=== PATIENT | male | born 1960 | race Caucasian/White ===

== ENCOUNTER → 2017-11-21 07:33 | Outpatient (CLI) | payer OTHER, SELFPAY ==
[2017-11-21 09:06] LABS: Absolute Lymphocyte Count 1.35 X10^3/ul (0.83-4.51); Absolute Neutrophil Count 3.2 X10^3/uL (2.0-7.7); Basophil# 0.06 X10^3/uL; Basophil% 1.2 % (0-1); Eosinophil# 0.12 X10^3/uL; Eosinophils% 2.3 % (0-5); Hemoglobin 14.6 g/dl (13.0-16.5); Lymphocyte # 1.35 X10^3/ul (4.0); Mean Corp Hgb Conc 33.2 g/gl (32-36); Mean Corpuscular Hgb 30.8 pg (27.0-32.0); Mean Corpuscular Volume 92.8 fL (80-94); Mean Platelet Vol. 10.7 fl (6.2-12.0); Monocyte# 0.41 X10^3/uL; Monocyte% 7.9 % (0-10); Neutrophil # 3.24 X10^3/uL (2.7-7.7); Neutrophil % 62.4 % (47-70); Platelet Count 253 K/mm3 (150-450); RBC Distribution Width CV 11.8 % (11.6-14.6); RBC Distribution Width SD 39.5 fl (35.1-43.9); Red Blood Count 4.74 M/mm3 (4.6-6.2); White Blood Count 5.2 K/mm3 (4.4-11.0)
[2017-11-21 09:08] LABS: POSITIVE COUNT NO; POSITIVE DIFFERENTIAL NO; POSITIVE MORPHOLOGY NO
[2017-11-21 09:39] LABS: Color, Urine Yellow (Yellow); Glucose, Dipstick Normal (Normal); Ketone-Dipstick Negative (Negative); Leukocyte Esterase-Dipstick Negative /ul (Negative); Nitrite-Dipstick Negative (Negative); Occult Blood-Urine Negative /ul (Negative); Protein-Dipstick Negative (Negative); Specific Gravity, Urine 1.005 (1.002-1.030); Urine Bilirubin Dipstick Negative (Negative); Urine Clarity Clear (Clear); Urine Urobilinogen Normal (Normal)
[2017-11-21 09:48] LABS: ALB/GLOB Ratio 1.1 RATIO (0.9-2.4); AST(SGOT) 22 U/L (15-37); Alanine Aminotransfer ALT/SGPT 43 U/L (16-61); Albumin, Serum 3.9 g/dL (3.2-5.0); Alkaline Phosphatase 71 U/L (45-117); Anion Gap 9 (5-15); BUN 14 mg/dL (7-18); BUN/Creat Ratio 12.6 RATIO (10-20); Calcium,Total 9.1 mg/dL (8.5-10.1); Chloride 106 mmol/L (98-107); Cholesterol 147 mg/dL (200); Creatinine, Serum 1.11 mg/dL (0.70-1.30); EST Glomerular Filtration Rate 72 mL/min (>60); Est Glom Filt Rate - Afr Amer 88 mL/min (>60); Globulin 3.4 g/dL (2.2-4.2); Glucose 97 mg/dL (74-106); High Density Lipoprotein 44 mg/dL; PSA,Total - Annual Screen 0.54 ng/mL (0.00-4.00); Potassium 3.8 mmol/L (3.5-5.1); Protein, Total 7.3 g/dL (6.4-8.2); Sodium Level 142 mmol/L (136-145); Triglycerides 139 mg/dL; Very Low Density Lipoprotein 28 mg/dL (5-40)
[2017-11-22 11:54] LABS: Vitamin D,25 Hydroxy 27.8 ng/mL (29.95-100.01)
== END ==
PROVIDERS: Family Provider Nurse Practitioner; PCP Nurse Practitioner; Visit Provider Nurse Practitioner
DX: Z00.00 Encounter for general adult medical examination without abnormal findings (principal)
CPT/HCPCS: 36415; 80053; 80061; 81002; 82306; 84153; 85025; G0103

== ENCOUNTER → 2018-12-29 07:16 | Outpatient (CLI) | payer OTHER, SELFPAY ==
[2018-12-29 07:54] LABS: Absolute Lymphocyte Count 1.55 X10^3/uL (0.83-4.51); Absolute Neutrophil Count 3.4 X10^3/uL (2.0-7.7); Basophil# 0.05 X10^3/uL; Basophil% 0.9 % (0-1); Eosinophil# 0.13 X10^3/uL; Eosinophils% 2.3 % (0-5); Hemoglobin 14.8 g/dL (13.0-16.5); Lymphocyte # 1.55 X10^3/ul (4.0); Lymphocyte % 27.6 % (19-41); Mean Corp Hgb Conc 32.9 g/dL (32-36); Mean Corpuscular Hgb 30.9 pg (27.0-32.0); Mean Corpuscular Volume 93.9 fL (80-94); Mean Platelet Vol. 9.8 fl (6.2-12.0); Monocyte# 0.45 X10^3/uL; NRBC Flagged by Analyzer 0 % (0-5); Neutrophil # 3.42 X10^3/uL (2.7-7.7); Platelet Count 248 K/mm3 (150-450); RBC Distribution Width CV 11.7 % (11.6-14.6); RBC Distribution Width SD 40.4 fl (35.1-43.9); Red Blood Count 4.79 M/mm3 (4.6-6.2); White Blood Count 5.6 K/mm3 (4.4-11.0)
[2018-12-29 08:01] LABS: Color, Urine Yellow (Yellow); Glucose, Dipstick Normal (Normal); Ketone-Dipstick Negative (Negative); Leukocyte Esterase-Dipstick Negative /ul (Negative); Nitrite-Dipstick Negative (Negative); Occult Blood-Urine Negative /ul (Negative); Protein-Dipstick Negative (Negative); Urine Bilirubin Dipstick Negative (Negative); Urine Clarity Clear (Clear); Urine Urobilinogen Normal (Normal); Urine pH 6.5 (5.0 - 8.0)
[2018-12-29 08:36] LABS: ALB/GLOB Ratio 1.2 RATIO (0.9-2.4); AST(SGOT) 29 U/L (15-37); Alanine Aminotransfer ALT/SGPT 50 U/L (16-61); Albumin, Serum 4.1 g/dL (3.2-5.0); Alkaline Phosphatase 75 U/L (45-117); Anion Gap 6 (5-15); BUN 15 mg/dL (7-18); BUN/Creat Ratio 13.6 RATIO (10-20); Chloride 106 mmol/L (98-107); Cholesterol 173 mg/dL (200); EST Glomerular Filtration Rate 73 mL/min (>60); Est Glom Filt Rate - Afr Amer 88 mL/min (>60); Globulin 3.5 g/dL (2.2-4.2); Glucose 104 mg/dL (74-106); High Density Lipoprotein 65 mg/dL; PSA,Total - Annual Screen 0.78 ng/mL (0.00-4.00); Protein, Total 7.6 g/dL (6.4-8.2); Sodium Level 141 mmol/L (136-145); Triglycerides 131 mg/dL; Very Low Density Lipoprotein 26 mg/dL (5-40)
== END ==
LOC: LAB.FUTURE 07:18 → LAB 07:32
PROVIDERS: Family Provider Nurse Practitioner; PCP Nurse Practitioner; Referring Provider Nurse Practitioner; Visit Provider Nurse Practitioner
DX: E78.00 Pure hypercholesterolemia, unspecified (principal); I10 Essential (primary) hypertension; E55.9 Vitamin D deficiency, unspecified; Z12.5 Encounter for screening for malignant neoplasm of prostate
CPT/HCPCS: 36415; 80053; 80061; 81002; 82306; 84153; 84443; 85025; G0103

== ENCOUNTER → 2019-01-20 15:19 | Outpatient (CLI) | payer OTHER, SELFPAY ==
[2019-01-20 18:26] LABS: Free T3 2.7 pg/mL (2.18-3.98); T4 Free Direct 0.94 ng/dL (0.76-1.46); Thyroid Stim Hormone (TSH) 8.37 uIU/mL (0.358-3.74)
== END ==
PROVIDERS: Family Provider Nurse Practitioner; PCP Nurse Practitioner; Referring Provider Nurse Practitioner; Visit Provider Nurse Practitioner
DX: R79.89 Other specified abnormal findings of blood chemistry (principal)
CPT/HCPCS: 36415; 84439; 84443; 84481

== ENCOUNTER → 2019-02-17 11:00 | Outpatient (CLI) | payer OTHER, SELFPAY ==
[2019-02-17 11:59] LABS: Thyroid Stim Hormone (TSH) 5.21 uIU/mL (0.358-3.74)
== END ==
PROVIDERS: Family Provider Nurse Practitioner; PCP Nurse Practitioner; Referring Provider Nurse Practitioner; Visit Provider Nurse Practitioner
DX: R79.89 Other specified abnormal findings of blood chemistry (principal)
CPT/HCPCS: 36415; 84443

== ENCOUNTER → 2019-03-25 11:36 | Outpatient (CLI) | payer OTHER, SELFPAY ==
[2019-03-25 14:14] LABS: Thyroid Stim Hormone (TSH) 7.49 uIU/mL (0.358-3.74)
== END ==
PROVIDERS: Family Provider Nurse Practitioner; PCP Nurse Practitioner; Referring Provider Nurse Practitioner; Visit Provider Nurse Practitioner
DX: R79.89 Other specified abnormal findings of blood chemistry (principal)
CPT/HCPCS: 36415; 84443

== ENCOUNTER → 2019-05-21 07:20 | Outpatient (CLI) | payer OTHER, SELFPAY ==
[2019-05-21 08:28] LABS: Free T3 3.2 pg/mL (2.18-3.98); T4 Total, Thyroxin 8.7 ug/dL (4.5-12.1)
== END ==
PROVIDERS: PCP Nurse Practitioner; Referring Provider Nurse Practitioner; Visit Provider Nurse Practitioner
DX: E03.9 Hypothyroidism, unspecified (principal)
CPT/HCPCS: 36415; 84436; 84443; 84481

== ENCOUNTER → 2019-07-01 16:53 | Outpatient (CLI) | payer BC, SELFPAY ==
[2019-07-01 17:47] LABS: Thyroid Stim Hormone (TSH) 5.18 uIU/mL (0.358-3.74)
== END ==
PROVIDERS: PCP Nurse Practitioner; Referring Provider Nurse Practitioner; Visit Provider Nurse Practitioner
DX: E03.9 Hypothyroidism, unspecified (principal)
CPT/HCPCS: 36415; 84443

== ENCOUNTER → 2020-08-19 15:50 | Outpatient (CLI) | payer BC, SELFPAY ==
[2020-08-19 17:27] LABS: Basophil# 0.04 X10^3/uL; Basophil% 0.9 % (0-1); Color, Urine Straw (Yellow); Eosinophil# 0.07 X10^3/uL; Eosinophils% 1.5 % (0-5); Glucose, Dipstick Normal (Normal); Hematocrit 44.2 % (40-54); Hemoglobin 14.7 g/dL (13.0-16.5); Ketone-Dipstick Negative (Negative); Leukocyte Esterase-Dipstick Negative /ul (Negative); Lymphocyte % 25.8 % (19-41); Mean Corp Hgb Conc 33.3 g/dL (32-36); Mean Corpuscular Hgb 31.1 pg (27.0-32.0); Mean Corpuscular Volume 93.4 fL (80-94); Mean Platelet Vol. 10.3 fl (6.2-12.0); Monocyte# 0.32 X10^3/uL; Monocyte% 6.9 % (0-10); NRBC Flagged by Analyzer 0 % (0-5); Neutrophil # 3.02 X10^3/uL (2.7-7.7); Neutrophil % 64.7 % (47-70); Nitrite-Dipstick Negative (Negative); Occult Blood-Urine Negative /ul (Negative); Platelet Count 233 K/mm3 (150-450); Protein-Dipstick Negative (Negative); RBC Distribution Width CV 11.7 % (11.6-14.6); Red Blood Count 4.73 M/mm3 (4.6-6.2); Specific Gravity, Urine 1.005 (1.002-1.030); Urine Bilirubin Dipstick Negative (Negative); Urine Clarity Clear (Clear); Urine Urobilinogen Normal (Normal); White Blood Count 4.7 K/mm3 (4.4-11.0)
[2020-08-19 17:52] LABS: Vitamin D,25 Hydroxy 47.7 ng/mL
[2020-08-19 18:02] LABS: ALB/GLOB Ratio 1.3 RATIO (0.9-2.4); AST(SGOT) 20 U/L (15-37); Alanine Aminotransfer ALT/SGPT 36 U/L (16-61); Albumin, Serum 4.3 g/dL (3.2-5.0); Alkaline Phosphatase 75 U/L (45-117); Anion Gap 6 (5-15); BUN 12 mg/dL (7-18); BUN/Creat Ratio 10.1 RATIO (10-20); Chloride 106 mmol/L (98-107); Cholesterol 173 mg/dL (200); Creatinine, Serum 1.19 mg/dL (0.70-1.30); EST Glomerular Filtration Rate 66 mL/min (>60); Est Glom Filt Rate - Afr Amer 80 mL/min (>60); Globulin 3.4 g/dL (2.2-4.2); Glucose 87 mg/dL (74-106); High Density Lipoprotein 71 mg/dL; PSA,Total - Annual Screen 1.03 ng/mL (0.00-4.00); Potassium 3.7 mmol/L (3.5-5.1); Protein, Total 7.7 g/dL (6.4-8.2); Sodium Level 140 mmol/L (136-145); Thyroid Stim Hormone (TSH) 5.41 uIU/mL (0.358-3.74); Triglycerides 124 mg/dL; Very Low Density Lipoprotein 25 mg/dL (5-40)
== END ==
PROVIDERS: PCP Nurse Practitioner; Referring Provider Nurse Practitioner; Visit Provider Nurse Practitioner
DX: E03.9 Hypothyroidism, unspecified (principal); E78.00 Pure hypercholesterolemia, unspecified; I10 Essential (primary) hypertension; Z12.5 Encounter for screening for malignant neoplasm of prostate; E55.9 Vitamin D deficiency, unspecified
CPT/HCPCS: 36415; 80053; 80061; 81002; 82306; 84153; 84443; 85025; G0103

== ENCOUNTER 2021-03-22 12:38 | Outpatient (CLI) | payer BC, SELFPAY ==
[2021-03-22 14:25] LABS: ALB/GLOB Ratio 1.1 RATIO (0.9-2.4); AST(SGOT) 37 U/L (15-37); Alanine Aminotransfer ALT/SGPT 47 U/L (16-61); Albumin, Serum 4.2 g/dL (3.2-5.0); Alkaline Phosphatase 66 U/L (45-117); Anion Gap 7 (5-15); BUN 14 mg/dL (7-18); BUN/Creat Ratio 13.3 RATIO (10-20); Calcium,Total 9.2 mg/dL (8.5-10.1); Chloride 105 mmol/L (98-107); Cholesterol 207 mg/dL (200); Creatinine, Serum 1.05 mg/dL (0.70-1.30); EST Glomerular Filtration Rate 76 mL/min (>60); Est Glom Filt Rate - Afr Amer 92 mL/min (>60); Globulin 3.8 g/dL (2.2-4.2); Glucose 97 mg/dL (74-106); High Density Lipoprotein 70 mg/dL; Potassium 4.8 mmol/L (3.5-5.1); Sodium Level 140 mmol/L (136-145); Thyroid Stim Hormone (TSH) 6.76 uIU/mL (0.358-3.74); Triglycerides 116 mg/dL; Very Low Density Lipoprotein 23 mg/dL (5-40)
== END 2021-03-22 23:59 | disposition short-term general hospital (02) ==
LOC: LAB 12:41
PROVIDERS: PCP Nurse Practitioner; Referring Provider Nurse Practitioner; Visit Provider Nurse Practitioner
DX: E78.00 Pure hypercholesterolemia, unspecified (principal); E03.9 Hypothyroidism, unspecified
CPT/HCPCS: 36415; 80053; 80061; 84443

== ENCOUNTER → 2021-12-14 | Outpatient (CLI) | payer BC, SELFPAY ==
[2021-12-14 09:22] LABS: Color, Urine Yellow (Yellow); Glucose, Dipstick Normal (Normal); Ketone-Dipstick 5 mg/dl (Negative); Leukocyte Esterase-Dipstick 25 /ul (Negative); Nitrite-Dipstick Negative (Negative); Occult Blood-Urine 10 /ul (Negative); Protein-Dipstick 15 mg/dl (Negative); Urine Bilirubin Dipstick Negative (Negative); Urine Clarity Sl. Cloudy (Clear); Urine Urobilinogen Normal (Normal)
[2021-12-14 09:23] LABS: Absolute Lymphocyte Count 1.59 X10^3/uL (0.83-4.51); Absolute Neutrophil Count 3.5 X10^3/uL (2.0-7.7); Basophil# 0.05 X10^3/uL; Basophil% 0.9 % (0-1); Eosinophil# 0.13 X10^3/uL; Eosinophils% 2.3 % (0-5); Hematocrit 42.3 % (40-54); Hemoglobin 14.1 g/dL (13.0-16.5); Lymphocyte # 1.59 X10^3/ul (0.83-4.51); Lymphocyte % 27.6 % (19-41); Mean Corp Hgb Conc 33.3 g/dL (32-36); Mean Corpuscular Hgb 31.1 pg (27.0-32.0); Mean Corpuscular Volume 93.2 fL (80-94); Mean Platelet Vol. 10.2 fl (6.2-12.0); Monocyte# 0.44 X10^3/uL; Monocyte% 7.6 % (0-10); NRBC Flagged by Analyzer 0 % (0-5); Neutrophil # 3.53 X10^3/uL (2.7-7.7); Neutrophil % 61.3 % (47-70); Platelet Count 290 K/mm3 (150-450); RBC Distribution Width CV 11.7 % (11.6-14.6); RBC Distribution Width SD 39.5 fl (35.1-43.9); Red Blood Count 4.54 M/mm3 (4.6-6.2); White Blood Count 5.8 K/mm3 (4.4-11.0)
[2021-12-14 10:07] LABS: ALB/GLOB Ratio 1.1 RATIO (0.9-2.4); AST(SGOT) 21 U/L (15-37); Alanine Aminotransfer ALT/SGPT 37 U/L (16-61); Albumin, Serum 3.9 g/dL (3.2-5.0); Alkaline Phosphatase 82 U/L (45-117); Anion Gap 9 (5-15); BUN 11 mg/dL (7-18); BUN/Creat Ratio 9.6 RATIO (10-20); Calcium,Total 9.1 mg/dL (8.5-10.1); Chloride 107 mmol/L (98-107); Cholesterol 171 mg/dL (200); Creatinine, Serum 1.14 mg/dL (0.70-1.30); EST Glomerular Filtration Rate 69 mL/min (>60); Est Glom Filt Rate - Afr Amer 84 mL/min (>60); Free T3 2.6 pg/mL (2.18-3.98); Globulin 3.6 g/dL (2.2-4.2); Glucose 110 mg/dL (74-106); High Density Lipoprotein 54 mg/dL; PSA,Total - Annual Screen 0.68 ng/mL (0.00-4.00); Potassium 3.9 mmol/L (3.5-5.1); Protein, Total 7.5 g/dL (6.4-8.2); Sodium Level 142 mmol/L (136-145); T4 Free Direct 1.09 ng/dL (0.76-1.46); Thyroid Stim Hormone (TSH) 8.32 uIU/mL (0.358-3.74); Triglycerides 124 mg/dL; Very Low Density Lipoprotein 25 mg/dL (5-40)
== END | disposition home or self-care (01) ==
LOC: LAB 07:23
PROVIDERS: PCP Internal Medicine; Referring Provider Internal Medicine; Visit Provider Internal Medicine
DX: E03.9 Hypothyroidism, unspecified (principal); E78.00 Pure hypercholesterolemia, unspecified; Z12.5 Encounter for screening for malignant neoplasm of prostate; I10 Essential (primary) hypertension
CPT/HCPCS: 36415; 80053; 80061; 81002; 84153; 84439; 84443; 84481; 85025; G0103

== ENCOUNTER 2022-02-19 13:40 | Outpatient (CLI) | payer BC, SELFPAY ==
[2022-02-19 15:30] LABS: Color, Urine Straw (Yellow); Glucose, Dipstick Normal (Normal); Ketone-Dipstick Negative (Negative); Leukocyte Esterase-Dipstick Negative /ul (Negative); Nitrite-Dipstick Negative (Negative); Occult Blood-Urine Negative /ul (Negative); Protein-Dipstick Negative (Negative); Specific Gravity, Urine 1.005 (1.002-1.030); Urine Bilirubin Dipstick Negative (Negative); Urine Clarity Clear (Clear); Urine Urobilinogen Normal (Normal)
[2022-02-19 16:00] LABS: Microalbumin,Random Urine < 5.0 mg/L (NO RANGE EST.)
[2022-02-19 16:07] LABS: Anion Gap 4 (5-15); BUN 13 mg/dL (7-18); BUN/Creat Ratio 13.8 RATIO (10-20); Calcium,Total 9.4 mg/dL (8.5-10.1); Chloride 108 mmol/L (98-107); Creatinine, Serum 0.94 mg/dL (0.70-1.30); EST Glomerular Filtration Rate 86 mL/min (>60); Est Glom Filt Rate - Afr Amer 104 mL/min (>60); Glucose 91 mg/dL (74-106); Sodium Level 140 mmol/L (136-145); T4 Free Direct 1.13 ng/dL (0.76-1.46); Thyroid Stim Hormone (TSH) 3.88 uIU/mL (0.358-3.74)
== END 2022-02-19 23:59 | disposition home or self-care (01) ==
LOC: LAB 13:42
PROVIDERS: PCP Nurse Practitioner Family; Referring Provider Nurse Practitioner Family; Visit Provider Nurse Practitioner Family
DX: R80.9 Proteinuria, unspecified (principal); E03.9 Hypothyroidism, unspecified
CPT/HCPCS: 36415; 80048; 81002; 82043; 82570; 84439; 84443

== ENCOUNTER → 2023-04-23 | Outpatient (CLI) | payer BC, SELFPAY ==
--- OUTSIDE RECORDS SUMMARY | 2023-04-23 06:50 | XMS RPT_ITS | CCD ---
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 Name Role Phone Marcy Callahan E Unavailable Adis Flores Unavailable Celia Chamorro Unavailable Unavailable True Cardoso Unavailable Unavailable Unavailable Unavailable True Cardoso Unavailable Unavailable Slarb, Ivette Unavailable Unavailable Gravius, Kasie Unavailable Unavailable True Gonzales Unavailable Unavailable Fatoumata Mcmillan Unavailable AMOS CAMERON Attending Unavailable AMOS CAMERON Primary Care Unavailable AMOS CAMERON Admitting Unavailable CiMarcy milligan CNP E Unavailable True Gonzales LPN Unavailable Unavailable Slarb REGIONAL CRA, Ivette Unavailable Unavailable Gravius LOAN REVIEWER, Kasie Unavailable Unavailable Celia Chamorro Unavailable Unavailable Unavailable Unavailable Debra Henriquez MA Unavailable Unavailable Deniaesa Marcy Unavailable Ambreena Marcy Unavailable Leesa Yost CNP Unavailable Leesa Yost CNP Unavailable [phone] Ambreena Marcy Unavailable Unavailable Ciesa, Marcy Unavailable Leesa Yost CNP Attending Unavailable Marcy Callahan Referring Unavailable Leesa Yost CNP Consulting Unavailable Medications Completed/Discontinued Medications Medication Drug Class(es) Dates Sig (Normalized) Sig (Original) amoxicillin 875 mg / clavulanate 125 mg oral tablet (20 sources) Penicillin-class Antibacterial Start: 01-27-2019 End: 02-10-2019 take 1 tablet by mouth twice daily Augmentin 875-125 MG Oral Tablet 1 (one) Tablet bid for 14 days Quantity: 28 {Tablet} Refills: 0 Ordered: 27-Jan-2019 Marcy Callahan Start : 27-Jan-2019 End : 10-Feb-2019 Inactive Problems Active Problems Problem Classification Problem Date Documented Da te Episodic/Chronic Diabetes mellitus without complication (20 sources) Impaired fasting glucose; Translations: [Impaired fasting glycaemia] Resolved: 10-18-2014 10-18-2014 Episodic Past or Other Problems Problem Classification Problem Date Documented Da te Episodic/Chronic Essential hypertension (20 sources) Essential hypertension Other ear and sense organ disorders (14 sources) Infective otitis externa; Translations: [Infective otitis externa, unspecified laterality] Resolved: 06-29-2013 02-09-2015 Episodic Other ear and sense organ disorders (8 sources) Otalgia of right ear; Translations: [Otalgia, right] 01-27-2019 Other lower respiratory disease (20 sources) Cough; Translations: [Cough] Resolved: 08-12-2015 11-12-2018 Episodic Other lower respiratory disease (10 sources) Lung mass; Translations: [Lung nodule] Resolved: 06-29-2013 06-29-2013 Episodic Results Test Name Value Interpretation Reference Range Facil ity Vital Signs Date Time Vital Sign Value Performing Clinician Facility 04-10-2022 08:16-0500 Body height 182.88 cm Ivette Francis LPN [facility] Work Phone: 04-10-2022 08:16-0500 Body mass index (BMI) [Ratio] 26.85 kg/m2 Ivette Francis LPN [facility] Work Phone: 04-10-2022 08:16-0500 Body surface area Derived from formula 2.12 m2 Ivette Francis LPN [facility] Work Phone: 04-10-2022 08:16-0500 Body temperature 97.8 [degF] Ivette Francis LPN [facility] Work Phone: Encounters Encounter Date Encounter Type Care Provider Facility Start: 04-18-2022 ambulatory Leesa Yost CNP [facility] Start: 04-10-2022 End: 04-10-2022 Office outpatient visit 15 minutes Leesa Yost CNP Work Phone: [facility] Start: 01-09-2022 End: 01-09-2022 Lab Order Leesa Yost LEASE ATTENDANT Work Phone: [facility] Start: 01-09-2022 End: 01-09-2022 Annotation/Addendum Leesa Yost LEASE ATTENDANT Work Phone: [facility] Start: 12-20-2021 End: 12-29-2021 Office outpatient visit 15 minutes Leesa Yost LEASE ATTENDANT Work Phone: [facility] Start: 11-24-2021 End: 11-24-2021 Lab Order Leesa Yost LEASE ATTENDANT Work Phone: [facility] Start: 08-23-2021 End: 08-23-2021 Phone Encounter Marcy Callahan Work Phone: [facility] Start: 07-06-2021 End: 07-06-2021 Lab Order Marcy Callaahn Work Phone: [facility] Start: 05-18-2021 End: 05-18-2021 Lab Order Marcy Callahan LEASE ATTENDANT Work Phone: [facility] Start: 05-18-2021 End: 05-18-2021 Annotation/Addendum Marcy Callahan LEASE ATTENDANT Work Phone: [facility] Start: 03-29-2021 End: 03-29-2021 Office outpatient visit 15 minutes Marcy Callahan LEASE ATTENDANT Work Phone: [facility] Start: 08-30-2020 End: 08-30-2020 Office outpatient visit 15 minutes Marcy Callahan LEASE ATTENDANT Work Phone: [facility] Start: 05-31-2020 End: 05-31-2020 Patient encounter procedure AMOS CAMERON [facility] Start: 11-17-2019 End: 11-17-2019 Lab Order Marcy Crooksurjit [facility] Start: 07-03-2019 End: 07-03-2019 Phone Encounter Marcy Lozatonesurjit [facility] Start: 06-15-2019 End: 06-15-2019 Office outpatient visit 5 minutes Marcy Callahan [facility] Start: 06-12-2019 End: 06-12-2019 Lab Order Marcy Callahan [facility] Start: 05-22-2019 End: 05-22-2019 Annotation/Addendum Marcy Callahan [facility] Start: 04-16-2019 End: 04-16-2019 Office outpatient visit 5 minutes Marcy Callahan [facility] Start: 03-27-2019 End: 03-27-2019 Phone Encounter Marcy Callahan [facility] Start: 02-17-2019 End: 02-17-2019 Annotation/Addendum Marcy Callahan [facility] Start: 02-17-2019 End: 02-17-2019 Lab Order Marcy Callahan [facility] Start: 01-27-2019 End: 01-27-2019 Office outpatient visit 15 minutes Marcy Callahan [facility] Start: 01-23-2019 End: 01-23-2019 Office outpatient visit 15 minutes Marcy Callahan [facility] Start: 01-21-2019 End: 01-21-2019 Lab Order Marcy Callahan [facility] Start: 01-20-2019 End: 01-20-2019 Office outpatient visit 25 minutes Marcy Callahan [facility] Start: 01-20-2019 [facility] Start: 12-10-2018 End: 12-10-2018 Lab Order Marcy Callahan [facility] Start: 11-12-2018 End: 11-12-2018 Annotation/Addendum Marcy Callahan [facility] Start: 11-25-2017 End: 11-25-2017 Office outpatient visit 25 minutes Marcy Callahan [facility] Start: 11-20-2017 End: 11-20-2017 Lab Order Marcy Callahan [facility] Start: 11-20-2017 End: 11-20-2017 Physical examination Leesa Yost CNP Work Phone: [facility] Start: 10-01-2016 End: 10-01-2016 Office outpatient visit 25 minutes Marcy Ambreensurjit [facility] Start: 08-12-2015 End: 08-12-2015 Office outpatient visit 25 minutes Marcy Crooksurjit [facility] Start: 08-12-2015 End: 08-12-2015 Physical examination Leesa Yost CNP Work Phone: [facility] Start: 02-15-2015 End: 02-15-2015 Office outpatient visit 15 minutes Marcy Callahan [facility] Start: 10-18-2014 End: 10-18-2014 Patient encounter status Leesa Yost CNP Work Phone: [facility] Start: 10-18-2014 End: 10-18-2014 Periodic preventive med est patient 18-39 yrs Marcy Callahan [facility] Start: 09-16-2014 End: 09-16-2014 Lab Order Marcy Callahan [facility] Start: 09-07-2013 End: 09-07-2013 Office outpatient visit 15 minutes Marcy Callahan [facility] Start: 08-24-2013 End: 08-24-2013 Patient encounter procedure Marcy Callahan [facility] Start: 08-24-2013 End: 08-24-2013 Patient encounter status Leesa Yost CNP Work Phone: [facility] Start: 07-06-2013 End: 07-06-2013 Lab Order Marcy Callahan [facility] Start: 06-29-2013 End: 06-29-2013 Patient encounter procedure Marcy Callahan [facility] Start: 05-19-2012 End: 05-19-2012 Patient encounter procedure Marcy Callahan [facility] Start: 05-19-2012 End: 05-19-2012 Patient encounter status Leesa Yost CNP Work Phone: [facility] Start: 03-28-2012 End: 03-28-2012 Phone Encounter Marcy Callahan [facility] Start: 03-25-2012 End: 03-25-2012 Patient encounter status Leesa Yost CNP Work Phone: [facility] Start: 03-25-2012 End: 03-25-2012 Phone Encounter Marcy Callahan [facility] Start: 09-24-2011 End: 09-24-2011 Office outpatient visit 10 minutes Marcy Callahan [facility] Start: 05-14-2011 End: 05-14-2011 Patient encounter procedure Marcy Crooka [facility] Start: 05-14-2011 End: 05-14-2011 Patient encounter status Leesa Yost CNP Work Phone: [facility] Start: 2010 End: 2010 Patient encounter procedure Marcy Crooka [facility] Start: 2010 End: 2010 Patient encounter status Leesa Yost CNP Work Phone: [facility] Start: 02-27-2010 End: 02-27-2010 Patient encounter procedure Marcy Callahan [facility] Start: 02-27-2010 End: 02-27-2010 Patient encounter status Leesa Yost CNP Work Phone: [facility] Start: 02-21-2010 End: 02-21-2010 Phone Encounter Marcy Callahan [facility] Start: 08-29-2009 End: 08-29-2009 Patient encounter procedure Marcy Callahan [facility] Start: 08-29-2009 End: 08-29-2009 Patient encounter status Leesa Yost CNP Work Phone: [facility] Start: 02-21-2009 End: 02-21-2009 Patient encounter procedure Marcy Callahan [facility] Start: 08-23-2008 End: 08-23-2008 Patient encounter procedure Marcy Callahan [facility] Start: 08-23-2008 End: 08-23-2008 Patient encounter status Leesa Yost CNP Work Phone: [facility] Start: 04-12-2008 End: 04-12-2008 Patient encounter procedure Marcy Callahan [facility] Start: 11-25-2007 End: 11-25-2007 Nursing evaluation of patient and report Marcy Callahan [facility] Start: 11-14-2007 End: 11-14-2007 Patient encounter procedure Marcy Callahan [facility] Start: 05-02-2007 End: 05-02-2007 Office outpatient visit 15 minutes Marcy Callahan [facility] Start: 04-11-2007 End: 04-11-2007 Patient encounter procedure Marcy Callahan [facility] Physical examination True Gonzales LPN [facility] Work Phone: Procedures Date Procedure Procedure Detail Performing Clinician Inguinal hernia surgery left 1979 Celia Chamorro Inguinal hernia surgery left 1979 True Cardsoo Inguinal hernia surgery left 1979 Ivette Slarb Inguinal hernia surgery left 1979 True Cardoso Inguinal hernia surgery left 1979 True Gonzales REGIONAL CRA Inguinal hernia surgery left 1979 True Gonzales LPN Inguinal hernia surgery left 1979 Ivette Slarb REGIONAL CRA Inguinal hernia surgery left 1979 Ivette Alinerb REGIONAL CRA Plan of Treatment Date Care Activity Detail Author Start: 04-10-2022 Procedure Education Eprescribed prescriptions (G8553) [facility] Work Phone: Start: 01-09-2022 Assay of free thyroxine T4, FREE (THYROXINE) (70502) [facility] Work Phone: Immunizations Immunization Date Immunization Notes Care Provider Areli tillman 06-15-2019 [facility] Work Phone: Payers Date Payer Category Payer Unknown [id number] 2006 Unknown [id number] 1959 Unknown [id number] 1960 Unknown [id number] Unknown Unknown [id number] Social History Date Type Detail Facility Caffeine Use Caffeine Use [facility] Work Phone: Clinical Notes Note Date & Type Note Facility [facility] Work Phone: Instructions* Name Dates Details Patient Instructions Indication:Current nonsmoker (Renamed from Current non-smoker) Start:30-Aug-2020 Instruction Type:Provider Instructions for Treatment How to Access Health Informa tion Online using Patient Portal and [employer] Apps Indication:Current nonsmoker (Renamed from Current non-smoker) Start:30-Aug-2020 Instruction Type:Patient Education How to access health informa tion online Indication:ETD (Eustachian tube dysfunction), right Start:27-Jan-2019 Instruction Type:Patient Education How to access health informa tion online - Detail Indication:ETD (Eustachian tube dysfunction), right Start:27-Jan-2019 Instruction Type:Patient Education Patient Instructions Indication:ETD (Eustachian tube dysfunction), right Start:27-Jan-2019 Instruction Type:Provider Instructions for Treatment How to access health informa tion online Indication:Sore throat Start:23-Jan-2019 Instruction Type:Patient Education How to access health informa tion online - Detail Indication:Sore throat Start:23-Jan-2019 Instruction Type:Patient Education Patient Instructions Indication:Sore throat Start:23-Jan-2019 Instruction Type:Provider Instructions for Treatment How to access health informa tion online Indication:Current nonsmoker (Renamed from Current non-smoker) Start:20-Jan-2019 Instruction Type:Patient Education How to access health informa tion online - Detail Indication:Current nonsmoker (Renamed from Current non-smoker) Start:20-Jan-2019 Instruction Type:Patient Education Patient Instructions Indication:Keratosis Start:20-Jan-2019 Instruction Type:Provider Instructions for Treatment How to access health informa tion online Indication:Current nonsmoker (Renamed from Current non-smoker) Start:25-Nov-2017 Instruction Type:Patient Education How to access health informa tion online - Detail Indication:Current nonsmoker (Renamed from Current non-smoker) Start:25-Nov-2017 Instruction Type:Patient Education Patient Instructions Indication:Need for prophylactic vaccination and inoculation against influenza Start:25-Nov-2017 Instruction Type:Provider Instructions for Treatment How to access health informa tion online Indication:Hypercholesteremia Start:12-Aug-2015 Instruction Type:Patient Education How to access health informa tion online - Detail Indication:Hypercholesteremia Start:12-Aug-2015 Instruction Type:Patient Education Patient Instructions Indication:Hypercholesteremia Start:12-Aug-2015 Instruction Type:Provider Instructions for Treatment How to access health informa tion online - Detail Indication:Benign essential hypertension Start:18-Oct-2014 Instruction Type:Patient Education Patient Instructions Indication:Benign essential hypertension Start:18-Oct-2014 Instruction Type:Provider Instructions for Treatment Patient Instructions Indication:Sinusitis, acute Start:07-Sep-2013 Instruction Type:Provider Instructions for Treatment Patient Instructions Indication:Overweight Start:24-Aug-2013 Instruction Type:Provider Instructions for Treatment DISCONTINUED - CT - Chest Indication:Lung nodule Start:19-May-2012 Instruction Type:Patient Education Patient Instructions Indication:Impaired fasting glucose Start:19-May-2012 Instruction Type:Provider Instructions for Treatment [facility] Work Phone: Instructions* Name Dates Details Patient Instructions Indication:Current nonsmoker (Renamed from Current non-smoker) Start:29-Mar-2021 Instruction Type:Provider Instructions for Treatment How to Access Health Informa tion Online using Patient Portal and [employer] Apps Indication:Current nonsmoker (Renamed from Current non-smoker) Start:29-Mar-2021 Instruction Type:Patient Education Patient Instructions Indication:Current nonsmoker (Renamed from Current non-smoker) Start:30-Aug-2020 Instruction Type:Provider Instructions for Treatment How to Access Health Informa tion Online using Patient Portal and [employer] Apps Indication:Current nonsmoker (Renamed from Current non-smoker) Start:30-Aug-2020 Instruction Type:Patient Education How to access health informa tion online Indication:ETD (Eustachian tube dysfunction), right Start:27-Jan-2019 Instruction Type:Patient Education How to access health informa tion online - Detail Indication:ETD (Eustachian tube dysfunction), right Start:27-Jan-2019 Instruction Type:Patient Education Patient Instructions Indication:ETD (Eustachian tube dysfunction), right Start:27-Jan-2019 Instruction Type:Provider Instructions for Treatment How to access health informa tion online Indication:Sore throat Start:23-Jan-2019 Instruction Type:Patient Education How to access health informa tion online - Detail Indication:Sore throat Start:23-Jan-2019 Instruction Type:Patient Education Patient Instructions Indication:Sore throat Start:23-Jan-2019 Instruction Type:Provider Instructions for Treatment How to access health informa tion online Indication:Current nonsmoker (Renamed from Current non-smoker) Start:20-Jan-2019 Instruction Type:Patient Education How to access health informa tion online - Detail Indication:Current nonsmoker (Renamed from Current non-smoker) Start:20-Jan-2019 Instruction Type:Patient Education Patient Instructions Indication:Keratosis Start:20-Jan-2019 Instruction Type:Provider Instructions for Treatment How to access health informa tion online Indication:Current nonsmoker (Renamed from Current non-smoker) Start:25-Nov-2017 Instruction Type:Patient Education How to access health informa tion online - Detail Indication:Current nonsmoker (Renamed from Current non-smoker) Start:25-Nov-2017 Instruction Type:Patient Education Patient Instructions Indication:Need for prophylactic vaccination and inoculation against influenza Start:25-Nov-2017 Instruction Type:Provider Instructions for Treatment How to access health informa tion online Indication:Hypercholesteremia Start:12-Aug-2015 Instruction Type:Patient Education How to access health informa tion online - Detail Indication:Hypercholesteremia Start:12-Aug-2015 Instruction Type:Patient Education Patient Instructions Indication:Hypercholesteremia Start:12-Aug-2015 Instruction Type:Provider Instructions for Treatment How to access health informa tion online - Detail Indication:Benign essential hypertension Start:18-Oct-2014 Instruction Type:Patient Education Patient Instructions Indication:Benign essential hypertension Start:18-Oct-2014 Instruction Type:Provider Instructions for Treatment Patient Instructions Indication:Sinusitis, acute Start:07-Sep-2013 Instruction Type:Provider Instructions for Treatment Patient Instructions Indication:Overweight Start:24-Aug-2013 Instruction Type:Provider Instructions for Treatment DISCONTINUED - CT - Chest Indication:Lung nodule Start:19-May-2012 Instruction Type:Patient Education Patient Instructions Indication:Impaired fasting glucose Start:19-May-2012 Instruction Type:Provider Instructions for Treatment [facility] Work Phone: Instructions* Name Dates Details Patient Instructions Indication:Current nonsmoker (Renamed from Current non-smoker) Start:29-Mar-2021 Instruction Type:Provider Instructions for Treatment How to Access Health Informa tion Online using Patient Portal and [employer] Apps Indication:Current nonsmoker (Renamed from Current non-smoker) Start:29-Mar-2021 Instruction Type:Patient Education Patient Instructions Indication:Current nonsmoker (Renamed from Current non-smoker) Start:30-Aug-2020 Instruction Type:Provider Instructions for Treatment How to Access Health Informa tion Online using Patient Portal and [employer] Apps Indication:Current nonsmoker (Renamed from Current non-smoker) Start:30-Aug-2020 Instruction Type:Patient Education How to access health informa tion online Indication:ETD (Eustachian tube dysfunction), right Start:27-Jan-2019 Instruction Type:Patient Education How to access health informa tion online - Detail Indication:ETD (Eustachian tube dysfunction), right Start:27-Jan-2019 Instruction Type:Patient Education Patient Instructions Indication:ETD (Eustachian tube dysfunction), right Start:27-Jan-2019 Instruction Type:Provider Instructions for Treatment How to access health informa tion online Indication:Sore throat Start:23-Jan-2019 Instruction Type:Patient Education How to access health informa tion online - Detail Indication:Sore throat Start:23-Jan-2019 Instruction Type:Patient Education Patient Instructions Indication:Sore throat Start:23-Jan-2019 Instruction Type:Provider Instructions for Treatment How to access health informa tion online Indication:Current nonsmoker (Renamed from Current non-smoker) Start:20-Jan-2019 Instruction Type:Patient Education How to access health informa tion online - Detail Indication:Current nonsmoker (Renamed from Current non-smoker) Start:20-Jan-2019 Instruction Type:Patient Education Patient Instructions Indication:Keratosis Start:20-Jan-2019 Instruction Type:Provider Instructions for Treatment How to access health informa tion online Indication:Current nonsmoker (Renamed from Current non-smoker) Start:25-Nov-2017 Instruction Type:Patient Education How to access health informa tion online - Detail Indication:Current nonsmoker (Renamed from Current non-smoker) Start:25-Nov-2017 Instruction Type:Patient Education Patient Instructions Indication:Need for prophylactic vaccination and inoculation against influenza Start:25-Nov-2017 Instruction Type:Provider Instructions for Treatment How to access health informa tion online Indication:Hypercholesteremia Start:12-Aug-2015 Instruction Type:Patient Education How to access health informa tion online - Detail Indication:Hypercholesteremia Start:12-Aug-2015 Instruction Type:Patient Education Patient Instructions Indication:Hypercholesteremia Start:12-Aug-2015 Instruction Type:Provider Instructions for Treatment How to access health informa tion online - Detail Indication:Benign essential hypertension Start:18-Oct-2014 Instruction Type:Patient Education Patient Instructions Indication:Benign essential hypertension Start:18-Oct-2014 Instruction Type:Provider Instructions for Treatment Patient Instructions Indication:Sinusitis, acute Start:07-Sep-2013 Instruction Type:Provider Instructions for Treatment Patient Instructions Indication:Overweight Start:24-Aug-2013 Instruction Type:Provider Instructions for Treatment DISCONTINUED - CT - Chest Indication:Lung nodule Start:19-May-2012 Instruction Type:Patient Education Patient Instructions Indication:Impaired fasting glucose Start:19-May-2012 Instruction Type:Provider Instructions for Treatment [facility] Work Phone: Instructions* Name Dates Details Patient Instructions Indication:Current nonsmoker (Renamed from Current non-smoker) Start:29-Mar-2021 Instruction Type:Provider Instructions for Treatment How to Access Health Informa tion Online using Patient Portal and [employer] Apps Indication:Current nonsmoker (Renamed from Current non-smoker) Start:29-Mar-2021 Instruction Type:Patient Education Patient Instructions Indication:Current nonsmoker (Renamed from Current non-smoker) Start:30-Aug-2020 Instruction Type:Provider Instructions for Treatment How to Access Health Informa tion Online using Patient Portal and [employer] Apps Indication:Current nonsmoker (Renamed from Current non-smoker) Start:30-Aug-2020 Instruction Type:Patient Education How to access health informa tion online Indication:ETD (Eustachian tube dysfunction), right Start:27-Jan-2019 Instruction Type:Patient Education How to access health informa tion online - Detail Indication:ETD (Eustachian tube dysfunction), right Start:27-Jan-2019 Instruction Type:Patient Education Patient Instructions Indication:ETD (Eustachian tube dysfunction), right Start:27-Jan-2019 Instruction Type:Provider Instructions for Treatment How to access health informa tion online Indication:Sore throat Start:23-Jan-2019 Instruction Type:Patient Education How to access health informa tion online - Detail Indication:Sore throat Start:23-Jan-2019 Instruction Type:Patient Education Patient Instructions Indication:Sore throat Start:23-Jan-2019 Instruction Type:Provider Instructions for Treatment How to access health informa tion online Indication:Current nonsmoker (Renamed from Current non-smoker) Start:20-Jan-2019 Instruction Type:Patient Education How to access health informa tion online - Detail Indication:Current nonsmoker (Renamed from Current non-smoker) Start:20-Jan-2019 Instruction Type:Patient Education Patient Instructions Indication:Keratosis Start:20-Jan-2019 Instruction Type:Provider Instructions for Treatment How to access health informa tion online Indication:Current nonsmoker (Renamed from Current non-smoker) Start:25-Nov-2017 Instruction Type:Patient Education How to access health informa tion online - Detail Indication:Current nonsmoker (Renamed from Current non-smoker) Start:25-Nov-2017 Instruction Type:Patient Education Patient Instructions Indication:Need for prophylactic vaccination and inoculation against influenza Start:25-Nov-2017 Instruction Type:Provider Instructions for Treatment How to access health informa tion online Indication:Hypercholesteremia Start:12-Aug-2015 Instruction Type:Patient Education How to access health informa tion online - Detail Indication:Hypercholesteremia Start:12-Aug-2015 Instruction Type:Patient Education Patient Instructions Indication:Hypercholesteremia Start:12-Aug-2015 Instruction Type:Provider Instructions for Treatment How to access health informa tion online - Detail Indication:Benign essential hypertension Start:18-Oct-2014 Instruction Type:Patient Education Patient Instructions Indication:Benign essential hypertension Start:18-Oct-2014 Instruction Type:Provider Instructions for Treatment Patient Instructions Indication:Sinusitis, acute Start:07-Sep-2013 Instruction Type:Provider Instructions for Treatment Patient Instructions Indication:Overweight Start:24-Aug-2013 Instruction Type:Provider Instructions for Treatment DISCONTINUED - CT - Chest Indication:Lung nodule Start:19-May-2012 Instruction Type:Patient Education Patient Instructions Indication:Impaired fasting glucose Start:19-May-2012 Instruction Type:Provider Instructions for Treatment [facility]; [facility] Work Phone: Instructions* Name Dates Details Patient Instructions Indication:Current nonsmoker (Renamed from Current non-smoker) Start:29-Mar-2021 Instruction Type:Provider Instructions for Treatment How to Access Health Informa tion Online using Patient Portal and [employer] Apps Indication:Current nonsmoker (Renamed from Current non-smoker) Start:29-Mar-2021 Instruction Type:Patient Education Patient Instructions Indication:Current nonsmoker (Renamed from Current non-smoker) Start:30-Aug-2020 Instruction Type:Provider Instructions for Treatment How to Access Health Informa tion Online using Patient Portal and [employer] Apps Indication:Current nonsmoker (Renamed from Current non-smoker) Start:30-Aug-2020 Instruction Type:Patient Education How to access health informa tion online Indication:ETD (Eustachian tube dysfunction), right Start:27-Jan-2019 Instruction Type:Patient Education How to access health informa tion online - Detail Indication:ETD (Eustachian tube dysfunction), right Start:27-Jan-2019 Instruction Type:Patient Education Patient Instructions Indication:ETD (Eustachian tube dysfunction), right Start:27-Jan-2019 Instruction Type:Provider Instructions for Treatment How to access health informa tion online Indication:Sore throat Start:23-Jan-2019 Instruction Type:Patient Education How to access health informa tion online - Detail Indication:Sore throat Start:23-Jan-2019 Instruction Type:Patient Education Patient Instructions Indication:Sore throat Start:23-Jan-2019 Instruction Type:Provider Instructions for Treatment How to access health informa tion online Indication:Current nonsmoker (Renamed from Current non-smoker) Start:20-Jan-2019 Instruction Type:Patient Education How to access health informa tion online - Detail Indication:Current nonsmoker (Renamed from Current non-smoker) Start:20-Jan-2019 Instruction Type:Patient Education Patient Instructions Indication:Keratosis Start:20-Jan-2019 Instruction Type:Provider Instructions for Treatment How to access health informa tion online Indication:Current nonsmoker (Renamed from Current non-smoker) Start:25-Nov-2017 Instruction Type:Patient Education How to access health informa tion online - Detail Indication:Current nonsmoker (Renamed from Current non-smoker) Start:25-Nov-2017 Instruction Type:Patient Education Patient Instructions Indication:Need for prophylactic vaccination and inoculation against influenza Start:25-Nov-2017 Instruction Type:Provider Instructions for Treatment How to access health informa tion online Indication:Hypercholesteremia Start:12-Aug-2015 Instruction Type:Patient Education How to access health informa tion online - Detail Indication:Hypercholesteremia Start:12-Aug-2015 Instruction Type:Patient Education Patient Instructions Indication:Hypercholesteremia Start:12-Aug-2015 Instruction Type:Provider Instructions for Treatment How to access health informa tion online - Detail Indication:Benign essential hypertension Start:18-Oct-2014 Instruction Type:Patient Education Patient Instructions Indication:Benign essential hypertension Start:18-Oct-2014 Instruction Type:Provider Instructions for Treatment Patient Instructions Indication:Sinusitis, acute Start:07-Sep-2013 Instruction Type:Provider Instructions for Treatment Patient Instructions Indication:Overweight Start:24-Aug-2013 Instruction Type:Provider Instructions for Treatment DISCONTINUED - CT - Chest Indication:Lung nodule Start:19-May-2012 Instruction Type:Patient Education Patient Instructions Indication:Impaired fasting glucose Start:19-May-2012 Instruction Type:Provider Instructions for Treatment [facility]; [facility] Work Phone: Instructions* Name Dates Details Patient Instructions Indication:Current nonsmoker (Renamed from Current non-smoker) Start:29-Mar-2021 Instruction Type:Provider Instructions for Treatment How to Access Health Informa tion Online using Patient Portal and [employer] Apps Indication:Current nonsmoker (Renamed from Current non-smoker) Start:29-Mar-2021 Instruction Type:Patient Education Patient Instructions Indication:Current nonsmoker (Renamed from Current non-smoker) Start:30-Aug-2020 Instruction Type:Provider Instructions for Treatment How to Access Health Informa tion Online using Patient Portal and [employer] Indication:Current nonsmoker (Renamed from Current non-smoker) Start:30-Aug-2020 Instruction Type:Patient Education How to access health informa tion online Indication:ETD (Eustachian tube dysfunction), right Start:27-Jan-2019 Instruction Type:Patient Education How to access health informa tion online - Detail Indication:ETD (Eustachian tube dysfunction), right Start:27-Jan-2019 Instruction Type:Patient Education Patient Instructions Indication:ETD (Eustachian tube dysfunction), right Start:27-Jan-2019 Instruction Type:Provider Instructions for Treatment How to access health informa tion online Indication:Sore throat Start:23-Jan-2019 Instruction Type:Patient Education How to access health informa tion online - Detail Indication:Sore throat Start:23-Jan-2019 Instruction Type:Patient Education Patient Instructions Indication:Sore throat Start:23-Jan-2019 Instruction Type:Provider Instructions for Treatment How to access health informa tion online Indication:Current nonsmoker (Renamed from Current non-smoker) Start:20-Jan-2019 Instruction Type:Patient Education How to access health informa tion online - Detail Indication:Current nonsmoker (Renamed from Current non-smoker) Start:20-Jan-2019 Instruction Type:Patient Education Patient Instructions Indication:Keratosis Start:20-Jan-2019 Instruction Type:Provider Instructions for Treatment How to access health informa tion online Indication:Current nonsmoker (Renamed from Current non-smoker) Start:25-Nov-2017 Instruction Type:Patient Education How to access health informa tion online - Detail Indication:Current nonsmoker (Renamed from Current non-smoker) Start:25-Nov-2017 Instruction Type:Patient Education Patient Instructions Indication:Need for prophylactic vaccination and inoculation against influenza Start:25-Nov-2017 Instruction Type:Provider Instructions for Treatment How to access health informa tion online Indication:Hypercholesteremia Start:12-Aug-2015 Instruction Type:Patient Education How to access health informa tion online - Detail Indication:Hypercholesteremia Start:12-Aug-2015 Instruction Type:Patient Education Patient Instructions Indication:Hypercholesteremia Start:12-Aug-2015 Instruction Type:Provider Instructions for Treatment How to access health informa tion online - Detail Indication:Benign essential hypertension Start:18-Oct-2014 Instruction Type:Patient Education Patient Instructions Indication:Benign essential hypertension Start:18-Oct-2014 Instruction Type:Provider Instructions for Treatment Patient Instructions Indication:Sinusitis, acute Start:07-Sep-2013 Instruction Type:Provider Instructions for Treatment Patient Instructions Indication:Overweight Start:24-Aug-2013 Instruction Type:Provider Instructions for Treatment DISCONTINUED - CT - Chest Indication:Lung nodule Start:19-May-2012 Instruction Type:Patient Education Patient Instructions Indication:Impaired fasting glucose Start:19-May-2012 Instruction Type:Provider Instructions for Treatment [facility]; [facility] Work Phone: Instructions* Name Dates Details Patient Instructions Indication:Current nonsmoker (Renamed from Current non-smoker) Start:29-Mar-2021 Instruction Type:Provider Instructions for Treatment How to Access Health Informa tion Online using Patient Portal and [employer] Apps Indication:Current nonsmoker (Renamed from Current non-smoker) Start:29-Mar-2021 Instruction Type:Patient Education Patient Instructions Indication:Current nonsmoker (Renamed from Current non-smoker) Start:30-Aug-2020 Instruction Type:Provider Instructions for Treatment How to Access Health Informa tion Online using Patient Portal and [employer] Apps Indication:Current nonsmoker (Renamed from Current non-smoker) Start:30-Aug-2020 Instruction Type:Patient Education How to access health informa tion online Indication:ETD (Eustachian tube dysfunction), right Start:27-Jan-2019 Instruction Type:Patient Education How to access health informa tion online - Detail Indication:ETD (Eustachian tube dysfunction), right Start:27-Jan-2019 Instruction Type:Patient Education Patient Instructions Indication:ETD (Eustachian tube dysfunction), right Start:27-Jan-2019 Instruction Type:Provider Instructions for Treatment How to access health informa tion online Indication:Sore throat Start:23-Jan-2019 Instruction Type:Patient Education How to access health informa tion online - Detail Indication:Sore throat Start:23-Jan-2019 Instruction Type:Patient Education Patient Instructions Indication:Sore throat Start:23-Jan-2019 Instruction Type:Provider Instructions for Treatment How to access health informa tion online Indication:Current nonsmoker (Renamed from Current non-smoker) Start:20-Jan-2019 Instruction Type:Patient Education How to access health informa tion online - Detail Indication:Current nonsmoker (Renamed from Current non-smoker) Start:20-Jan-2019 Instruction Type:Patient Education Patient Instructions Indication:Keratosis Start:20-Jan-2019 Instruction Type:Provider Instructions for Treatment How to access health informa tion online Indication:Current nonsmoker (Renamed from Current non-smoker) Start:25-Nov-2017 Instruction Type:Patient Education How to access health informa tion online - Detail Indication:Current nonsmoker (Renamed from Current non-smoker) Start:25-Nov-2017 Instruction Type:Patient Education Patient Instructions Indication:Need for prophylactic vaccination and inoculation against influenza Start:25-Nov-2017 Instruction Type:Provider Instructions for Treatment How to access health informa tion online Indication:Hypercholesteremia Start:12-Aug-2015 Instruction Type:Patient Education How to access health informa tion online - Detail Indication:Hypercholesteremia Start:12-Aug-2015 Instruction Type:Patient Education Patient Instructions Indication:Hypercholesteremia Start:12-Aug-2015 Instruction Type:Provider Instructions for Treatment How to access health informa tion online - Detail Indication:Benign essential hypertension Start:18-Oct-2014 Instruction Type:Patient Education Patient Instructions Indication:Benign essential hypertension Start:18-Oct-2014 Instruction Type:Provider Instructions for Treatment Patient Instructions Indication:Sinusitis, acute Start:07-Sep-2013 Instruction Type:Provider Instructions for Treatment Patient Instructions Indication:Overweight Start:24-Aug-2013 Instruction Type:Provider Instructions for Treatment DISCONTINUED - CT - Chest Indication:Lung nodule Start:19-May-2012 Instruction Type:Patient Education Patient Instructions Indication:Impaired fasting glucose Start:19-May-2012 Instruction Type:Provider Instructions for Treatment [facility]; [facility] Work Phone: Instructions* Name Dates Details Patient Instructions Indication:Hypothyroid Start:23-Aug-2021 Instruction Type:Provider Instructions for Treatment How to Access Health Informa tion Online using Patient Portal and [employer] Indication:Hypothyroid Start:23-Aug-2021 Instruction Type:Patient Education Patient Instructions Indication:Current nonsmoker (Renamed from Current non-smoker) Start:29-Mar-2021 Instruction Type:Provider Instructions for Treatment How to Access Health Informa tion Online using Patient Portal and [employer] Indication:Current nonsmoker (Renamed from Current non-smoker) Start:29-Mar-2021 Instruction Type:Patient Education Patient Instructions Indication:Current nonsmoker (Renamed from Current non-smoker) Start:30-Aug-2020 Instruction Type:Provider Instructions for Treatment How to Access Health Informa tion Online using Patient Portal and [employer] Indication:Current nonsmoker (Renamed from Current non-smoker) Start:30-Aug-2020 Instruction Type:Patient Education How to access health informa tion online Indication:ETD (Eustachian tube dysfunction), right Start:27-Jan-2019 Instruction Type:Patient Education How to access health informa tion online - Detail Indication:ETD (Eustachian tube dysfunction), right Start:27-Jan-2019 Instruction Type:Patient Education Patient Instructions Indication:ETD (Eustachian tube dysfunction), right Start:27-Jan-2019 Instruction Type:Provider Instructions for Treatment How to access health informa tion online Indication:Sore throat Start:23-Jan-2019 Instruction Type:Patient Education How to access health informa tion online - Detail Indication:Sore throat Start:23-Jan-2019 Instruction Type:Patient Education Patient Instructions Indication:Sore throat Start:23-Jan-2019 Instruction Type:Provider Instructions for Treatment How to access health informa tion online Indication:Current nonsmoker (Renamed from Current non-smoker) Start:20-Jan-2019 Instruction Type:Patient Education How to access health informa tion online - Detail Indication:Current nonsmoker (Renamed from Current non-smoker) Start:20-Jan-2019 Instruction Type:Patient Education Patient Instructions Indication:Keratosis Start:20-Jan-2019 Instruction Type:Provider Instructions for Treatment How to access health informa tion online Indication:Current nonsmoker (Renamed from Current non-smoker) Start:25-Nov-2017 Instruction Type:Patient Education How to access health informa tion online - Detail Indication:Current nonsmoker (Renamed from Current non-smoker) Start:25-Nov-2017 Instruction Type:Patient Education Patient Instructions Indication:Need for prophylactic vaccination and inoculation against influenza Start:25-Nov-2017 Instruction Type:Provider Instructions for Treatment How to access health informa tion online Indication:Hypercholesteremia Start:12-Aug-2015 Instruction Type:Patient Education How to access health informa tion online - Detail Indication:Hypercholesteremia Start:12-Aug-2015 Instruction Type:Patient Education Patient Instructions Indication:Hypercholesteremia Start:12-Aug-2015 Instruction Type:Provider Instructions for Treatment How to access health informa tion online - Detail Indication:Benign essential hypertension Start:18-Oct-2014 Instruction Type:Patient Education Patient Instructions Indication:Benign essential hypertension Start:18-Oct-2014 Instruction Type:Provider Instructions for Treatment Patient Instructions Indication:Sinusitis, acute Start:07-Sep-2013 Instruction Type:Provider Instructions for Treatment Patient Instructions Indication:Overweight Start:24-Aug-2013 Instruction Type:Provider Instructions for Treatment DISCONTINUED - CT - Chest Indication:Lung nodule Start:19-May-2012 Instruction Type:Patient Education Patient Instructions Indication:Impaired fasting glucose Start:19-May-2012 Instruction Type:Provider Instructions for Treatment [facility]; [facility] Work Phone: Instructions* Name Dates Details Patient Instructions Indication:Hypothyroid Start:23-Aug-2021 Instruction Type:Provider Instructions for Treatment How to Access Health Informa tion Online using Patient Portal and [employer] Indication:Hypothyroid Start:23-Aug-2021 Instruction Type:Patient Education Patient Instructions Indication:Current nonsmoker (Renamed from Current non-smoker) Start:29-Mar-2021 Instruction Type:Provider Instructions for Treatment How to Access Health Informa tion Online using Patient Portal and [employer] Apps Indication:Current nonsmoker (Renamed from Current non-smoker) Start:29-Mar-2021 Instruction Type:Patient Education Patient Instructions Indication:Current nonsmoker (Renamed from Current non-smoker) Start:30-Aug-2020 Instruction Type:Provider Instructions for Treatment How to Access Health Informa tion Online using Patient Portal and [employer] Indication:Current nonsmoker (Renamed from Current non-smoker) Start:30-Aug-2020 Instruction Type:Patient Education How to access health informa tion online Indication:ETD (Eustachian tube dysfunction), right Start:27-Jan-2019 Instruction Type:Patient Education How to access health informa tion online - Detail Indication:ETD (Eustachian tube dysfunction), right Start:27-Jan-2019 Instruction Type:Patient Education Patient Instructions Indication:ETD (Eustachian tube dysfunction), right Start:27-Jan-2019 Instruction Type:Provider Instructions for Treatment How to access health informa tion online Indication:Sore throat Start:23-Jan-2019 Instruction Type:Patient Education How to access health informa tion online - Detail Indication:Sore throat Start:23-Jan-2019 Instruction Type:Patient Education Patient Instructions Indication:Sore throat Start:23-Jan-2019 Instruction Type:Provider Instructions for Treatment How to access health informa tion online Indication:Current nonsmoker (Renamed from Current non-smoker) Start:20-Jan-2019 Instruction Type:Patient Education How to access health informa tion online - Detail Indication:Current nonsmoker (Renamed from Current non-smoker) Start:20-Jan-2019 Instruction Type:Patient Education Patient Instructions Indication:Keratosis Start:20-Jan-2019 Instruction Type:Provider Instructions for Treatment How to access health informa tion online Indication:Current nonsmoker (Renamed from Current non-smoker) Start:25-Nov-2017 Instruction Type:Patient Education How to access health informa tion online - Detail Indication:Current nonsmoker (Renamed from Current non-smoker) Start:25-Nov-2017 Instruction Type:Patient Education Patient Instructions Indication:Need for prophylactic vaccination and inoculation against influenza Start:25-Nov-2017 Instruction Type:Provider Instructions for Treatment How to access health informa tion online Indication:Hypercholesteremia Start:12-Aug-2015 Instruction Type:Patient Education How to access health informa tion online - Detail Indication:Hypercholesteremia Start:12-Aug-2015 Instruction Type:Patient Education Patient Instructions Indication:Hypercholesteremia Start:12-Aug-2015 Instruction Type:Provider Instructions for Treatment How to access health informa tion online - Detail Indication:Benign essential hypertension Start:18-Oct-2014 Instruction Type:Patient Education Patient Instructions Indication:Benign essential hypertension Start:18-Oct-2014 Instruction Type:Provider Instructions for Treatment Patient Instructions Indication:Sinusitis, acute Start:07-Sep-2013 Instruction Type:Provider Instructions for Treatment Patient Instructions Indication:Overweight Start:24-Aug-2013 Instruction Type:Provider Instructions for Treatment DISCONTINUED - CT - Chest Indication:Lung nodule Start:19-May-2012 Instruction Type:Patient Education Patient Instructions Indication:Impaired fasting glucose Start:19-May-2012 Instruction Type:Provider Instructions for Treatment [facility]; [facility] Work Phone: Instructions* Name Dates Details Patient Instructions Indication:Hypothyroid Start:23-Aug-2021 Instruction Type:Provider Instructions for Treatment How to Access Health Informa tion Online using Patient Portal and [employer] Indication:Hypothyroid Start:23-Aug-2021 Instruction Type:Patient Education Patient Instructions Start:29-Mar-2021 Instruction Type:Provider Instructions for Treatment How to Access Health Informa tion Online using Patient Portal and [employer] Start:29-Mar-2021 Instruction Type:Patient Education Patient Instructions Start:30-Aug-2020 Instruction Type:Provider Instructions for Treatment How to Access Health Informa tion Online using Patient Portal and [employer] Start:30-Aug-2020 Instruction Type:Patient Education How to access health informa tion online Indication:ETD (Eustachian tube dysfunction), right Start:27-Jan-2019 Instruction Type:Patient Education How to access health informa tion online - Detail Indication:ETD (Eustachian tube dysfunction), right Start:27-Jan-2019 Instruction Type:Patient Education Patient Instructions Indication:ETD (Eustachian tube dysfunction), right Start:27-Jan-2019 Instruction Type:Provider Instructions for Treatment How to access health informa tion online Indication:Sore throat Start:23-Jan-2019 Instruction Type:Patient Education How to access health informa tion online - Detail Indication:Sore throat Start:23-Jan-2019 Instruction Type:Patient Education Patient Instructions Indication:Sore throat Start:23-Jan-2019 Instruction Type:Provider Instructions for Treatment How to access health informa tion online Start:20-Jan-2019 Instruction Type:Patient Education How to access health informa tion online - Detail Start:20-Jan-2019 Instruction Type:Patient Education Patient Instructions Indication:Keratosis Start:20-Jan-2019 Instruction Type:Provider Instructions for Treatment How to access health informa tion online Start:25-Nov-2017 Instruction Type:Patient Education How to access health informa tion online - Detail Start:25-Nov-2017 Instruction Type:Patient Education Patient Instructions Indication:Need for prophylactic vaccination and inoculation against influenza Start:25-Nov-2017 Instruction Type:Provider Instructions for Treatment How to access health informa tion online Indication:Hypercholesteremia Start:12-Aug-2015 Instruction Type:Patient Education How to access health informa tion online - Detail Indication:Hypercholesteremia Start:12-Aug-2015 Instruction Type:Patient Education Patient Instructions Indication:Hypercholesteremia Start:12-Aug-2015 Instruction Type:Provider Instructions for Treatment How to access health informa tion online - Detail Indication:Benign essential hypertension Start:18-Oct-2014 Instruction Type:Patient Education Patient Instructions Indication:Benign essential hypertension Start:18-Oct-2014 Instruction Type:Provider Instructions for Treatment Patient Instructions Indication:Sinusitis, acute Start:07-Sep-2013 Instruction Type:Provider Instructions for Treatment Patient Instructions Indication:Overweight Start:24-Aug-2013 Instruction Type:Provider Instructions for Treatment DISCONTINUED - CT - Chest Indication:Lung nodule Start:19-May-2012 Instruction Type:Patient Education Patient Instructions Indication:Impaired fasting glucose Start:19-May-2012 Instruction Type:Provider Instructions for Treatment [facility]; [facility] Work Phone: Instructions* Name Dates Details How to Access Health Informa tion Online using Patient Portal and [employer] Indication:Current nonsmoker (Renamed from Current non-smoker) Start:20-Dec-2021 Instruction Type:Patient Education Patient Instructions Indication:Current nonsmoker (Renamed from Current non-smoker) Start:20-Dec-2021 Instruction Type:Provider Instructions for Treatment Patient Instructions Indication:Hypothyroid Start:23-Aug-2021 Instruction Type:Provider Instructions for Treatment How to Access Health Informa tion Online using Patient Portal and [employer] Apps Indication:Hypothyroid Start:23-Aug-2021 Instruction Type:Patient Education Patient Instructions Indication:Current nonsmoker (Renamed from Current non-smoker) Start:29-Mar-2021 Instruction Type:Provider Instructions for Treatment How to Access Health Informa tion Online using Patient Portal and [employer] Apps Indication:Current nonsmoker (Renamed from Current non-smoker) Start:29-Mar-2021 Instruction Type:Patient Education Patient Instructions Indication:Current nonsmoker (Renamed from Current non-smoker) Start:30-Aug-2020 Instruction Type:Provider Instructions for Treatment How to Access Health Informa tion Online using Patient Portal and [employer] Apps Indication:Current nonsmoker (Renamed from Current non-smoker) Start:30-Aug-2020 Instruction Type:Patient Education How to access health informa tion online Indication:ETD (Eustachian tube dysfunction), right Start:27-Jan-2019 Instruction Type:Patient Education How to access health informa tion online - Detail Indication:ETD (Eustachian tube dysfunction), right Start:27-Jan-2019 Instruction Type:Patient Education Patient Instructions Indication:ETD (Eustachian tube dysfunction), right Start:27-Jan-2019 Instruction Type:Provider Instructions for Treatment How to access health informa tion online Indication:Sore throat Start:23-Jan-2019 Instruction Type:Patient Education How to access health informa tion online - Detail Indication:Sore throat Start:23-Jan-2019 Instruction Type:Patient Education Patient Instructions Indication:Sore throat Start:23-Jan-2019 Instruction Type:Provider Instructions for Treatment How to access health informa tion online Indication:Current nonsmoker (Renamed from Current non-smoker) Start:20-Jan-2019 Instruction Type:Patient Education How to access health informa tion online - Detail Indication:Current nonsmoker (Renamed from Current non-smoker) Start:20-Jan-2019 Instruction Type:Patient Education Patient Instructions Indication:Keratosis Start:20-Jan-2019 Instruction Type:Provider Instructions for Treatment How to access health informa tion online Indication:Current nonsmoker (Renamed from Current non-smoker) Start:25-Nov-2017 Instruction Type:Patient Education How to access health informa tion online - Detail Indication:Current nonsmoker (Renamed from Current non-smoker) Start:25-Nov-2017 Instruction Type:Patient Education Patient Instructions Indication:Need for prophylactic vaccination and inoculation against influenza Start:25-Nov-2017 Instruction Type:Provider Instructions for Treatment How to access health informa tion online Indication:Hypercholesteremia Start:12-Aug-2015 Instruction Type:Patient Education How to access health informa tion online - Detail Indication:Hypercholesteremia Start:12-Aug-2015 Instruction Type:Patient Education Patient Instructions Indication:Hypercholesteremia Start:12-Aug-2015 Instruction Type:Provider Instructions for Treatment How to access health informa tion online - Detail Indication:Benign essential hypertension Start:18-Oct-2014 Instruction Type:Patient Education Patient Instructions Indication:Benign essential hypertension Start:18-Oct-2014 Instruction Type:Provider Instructions for Treatment Patient Instructions Indication:Sinusitis, acute Start:07-Sep-2013 Instruction Type:Provider Instructions for Treatment Patient Instructions Indication:Overweight Start:24-Aug-2013 Instruction Type:Provider Instructions for Treatment DISCONTINUED - CT - Chest Indication:Lung nodule Start:19-May-2012 Instruction Type:Patient Education Patient Instructions Indication:Impaired fasting glucose Start:19-May-2012 Instruction Type:Provider Instructions for Treatment [facility]; [facility] Work Phone: Instructions* Name Dates Details How to Access Health Informa tion Online using Patient Portal and [employer] Indication:Current nonsmoker (Renamed from Current non-smoker) Start:20-Dec-2021 Instruction Type:Patient Education Patient Instructions Indication:Current nonsmoker (Renamed from Current non-smoker) Start:20-Dec-2021 Instruction Type:Provider Instructions for Treatment Patient Instructions Indication:Hypothyroid Start:23-Aug-2021 Instruction Type:Provider Instructions for Treatment How to Access Health Informa tion Online using Patient Portal and [employer] Indication:Hypothyroid Start:23-Aug-2021 Instruction Type:Patient Education Patient Instructions Indication:Current nonsmoker (Renamed from Current non-smoker) Start:29-Mar-2021 Instruction Type:Provider Instructions for Treatment How to Access Health Informa tion Online using Patient Portal and [employer] Apps Indication:Current nonsmoker (Renamed from Current non-smoker) Start:29-Mar-2021 Instruction Type:Patient Education Patient Instructions Indication:Current nonsmoker (Renamed from Current non-smoker) Start:30-Aug-2020 Instruction Type:Provider Instructions for Treatment How to Access Health Informa tion Online using Patient Portal and [employer] Apps Indication:Current nonsmoker (Renamed from Current non-smoker) Start:30-Aug-2020 Instruction Type:Patient Education How to access health informa tion online Indication:ETD (Eustachian tube dysfunction), right Start:27-Jan-2019 Instruction Type:Patient Education How to access health informa tion online - Detail Indication:ETD (Eustachian tube dysfunction), right Start:27-Jan-2019 Instruction Type:Patient Education Patient Instructions Indication:ETD (Eustachian tube dysfunction), right Start:27-Jan-2019 Instruction Type:Provider Instructions for Treatment How to access health informa tion online Indication:Sore throat Start:23-Jan-2019 Instruction Type:Patient Education How to access health informa tion online - Detail Indication:Sore throat Start:23-Jan-2019 Instruction Type:Patient Education Patient Instructions Indication:Sore throat Start:23-Jan-2019 Instruction Type:Provider Instructions for Treatment How to access health informa tion online Indication:Current nonsmoker (Renamed from Current non-smoker) Start:20-Jan-2019 Instruction Type:Patient Education How to access health informa tion online - Detail Indication:Current nonsmoker (Renamed from Current non-smoker) Start:20-Jan-2019 Instruction Type:Patient Education Patient Instructions Indication:Keratosis Start:20-Jan-2019 Instruction Type:Provider Instructions for Treatment How to access health informa tion online Indication:Current nonsmoker (Renamed from Current non-smoker) Start:25-Nov-2017 Instruction Type:Patient Education How to access health informa tion online - Detail Indication:Current nonsmoker (Renamed from Current non-smoker) Start:25-Nov-2017 Instruction Type:Patient Education Patient Instructions Indication:Need for prophylactic vaccination and inoculation against influenza Start:25-Nov-2017 Instruction Type:Provider Instructions for Treatment How to access health informa tion online Indication:Hypercholesteremia Start:12-Aug-2015 Instruction Type:Patient Education How to access health informa tion online - Detail Indication:Hypercholesteremia Start:12-Aug-2015 Instruction Type:Patient Education Patient Instructions Indication:Hypercholesteremia Start:12-Aug-2015 Instruction Type:Provider Instructions for Treatment How to access health informa tion online - Detail Indication:Benign essential hypertension Start:18-Oct-2014 Instruction Type:Patient Education Patient Instructions Indication:Benign essential hypertension Start:18-Oct-2014 Instruction Type:Provider Instructions for Treatment Patient Instructions Indication:Sinusitis, acute Start:07-Sep-2013 Instruction Type:Provider Instructions for Treatment Patient Instructions Indication:Overweight Start:24-Aug-2013 Instruction Type:Provider Instructions for Treatment DISCONTINUED - CT - Chest Indication:Lung nodule Start:19-May-2012 Instruction Type:Patient Education Patient Instructions Indication:Impaired fasting glucose Start:19-May-2012 Instruction Type:Provider Instructions for Treatment [facility]; [facility] Work Phone: Instructions* Name Dates Details How to Access Health Informa tion Online using Patient Portal and [employer] Apps Indication:Current nonsmoker (Renamed from Current non-smoker) Start:20-Dec-2021 Instruction Type:Patient Education Patient Instructions Indication:Current nonsmoker (Renamed from Current non-smoker) Start:20-Dec-2021 Instruction Type:Provider Instructions for Treatment Patient Instructions Indication:Hypothyroid Start:23-Aug-2021 Instruction Type:Provider Instructions for Treatment How to Access Health Informa tion Online using Patient Portal and [employer] Apps Indication:Hypothyroid Start:23-Aug-2021 Instruction Type:Patient Education Patient Instructions Indication:Current nonsmoker (Renamed from Current non-smoker) Start:29-Mar-2021 Instruction Type:Provider Instructions for Treatment How to Access Health Informa tion Online using Patient Portal and [employer] Apps Indication:Current nonsmoker (Renamed from Current non-smoker) Start:29-Mar-2021 Instruction Type:Patient Education Patient Instructions Indication:Current nonsmoker (Renamed from Current non-smoker) Start:30-Aug-2020 Instruction Type:Provider Instructions for Treatment How to Access Health Informa tion Online using Patient Portal and [employer] Apps Indication:Current nonsmoker (Renamed from Current non-smoker) Start:30-Aug-2020 Instruction Type:Patient Education How to access health informa tion online Indication:ETD (Eustachian tube dysfunction), right Start:27-Jan-2019 Instruction Type:Patient Education How to access health informa tion online - Detail Indication:ETD (Eustachian tube dysfunction), right Start:27-Jan-2019 Instruction Type:Patient Education Patient Instructions Indication:ETD (Eustachian tube dysfunction), right Start:27-Jan-2019 Instruction Type:Provider Instructions for Treatment How to access health informa tion online Indication:Sore throat Start:23-Jan-2019 Instruction Type:Patient Education How to access health informa tion online - Detail Indication:Sore throat Start:23-Jan-2019 Instruction Type:Patient Education Patient Instructions Indication:Sore throat Start:23-Jan-2019 Instruction Type:Provider Instructions for Treatment How to access health informa tion online Indication:Current nonsmoker (Renamed from Current non-smoker) Start:20-Jan-2019 Instruction Type:Patient Education How to access health informa tion online - Detail Indication:Current nonsmoker (Renamed from Current non-smoker) Start:20-Jan-2019 Instruction Type:Patient Education Patient Instructions Indication:Keratosis Start:20-Jan-2019 Instruction Type:Provider Instructions for Treatment How to access health informa tion online Indication:Current nonsmoker (Renamed from Current non-smoker) Start:25-Nov-2017 Instruction Type:Patient Education How to access health informa tion online - Detail Indication:Current nonsmoker (Renamed from Current non-smoker) Start:25-Nov-2017 Instruction Type:Patient Education Patient Instructions Indication:Need for prophylactic vaccination and inoculation against influenza Start:25-Nov-2017 Instruction Type:Provider Instructions for Treatment How to access health informa tion online Indication:Hypercholesteremia Start:12-Aug-2015 Instruction Type:Patient Education How to access health informa tion online - Detail Indication:Hypercholesteremia Start:12-Aug-2015 Instruction Type:Patient Education Patient Instructions Indication:Hypercholesteremia Start:12-Aug-2015 Instruction Type:Provider Instructions for Treatment How to access health informa tion online - Detail Indication:Benign essential hypertension Start:18-Oct-2014 Instruction Type:Patient Education Patient Instructions Indication:Benign essential hypertension Start:18-Oct-2014 Instruction Type:Provider Instructions for Treatment Patient Instructions Indication:Sinusitis, acute Start:07-Sep-2013 Instruction Type:Provider Instructions for Treatment Patient Instructions Indication:Overweight Start:24-Aug-2013 Instruction Type:Provider Instructions for Treatment DISCONTINUED - CT - Chest Indication:Lung nodule Start:19-May-2012 Instruction Type:Patient Education Patient Instructions Indication:Impaired fasting glucose Start:19-May-2012 Instruction Type:Provider Instructions for Treatment [facility]; [facility] Work Phone: Instructions* Name Dates Details How to Access Health Informa tion Online using Patient Portal and [employer] Apps Indication:Current nonsmoker (Renamed from Current non-smoker) Start:20-Dec-2021 Instruction Type:Patient Education Patient Instructions Indication:Current nonsmoker (Renamed from Current non-smoker) Start:20-Dec-2021 Instruction Type:Provider Instructions for Treatment Patient Instructions Indication:Hypothyroid Start:23-Aug-2021 Instruction Type:Provider Instructions for Treatment How to Access Health Informa tion Online using Patient Portal and [employer] Apps Indication:Hypothyroid Start:23-Aug-2021 Instruction Type:Patient Education Patient Instructions Indication:Current nonsmoker (Renamed from Current non-smoker) Start:29-Mar-2021 Instruction Type:Provider Instructions for Treatment How to Access Health Informa tion Online using Patient Portal and [employer] Apps Indication:Current nonsmoker (Renamed from Current non-smoker) Start:29-Mar-2021 Instruction Type:Patient Education Patient Instructions Indication:Current nonsmoker (Renamed from Current non-smoker) Start:30-Aug-2020 Instruction Type:Provider Instructions for Treatment How to Access Health Informa tion Online using Patient Portal and [employer] Indication:Current nonsmoker (Renamed from Current non-smoker) Start:30-Aug-2020 Instruction Type:Patient Education How to access health informa tion online Indication:ETD (Eustachian tube dysfunction), right Start:27-Jan-2019 Instruction Type:Patient Education How to access health informa tion online - Detail Indication:ETD (Eustachian tube dysfunction), right Start:27-Jan-2019 Instruction Type:Patient Education Patient Instructions Indication:ETD (Eustachian tube dysfunction), right Start:27-Jan-2019 Instruction Type:Provider Instructions for Treatment How to access health informa tion online Indication:Sore throat Start:23-Jan-2019 Instruction Type:Patient Education How to access health informa tion online - Detail Indication:Sore throat Start:23-Jan-2019 Instruction Type:Patient Education Patient Instructions Indication:Sore throat Start:23-Jan-2019 Instruction Type:Provider Instructions for Treatment How to access health informa tion online Indication:Current nonsmoker (Renamed from Current non-smoker) Start:20-Jan-2019 Instruction Type:Patient Education How to access health informa tion online - Detail Indication:Current nonsmoker (Renamed from Current non-smoker) Start:20-Jan-2019 Instruction Type:Patient Education Patient Instructions Indication:Keratosis Start:20-Jan-2019 Instruction Type:Provider Instructions for Treatment How to access health informa tion online Indication:Current nonsmoker (Renamed from Current non-smoker) Start:25-Nov-2017 Instruction Type:Patient Education How to access health informa tion online - Detail Indication:Current nonsmoker (Renamed from Current non-smoker) Start:25-Nov-2017 Instruction Type:Patient Education Patient Instructions Indication:Need for prophylactic vaccination and inoculation against influenza Start:25-Nov-2017 Instruction Type:Provider Instructions for Treatment How to access health informa tion online Indication:Hypercholesteremia Start:12-Aug-2015 Instruction Type:Patient Education How to access health informa tion online - Detail Indication:Hypercholesteremia Start:12-Aug-2015 Instruction Type:Patient Education Patient Instructions Indication:Hypercholesteremia Start:12-Aug-2015 Instruction Type:Provider Instructions for Treatment How to access health informa tion online - Detail Indication:Benign essential hypertension Start:18-Oct-2014 Instruction Type:Patient Education Patient Instructions Indication:Benign essential hypertension Start:18-Oct-2014 Instruction Type:Provider Instructions for Treatment Patient Instructions Indication:Sinusitis, acute Start:07-Sep-2013 Instruction Type:Provider Instructions for Treatment Patient Instructions Indication:Overweight Start:24-Aug-2013 Instruction Type:Provider Instructions for Treatment DISCONTINUED - CT - Chest Indication:Lung nodule Start:19-May-2012 Instruction Type:Patient Education Patient Instructions Indication:Impaired fasting glucose Start:19-May-2012 Instruction Type:Provider Instructions for Treatment [facility]; [facility] Work Phone: Instructions* Name Dates Details How to Access Health Informa tion Online using Patient Portal and [employer] Apps Indication:Current nonsmoker (Renamed from Current non-smoker) Start:20-Dec-2021 Instruction Type:Patient Education Patient Instructions Indication:Current nonsmoker (Renamed from Current non-smoker) Start:20-Dec-2021 Instruction Type:Provider Instructions for Treatment Patient Instructions Indication:Hypothyroid Start:23-Aug-2021 Instruction Type:Provider Instructions for Treatment How to Access Health Informa tion Online using Patient Portal and [employer] Apps Indication:Hypothyroid Start:23-Aug-2021 Instruction Type:Patient Education Patient Instructions Indication:Current nonsmoker (Renamed from Current non-smoker) Start:29-Mar-2021 Instruction Type:Provider Instructions for Treatment How to Access Health Informa tion Online using Patient Portal and [employer] Apps Indication:Current nonsmoker (Renamed from Current non-smoker) Start:29-Mar-2021 Instruction Type:Patient Education Patient Instructions Indication:Current nonsmoker (Renamed from Current non-smoker) Start:30-Aug-2020 Instruction Type:Provider Instructions for Treatment How to Access Health Informa tion Online using Patient Portal and [employer] Apps Indication:Current nonsmoker (Renamed from Current non-smoker) Start:30-Aug-2020 Instruction Type:Patient Education How to access health informa tion online Indication:ETD (Eustachian tube dysfunction), right Start:27-Jan-2019 Instruction Type:Patient Education How to access health informa tion online - Detail Indication:ETD (Eustachian tube dysfunction), right Start:27-Jan-2019 Instruction Type:Patient Education Patient Instructions Indication:ETD (Eustachian tube dysfunction), right Start:27-Jan-2019 Instruction Type:Provider Instructions for Treatment How to access health informa tion online Indication:Sore throat Start:23-Jan-2019 Instruction Type:Patient Education How to access health informa tion online - Detail Indication:Sore throat Start:23-Jan-2019 Instruction Type:Patient Education Patient Instructions Indication:Sore throat Start:23-Jan-2019 Instruction Type:Provider Instructions for Treatment How to access health informa tion online Indication:Current nonsmoker (Renamed from Current non-smoker) Start:20-Jan-2019 Instruction Type:Patient Education How to access health informa tion online - Detail Indication:Current nonsmoker (Renamed from Current non-smoker) Start:20-Jan-2019 Instruction Type:Patient Education Patient Instructions Indication:Keratosis Start:20-Jan-2019 Instruction Type:Provider Instructions for Treatment How to access health informa tion online Indication:Current nonsmoker (Renamed from Current non-smoker) Start:25-Nov-2017 Instruction Type:Patient Education How to access health informa tion online - Detail Indication:Current nonsmoker (Renamed from Current non-smoker) Start:25-Nov-2017 Instruction Type:Patient Education Patient Instructions Indication:Need for prophylactic vaccination and inoculation against influenza Start:25-Nov-2017 Instruction Type:Provider Instructions for Treatment How to access health informa tion online Indication:Hypercholesteremia Start:12-Aug-2015 Instruction Type:Patient Education How to access health informa tion online - Detail Indication:Hypercholesteremia Start:12-Aug-2015 Instruction Type:Patient Education Patient Instructions Indication:Hypercholesteremia Start:12-Aug-2015 Instruction Type:Provider Instructions for Treatment How to access health informa tion online - Detail Indication:Benign essential hypertension Start:18-Oct-2014 Instruction Type:Patient Education Patient Instructions Indication:Benign essential hypertension Start:18-Oct-2014 Instruction Type:Provider Instructions for Treatment Patient Instructions Indication:Sinusitis, acute Start:07-Sep-2013 Instruction Type:Provider Instructions for Treatment Patient Instructions Indication:Overweight Start:24-Aug-2013 Instruction Type:Provider Instructions for Treatment DISCONTINUED - CT - Chest Indication:Lung nodule Start:19-May-2012 Instruction Type:Patient Education Patient Instructions Indication:Impaired fasting glucose Start:19-May-2012 Instruction Type:Provider Instructions for Treatment [facility]; [facility] Work Phone: Instructions* Name Dates Details Patient Instructions Indication:Current nonsmoker (Renamed from Current non-smoker) Start:10-Apr-2022 Instruction Type:Provider Instructions for Treatment How to Access Health Informa tion Online using Patient Portal and [employer] Indication:Current nonsmoker (Renamed from Current non-smoker) Start:10-Apr-2022 Instruction Type:Patient Education How to Access Health Informa tion Online using Patient Portal and [employer] Indication:Current nonsmoker (Renamed from Current non-smoker) Start:20-Dec-2021 Instruction Type:Patient Education Patient Instructions Indication:Current nonsmoker (Renamed from Current non-smoker) Start:20-Dec-2021 Instruction Type:Provider Instructions for Treatment Patient Instructions Indication:Hypothyroid Start:23-Aug-2021 Instruction Type:Provider Instructions for Treatment How to Access Health Informa tion Online using Patient Portal and [employer] Indication:Hypothyroid Start:23-Aug-2021 Instruction Type:Patient Education Patient Instructions Indication:Current nonsmoker (Renamed from Current non-smoker) Start:29-Mar-2021 Instruction Type:Provider Instructions for Treatment How to Access Health Informa tion Online using Patient Portal and [employer] Indication:Current nonsmoker (Renamed from Current non-smoker) Start:29-Mar-2021 Instruction Type:Patient Education Patient Instructions Indication:Current nonsmoker (Renamed from Current non-smoker) Start:30-Aug-2020 Instruction Type:Provider Instructions for Treatment How to Access Health Informa tion Online using Patient Portal and [employer] Indication:Current nonsmoker (Renamed from Current non-smoker) Start:30-Aug-2020 Instruction Type:Patient Education How to access health informa tion online Indication:ETD (Eustachian tube dysfunction), right Start:27-Jan-2019 Instruction Type:Patient Education How to access health informa tion online - Detail Indication:ETD (Eustachian tube dysfunction), right Start:27-Jan-2019 Instruction Type:Patient Education Patient Instructions Indication:ETD (Eustachian tube dysfunction), right Start:27-Jan-2019 Instruction Type:Provider Instructions for Treatment How to access health informa tion online Indication:Sore throat Start:23-Jan-2019 Instruction Type:Patient Education How to access health informa tion online - Detail Indication:Sore throat Start:23-Jan-2019 Instruction Type:Patient Education Patient Instructions Indication:Sore throat Start:23-Jan-2019 Instruction Type:Provider Instructions for Treatment How to access health informa tion online Indication:Current nonsmoker (Renamed from Current non-smoker) Start:20-Jan-2019 Instruction Type:Patient Education How to access health informa tion online - Detail Indication:Current nonsmoker (Renamed from Current non-smoker) Start:20-Jan-2019 Instruction Type:Patient Education Patient Instructions Indication:Keratosis Start:20-Jan-2019 Instruction Type:Provider Instructions for Treatment How to access health informa tion online Indication:Current nonsmoker (Renamed from Current non-smoker) Start:25-Nov-2017 Instruction Type:Patient Education How to access health informa tion online - Detail Indication:Current nonsmoker (Renamed from Current non-smoker) Start:25-Nov-2017 Instruction Type:Patient Education Patient Instructions Indication:Need for prophylactic vaccination and inoculation against influenza Start:25-Nov-2017 Instruction Type:Provider Instructions for Treatment How to access health informa tion online Indication:Hypercholesteremia Start:12-Aug-2015 Instruction Type:Patient Education How to access health informa tion online - Detail Indication:Hypercholesteremia Start:12-Aug-2015 Instruction Type:Patient Education Patient Instructions Indication:Hypercholesteremia Start:12-Aug-2015 Instruction Type:Provider Instructions for Treatment How to access health informa tion online - Detail Indication:Benign essential hypertension Start:18-Oct-2014 Instruction Type:Patient Education Patient Instructions Indication:Benign essential hypertension Start:18-Oct-2014 Instruction Type:Provider Instructions for Treatment Patient Instructions Indication:Sinusitis, acute Start:07-Sep-2013 Instruction Type:Provider Instructions for Treatment Patient Instructions Indication:Overweight Start:24-Aug-2013 Instruction Type:Provider Instructions for Treatment DISCONTINUED - CT - Chest Indication:Lung nodule Start:19-May-2012 Instruction Type:Patient Education Patient Instructions Indication:Impaired fasting glucose Start:19-May-2012 Instruction Type:Provider Instructions for Treatment [facility] Work Phone: Instructions* Name Dates Details Patient Instructions Indication:Current nonsmoker (Renamed from Current non-smoker) Start:10-Apr-2022 Instruction Type:Provider Instructions for Treatment How to Access Health Informa tion Online using Patient Portal and [employer] Indication:Current nonsmoker (Renamed from Current non-smoker) Start:10-Apr-2022 Instruction Type:Patient Education How to Access Health Informa tion Online using Patient Portal and [employer] Apps Indication:Current nonsmoker (Renamed from Current non-smoker) Start:20-Dec-2021 Instruction Type:Patient Education Patient Instructions Indication:Current nonsmoker (Renamed from Current non-smoker) Start:20-Dec-2021 Instruction Type:Provider Instructions for Treatment Patient Instructions Indication:Hypothyroid Start:23-Aug-2021 Instruction Type:Provider Instructions for Treatment How to Access Health Informa tion Online using Patient Portal and [employer] Indication:Hypothyroid Start:23-Aug-2021 Instruction Type:Patient Education Patient Instructions Indication:Current nonsmoker (Renamed from Current non-smoker) Start:29-Mar-2021 Instruction Type:Provider Instructions for Treatment How to Access Health Informa tion Online using Patient Portal and [employer] Apps Indication:Current nonsmoker (Renamed from Current non-smoker) Start:29-Mar-2021 Instruction Type:Patient Education Patient Instructions Indication:Current nonsmoker (Renamed from Current non-smoker) Start:30-Aug-2020 Instruction Type:Provider Instructions for Treatment How to Access Health Informa tion Online using Patient Portal and [employer] Indication:Current nonsmoker (Renamed from Current non-smoker) Start:30-Aug-2020 Instruction Type:Patient Education How to access health informa tion online Indication:ETD (Eustachian tube dysfunction), right Start:27-Jan-2019 Instruction Type:Patient Education How to access health informa tion online - Detail Indication:ETD (Eustachian tube dysfunction), right Start:27-Jan-2019 Instruction Type:Patient Education Patient Instructions Indication:ETD (Eustachian tube dysfunction), right Start:27-Jan-2019 Instruction Type:Provider Instructions for Treatment How to access health informa tion online Indication:Sore throat Start:23-Jan-2019 Instruction Type:Patient Education How to access health informa tion online - Detail Indication:Sore throat Start:23-Jan-2019 Instruction Type:Patient Education Patient Instructions Indication:Sore throat Start:23-Jan-2019 Instruction Type:Provider Instructions for Treatment How to access health informa tion online Indication:Current nonsmoker (Renamed from Current non-smoker) Start:20-Jan-2019 Instruction Type:Patient Education How to access health informa tion online - Detail Indication:Current nonsmoker (Renamed from Current non-smoker) Start:20-Jan-2019 Instruction Type:Patient Education Patient Instructions Indication:Keratosis Start:20-Jan-2019 Instruction Type:Provider Instructions for Treatment How to access health informa tion online Indication:Current nonsmoker (Renamed from Current non-smoker) Start:25-Nov-2017 Instruction Type:Patient Education How to access health informa tion online - Detail Indication:Current nonsmoker (Renamed from Current non-smoker) Start:25-Nov-2017 Instruction Type:Patient Education Patient Instructions Indication:Need for prophylactic vaccination and inoculation against influenza Start:25-Nov-2017 Instruction Type:Provider Instructions for Treatment How to access health informa tion online Indication:Hypercholesteremia Start:12-Aug-2015 Instruction Type:Patient Education How to access health informa tion online - Detail Indication:Hypercholesteremia Start:12-Aug-2015 Instruction Type:Patient Education Patient Instructions Indication:Hypercholesteremia Start:12-Aug-2015 Instruction Type:Provider Instructions for Treatment How to access health informa tion online - Detail Indication:Benign essential hypertension Start:18-Oct-2014 Instruction Type:Patient Education Patient Instructions Indication:Benign essential hypertension Start:18-Oct-2014 Instruction Type:Provider Instructions for Treatment Patient Instructions Indication:Sinusitis, acute Start:07-Sep-2013 Instruction Type:Provider Instructions for Treatment Patient Instructions Indication:Overweight Start:24-Aug-2013 Instruction Type:Provider Instructions for Treatment DISCONTINUED - CT - Chest Indication:Lung nodule Start:19-May-2012 Instruction Type:Patient Education Patient Instructions Indication:Impaired fasting glucose Start:19-May-2012 Instruction Type:Provider Instructions for Treatment [facility]; [facility] Work Phone: Instructions* Name Dates Details Patient Instructions Indication:Current nonsmoker (Renamed from Current non-smoker) Start:10-Apr-2022 Instruction Type:Provider Instructions for Treatment How to Access Health Informa tion Online using Patient Portal and [employer] Indication:Current nonsmoker (Renamed from Current non-smoker) Start:10-Apr-2022 Instruction Type:Patient Education How to Access Health Informa tion Online using Patient Portal and [employer] Indication:Current nonsmoker (Renamed from Current non-smoker) Start:20-Dec-2021 Instruction Type:Patient Education Patient Instructions Indication:Current nonsmoker (Renamed from Current non-smoker) Start:20-Dec-2021 Instruction Type:Provider Instructions for Treatment Patient Instructions Indication:Hypothyroid Start:23-Aug-2021 Instruction Type:Provider Instructions for Treatment How to Access Health Informa tion Online using Patient Portal and [employer] Indication:Hypothyroid Start:23-Aug-2021 Instruction Type:Patient Education Patient Instructions Indication:Current nonsmoker (Renamed from Current non-smoker) Start:29-Mar-2021 Instruction Type:Provider Instructions for Treatment How to Access Health Informa tion Online using Patient Portal and [employer] Indication:Current nonsmoker (Renamed from Current non-smoker) Start:29-Mar-2021 Instruction Type:Patient Education Patient Instructions Indication:Current nonsmoker (Renamed from Current non-smoker) Start:30-Aug-2020 Instruction Type:Provider Instructions for Treatment How to Access Health Informa tion Online using Patient Portal and [employer] Apps Indication:Current nonsmoker (Renamed from Current non-smoker) Start:30-Aug-2020 Instruction Type:Patient Education How to access health informa tion online Indication:ETD (Eustachian tube dysfunction), right Start:27-Jan-2019 Instruction Type:Patient Education How to access health informa tion online - Detail Indication:ETD (Eustachian tube dysfunction), right Start:27-Jan-2019 Instruction Type:Patient Education Patient Instructions Indication:ETD (Eustachian tube dysfunction), right Start:27-Jan-2019 Instruction Type:Provider Instructions for Treatment How to access health informa tion online Indication:Sore throat Start:23-Jan-2019 Instruction Type:Patient Education How to access health informa tion online - Detail Indication:Sore throat Start:23-Jan-2019 Instruction Type:Patient Education Patient Instructions Indication:Sore throat Start:23-Jan-2019 Instruction Type:Provider Instructions for Treatment How to access health informa tion online Indication:Current nonsmoker (Renamed from Current non-smoker) Start:20-Jan-2019 Instruction Type:Patient Education How to access health informa tion online - Detail Indication:Current nonsmoker (Renamed from Current non-smoker) Start:20-Jan-2019 Instruction Type:Patient Education Patient Instructions Indication:Keratosis Start:20-Jan-2019 Instruction Type:Provider Instructions for Treatment How to access health informa tion online Indication:Current nonsmoker (Renamed from Current non-smoker) Start:25-Nov-2017 Instruction Type:Patient Education How to access health informa tion online - Detail Indication:Current nonsmoker (Renamed from Current non-smoker) Start:25-Nov-2017 Instruction Type:Patient Education Patient Instructions Indication:Need for prophylactic vaccination and inoculation against influenza Start:25-Nov-2017 Instruction Type:Provider Instructions for Treatment How to access health informa tion online Indication:Hypercholesteremia Start:12-Aug-2015 Instruction Type:Patient Education How to access health informa tion online - Detail Indication:Hypercholesteremia Start:12-Aug-2015 Instruction Type:Patient Education Patient Instructions Indication:Hypercholesteremia Start:12-Aug-2015 Instruction Type:Provider Instructions for Treatment How to access health informa tion online - Detail Indication:Benign essential hypertension Start:18-Oct-2014 Instruction Type:Patient Education Patient Instructions Indication:Benign essential hypertension Start:18-Oct-2014 Instruction Type:Provider Instructions for Treatment Patient Instructions Indication:Sinusitis, acute Start:07-Sep-2013 Instruction Type:Provider Instructions for Treatment Patient Instructions Indication:Overweight Start:24-Aug-2013 Instruction Type:Provider Instructions for Treatment DISCONTINUED - CT - Chest Indication:Lung nodule Start:19-May-2012 Instruction Type:Patient Education Patient Instructions Indication:Impaired fasting glucose Start:19-May-2012 Instruction Type:Provider Instructions for Treatment [facility]; [facility] Work Phone: Family History Unknown Family Member Name Dates Details Brother 1 Comments:NE @ age 50, hx ang ioplasty (5 years older) Status:Active Brother 2 Comments:Prolapsed mitral va lve, heart damage (3years older) Status:Active Heart disease Comments:Father. tino diane musa in October, Status:Active Mother Comments:hx light stroke @ age 77, hx HTN Status:Active Sister 1 Comments:Prolapsed mitral va lve Status:Active Sister 2 Comments:prolapsed mitral va lve Status:Active Unknown Family Member Name Dates Details Brother 1 Comments:NE @ age 50, hx ang ioplasty (5 years older) Status:Active Brother 2 Comments:Prolapsed mitral va lve, heart damage (3years older) Status:Active Heart disease Comments:Father. tino musa in October, Status:Active Mother Comments:hx light stroke @ age 77, hx HTN Status:Active Sister 1 Comments:Prolapsed mitral va lve Status:Active Sister 2 Comments:prolapsed mitral va lve Status:Active Unknown Family Member Name Dates Details Brother 1 Comments:NE @ age 50, hx ang ioplasty (5 years older) Status:Active Brother 2 Comments:Prolapsed mitral va lve, heart damage (3years older) Status:Active Heart disease Comments:Father. tino musa in October, Status:Active Mother Comments:hx light stroke @ age 77, hx HTN Status:Active Sister 1 Comments:Prolapsed mitral va lve Status:Active Sister 2 Comments:prolapsed mitral va lve Status:Active Unknown Family Member Name Dates Details Brother 1 Comments:NE @ age 50, hx ang ioplasty (5 years older) Status:Active Brother 2 Comments:Prolapsed mitral va lve, heart damage (3years older) Status:Active Heart disease Comments:Father. tino musa in October, Status:Active Mother Comments:hx light stroke @ age 77, hx HTN Status:Active Sister 1 Comments:Prolapsed mitral va lve Status:Active Sister 2 Comments:prolapsed mitral va lve Status:Active Unknown Family Member Name Dates Details Brother 1 Comments:NE @ age 50, hx ang ioplasty (5 years older) Status:Active Brother 2 Comments:Prolapsed mitral va lve, heart damage (3years older) Status:Active Heart disease Comments:Father. tino musa in October, Status:Active Mother Comments:hx light stroke @ age 77, hx HTN Status:Active Sister 1 Comments:Prolapsed mitral va lve Status:Active Sister 2 Comments:prolapsed mitral va lve Status:Active Unknown Family Member Name Dates Details Brother 1 Comments:NE @ age 50, hx ang ioplasty (5 years older) Status:Active Brother 2 Comments:Prolapsed mitral va lve, heart damage (3years older) Status:Active Heart disease Comments:Father. tino musa in October, Status:Active Mother Comments:hx light stroke @ age 77, hx HTN Status:Active Sister 1 Comments:Prolapsed mitral va lve Status:Active Sister 2 Comments:prolapsed mitral va lve Status:Active Unknown Family Member Name Dates Details Brother 1 Comments:NE @ age 50, hx ang ioplasty (5 years older) Status:Active Brother 2 Comments:Prolapsed mitral va lve, heart damage (3years older) Status:Active Heart disease Comments:Father. tino musa in October, Status:Active Mother Comments:hx light stroke @ age 77, hx HTN Status:Active Sister 1 Comments:Prolapsed mitral va lve Status:Active Sister 2 Comments:prolapsed mitral va lve Status:Active Unknown Family Member Name Dates Details Brother 1 Comments:NE @ age 50, hx ang ioplasty (5 years older) Status:Active Brother 2 Comments:Prolapsed mitral va lve, heart damage (3years older) Status:Active Heart disease Comments:Father. tino musa in October, Status:Active Mother Comments:hx light stroke @ age 77, hx HTN Status:Active Sister 1 Comments:Prolapsed mitral va lve Status:Active Sister 2 Comments:prolapsed mitral va lve Status:Active Unknown Family Member Name Dates Details Brother 1 Comments:NE @ age 50, hx ang ioplasty (5 years older) Status:Active Brother 2 Comments:Prolapsed mitral va lve, heart damage (3years older) Status:Active Heart disease Comments:Father. tino musa in October, Status:Active Mother Comments:hx light stroke @ age 77, hx HTN Status:Active Sister 1 Comments:Prolapsed mitral va lve Status:Active Sister 2 Comments:prolapsed mitral va lve Status:Active Unknown Family Member Name Dates Details Brother 1 Comments:NE @ age 50, hx ang ioplasty (5 years older) Status:Active Brother 2 Comments:Prolapsed mitral va lve, heart damage (3years older) Status:Active Heart disease Comments:Father. tino musa in October, Status:Active Mother Comments:hx light stroke @ age 77, hx HTN Status:Active Sister 1 Comments:Prolapsed mitral va lve Status:Active Sister 2 Comments:prolapsed mitral va lve Status:Active Unknown Family Member Name Dates Details Brother 1 Comments:NE @ age 50, hx ang ioplasty (5 years older) Status:Active Brother 2 Comments:Prolapsed mitral va lve, heart damage (3years older) Status:Active Heart disease Comments:Father. tino musa in October, Status:Active Mother Comments:hx light stroke @ age 77, hx HTN Status:Active Sister 1 Comments:Prolapsed mitral va lve Status:Active Sister 2 Comments:prolapsed mitral va lve Status:Active Unknown Family Member Name Dates Details Brother 1 Comments:NE @ age 50, hx ang ioplasty (5 years older) Status:Active Brother 2 Comments:Prolapsed mitral va lve, heart damage (3years older) Status:Active Heart disease Comments:Father. tino musa in October, Status:Active Mother Comments:hx light stroke @ age 77, hx HTN Status:Active Sister 1 Comments:Prolapsed mitral va lve Status:Active Sister 2 Comments:prolapsed mitral va lve Status:Active Unknown Family Member Name Dates Details Brother 1 Comments:NE @ age 50, hx ang ioplasty (5 years older) Status:Active Brother 2 Comments:Prolapsed mitral va lve, heart damage (3years older) Status:Active Heart disease Comments:Father. tino musa in October, Status:Active Mother Comments:hx light stroke @ age 77, hx HTN Status:Active Sister 1 Comments:Prolapsed mitral va lve Status:Active Sister 2 Comments:prolapsed mitral va lve Status:Active Unknown Family Member Name Dates Details Brother 1 Comments:NE @ age 50, hx ang ioplasty (5 years older) Status:Active Brother 2 Comments:Prolapsed mitral va lve, heart damage (3years older) Status:Active Heart disease Comments:Father. tino musa in October, Status:Active Mother Comments:hx light stroke @ age 77, hx HTN Status:Active Sister 1 Comments:Prolapsed mitral va lve Status:Active Sister 2 Comments:prolapsed mitral va lve Status:Active Unknown Family Member Name Dates Details Brother 1 Comments:NE @ age 50, hx ang ioplasty (5 years older) Status:Active Brother 2 Comments:Prolapsed mitral va lve, heart damage (3years older) Status:Active Heart disease Comments:Father. tino musa in October, Status:Active Mother Comments:hx light stroke @ age 77, hx HTN Status:Active Sister 1 Comments:Prolapsed mitral va lve Status:Active Sister 2 Comments:prolapsed mitral va lve Status:Active Unknown Family Member Name Dates Details Brother 1 Comments:NE @ age 50, hx ang ioplasty (5 years older) Status:Active Brother 2 Comments:Prolapsed mitral va lve, heart damage (3years older) Status:Active Heart disease Comments:Father. tino musa in October, Status:Active Mother Comments:hx light stroke @ age 77, hx HTN Status:Active Sister 1 Comments:Prolapsed mitral va lve Status:Active Sister 2 Comments:prolapsed mitral va lve Status:Active Unknown Family Member Name Dates Details Brother 1 Comments:NE @ age 50, hx ang ioplasty (5 years older) Status:Active Brother 2 Comments:Prolapsed mitral va lve, heart damage (3years older) Status:Active Heart disease Comments:Father. tino musa in October, Status:Active Mother Comments:hx light stroke @ age 77, hx HTN Status:Active Sister 1 Comments:Prolapsed mitral va lve Status:Active Sister 2 Comments:prolapsed mitral va lve Status:Active Unknown Family Member Name Dates Details Brother 1 Comments:NE @ age 50, hx ang ioplasty (5 years older) Status:Active Brother 2 Comments:Prolapsed mitral va lve, heart damage (3years older) Status:Active Heart disease Comments:Father. tino musa in October, Status:Active Mother Comments:hx light stroke @ age 77, hx HTN Status:Active Sister 1 Comments:Prolapsed mitral va lve Status:Active Sister 2 Comments:prolapsed mitral va lve Status:Active Unknown Family Member Name Dates Details Brother 1 Comments:NE @ age 50, hx ang ioplasty (5 years older) Status:Active Brother 2 Comments:Prolapsed mitral va lve, heart damage (3years older) Status:Active Heart disease Comments:Father. tino smileynorma in October, Status:Active Mother Comments:hx light stroke @ age 77, hx HTN Status:Active Sister 1 Comments:Prolapsed mitral va lve Status:Active Sister 2 Comments:prolapsed mitral va lve Status:Active Unknown Family Member Name Dates Details Brother 1 Comments:NE @ age 50, hx ang ioplasty (5 years older) Status:Active Brother 2 Comments:Prolapsed mitral va lve, heart damage (3years older) Status:Active Heart disease Comments:Father. tino diane in October, Status:Active Mother Comments:hx light stroke @ age 77, hx HTN Status:Active Sister 1 Comments:Prolapsed mitral va lve Status:Active Sister 2 Comments:prolapsed mitral va lve Status:Active Unknown Family Member Name Dates Details Brother 1 Comments:NE @ age 50, hx ang ioplasty (5 years older) Status:Active Brother 2 Comments:Prolapsed mitral va lve, heart damage (3years older) Status:Active Heart disease Comments:Father. tino diane musa in October, Status:Active Mother Comments:hx light stroke @ age 77, hx HTN Status:Active Sister 1 Comments:Prolapsed mitral va lve Status:Active Sister 2 Comments:prolapsed mitral va lve Status:Active Unknown Family Member Name Dates Details Brother 1 Comments:NE @ age 50, hx ang ioplasty (5 years older) Status:Active Brother 2 Comments:Prolapsed mitral va lve, heart damage (3years older) Status:Active Heart disease Comments:Father. tino diane in October, Status:Active Mother Comments:hx light stroke @ age 77, hx HTN Status:Active Sister 1 Comments:Prolapsed mitral va lve Status:Active Sister 2 Comments:prolapsed mitral va lve Status:Active Unknown Family Member Name Dates Details Brother 1 Comments:NE @ age 50, hx ang ioplasty (5 years older) Status:Active Brother 2 Comments:Prolapsed mitral va lve, heart damage (3years older) Status:Active Heart disease Comments:Father. tino diane musa in October, Status:Active Mother Comments:hx light stroke @ age 77, hx HTN Status:Active Sister 1 Comments:Prolapsed mitral va lve Status:Active Sister 2 Comments:prolapsed mitral va lve Status:Active Unknown Family Member Name Dates Details Brother 1 Comments:NE @ age 50, hx ang ioplasty (5 years older) Status:Active Brother 2 Comments:Prolapsed mitral va lve, heart damage (3years older) Status:Active Heart disease Comments:Father. tino musa in October, Status:Active Mother Comments:hx light stroke @ age 77, hx HTN Status:Active Sister 1 Comments:Prolapsed mitral va lve Status:Active Sister 2 Comments:prolapsed mitral va lve Status:Active Unknown Family Member Name Dates Details Brother 1 Comments:NE @ age 50, hx ang ioplasty (5 years older) Status:Active Brother 2 Comments:Prolapsed mitral va lve, heart damage (3years older) Status:Active Heart disease Comments:Father. tino musa in October, Status:Active Mother Comments:hx light stroke @ age 77, hx HTN Status:Active Sister 1 Comments:Prolapsed mitral va lve Status:Active Sister 2 Comments:prolapsed mitral va lve Status:Active Unknown Family Member Name Dates Details Brother 1 Comments:NE @ age 50, hx ang ioplasty (5 years older) Status:Active Brother 2 Comments:Prolapsed mitral va lve, heart damage (3years older) Status:Active Heart disease Comments:Father. tino musa in October, Status:Active Mother Comments:hx light stroke @ age 77, hx HTN Status:Active Sister 1 Comments:Prolapsed mitral va lve Status:Active Sister 2 Comments:prolapsed mitral va lve Status:Active Unknown Family Member Name Dates Details Brother 1 Comments:NE @ age 50, hx ang ioplasty (5 years older) Status:Active Brother 2 Comments:Prolapsed mitral va lve, heart damage (3years older) Status:Active Heart disease Comments:Father. tino musa in October, Status:Active Mother Comments:hx light stroke @ age 77, hx HTN Status:Active Sister 1 Comments:Prolapsed mitral va lve Status:Active Sister 2 Comments:prolapsed mitral va lve Status:Active Unknown Family Member Name Dates Details Brother 1 Comments:NE @ age 50, hx ang ioplasty (5 years older) Status:Active Brother 2 Comments:Prolapsed mitral va lve, heart damage (3years older) Status:Active Heart disease Comments:FatherEstevan contreras ss in October, Status:Active Mother Comments:hx light stroke @ age 77, hx HTN Status:Active Sister 1 Comments:Prolapsed mitral va lve Status:Active Sister 2 Comments:prolapsed mitral va lve Status:Active Unknown Family Member Name Dates Details Brother 1 Comments:NE @ age 50, hx ang ioplasty (5 years older) Status:Active Brother 2 Comments:Prolapsed mitral va lve, heart damage (3years older) Status:Active Heart disease Comments:Father. tino contreras ss in October, Status:Active Mother Comments:hx light stroke @ age 77, hx HTN Status:Active Sister 1 Comments:Prolapsed mitral va lve Status:Active Sister 2 Comments:prolapsed mitral va lve Status:Active Instructions Name Dates Details How to access [facility] Indication:Current nonsmoker (Renamed from Current non-smoker) Start:25-Nov-2017 Instruction Type:Patient Education How to access [facility] online - Detail Indication:Current nonsmoker (Renamed from Current non-smoker) Start:25-Nov-2017 Instruction Type:Patient Education Patient Instructions Indication:Need for prophylactic vaccination and inoculation against influenza Start:25-Nov-2017 Instruction Type:Provider Instructions for Treatment How to access [facility] Indication:Hypercholesteremia Start:12-Aug-2015 Instruction Type:Patient Education How to access health informa tion online - Detail Indication:Hypercholesteremia Start:12-Aug-2015 Instruction Type:Patient Education Patient Instructions Indication:Hypercholesteremia Start:12-Aug-2015 Instruction Type:Provider Instructions for Treatment How to access [facility] online - Detail Indication:Benign essential hypertension Start:18-Oct-2014 Instruction Type:Patient Education Patient Instructions Indication:Benign essential hypertension Start:18-Oct-2014 Instruction Type:Provider Instructions for Treatment Patient Instructions Indication:Sinusitis, acute Start:07-Sep-2013 Instruction Type:Provider Instructions for Treatment Patient Instructions Indication:Overweight Start:24-Aug-2013 Instruction Type:Provider Instructions for Treatment DISCONTINUED - CT - Chest Indication:Lung nodule Start:19-May-2012 Instruction Type:Patient Education Patient Instructions Indication:Impaired fasting glucose Start:19-May-2012 Instruction Type:Provider Instructions for Treatment Name Dates Details How to access [facility] Indication:Current nonsmoker (Renamed from Current non-smoker) Start:20-Jan-2019 Instruction Type:Patient Education How to access health informa tion online - Detail Indication:Current nonsmoker (Renamed from Current non-smoker) Start:20-Jan-2019 Instruction Type:Patient Education Patient Instructions Indication:Keratosis Start:20-Jan-2019 Instruction Type:Provider Instructions for Treatment How to access health informa tion online Indication:Current nonsmoker (Renamed from Current non-smoker) Start:25-Nov-2017 Instruction Type:Patient Education How to access health informa tion online - Detail Indication:Current nonsmoker (Renamed from Current non-smoker) Start:25-Nov-2017 Instruction Type:Patient Education Patient Instructions Indication:Need for prophylactic vaccination and inoculation against influenza Start:25-Nov-2017 Instruction Type:Provider Instructions for Treatment How to access health informa tion online Indication:Hypercholesteremia Start:12-Aug-2015 Instruction Type:Patient Education How to access health informa tion online - Detail Indication:Hypercholesteremia Start:12-Aug-2015 Instruction Type:Patient Education Patient Instructions Indication:Hypercholesteremia Start:12-Aug-2015 Instruction Type:Provider Instructions for Treatment How to access health informa tion online - Detail Indication:Benign essential hypertension Start:18-Oct-2014 Instruction Type:Patient Education Patient Instructions Indication:Benign essential hypertension Start:18-Oct-2014 Instruction Type:Provider Instructions for Treatment Patient Instructions Indication:Sinusitis, acute Start:07-Sep-2013 Instruction Type:Provider Instructions for Treatment Patient Instructions Indication:Overweight Start:24-Aug-2013 Instruction Type:Provider Instructions for Treatment DISCONTINUED - CT - Chest Indication:Lung nodule Start:19-May-2012 Instruction Type:Patient Education Patient Instructions Indication:Impaired fasting glucose Start:19-May-2012 Instruction Type:Provider Instructions for Treatment Name Dates Details How to access health informa tion online Indication:Current nonsmoker (Renamed from Current non-smoker) Start:20-Jan-2019 Instruction Type:Patient Education How to access health informa tion online - Detail Indication:Current nonsmoker (Renamed from Current non-smoker) Start:20-Jan-2019 Instruction Type:Patient Education Patient Instructions Indication:Keratosis Start:20-Jan-2019 Instruction Type:Provider Instructions for Treatment How to access health informa tion online Indication:Current nonsmoker (Renamed from Current non-smoker) Start:25-Nov-2017 Instruction Type:Patient Education How to access health informa tion online - Detail Indication:Current nonsmoker (Renamed from Current non-smoker) Start:25-Nov-2017 Instruction Type:Patient Education Patient Instructions Indication:Need for prophylactic vaccination and inoculation against influenza Start:25-Nov-2017 Instruction Type:Provider Instructions for Treatment How to access health informa tion online Indication:Hypercholesteremia Start:12-Aug-2015 Instruction Type:Patient Education How to access health informa tion online - Detail Indication:Hypercholesteremia Start:12-Aug-2015 Instruction Type:Patient Education Patient Instructions Indication:Hypercholesteremia Start:12-Aug-2015 Instruction Type:Provider Instructions for Treatment How to access health informa tion online - Detail Indication:Benign essential hypertension Start:18-Oct-2014 Instruction Type:Patient Education Patient Instructions Indication:Benign essential hypertension Start:18-Oct-2014 Instruction Type:Provider Instructions for Treatment Patient Instructions Indication:Sinusitis, acute Start:07-Sep-2013 Instruction Type:Provider Instructions for Treatment Patient Instructions Indication:Overweight Start:24-Aug-2013 Instruction Type:Provider Instructions for Treatment DISCONTINUED - CT - Chest Indication:Lung nodule Start:19-May-2012 Instruction Type:Patient Education Patient Instructions Indication:Impaired fasting glucose Start:19-May-2012 Instruction Type:Provider Instructions for Treatment Name Dates Details How to access health informa tion online Indication:ETD (Eustachian tube dysfunction), right Start:27-Jan-2019 Instruction Type:Patient Education How to access health informa tion online - Detail Indication:ETD (Eustachian tube dysfunction), right Start:27-Jan-2019 Instruction Type:Patient Education Patient Instructions Indication:ETD (Eustachian tube dysfunction), right Start:27-Jan-2019 Instruction Type:Provider Instructions for Treatment How to access health informa tion online Indication:Sore throat Start:23-Jan-2019 Instruction Type:Patient Education How to access health informa tion online - Detail Indication:Sore throat Start:23-Jan-2019 Instruction Type:Patient Education Patient Instructions Indication:Sore throat Start:23-Jan-2019 Instruction Type:Provider Instructions for Treatment How to access health informa tion online Indication:Current nonsmoker (Renamed from Current non-smoker) Start:20-Jan-2019 Instruction Type:Patient Education How to access health informa tion online - Detail Indication:Current nonsmoker (Renamed from Current non-smoker) Start:20-Jan-2019 Instruction Type:Patient Education Patient Instructions Indication:Keratosis Start:20-Jan-2019 Instruction Type:Provider Instructions for Treatment How to access health informa tion online Indication:Current nonsmoker (Renamed from Current non-smoker) Start:25-Nov-2017 Instruction Type:Patient Education How to access health informa tion online - Detail Indication:Current nonsmoker (Renamed from Current non-smoker) Start:25-Nov-2017 Instruction Type:Patient Education Patient Instructions Indication:Need for prophylactic vaccination and inoculation against influenza Start:25-Nov-2017 Instruction Type:Provider Instructions for Treatment How to access health informa tion online Indication:Hypercholesteremia Start:12-Aug-2015 Instruction Type:Patient Education How to access health informa tion online - Detail Indication:Hypercholesteremia Start:12-Aug-2015 Instruction Type:Patient Education Patient Instructions Indication:Hypercholesteremia Start:12-Aug-2015 Instruction Type:Provider Instructions for Treatment How to access health informa tion online - Detail Indication:Benign essential hypertension Start:18-Oct-2014 Instruction Type:Patient Education Patient Instructions Indication:Benign essential hypertension Start:18-Oct-2014 Instruction Type:Provider Instructions for Treatment Patient Instructions Indication:Sinusitis, acute Start:07-Sep-2013 Instruction Type:Provider Instructions for Treatment Patient Instructions Indication:Overweight Start:24-Aug-2013 Instruction Type:Provider Instructions for Treatment DISCONTINUED - CT - Chest Indication:Lung nodule Start:19-May-2012 Instruction Type:Patient Education Patient Instructions Indication:Impaired fasting glucose Start:19-May-2012 Instruction Type:Provider Instructions for Treatment Name Dates Details How to access health informa tion online Indication:ETD (Eustachian tube dysfunction), right Start:27-Jan-2019 Instruction Type:Patient Education How to access health informa tion online - Detail Indication:ETD (Eustachian tube dysfunction), right Start:27-Jan-2019 Instruction Type:Patient Education Patient Instructions Indication:ETD (Eustachian tube dysfunction), right Start:27-Jan-2019 Instruction Type:Provider Instructions for Treatment How to access health informa tion online Indication:Sore throat Start:23-Jan-2019 Instruction Type:Patient Education How to access health informa tion online - Detail Indication:Sore throat Start:23-Jan-2019 Instruction Type:Patient Education Patient Instructions Indication:Sore throat Start:23-Jan-2019 Instruction Type:Provider Instructions for Treatment How to access health informa tion online Indication:Current nonsmoker (Renamed from Current non-smoker) Start:20-Jan-2019 Instruction Type:Patient Education How to access health informa tion online - Detail Indication:Current nonsmoker (Renamed from Current non-smoker) Start:20-Jan-2019 Instruction Type:Patient Education Patient Instructions Indication:Keratosis Start:20-Jan-2019 Instruction Type:Provider Instructions for Treatment How to access health informa tion online Indication:Current nonsmoker (Renamed from Current non-smoker) Start:25-Nov-2017 Instruction Type:Patient Education How to access health informa tion online - Detail Indication:Current nonsmoker (Renamed from Current non-smoker) Start:25-Nov-2017 Instruction Type:Patient Education Patient Instructions Indication:Need for prophylactic vaccination and inoculation against influenza Start:25-Nov-2017 Instruction Type:Provider Instructions for Treatment How to access health informa tion online Indication:Hypercholesteremia Start:12-Aug-2015 Instruction Type:Patient Education How to access health informa tion online - Detail Indication:Hypercholesteremia Start:12-Aug-2015 Instruction Type:Patient Education Patient Instructions Indication:Hypercholesteremia Start:12-Aug-2015 Instruction Type:Provider Instructions for Treatment How to access health informa tion online - Detail Indication:Benign essential hypertension Start:18-Oct-2014 Instruction Type:Patient Education Patient Instructions Indication:Benign essential hypertension Start:18-Oct-2014 Instruction Type:Provider Instructions for Treatment Patient Instructions Indication:Sinusitis, acute Start:07-Sep-2013 Instruction Type:Provider Instructions for Treatment Patient Instructions Indication:Overweight Start:24-Aug-2013 Instruction Type:Provider Instructions for Treatment DISCONTINUED - CT - Chest Indication:Lung nodule Start:19-May-2012 Instruction Type:Patient Education Patient Instructions Indication:Impaired fasting glucose Start:19-May-2012 Instruction Type:Provider Instructions for Treatment Name Dates Details How to access health informa tion online Indication:ETD (Eustachian tube dysfunction), right Start:27-Jan-2019 Instruction Type:Patient Education How to access health informa tion online - Detail Indication:ETD (Eustachian tube dysfunction), right Start:27-Jan-2019 Instruction Type:Patient Education Patient Instructions Indication:ETD (Eustachian tube dysfunction), right Start:27-Jan-2019 Instruction Type:Provider Instructions for Treatment How to access health informa tion online Indication:Sore throat Start:23-Jan-2019 Instruction Type:Patient Education How to access health informa tion online - Detail Indication:Sore throat Start:23-Jan-2019 Instruction Type:Patient Education Patient Instructions Indication:Sore throat Start:23-Jan-2019 Instruction Type:Provider Instructions for Treatment How to access health informa tion online Indication:Current nonsmoker (Renamed from Current non-smoker) Start:20-Jan-2019 Instruction Type:Patient Education How to access health informa tion online - Detail Indication:Current nonsmoker (Renamed from Current non-smoker) Start:20-Jan-2019 Instruction Type:Patient Education Patient Instructions Indication:Keratosis Start:20-Jan-2019 Instruction Type:Provider Instructions for Treatment How to access health informa tion online Indication:Current nonsmoker (Renamed from Current non-smoker) Start:25-Nov-2017 Instruction Type:Patient Education How to access health informa tion online - Detail Indication:Current nonsmoker (Renamed from Current non-smoker) Start:25-Nov-2017 Instruction Type:Patient Education Patient Instructions Indication:Need for prophylactic vaccination and inoculation against influenza Start:25-Nov-2017 Instruction Type:Provider Instructions for Treatment How to access health informa tion online Indication:Hypercholesteremia Start:12-Aug-2015 Instruction Type:Patient Education How to access health informa tion online - Detail Indication:Hypercholesteremia Start:12-Aug-2015 Instruction Type:Patient Education Patient Instructions Indication:Hypercholesteremia Start:12-Aug-2015 Instruction Type:Provider Instructions for Treatment How to access health informa tion online - Detail Indication:Benign essential hypertension Start:18-Oct-2014 Instruction Type:Patient Education Patient Instructions Indication:Benign essential hypertension Start:18-Oct-2014 Instruction Type:Provider Instructions for Treatment Patient Instructions Indication:Sinusitis, acute Start:07-Sep-2013 Instruction Type:Provider Instructions for Treatment Patient Instructions Indication:Overweight Start:24-Aug-2013 Instruction Type:Provider Instructions for Treatment DISCONTINUED - CT - Chest Indication:Lung nodule Start:19-May-2012 Instruction Type:Patient Education Patient Instructions Indication:Impaired fasting glucose Start:19-May-2012 Instruction Type:Provider Instructions for Treatment Name Dates Details How to access health informa tion online Indication:ETD (Eustachian tube dysfunction), right Start:27-Jan-2019 Instruction Type:Patient Education How to access health informa tion online - Detail Indication:ETD (Eustachian tube dysfunction), right Start:27-Jan-2019 Instruction Type:Patient Education Patient Instructions Indication:ETD (Eustachian tube dysfunction), right Start:27-Jan-2019 Instruction Type:Provider Instructions for Treatment How to access health informa tion online Indication:Sore throat Start:23-Jan-2019 Instruction Type:Patient Education How to access health informa tion online - Detail Indication:Sore throat Start:23-Jan-2019 Instruction Type:Patient Education Patient Instructions Indication:Sore throat Start:23-Jan-2019 Instruction Type:Provider Instructions for Treatment How to access health informa tion online Indication:Current nonsmoker (Renamed from Current non-smoker) Start:20-Jan-2019 Instruction Type:Patient Education How to access health informa tion online - Detail Indication:Current nonsmoker (Renamed from Current non-smoker) Start:20-Jan-2019 Instruction Type:Patient Education Patient Instructions Indication:Keratosis Start:20-Jan-2019 Instruction Type:Provider Instructions for Treatment How to access health informa tion online Indication:Current nonsmoker (Renamed from Current non-smoker) Start:25-Nov-2017 Instruction Type:Patient Education How to access health informa tion online - Detail Indication:Current nonsmoker (Renamed from Current non-smoker) Start:25-Nov-2017 Instruction Type:Patient Education Patient Instructions Indication:Need for prophylactic vaccination and inoculation against influenza Start:25-Nov-2017 Instruction Type:Provider Instructions for Treatment How to access health informa tion online Indication:Hypercholesteremia Start:12-Aug-2015 Instruction Type:Patient Education How to access health informa tion online - Detail Indication:Hypercholesteremia Start:12-Aug-2015 Instruction Type:Patient Education Patient Instructions Indication:Hypercholesteremia Start:12-Aug-2015 Instruction Type:Provider Instructions for Treatment How to access health informa tion online - Detail Indication:Benign essential hypertension Start:18-Oct-2014 Instruction Type:Patient Education Patient Instructions Indication:Benign essential hypertension Start:18-Oct-2014 Instruction Type:Provider Instructions for Treatment Patient Instructions Indication:Sinusitis, acute Start:07-Sep-2013 Instruction Type:Provider Instructions for Treatment Patient Instructions Indication:Overweight Start:24-Aug-2013 Instruction Type:Provider Instructions for Treatment DISCONTINUED - CT - Chest Indication:Lung nodule Start:19-May-2012 Instruction Type:Patient Education Patient Instructions Indication:Impaired fasting glucose Start:19-May-2012 Instruction Type:Provider Instructions for Treatment Name Dates Details How to access health informa tion online Indication:Sore throat Start:23-Jan-2019 Instruction Type:Patient Education How to access health informa tion online - Detail Indication:Sore throat Start:23-Jan-2019 Instruction Type:Patient Education Patient Instructions Indication:Sore throat Start:23-Jan-2019 Instruction Type:Provider Instructions for Treatment How to access health informa tion online Indication:Current nonsmoker (Renamed from Current non-smoker) Start:20-Jan-2019 Instruction Type:Patient Education How to access health informa tion online - Detail Indication:Current nonsmoker (Renamed from Current non-smoker) Start:20-Jan-2019 Instruction Type:Patient Education Patient Instructions Indication:Keratosis Start:20-Jan-2019 Instruction Type:Provider Instructions for Treatment How to access health informa tion online Indication:Current nonsmoker (Renamed from Current non-smoker) Start:25-Nov-2017 Instruction Type:Patient Education How to access health informa tion online - Detail Indication:Current nonsmoker (Renamed from Current non-smoker) Start:25-Nov-2017 Instruction Type:Patient Education Patient Instructions Indication:Need for prophylactic vaccination and inoculation against influenza Start:25-Nov-2017 Instruction Type:Provider Instructions for Treatment How to access health informa tion online Indication:Hypercholesteremia Start:12-Aug-2015 Instruction Type:Patient Education How to access health informa tion online - Detail Indication:Hypercholesteremia Start:12-Aug-2015 Instruction Type:Patient Education Patient Instructions Indication:Hypercholesteremia Start:12-Aug-2015 Instruction Type:Provider Instructions for Treatment How to access health informa tion online - Detail Indication:Benign essential hypertension Start:18-Oct-2014 Instruction Type:Patient Education Patient Instructions Indication:Benign essential hypertension Start:18-Oct-2014 Instruction Type:Provider Instructions for Treatment Patient Instructions Indication:Sinusitis, acute Start:07-Sep-2013 Instruction Type:Provider Instructions for Treatment Patient Instructions Indication:Overweight Start:24-Aug-2013 Instruction Type:Provider Instructions for Treatment DISCONTINUED - CT - Chest Indication:Lung nodule Start:19-May-2012 Instruction Type:Patient Education Patient Instructions Indication:Impaired fasting glucose Start:19-May-2012 Instruction Type:Provider Instructions for Treatment Name Dates Details How to access health informa tion online Indication:ETD (Eustachian tube dysfunction), right Start:27-Jan-2019 Instruction Type:Patient Education How to access health informa tion online - Detail Indication:ETD (Eustachian tube dysfunction), right Start:27-Jan-2019 Instruction Type:Patient Education Patient Instructions Indication:ETD (Eustachian tube dysfunction), right Start:27-Jan-2019 Instruction Type:Provider Instructions for Treatment How to access health informa tion online Indication:Sore throat Start:23-Jan-2019 Instruction Type:Patient Education How to access health informa tion online - Detail Indication:Sore throat Start:23-Jan-2019 Instruction Type:Patient Education Patient Instructions Indication:Sore throat Start:23-Jan-2019 Instruction Type:Provider Instructions for Treatment How to access health informa tion online Indication:Current nonsmoker (Renamed from Current non-smoker) Start:20-Jan-2019 Instruction Type:Patient Education How to access health informa tion online - Detail Indication:Current nonsmoker (Renamed from Current non-smoker) Start:20-Jan-2019 Instruction Type:Patient Education Patient Instructions Indication:Keratosis Start:20-Jan-2019 Instruction Type:Provider Instructions for Treatment How to access health informa tion online Indication:Current nonsmoker (Renamed from Current non-smoker) Start:25-Nov-2017 Instruction Type:Patient Education How to access health informa tion online - Detail Indication:Current nonsmoker (Renamed from Current non-smoker) Start:25-Nov-2017 Instruction Type:Patient Education Patient Instructions Indication:Need for prophylactic vaccination and inoculation against influenza Start:25-Nov-2017 Instruction Type:Provider Instructions for Treatment How to access health informa tion online Indication:Hypercholesteremia Start:12-Aug-2015 Instruction Type:Patient Education How to access health informa tion online - Detail Indication:Hypercholesteremia Start:12-Aug-2015 Instruction Type:Patient Education Patient Instructions Indication:Hypercholesteremia Start:12-Aug-2015 Instruction Type:Provider Instructions for Treatment How to access health informa tion online - Detail Indication:Benign essential hypertension Start:18-Oct-2014 Instruction Type:Patient Education Patient Instructions Indication:Benign essential hypertension Start:18-Oct-2014 Instruction Type:Provider Instructions for Treatment Patient Instructions Indication:Sinusitis, acute Start:07-Sep-2013 Instruction Type:Provider Instructions for Treatment Patient Instructions Indication:Overweight Start:24-Aug-2013 Instruction Type:Provider Instructions for Treatment DISCONTINUED - CT - Chest Indication:Lung nodule Start:19-May-2012 Instruction Type:Patient Education Patient Instructions Indication:Impaired fasting glucose Start:19-May-2012 Instruction Type:Provider Instructions for Treatment Name Dates Details How to access health informa [place] Indication:Current nonsmoker (Renamed from Current non-smoker) Start:20-Jan-2019 Instruction Type:Patient Education How to access health informa tion online - Detail Indication:Current nonsmoker (Renamed from Current non-smoker) Start:20-Jan-2019 Instruction Type:Patient Education Patient Instructions Indication:BMI 27.0-27.9,adult Start:20-Jan-2019 Instruction Type:Provider Instructions for Treatment How to access health informa [place] online Indication:Current nonsmoker (Renamed from Current non-smoker) Start:25-Nov-2017 Instruction Type:Patient Education How to access health informa tion online - Detail Indication:Current nonsmoker (Renamed from Current non-smoker) Start:25-Nov-2017 Instruction Type:Patient Education Patient Instructions Indication:Need for prophylactic vaccination and inoculation against influenza Start:25-Nov-2017 Instruction Type:Provider Instructions for Treatment How to access health informa tion online Indication:Hypercholesteremia Start:12-Aug-2015 Instruction Type:Patient Education How to access health informa tion online - Detail Indication:Hypercholesteremia Start:12-Aug-2015 Instruction Type:Patient Education Patient Instructions Indication:Hypercholesteremia Start:12-Aug-2015 Instruction Type:Provider Instructions for Treatment How to access health informa tion online - Detail Indication:Benign essential hypertension Start:18-Oct-2014 Instruction Type:Patient Education Patient Instructions Indication:Benign essential hypertension Start:18-Oct-2014 Instruction Type:Provider Instructions for Treatment Patient Instructions Indication:Sinusitis, acute Start:07-Sep-2013 Instruction Type:Provider Instructions for Treatment Patient Instructions Indication:Overweight Start:24-Aug-2013 Instruction Type:Provider Instructions for Treatment DISCONTINUED - CT - Chest Indication:Lung nodule Start:19-May-2012 Instruction Type:Patient Education Patient Instructions Indication:Impaired fasting glucose Start:19-May-2012 Instruction Type:Provider Instructions for Treatment Advance Directives Name Dates Details Immunization Registry [place] - Effective on 06/15/2019. Expiration date unspecified Effective:15-Jun-2019 Name Dates Details Immunization Registry [place] - Effective on 06/15/2019. Expiration date unspecified Effective:15-Jun-2019 Name Dates Details Immunization Registry [place] - Effective on 06/15/2019. Expiration date unspecified Effective:15-Jun-2019 Name Dates Details Immunization Registry [place] - Effective on 06/15/2019. Expiration date unspecified Effective:15-Jun-2019 Name Dates Details Immunization Registry [place] - Effective on 06/15/2019. Expiration date unspecified Effective:15-Jun-2019 Name Dates Details Immunization Registry [place] - Effective on 06/15/2019. Expiration date unspecified Effective:15-Jun-2019 Name Dates Details Immunization Registry [place] - Effective on 06/15/2019. Expiration date unspecified Effective:15-Jun-2019 Name Dates Details Immunization Registry [place] - Effective on 06/15/2019. Expiration date unspecified Effective:15-Jun-2019 Name Dates Details Immunization Registry [place] - Effective on 06/15/2019. Expiration date unspecified Effective:15-Jun-2019 Name Dates Details Immunization Registry [place] - Effective on 06/15/2019. Expiration date unspecified Effective:15-Jun-2019 Name Dates Details Immunization Registry [place] - Effective on 06/15/2019. Expiration date unspecified Effective:15-Jun-2019 Name Dates Details Immunization Registry [place] - Effective on 06/15/2019. Expiration date unspecified Effective:15-Jun-2019 Name Dates Details Immunization Registry [place] - Effective on 06/15/2019. Expiration date unspecified Effective:15-Jun-2019 Name Dates Details Immunization Registry [place] - Effective on 06/15/2019. Expiration date unspecified Effective:15-Jun-2019 Name Dates Details Immunization Registry [place] - Effective on 06/15/2019. Expiration date unspecified Effective:15-Jun-2019 Name Dates Details Immunization Registry [place] - Effective on 06/15/2019. Expiration date unspecified Effective:15-Jun-2019 Name Dates Details Immunization Registry [place] - Effective on 06/15/2019. Expiration date unspecified Effective:15-Jun-2019 Name Dates Details Immunization Registry [place] - Effective on 06/15/2019. Expiration date unspecified Effective:15-Jun-2019 Name Dates Details Immunization Registry [place] - Effective on 06/15/2019. Expiration date unspecified Effective:15-Jun-2019 Name Dates Details Immunization Registry [place] - Effective on 06/15/2019. Expiration date unspecified Effective:15-Jun-2019 Name Dates Details Immunization Registry [place] - Effective on 06/15/2019. Expiration date unspecified Effective:15-Jun-2019 Name Dates Details Immunization Registry [place] - Effective on 06/15/2019. Expiration date unspecified Effective:15-Jun-2019 Summary Purpose Additional Source Comments (unrecognized sect ion and content) No Status Records FoundNo Status Records Found INFORMATION SOURCE (unrecogn ized section and content) DATE CREATED AUTHOR AUTHOR'S ORGANIZ ATION 04/19/2022 [facility] FOR RECORDS PERTAINING TO PATIENTS WHO ARE OR HAVE BEEN ENROLLED IN A CHEMICAL DEPENDENCY/SUBSTANCEABUSE PROGRAM, SOME INFORMATION MAY BE OMITTED. This clinical summary was aggregated from multiple sources. Caution should be exercised in using it in the provision of clinical care. This summary normalizes information from multiple sources, and as a consequence, information in this document may materially change the coding, format and clinical context of patient data. In addition, data may be omitted in some cases. CLINICAL DECISIONS SHOULD BE BASED ON THE PRIMARY CLINICAL RECORDS. [facility] [employer] provides no warranty or guarantee of the accuracy or completeness of information in this document.
[2023-04-23 06:51] LABS: Bacteria 0 SEEN /hpf (None Seen); Mucous, Urine 0 SEEN /hpf (<or=2+); Red Blood Cells-Urine 0 SEEN /hpf (0-5); Squamous Epithelial Cells - UA 0 SEEN /hpf (0-5); White Blood Cells 0 SEEN /hpf (0-5)
[2023-04-23 07:12] LABS: Absolute Lymphocyte Count 1.46 X10^3/uL (0.83-4.51); Absolute Neutrophil Count 3.9 X10^3/uL (2.0-7.7); Basophil# 0.06 X10^3/uL; Eosinophil# 0.15 X10^3/uL; Eosinophils% 2.5 % (0-5); Hemoglobin 13.9 g/dL (13.0-16.5); Lymphocyte # 1.46 X10^3/ul (0.83-4.51); Lymphocyte % 24.1 % (19-41); Mean Corp Hgb Conc 32.3 g/dL (32-36); Mean Corpuscular Hgb 30.6 pg (27.0-32.0); Mean Corpuscular Volume 94.7 fL (80-94); Monocyte# 0.45 X10^3/uL; Monocyte% 7.4 % (0-10); NRBC Flagged by Analyzer 0 % (0-5); Neutrophil # 3.92 X10^3/uL (2.7-7.7); Neutrophil % 64.7 % (47-70); Platelet Count 247 K/mm3 (150-450); RBC Distribution Width CV 11.6 % (11.6-14.6); RBC Distribution Width SD 40.1 fl (35.1-43.9); Red Blood Count 4.54 M/mm3 (4.6-6.2); White Blood Count 6.1 K/mm3 (4.4-11.0)
[2023-04-23 07:25] LABS: Color, Urine Yellow (Yellow); Glucose, Dipstick Normal (Normal); Ketone-Dipstick 5 mg/dl (Negative); Leukocyte Esterase-Dipstick Negative /ul (Negative); Nitrite-Dipstick Negative (Negative); Occult Blood-Urine 10 /ul (Negative); Protein-Dipstick 15 mg/dl (Negative); Specific Gravity, Urine 1.025 (1.002-1.030); Urine Bilirubin Dipstick Negative (Negative); Urine Clarity Clear (Clear); Urine Urobilinogen Normal (Normal)
[2023-04-23 08:20] LABS: ALB/GLOB Ratio 1.1 RATIO (0.9-2.4); AST(SGOT) 20 U/L (15-37); Alanine Aminotransfer ALT/SGPT 42 U/L (16-61); Albumin, Serum 3.8 g/dL (3.2-5.0); Alkaline Phosphatase 52 U/L (45-117); Anion Gap 5 (5-15); BUN 16 mg/dL (7-18); BUN/Creat Ratio 15.4 RATIO (10-20); Calcium,Total 9.1 mg/dL (8.5-10.1); Chloride 111 mmol/L (98-107); Cholesterol 178 mg/dL (200); Creatinine, Serum 1.04 mg/dL (0.70-1.30); EST Glomerular Filtration Rate 77 mL/min (>60); Est Glom Filt Rate - Afr Amer 93 mL/min (>60); Globulin 3.5 g/dL (2.2-4.2); Glucose 100 mg/dL (74-106); High Density Lipoprotein 57 mg/dL; PSA,Total - Annual Screen 0.82 ng/mL (0.00-4.00); Potassium 3.9 mmol/L (3.5-5.1); Protein, Total 7.3 g/dL (6.4-8.2); Sodium Level 142 mmol/L (136-145); T4 Free Direct 1.02 ng/dL (0.76-1.46); Triglycerides 106 mg/dL; Very Low Density Lipoprotein 21 mg/dL (5-40)
[2023-04-23 09:29] LABS: Vitamin D,25 Hydroxy 55.1 ng/mL
[2023-04-23 10:29] LABS: Microalbumin,Random Urine 14.4 mg/L (NO RANGE EST.); Microalbumin:Creatinine Ratio 5.1 mg/g CRE (<30 mg/g CRE)
== END | disposition home or self-care (01) ==
LOC: LAB 06:48
PROVIDERS: PCP Nurse Practitioner Family; Referring Provider Nurse Practitioner Family; Visit Provider Nurse Practitioner Family
DX: E55.9 Vitamin D deficiency, unspecified (principal); E78.00 Pure hypercholesterolemia, unspecified; I10 Essential (primary) hypertension; Z12.5 Encounter for screening for malignant neoplasm of prostate; E03.9 Hypothyroidism, unspecified
CPT/HCPCS: 36415; 80053; 80061; 81001; 82043; 82306; 82570; 84153; 84439; 84443; 85025; G0103

== ENCOUNTER → 2023-07-18 | Outpatient (CLI) | payer BC, SELFPAY ==
[2023-07-18 16:00] LABS: Bacteria 0 SEEN /hpf (None Seen); Mucous, Urine 0 SEEN /hpf (<or=2+); Red Blood Cells-Urine 0 SEEN /hpf (0-5); Squamous Epithelial Cells - UA 0 SEEN /hpf (0-5); White Blood Cells 0 SEEN /hpf (0-5)
[2023-07-18 16:56] LABS: Color, Urine Yellow (Yellow); Glucose, Dipstick Normal (Normal); Ketone-Dipstick Negative (Negative); Leukocyte Esterase-Dipstick Negative /ul (Negative); Nitrite-Dipstick Negative (Negative); Occult Blood-Urine Negative /ul (Negative); Protein-Dipstick Negative (Negative); Specific Gravity, Urine 1.005 (1.002-1.030); Urine Bilirubin Dipstick Negative (Negative); Urine Clarity Clear (Clear); Urine Urobilinogen Normal (Normal)
[2023-07-18 17:27] LABS: Thyroid Stim Hormone (TSH) 3.43 uIU/mL (0.358-3.74)
== END | disposition home or self-care (01) ==
LOC: LAB 15:45
PROVIDERS: PCP Nurse Practitioner Family; Referring Provider Nurse Practitioner Family; Visit Provider Nurse Practitioner Family
DX: R31.9 Hematuria, unspecified (principal); E03.9 Hypothyroidism, unspecified
CPT/HCPCS: 36415; 81001; 84443

== ENCOUNTER → 2024-06-30 | Outpatient (CLI) | payer BC, SELFPAY ==
[2024-06-30 07:27] LABS: Bacteria 0 SEEN /hpf (None Seen); Red Blood Cells-Urine 0 SEEN /hpf (0-5); White Blood Cells 0 SEEN /hpf (0-5)
[2024-06-30 08:38] LABS: Absolute Neutrophil Count 3.9 X10^3/uL (2.0-7.7); Basophil# 0.06 X10^3/uL; Eosinophil# 0.15 X10^3/uL; Eosinophils% 2.6 % (0-5); Hematocrit 38.5 % (40-54); Hemoglobin 12.8 g/dL (13.0-16.5); Lymphocyte % 22.2 % (19-41); Mean Corp Hgb Conc 33.2 g/dL (32-36); Mean Corpuscular Hgb 30.4 pg (27.0-32.0); Mean Corpuscular Volume 91.4 fL (80-94); Mean Platelet Vol. 10.3 fl (6.2-12.0); Monocyte# 0.44 X10^3/uL; Monocyte% 7.5 % (0-10); NRBC Flagged by Analyzer 0 % (0-5); Neutrophil % 66.5 % (47-70); Platelet Count 237 K/mm3 (150-450); RBC Distribution Width CV 12.3 % (11.6-14.6); RBC Distribution Width SD 41.1 fl (35.1-43.9); Red Blood Count 4.21 M/mm3 (4.6-6.2); White Blood Count 5.9 K/mm3 (4.4-11.0)
[2024-06-30 10:00] LABS: ALB/GLOB Ratio 1.8 RATIO (0.9-2.4); AST(SGOT) 23 U/L (<=37); Alanine Aminotransfer ALT/SGPT 24 U/L (<=46); Albumin, Serum 4.3 g/dL (3.4-4.8); Alkaline Phosphatase 48 U/L (40-129); Anion Gap 11 (5-15); BUN 21 mg/dL (4-19); BUN/Creat Ratio 18.2 RATIO (10-20); Calcium,Total 9.8 mg/dL (7.6-11.0); Carbon Dioxide 25.6 mmol/L (21.0-32.0); Chloride 106 mmol/L (98-108); Creatinine, Serum 1.14 mg/dL (0.70-1.20); EST Glomerular Filtration Rate 72 (>60); Globulin 2.4 g/dL (2.2-4.2); Glucose 103 mg/dL (70-99); PSA,Total - Annual Screen 0.84 ng/mL (0.02-4.00); Potassium 4.3 mmol/L (3.3-5.1); Protein, Total 6.8 g/dL (5.9-8.4); Sodium Level 143 mmol/L (133-145); Total Bilirubin 0.43 mg/dL (0.00-1.30); Vitamin D,25 Hydroxy 55.5 ng/mL (30-100)
[2024-06-30 10:35] LABS: Cholesterol 162 mg/dL (<=200); High Density Lipoprotein 53 mg/dL; Low Density Lipoprotein Calc. 93 mg/dL; Triglycerides 79 mg/dL; Very Low Density Lipoprotein 16 mg/dL (5-40); cholesterol:hdl ratio screen 3.05
[2024-06-30 11:36] LABS: Color, Urine Yellow (Yellow); Glucose, Dipstick Normal (Normal); Ketone-Dipstick 5 mg/dl (Negative); Leukocyte Esterase-Dipstick Negative /ul (Negative); Nitrite-Dipstick Negative (Negative); Occult Blood-Urine Negative /ul (Negative); Protein-Dipstick 30 mg/dl (Negative); Specific Gravity, Urine 1.025 (1.002-1.030); Urine Bilirubin Dipstick Negative (Negative); Urine Clarity Clear (Clear); Urine Urobilinogen Normal (Normal)
[2024-06-30 11:49] LABS: Squamous Epithelial Cells - UA 0-5 SEEN /hpf (0-5)
[2024-06-30 11:50] LABS: Mucous, Urine 1+ /hpf (<or=2+)
[2024-06-30 12:09] LABS: Microalbumin,Random Urine < 12.0 mg/L (NO RANGE EST.); Microalbumin:Creatinine Ratio UNABLE TO CALCULATE mg/g CRE
== END | disposition home or self-care (01) ==
PROVIDERS: PCP Nurse Practitioner Family; Referring Provider Nurse Practitioner Family; Visit Provider Nurse Practitioner Family
DX: Z12.5 Encounter for screening for malignant neoplasm of prostate (principal); I10 Essential (primary) hypertension; E03.9 Hypothyroidism, unspecified; E78.00 Pure hypercholesterolemia, unspecified; R80.9 Proteinuria, unspecified; R31.9 Hematuria, unspecified; E55.9 Vitamin D deficiency, unspecified
CPT/HCPCS: 36415; 80053; 80061; 81001; 82043; 82306; 82570; 84153; 84443; 85025; G0103

== ENCOUNTER → 2024-07-07 | Outpatient (CLI) | payer BC, SELFPAY ==
[2024-07-07 15:46] LABS: Fibrinogen 397 mg/dl (203-444)
== END | disposition home or self-care (01) ==
LOC: LAB 14:44
PROVIDERS: PCP Nurse Practitioner Family; Referring Provider Nurse Practitioner Family; Visit Provider Nurse Practitioner Family
DX: I63.9 Cerebral infarction, unspecified (principal)
CPT/HCPCS: 36415; 85384

== ENCOUNTER → 2024-12-18 | Outpatient (CLI) | payer MEDICARE, OTHER, SELFPAY ==
[2024-12-18 07:21] LABS: Red Blood Cells-Urine 0 SEEN /hpf (0-5)
--- OUTSIDE RECORDS SUMMARY | 2024-12-18 07:26 | XMS RPT_ITS | CCD ---
Author Organization [facility]ini[facility] Care Team Providers Care Crm Developer Name Role Phone Ciesa, Lesa Unavailable Adis Flores Unavailable Celia Chamorro Unavailable Unavailable True Cardoso Unavailable Unavailable Unavailable Unavailable True Cardoso Unavailable Unavailable Slarb, Ivette Unavailable Unavailable Gravius, Kasie Unavailable Unavailable True Gonzales Unavailable Unavailable Fatoumata Mcmillan Unavailable AMOS CAMERON Attending Unavailable AMOS CAMERON Primary Care Unavailable AMOS CAMERON Admitting Unavailable Ciesa SPORTS SPECIALIST, Lesa Unavailable True Gonzales LPN Unavailable Unavailable Slarb KEN, Ivette Unavailable Unavailable Gravius MARCOS, Kasie Unavailable Unavailable Celia Chamorro Unavailable Unavailable Unavailable Unavailable Debra Henriquez MA Unavailable Unavailable Ciesa, Marcy Unavailable Ciesa, Marcy Unavailable Gómez Yost CNP Unavailable Gómez Yost CNP Unavailable Ciesa, Marcy Unavailable Unavailable Ciesa, Marcy Unavailable Gómez Yost CNP Attending Unavailable Deniaesa, Marcy Referring Unavailable Gómez Yost CNP Consulting Unavailable vE Zeng MD Primary Care Provider [phone] SREE HAYWOOD Attending Unavailable EV ZENG Primary Care Unavailable GÓMEZ YOST Referring Unavailable EV ZENG Primary Care Unavailable GÓMEZ YOST Referring Unavailable VICKI ZENGA Sajan Primary Care Unavailable ROSAAMRIA HEDRICK Attending Unavailable LYN LINDO Referring Unavailable VICKI ZENGA M Primary Care Unavailable ROSAMARIA HEDRICK Referring Unavailable BONEZZI, EV M Primary Care Unavailable KANAA'N, DELVIN Referring Unavailable BONEZZI, EV M Primary Care Unavailable SHANIA HONEYCUTT MD Attending Unavaila ble [facility] Primary Care Unavailable HOLLAENDER, ROSAMARIA Referring Unavailable BONEZZI, EV M Primary Care Unavailable ROSAMARIA HEDRICK Attending Unavailable BONEZZI, EV M Primary Care Unavailable KANAA'N, DELVIN Attending Unavailable SELF Referring Unavailable BONEZZI, EV M Primary Care Unavailable KANAA'N, DELVIN Admitting Unavailable KANAA'N, DELVIN Attending Unavailable KANAA'N, DLEVIN Referring Unavailable BONEZZI, EV M Primary Care Unavailable JULIANE CADENA Admitting Unavailable JULIANE CADENA Attending Unavailable SREE HAYWOOD Referring Unavailable BONEZZI, EV M Primary Care Unavailable KANAA'N, DELVIN Attending Unavailable BONEZZI, EV M Primary Care Unavailable Priyank COLLATOR-C, Gómez Primary Care Provider Dr. Gary Paz MD Attending Provider Priyank COLLATOR-C, Gómez Attending Provider [phone] Priyank COLLATOR-C, Gómez Referring Provider Priyank COLLATOR-C, Gómez Primary Care Provider Gómez Ysot Attending Unavailable Priyank, Gómez Primary Care Unavailable Priyank, Gómez Referring Unavailable Priyank, Gómez Referring Unavailable Priyank, Gómez Attending Unavailable Priyank, Gómez Primary Care Unavailable Priyank, Gómez Referring Unavailable Priyank, Gómez Attending Unavailable Priyank, Gómez Primary Care Unavailable Gary Paz Attending Unavailable Priyank, Gómez Primary Care Unavailable PRIYANK LICENSED OCCUPATIONAL THERAPIST-MIGUEL, GÓMEZ Primary Care Physician PETE COBB DO Attending Unavailable PRIYANK LICENSED OCCUPATIONAL THERAPIST-SPORTS SPECIALIST, GÓMEZ Primary Care Unavail able PRIYANK LICENSED OCCUPATIONAL THERAPIST-SPORTS SPECIALIST, GÓMEZ Primary Care Unavail able MADAY CAN Unavailable SHANIA HONEYCUTT MD Attending Unavaila ble Medications Current Medications Medication Drug Class(es) Dates Sig (Normalized) Sig (Original) aspirin 81 mg delayed release oral tablet (20 sources) Platelet Aggregation Inhibitor, Nonsteroidal Anti-inflammatory Drug Start: 02-16-2019 aspirin 81 mg oral delayed release tablet Dose : 81 mg = 1 tab(s), Oral, qDay, 0 Refill(s) Start Date: 02/16/19 Status: Ordered Repeat number: 1 take 1 tablet by mouth once aguila y aspirin (ASPIRIN CHILDRENS) 81 mg chewable tablet Take 81 mg by mouth once daily. Active take 1 tablet by mouth once aguila y ASPIRIN, 81MG (Oral Tablet) 1 qd for 0 days Refills: 0 Ordered: 21-Feb-2009 NAHED Alcala LPN Active atorvastatin 40 mg oral tablet (20 sources) HMG-CoA Reductase Inhibitor Start: 12-20-2021 atorvastatin 40 mg oral tablet Dose : 40 mg = 1 tab(s), Oral, Daily, # 100 tab(s), 0 Refill(s) Start Date: 05/27/24 Status: Ordered Quantity: 100.0 Unit: tab(s) Repeat number: 1 Start: 11-29-2020 Atorvastatin C alcium 80 MG Oral Tablet 1 (one) Tablet qohs for 0 days Quantity: 90 {Tablet} Refills: 3 Ordered: 29-Nov-2020 Marcy Callahan Start : 29-Nov-2020 Active Comments: DO NOT FILL THE RX FOR ZOCOR, PLEASE FILL THE ATORVASTATIN ONLY Start: 08-30-2020 Atorvastatin C alcium 80 MG Oral Tablet 1 (one) Tablet qohs for 0 days Quantity: 90 {Tablet} Refills: 3 Ordered: 30-Aug-2020 Marcy Callahan CNP, CNP, Mary E Start : 30-Aug-2020 Active Comments: DO NOT FILL THE RX FOR ZOCOR, PLEASE FILL THE ATORVASTATIN ONLY Start: 11-16-2019 Atorvastatin C alcium 80 MG Oral Tablet 1 (one) Tablet at night for 0 days Quantity: 90 {Tablet} Refills: 3 Ordered: 16-Nov-2019 Marcy Callahan CNP, CNP, Mary E Start : 16-Nov-2019 Active Comments: DO NOT FILL THE RX FOR ZOCOR, PLEASE FILL THE ATORVASTATIN ONLY Start: 11-18-2018 Atorvastatin C alcium 80 MG Oral Tablet 1 (one) Tablet at night for 0 days Quantity: 90 {Tablet} Refills: 3 Ordered: 18-Nov-2018 Marcy Callahan CNP, CNP, Mary E Start : 18-Nov-2018 Active Comments: 09-05-15 DO NOT FILL THE RX FOR ZOCOR, PLEASE FILL THE ATORVASTATIN ONLY Start: 11-13-2017 Atorvastatin C alcium 80 MG Oral Tablet 1 (one) Tablet at night for 0 days Quantity: 90 {Tablet} Refills: 3 Ordered: 13-Nov-2017 Marcy Callahan CNP, CNP, Mary E Start : 13-Nov-2017 Active Comments: 09-05-15 DO NOT FILL THE RX FOR ZOCOR, PLEASE FILL THE ATORVASTATIN ONLY Comment on above: 09-05-15 DO NOT FILL THE RX FOR ZOCOR, PLEASE FILL THE ATORVASTATIN ONLY DO NOT FILL THE RX F OR ZOCOR, PLEASE FILL THE ATORVASTATIN ONLY instructions changed . he is to be taking 1 tab at bedtime cephalexin 500 mg oral capsule (3 sources) Cephalosporin Antibacterial Start: End: 5 take 1 capsule by mouth twice daily cephALEXin (KEFLEX) 500 mg capsule Take 1 capsule by mouth two times a day for 7 days. 14 capsule 04/09/2024 04/16/2024 Active clopidogrel 75 mg oral tablet (20 sources) P2Y12 Platelet Inhibitor Start: take 1 tablet by mouth once daily clopidogrel (PLAVIX) 75 mg tablet Indications: PFO (patent foramen ovale) ([facility]) Take 1 tablet by mouth once daily. 60 tablet 05/20/2024 Active Start: 02-13-2024 End: 03-05-2024 clopidogrel 75 mg oral table t Dose : 75 mg = 1 tab(s), Oral, qDay, # 30 tab(s), 0 Refill(s) Start Date: 05/27/24 Status: Ordered Quantity: 30.0 Unit: tab(s) Repeat number: 1 hydroCHLOROthiazide 25 mg oral tablet (20 sources) Thiazide Diuretic Start: 05-27-2024 hydroCHLOROthiazide 25 mg oral tablet Dose : 25 mg = 1 tab(s), Oral, qDay, 0 Refill(s) Start Date: 05/27/24 Status: Ordered Repeat number: 1 levothyroxine sodium 0.075 mg oral tablet (20 sources) l-Thyroxine Start: 05-27-2024 levothyroxine 75 mcg (0.075 mg) oral tablet Dose : 75 mcg = 1 tab(s), Oral, qDay, 2 on Sat/Sun, # 30 tab(s), 0 Refill(s) Start Date: 05/27/24 Status: Ordered Quantity: 30.0 Unit: tab(s) Repeat number: 1 Start: 11-14-2022 levothyroxine 75 mcg oral tablet 1 (one) Tablet daily except 2 on Sundays for 60 days Quantity: 68 {Tablet} Refills: 0 Ordered: 14-Nov-2022 Gómez Yost CNP Start : 14-Nov-2022 Active Comments: one daily, 2 on sundays Start: 10-18-2022 levothyroxine 75 mcg oral tablet 1 (one) Tablet daily except 2 on Sundays for 90 days Quantity: 90 {Tablet} Refills: 0 Ordered: 18-Oct-2022 Fatoumata Mcmillan DO Start : 18-Oct-2022 Active Comments: one daily, 2 on sundays Start: 07-06-2021 Levothyroxine Sodium 75 MCG Oral Tablet 1 (one) Tablet daily except 2 on Sundays for 90 days Quantity: 90 {Tablet} Refills: 3 Ordered: 05-Feb-2022 Fatoumata Mcmillan DO Start : 05-Feb-2022 Active Comments: one daily, 2 on sundays Start: 05-18-2021 take 1 tablet by zuhair th once daily, then take 2 tablets by mouth once Levothyroxine Sodium 50 MCG Oral Tablet 1 (one) Tablet daily except 2 q saturday and Saturday for 30 days Quantity: 38 {Tablet} Refills: 3 Ordered: 18-May-2021 Marcy Callahan CNP, CNP, Mary E Start : 18-May-2021 Active Comments: New order Start: 05-18-2021 take 1 tablet by zuhair th once daily, then take 2 tablets by mouth once Levothyroxine Sodium 50 MCG Oral Tablet 1 (one) Tablet daily except 2 q saturday and Saturday for 30 days Quantity: 38 {Tablet} Refills: 3 Ordered: 18-May-2021 Marcy Callahan CNP, CNP, Mary E Start : 18-May-2021 Active Comments: New order Start: 03-29-2021 take 1 tablet by zuhair th once daily, then take 2 tablets by mouth once Levothyroxine Sodium 50 MCG Oral Tablet 1 (one) Tablet daily and 2 q saturday for 34 days Quantity: 34 {Tablet} Refills: 3 Ordered: 29-Mar-2021 Marcy Callahan CNP, CNP, Mary E Start : 29-Mar-2021 Active Start: 11-29-2020 take 1 tablet by zuhair th once daily Synthroid 50 MCG Oral Tablet 1 (one) Tablet daily for 30 days Quantity: 30 {Tablet} Refills: 3 Ordered: 29-Nov-2020 Marcy Callahan CNP, CNP, Mary E Start : 29-Nov-2020 Active Start: 08-30-2020 take 1 tablet by zuhair th once daily Synthroid 50 MCG Oral Tablet 1 (one) Tablet daily for 30 days Quantity: 30 {Tablet} Refills: 3 Ordered: 30-Aug-2020 Marcy Callahan CNP, CNP, Mary E Start : 30-Aug-2020 Active Start: 12-04-2019 take 1 tablet by zuhair th once daily Synthroid 50 MCG Oral Tablet 1 (one) Tablet daily for 30 days Quantity: 30 {Tablet} Refills: 3 Ordered: 04-Dec-2019 True Gonzales LPN Start : 04-Dec-2019 Active Start: 05-22-2019 take 1 tablet by zuhair th once daily Synthroid 50 MCG Oral Tablet 1 (one) Tablet daily for 30 days Quantity: 30 {Tablet} Refills: 5 Ordered: 22-May-2019 Milka Aquino LPN Start : 22-May-2019 Active Start: 02-17-2019 End: 08-30-2020 take 1 tablet by mouth once daily in the morning Levothyroxine Sodium 25 MCG Oral Tablet 1 (one) Tablet daily in am on empty stomach for 30 days Quantity: 30 {Tablet} Refills: 2 Ordered: 30-Aug-2020 True Gonzales LPN Start : 27-Mar-2019 End : 30-Aug-2020 Inactive Comment on above: [employer] New order one daily, 2 on losartan potassium 100 mg oral tablet (20 sources) Angiotensin 2 Receptor Khanh Start: 05-27-2024 losartan 100 mg oral tablet Dose : 100 mg = 1 tab(s), Oral, Daily, # 100 tab(s), 0 Refill(s) Start Date: 3/12/25 Status: Ordered Quantity: 100.0 Unit: tab(s) Repeat number: 1 Start: 11-14-2022 take 1 tablet by zuhair th twice daily losartan 50 mg oral tablet 1 (one) Tablet two times daily for 60 days Quantity: 180 {Tablet} Refills: 1 Ordered: 14-Nov-2022 Gómez Yost CNP Start : 14-Nov-2022 Active Start: 06-08-2022 take 1 tablet by zuhair twice daily losartan 50 mg oral tablet 1 (one) Tablet two times daily for 90 days Quantity: 180 {Tablet} Refills: 2 Ordered: 08-Jun-2022 Gómez Yost CNP Start : 08-Jun-2022 Active Start: 02-26-2022 take 1 tablet by zuhair th twice daily losartan 50 mg oral tablet 1 (one) Tablet two times daily for 90 days Quantity: 180 {Tablet} Refills: 2 Ordered: 27-Apr-2022 Gómez Yost CNP Start : 27-Apr-2022 Active Start: 01-09-2022 take 1 tablet by zuhair once daily Losartan Potassium 50 MG Oral Tablet 1 (one) Tablet daily for 30 days Quantity: 30 {Tablet} Refills: 2 Ordered: 09-Jan-2022 Slarb Ivette ROGERS Start : 09-Jan-2022 Active METOPROLOL SUCC ER 100 MG TA B (1 source) Start: 05-27-2024 METOPROLOL SUC C ER 100 MG TAB METOPROLOL SUCC ER 100 MG TAB, 0 Refill(s), 91 Start Date: 05/27/24 Status: Ordered Repeat number: 1 Multi-Day Plus Minerals (1 source) Start: 02-16-2019 Multi-Day Plus Minerals Oral, qDay, 0 Refill(s) Start Date: 02/16/19 Status: Ordered Repeat number: 1 Vitamin D2 2000 intl units o ral capsule (1 source) Start: 02-16-2019 Vitamin D2 200 0 intl units oral capsule Dose : 2,000 International_Unit = 1 cap(s), Oral, qDay, with food, # 60 cap(s), 0 Refill(s) Start Date: 02/16/19 Status: Ordered Quantity: 60.0 Unit: cap(s) Repeat number: 1 Completed/Discontinued Medications Medication Drug Class(es) Dates Sig (Normalized) Sig (Original) amoxicillin 875 mg / clavulanate 125 mg oral tablet (20 sources) Penicillin-class Antibacterial Start: 01-27-2019 End: 02-10-2019 take 1 tablet by mouth twice daily Augmentin 875-125 MG Oral Tablet 1 (one) Tablet bid for 14 days Quantity: 28 {Tablet} Refills: 0 Ordered: 27-Jan-2019 Marcy Callahan Start : 27-Jan-2019 End : 10-Feb-2019 Inactive Start: 09-07-2013 End: 09-21-2013 take 1 tablet by mouth twice daily AUGMENTIN, 875-125MG (Oral Tablet) 1 (one) Tablet bid for 14 days Quantity: 28 {Tablet} Refills: 0 Ordered: 07-Sep-2013 Marcy Callahan CNP, CNP, Mary E Start : 07-Sep-2013 End : 21-Sep-2013 Inactive Atropine (1 source) Anticholinergic, Cholinergic Muscarinic Antagonist Start: 04-09-2024 End: 04-10-2024 ceFAZolin 1000 mg injection (1 source) Cephalosporin Antibacterial Start: 04-09-2024 End: 04-09-2024 1 g, INTRAVENOUS, at 100 mL/hr, Administer over 30 Minutes, ONCE, 1 dose, On Agnieszka 04/09/24 at 0830, GREGORIO product = Refrigerate. B. Arredondo DUPLEX product = Room Temp., Antimicrobial indication: Prophylaxis, Preprocedure cholecalciferol 0.05 mg oral capsule (20 sources) Vitamin D Start: 11-25-2017 take 1 capsule by mouth once daily Vitamin D3 Super Strength 2000 UNIT Oral Capsule 1 (one) Capsule daily as directed for 0 days Quantity: 30 {Capsule} Refills: 0 Ordered: 20-Jan-2019 True Gonzales LPN Start : 25-Nov-2017 Active take 1 tablet by mouth once aguila y cholecalciferol (VITAMIN D-3) 50 mcg (2,000 unit) tablet Take 2,000 Units by mouth once daily. Active codeine phosphate 2 mg/ml / guaiFENesin 20 mg/ml oral solution (20 sources) Opioid Agonist Start: 02-15-2015 End: 08-12-2015 take 1-2 [tsp_us] by mouth once daily at bedtime CHERATUSSIN AC, 100-10MG/5ML (Oral Syrup) 1-2 Teaspoon qhs for 0 days Quantity: 6 {Ounce} Refills: 0 Ordered: 12-Aug-2015 NAHED Alcala LPN Start : 15-Feb-2015 End : 12-Aug-2015 Inactive 12 hr guaiFENesin 600 mg extended release oral tablet (20 sources) Start: 01-20-2019 End: 08-30-2020 Mucinex 600 MG Oral Tablet Extended Release 12 Hour 1 (one) Tablet ER 12HR bid for 0 days Quantity: 30 {Tablet} Refills: 0 Ordered: 30-Aug-2020 True Gonzales LPN Start : 20-Jan-2019 End : 30-Aug-2020 Inactive Start: 02-15-2015 End: 08-12-2015 MUCINEX, 600MG (Oral Tablet Extended Release 12 Hour) 1 (one) Tablet ER 12HR bid for 0 days Quantity: 30 {Tablet} Refills: 0 Ordered: 12-Aug-2015 NAHED Alcala LPN Start : 15-Feb-2015 End : 12-Aug-2015 Inactive hydrocortisone 10 mg/ml / neomycin 3.5 mg/ml / polymyxin b 12348 unt/ml otic solution (20 sources) Aminoglycoside Antibacterial, Polymyxin-class Antibacterial, Corticosteroid Start: 09-24-2011 End: 06-29-2013 CORTISPORIN, 3.5-41365-1 (Otic Solution) 4 Drop(s) tid or qid for 0 days Quantity: 1 {Solution} Refills: 0 Ordered: 29-Jun-2013 NAHED Alcala LPN Start : 24-Sep-2011 End : 29-Jun-2013 Inactive 24 hr metoprolol succinate 100 mg extended release oral tablet (20 sources) beta-Adrenergic Khanh Start: 03-29-2021 End: 03-29-2021 take 1 tablet by mouth once daily Toprol XL 50 MG Oral Tablet Extended Release 24 Hour 1 (one) Tablet ER 24HR QD for 0 days Quantity: 90 {Tablet} Refills: 3 Ordered: 29-Mar-2021 Marcy Callahan Start : 29-Mar-2021 End : 29-Mar-2021 Inactive Start: 03-29-2021 take 1 tablet by zuhair th once daily metoprolol succinate 100 mg oral Tablet, Extended Release 24 hr 1 (one) Tablet daily for 60 days Quantity: 60 {Tablet} Refills: 1 Ordered: 14-Nov-2022 Gómez Yost CNP Start : 14-Nov-2022 Active Start: 11-29-2020 take 1 tablet by zuhair th once daily Toprol XL 50 MG Oral Tablet Extended Release 24 Hour 1 (one) Tablet ER 24HR QD for 0 days Quantity: 90 {Tablet} Refills: 3 Ordered: 29-Nov-2020 Deniaevelinenick RIVERA Lesa Ambreennick RIVERA Marcy Motta Start : 29-Nov-2020 Active Start: 12-04-2019 take 1 tablet by zuhair th once daily Toprol XL 50 MG Oral Tablet Extended Release 24 Hour 1 (one) Tablet ER 24HR QD for 0 days Quantity: 90 {Tablet} Refills: 3 Ordered: 04-Dec-2019 True Gonzales LPN Start : 04-Dec-2019 Active Start: 12-10-2018 take 1 tablet by zuhair th once daily Toprol XL 50 MG Oral Tablet Extended Release 24 Hour 1 (one) Tablet ER 24HR QD for 0 days Quantity: 90 {Tablet} Refills: 3 Ordered: 10-Dec-2018 Salo RIVERA Lesa Cievelinenick RIVERA Marcy Motta Start : 10-Dec-2018 Active Start: 11-25-2017 take 1 tablet by zuhair th once daily Toprol XL 50 MG Oral Tablet Extended Release 24 Hour 1 (one) Tablet ER 24HR QD for 0 days Quantity: 90 {Tablet} Refills: 3 Ordered: 25-Nov-2017 Deniaevelinenick RIVERA Lesa Salo MIGUEL Marcy Motta Start : 25-Nov-2017 Active Comment on above: Mail order. mometasone furoate 0.05 mg/actuat metered dose nasal spray (20 sources) Corticosteroid Start: 4 End: 5 NASONEX, 50MCG/ACT (Nasal Suspension) 2 (two) Puff daily for 0 days Quantity: 1 {Bottle} Refills: 0 Ordered: 18-Oct-2014 NAHED Alcala LPN Start : 07-Sep-2013 End : 18-Oct-2014 Inactive nitroglycerin 0.4 mg sublingual tablet (1 source) Nitrate Vasodilator Start: 5 End: 5 ofloxacin 3 mg/ml ophthalmic solution (20 sources) Quinolone Antimicrobial Start: 3 End: 3 take 2 drop(s) into the eye(s) four times daily ofloxacin 0.3 % ophthalmic (eye) drops 2 drops 4 times per day for 5 days Quantity: 5 {Milliliter} Refills: 0 Ordered: 10-Apr-2022 Gómez Yost CNP Start : 10-Apr-2022 End : 15-Apr-2022 Inactive Start: 01-27-2019 End: 08-30-2020 Ocuflox 0.3 % Ophthalmic Carol ution 1-2 Metric Drop q2-4h x 2days, then 1-2 gtts qid x 5 days for 0 days Quantity: 1 {Bottle} Refills: 0 Ordered: 30-Aug-2020 True Gonzales LPN Start : 27-Jan-2019 End : 30-Aug-2020 Inactive simvastatin 80 mg oral tablet (20 sources) HMG-CoA Reductase Inhibitor Start: 08-12-2015 End: 08-12-2015 take 1 tablet by mouth once daily SIMVASTATIN, 80MG (Oral Tablet) 1 (one) Tablet QD for 0 days Quantity: 90 {Tablet} Refills: 1 Ordered: 12-Aug-2015 Ev Zeng MD Start : 12-Aug-2015 End : 12-Aug-2015 Discontinued Comments: ignore Comment on above: ignore 1000 ml sodium chloride 9 mg/ml injection (2 sources) Start: 04-09-2024 End: 04-10-2024 Start: 04-09-2024 End: 04-10-2024 sodium chloride 0.9 % (flush ) 2-10 mL (BD POSIFLUSH) sulfacetamide sodium 100 mg/ml ophthalmic solution (20 sources) Sulfonamide Antibacterial Start: 06-29-2013 End: 08-24-2013 BLEPH-10, 10% (Ophthalmic Solution) 1 (one) Solution 2 drops to affected eye every 4 hours while awake for 0 days Quantity: 1 {Bottle} Refills: 0 Ordered: 24-Aug-2013 NAHED Alcala LPN Start : 29-Jun-2013 End : 24-Aug-2013 Inactive Problems Active Problems Problem Classification Problem Date Documented Date Episodic/Chronic Acute cerebrovascular disease (20 sources) Ischemic stroke; Translations: [Cerebral infarction due to unspecified occlusion or stenosis of right middle cerebral artery] Onset: Resolved: 5 02-09-2024 Chronic Cardiac and circulatory congenital anomalies (17 sources) Patent foramen ovale; Translations: [PFO (patent foramen ovale)] Onset: 5 02-24-2024 Chronic Coronary atherosclerosis and other heart disease (6 sources) Coronary arteriosclerosis; Translations: [Atherosclerotic heart disease of [place] coronary artery without angina pectoris] Onset: 5 05-20-2024 Chronic Diabetes mellitus without complication (20 sources) Impaired fasting glucose; Translations: [Impaired fasting glycaemia] Resolved: 5 10-18-2014 Episodic Comment on above: ormal hga1c 2009. Disorders of lipid metabolism (20 sources) Hypercholesterolemia; Translations: [Hypercholesteremia] Onset: 4 11-25-2017 Chronic Comment on above: reviewed with patien t recent tests good. reviewed with patien t recent tests good, stable on atorvastatin 80 reviewed with patien t recent tests good, stable on atorvastatin 80mg every other Essential hypertension (20 sources) Benign essential hypertension; Translations: [Benign essential hypertension] Onset: 4 11-25-2017 Chronic Comment on above: Stable consider incr ease DASH diet and exercise, watch salt BP still not at goal , he is going to start checking at home and let us know reading for the next 1-2 wks. takes metop succ at HS, does not want twice a day dosing. -consider HCTZ or amlodipineStable consider increase DASH diet and exercise, watch salt Fever of unknown origin (20 sources) Fever with chills; Translations: [Fever and chills] 01-27-2019 Episodic Immunizations and screening for infectious disease (20 sources) Need for prophylactic vaccination and inoculation against influenza; Translations: [Needs influenza immunization] 01-20-2019 Episodic Inflammation; infection of eye (except that caused by tuberculosis or sexually transmitteddisease) (20 sources) Conjunctivitis; Translations: [Acute conjunctivitis] Resolved: 2 08-24-2013 Episodic Comment on above: acute. will do bleph 10 and if any eye pain or vision change will all then to opthal acute, likely starte d viral over 1 wk ago now bacterial. Nonspecific chest pain (20 sources) Chest pain; Translations: [Chest pain] Resolved: 6 08-12-2015 Episodic Comment on above: stress negative, sti ll atypical. same and even less. CTA goodpinpoint--not as often or as severe think muscular. Nutritional deficiencies (20 sources) Vitamin D deficiency; Translations: [Vitamin D deficiency] 11-25-2017 Chronic Comment on above: stay on same med Other aftercare (2 sources) Patient encounter status; Translations: [Encounter for follow-up examination after completed treatment for conditions other than malignant neoplasm] 02-24-2024 Episodic Other aftercare (1 source) Encounter for follow-up examination after completed treatment for conditions other than malignant neoplasm; Translations: [Encounter for follow-up examination after completed treatment for conditions other than malignant neoplasm] Onset: 4 Episodic Other circulatory disease (1 source) Personal history of other diseases of the circulatory system; Translations: [History of hypertension] Onset: 4 Episodic Other circulatory disease (2 sources) History of cerebrovascular disease; Translations: [Personal history of transient ischemic attack (TIA), and cerebral infarction without residual deficits] 02-24-2024 Episodic Other circulatory disease (1 source) Personal history of transient ischemic attack (TIA), and cerebral infarction without residual deficits; Translations: [Personal history of transient ischemic attack (TIA), and cerebral infarction without residual deficits] Onset: 4 Episodic Other ear and sense organ disorders (20 sources) Infective otitis externa; Translations: [Infective otitis externa, unspecified laterality] Resolved: 4 02-09-2015 Chronic Other ear and sense organ disorders (20 sources) Otalgia, right ear; Translations: [Otalgia, right] Resolved: 2 08-30-2020 Episodic Other liver diseases (20 sources) Increased bilirubin level; Translations: [Elevated bilirubin] Resolved: 8 11-12-2018 Episodic Comment on above: will see if can be d one off of labs already drawn Other lower respiratory disease (20 sources) Postviral cough; Translations: [Post-viral cough syndrome] 11-25-2017 Episodic Comment on above: use robitussin Other lower respiratory disease (20 sources) Solitary pulmonary nodule; Translations: [Nodule of lung] Resolved: 4 06-29-2013 Episodic Comment on above: [address] scans unch anged not need to keep chjecking. from 2008 Other non-traumatic joint disorders (20 sources) Shoulder pain; Translations: [Shoulder pain, right] 01-20-2019 Episodic Comment on above: use rest, ice, nsaid s Other non-traumatic joint disorders (6 sources) Pain in right shoulder; Translations: [Shoulder pain, right] 04-10-2022 Episodic Comment on above: use rest, ice, nsaid s Other nutritional; endocrine; and metabolic disorders (20 sources) Overweight; Translations: [Overweight] 11-25-2017 Chronic Comment on above: talk about exercise. and will get on treadmill. will get sugar out of drinks. Other nutritional; endocrine; and metabolic disorders (20 sources) Body mass index 25-29 - overweight; Translations: [BMI 27.0-27.9,adult] 11-25-2017 Chronic Other nutritional; endocrine; and metabolic disorders (20 sources) Body mass index 25-29 - overweight; Translations: [BMI 27.0-27.9,adult] 01-20-2019 Episodic Other nutritional; endocrine; and metabolic disorders (20 sources) Overweight; Translations: [Overweight] 08-30-2020 Episodic Comment on above: talk about exercise. and will get on treadmill. will get sugar out of drinks. Other nutritional; endocrine; and metabolic disorders (20 sources) Overweight in adulthood with body mass index of 25 or more but less than 30; Translations: [BMI 27.0-27.9,adult] Resolved: 2 01-20-2019 Episodic Other nutritional; endocrine; and metabolic disorders (1 source) Personal history of other endocrine, nutritional and metabolic disease; Translations: [History of hypercholesterolemia] Onset: 4 Episodic Other screening for suspected conditions (not mental disorders or infectious disease) (20 sources) Thyroid hormone tests abnormal; Translations: [Abnormal TSH] Onset: 5 Resolved: 2 01-20-2019 Episodic Other skin disorders (20 sources) Keratosis; Translations: [Keratosis] 01-20-2019 Episodic Other upper respiratory disease (20 sources) Congestion of nasal sinus; Translations: [Congestion of nasal sinus] Resolved: 5 10-18-2014 Episodic Other upper respiratory disease (18 sources) Pain in throat Episodic Other upper respiratory infections (20 sources) Acute sinusitis; Translations: [Sore throat symptom] Resolved: 5 01-31-2015 Episodic Otitis media and related conditions (20 sources) Otitis media; Translations: [Dysfunction of right eustachian tube] Resolved: 2 01-27-2019 Episodic Residual codes; unclassified (20 sources) Needs influenza immunization; Translations: [Need for prophylactic vaccination and inoculation against influenza] 11-25-2017 Episodic Residual codes; unclassified (8 sources) Requires varicella vaccination; Translations: [Need for shingles vaccine] 06-15-2019 Episodic Residual codes; unclassified (20 sources) Current non-smoker ; Translations: [Current nonsmoker (Renamed from Current non-smoker)] 08-30-2020 Episodic Residual codes; unclassified (20 sources) Non-smoker; Translations: [Current nonsmoker (Renamed from Current non-smoker)] 04-10-2022 Episodic Thyroid disorders (20 sources) Hypothyroidism; Translations: [Hypothyroid] Onset: 4 07-03-2019 Chronic Comment on above: due in 8 wks after Unclassified (20 sources) Well Male Exam (V70.0) Unclassified (20 sources) Unclassified (20 sources) Patient encounter status; Translations: [Encounter for routine history and physical exam for male] 11-25-2017 Comment on above: rectal/psa 8-15. nev er got scope recommended Unclassified (20 sources) Screening status; Translations: [Encounter for screening for malignant neoplasm of colon (Renamed from Special screening for malignant neoplasms, colon)] 11-25-2017 Unclassified (20 sources) Hypercholesteremia (272.0) Unclassified (20 sources) Lung nodule (518.89) Unclassified (20 sources) Current non-smoker ; Translations: [Current nonsmoker (Renamed from Current non-smoker)] 11-25-2017 Unclassified (20 sources) BMI 27.0-27.9,adult Unclassified (20 sources) Hypercholesteremia Unclassified (20 sources) Elevated bilirubin Unclassified (20 sources) Post-viral cough syndrome Unclassified (20 sources) Screening for prostate cancer Unclassified (20 sources) Abnormal TSH Unclassified (20 sources) Shoulder pain, right Unclassified (2 sources) PFO (patent foramen ovale); Translations: [PFO (patent foramen ovale)] Onset: 4 Past or Other Problems Problem Classification Problem Date Documented Date Episodic/Chronic Essential hypertension (20 sources) Essential hypertension Fluid and electrolyte disorders (20 sources) Hypokalemia; Translations: [Hypokalemia] Onset: 02-09-2024 Resolved: 02-12-2024 02-09-2024 Episodic Genitourinary symptoms and ill-defined conditions (20 sources) Proteinuria; Translations: [Proteinuria] Onset: 07-24-2023 12-20-2021 Episodic Comment on above: repeat urine Hypertension with complications and secondary hypertension (20 sources) Hypertensive urgency ; Translations: [Hypertensive urgency] Onset: 02-09-2024 Resolved: 02-12-2024 02-09-2024 Chronic Open wounds of head; neck; and trunk (2 sources) Laceration of head; Translations: [Laceration without foreign body of other part of head, initial encounter] Onset: 07-13-2024 Episodic Other ear and sense organ disorders (14 [...] Translations: [Lung nodule] Resolved: 06-29-2013 06-29-2013 Episodic Comment on above: [address] scans unch anged not need to keep chjecking. from 2008 Other screening for suspected conditions (not mental disorders or infectious disease) (14 sources) Increased bilirubin level; Translations: [Elevated bilirubin] Resolved: 11-25-2017 11-12-2018 Chronic Comment on above: will see if can be d one off of labs already drawn Otitis media and related conditions (8 sources) Dysfunction of right eustachian tube; Translations: [ETD (Eustachian tube dysfunction), right] 01-27-2019 Residual codes; unclassified (20 sources) Medication given; Translations: [Status post administration of tPA (rtPA) in a different facility within the last 24 hours prior to admission to current facility] Onset: 02-10-2024 Resolved: 02-12-2024 02-12-2024 Chronic Unclassified (20 sources) Screening for colon cancer Unclassified (20 sources) SINUSITIS, ACUTE NOS (461.9) Unclassified (20 sources) OTITIS EXTERNA, INFECTIVE NOS (380.10) Unclassified (20 sources) ETD (Eustachian tube dysfunction), right Unclassified (18 sources) Otalgia, right Unclassified (20 sources) Need for shingles vaccine Unclassified (10 sources) SCREENING FOR PROSTATE CA (V76.44) Results Test Name Value Interpretation Reference Range Facility Supplemental Reporton 2024 Supplemental Report . Pathology Reports Accession: Collected Date/Time: Received Date/Time: Pathologist: [id number] 06/25/2024 13:00 EDT 06/26/2024 08:32 EDT HUSSEIN JACKSON MD Supplemental Report SUPPLEMENTAL: AFIRMA-Genomic Sequ[employer] Recreation Supervisor Results: Nodule: A, Thyroid, Lower Right, 1.6 cm Genomic [employer] Recreation Supervisor: Benign Risk of Malignancy: 4% MTC: Negative Parathyroid: Negative BRAF p. V600E c. 1799T>A: Negative RET/PTC1, RET/PTC3: Not Detected AFIRMA XPression Ulysses: N/A Nodule Result Summary: The result of this 1.6 cm [place] III nodule A is Afirma GSC Benign, which suggests a low risk of cancer at approximately 4%. Treatment like a cytologically benign nodule may be appropriate, including clinical correlation. Afirma XA is not performed on GSC Benign nodules. TERT promoter region analysis is not performed on GSC Benign nodules. Complete report scanned into chart. Verified by Diagnostic interpretation performed at [facility] HUSSEIN JACKSON Sign out Date: 07/10/2024 12:57 Performing Lab: [facility], [address] [place] [address] Pathology Dept Non-Inspector [employer] Property Cytology Report CLINICAL INFORMATION: thyroid nodule DIAGNOSTIC CATEGORY: ATYPIA OF UNDETERMINED SIGNIFICANCE. Per [place] Cytology protocol, this specimen has been sent for Afirma Genomic Sequencing Recreation Supervisor test. Results to follow in about 2 weeks. SPECIMEN: Right Thyroid FNA GROSS DESCRIPTION: # of Monolayers: 1 # of fixed Smears: 6 Volume (ml) 30 Color: fixed clear needle rinse in CytoLyt Afirma sample collected for reflex testing SUGGESTION/EDUCATIONA L NOTES: This specimen was evaluated using criteria described in The [place] System for Reporting Thyroid Cytopathology, Second Edition (2018). The following risk of malignancy rates are estimates based on published studies and includes data extrapolation. Individual institutions may have different rates. Actual management may depend on other factors (e.g., clinical. Sonographic) besides the FNA interpretation. Pathology Reports Accession: Collected Date/Time: Received Date/Time: Pathologist: [id number] 06/25/2024 13:00 EDT 06/26/2024 08:32 EDT HUSSEIN JACKSON MD SUGGESTION/EDUCATIONA L NOTES: Diagnostic Category Risk of Usual management malignancy (%) Non diagnostic or Unsatisfactory 5-10 Repeat FNA with US guidance Benign 0-3 Clinical and US follow up Atypia of Undetermined 10-30 Repeat FNA, molecular Significance testing or lobectomy Follicular neoplasm or Suspicious 25-40 Molecular testing, for follicular neoplasm lobectomy Suspicious for Malignancy 50-75 Near-total thyroidectomy or lobectomy Malignant 97-99 Near-total thyroidectomy or lobectomy Verified by Pathology Report verified by [facility] Screened by: LALO DW Electronically signed by HUSSEIN JACKSON Sign-Out Date: 06/29/2024 12:32 Performing Lab: [facility], [address] [place] [address] Pathology Dept Disclaimer If ancillary studies were utilized, the following Laboratory Developed Test (LDT) disclaimer will apply: Under CLIA requirements, [facility] is qualified to perform high complexity testing. For all ancillary stains, positive and negative controls stain appropriately. Performance characteristics of immunohistochemical and chromogenic in-situ hybridization tests have been determined by [facility]. These tests are used for clinical purposes, They should not be regarded as investigational or for research. Normal [facility] Fibrinogenon 07-07-2024 FIBRINOGEN 397 mg/dl Normal -4 [facility] Comment on above: Performed By: #### L 695.6124 #### [facility] [address] [place], [address] Fibrinogen measurementOrdere d By: Gómez Yost on 07-07-2024 Fibrinogen 397 mg/dl [facility] Absolute neutrophil countOrd ered By: Gómez Yost on 06-30-2024 Neutrophils (Bld) [#/Vol] 3.9 10*3/uL 2.0-7.7 [facility] Albumin DL <= 20 mg/L (U) [M ass/Vol]Ordered By: Gómez Yost on 06-30-2024 Urine Random Microalbumin < 12.0 mg/L NO RANGE EST. [facility] Anion gap in Serum or Plasma Ordered By: Gómez Yost on 06-30-2024 Anion gap [Moles/Vol] 11 mmol/L 07-30 [facility] BUN/creatinine ratioOrdered By: Gómez Yost on 06-30-2024 Urea nitrogen/Creatinine [Mass ratio] 18.2 mg/mg 01-04 [facility] Basophil percentageOrdered B y: Gómez Yost on 06-30-2024 Basophils/100 WBC (Bld) 1.0 % 0 [facility] Bilirubin Test strip Ql (U)O rdered By: Gómez Yost on 06-30-2024 Bilirubin Ql (U) Negative Negative [facility] Bilirubin, totalOrdered By: Gómez Yost on 06-30-2024 Bilirubin [Mass/Vol] 0.43 mg/dL Normal 0.00-1.30 [facility] Comment on above: Performed By: #### L 501.9910, L506.1001, L100.0100, L502.0250, L500.4100, L500.4050, L400.0001, L501.9520 #### [facility] [address] [place], [place], [id number] CBC W/Diff, Automatedon 06-16 Absolute Lymph 1.30 X10 3/uL Normal 0.83-4.51 [facility] Comment on above: Performed By: #### L 501.9910, L506.1001, L100.0100, L502.0250, L500.4100, L500.4050, L400.0001, L501.9520 #### [facility] [address] [place], [address] Absolute Neut 3.9 X10 3/uL Normal 2.0-7.7 [facility] Comment on above: Performed By: #### L 501.9910, L506.1001, L100.0100, L502.0250, L500.4100, L500.4050, L400.0001, L501.9520 #### [facility] [address] [place], [address] Basophils/100 WBC (Bld) 1.0 % Normal 0-1 [facility] Comment on above: Performed By: #### L 501.9910, L506.1001, L100.0100, L502.0250, L500.4100, L500.4050, L400.0001, L501.9520 #### [facility] [address] [place], [address] Eosinophils/100 WBC (Bld) 2.6 % Normal 0-5 [facility] Comment on above: Performed By: #### L 501.9910, L506.1001, L100.0100, L502.0250, L500.4100, L500.4050, L400.0001, L501.9520 #### [facility] [address] [place], [address] Erythrocyte distribution width (RBC) [Ratio] 12.3 % Normal 11.6-14.6 [facility] Comment on above: Performed By: #### L 501.9910, L506.1001, L100.0100, L502.0250, L500.4100, L500.4050, L400.0001, L501.9520 #### [facility] [address] [place], [address] Hematocrit (Bld) [Volume fraction] 38.5 % Low 40-54 [facility] Comment on above: Performed By: #### L 501.9910, L506.1001, L100.0100, L502.0250, L500.4100, L500.4050, L400.0001, L501.9520 #### [facility] [address] [place], [address] Hemoglobin (Bld) [Mass/Vol] 12.8 g/dL Low 13.0-16.5 [facility] Comment on above: Performed By: #### L 501.9910, L506.1001, L100.0100, L502.0250, L500.4100, L500.4050, L400.0001, L501.9520 #### [facility] [address] [place], [address] IG% 0.200 Normal 0.0-0.9 [facility] Comment on above: Result Comment: IG% - Immature Granulocytes (promyelocytes, myelocytes and metamyelocytes) > 1% indicates that a LEFT SHIFT is Present. Performed By: #### L 501.9910, L506.1001, L100.0100, L502.0250, L500.4100, L500.4050, L400.0001, L501.9520 #### [facility] [address] [place], [address] Lymphocytes/100 WBC (Bld) 22.2 % Normal 19-41 [facility] Comment on above: Performed By: #### L 501.9910, L506.1001, L100.0100, L502.0250, L500.4100, L500.4050, L400.0001, L501.9520 #### [facility] [address] [place], [address] MCH (RBC) [Entitic mass] 30.4 pg Normal 27.0-32.0 [facility] Comment on above: Performed By: #### L 501.9910, L506.1001, L100.0100, L502.0250, L500.4100, L500.4050, L400.0001, L501.9520 #### [facility] [address] [place], [address] MCHC (RBC) [Mass/Vol] 33.2 g/dL Normal 32-36 [facility] Comment on above: Performed By: #### L 501.9910, L506.1001, L100.0100, L502.0250, L500.4100, L500.4050, L400.0001, L501.9520 #### [facility] [address] [place], [address] MCV (RBC) [Entitic vol] 91.4 fL Normal 80-94 [facility] Comment on above: Performed By: #### L 501.9910, L506.1001, L100.0100, L502.0250, L500.4100, L500.4050, L400.0001, L501.9520 #### [facility] [address] [place], [address] Monocytes/100 WBC (Bld) 7.5 % Normal 0-10 [facility] Comment on above: Performed By: #### L 501.9910, L506.1001, L100.0100, L502.0250, L500.4100, L500.4050, L400.0001, L501.9520 #### [facility] [address] [place], [address] Neutrophils/100 WBC (Bld) 66.5 % Normal 47-70 [facility] Comment on above: Performed By: #### L 501.9910, L506.1001, L100.0100, L502.0250, L500.4100, L500.4050, L400.0001, L501.9520 #### [facility] [address] [place], [address] Nucleated RBC (Bld) [#/Vol] 0 10*3/uL Normal 0-5 [facility] Comment on above: Performed By: #### L 501.9910, L506.1001, L100.0100, L502.0250, L500.4100, L500.4050, L400.0001, L501.9520 #### [facility] [address] [place], [address] Platelet mean volume (Bld) [Entitic vol] 10.3 fL Normal 6.2-12.0 [facility] Comment on above: Performed By: #### L 501.9910, L506.1001, L100.0100, L502.0250, L500.4100, L500.4050, L400.0001, L501.9520 #### [facility] [address] [place], [address] Platelets (Bld) [#/Vol] 237 10*3/uL Normal 150-450 [facility] Comment on above: Performed By: #### L 501.9910, L506.1001, L100.0100, L502.0250, L500.4100, L500.4050, L400.0001, L501.9520 #### [facility] [address], [address] RBC (Bld) [#/Vol] 4.21 10*6/uL Low 4.6-6.2 [facility] Comment on above: Performed By: #### L 501.9910, L506.1001, L100.0100, L502.0250, L500.4100, L500.4050, L400.0001, L501.9520 #### [facility] [address] [place], [address] RDW SD 41.1 fl Normal 35.1-43.9 [facility] Comment on above: Performed By: #### L 501.9910, L506.1001, L100.0100, L502.0250, L500.4100, L500.4050, L400.0001, L501.9520 #### [facility] [address] [place], [place], [id number] WBC (Bld) [#/Vol] 5.9 10*3/uL Normal 4.4-11.0 [facility] Comment on above: Performed By: #### L 501.9910, L506.1001, L100.0100, L502.0250, L500.4100, L500.4050, L400.0001, L501.9520 #### [facility] [address] [place], [place], [id number] Calculated very low density lipoprotein (VLDL) cholesterol measurementOrdered By: Gómze Yost on 06-30-2024 VLDL Cholesterol 16 mg/dL 5-40 [facility] Carbon dioxide, total [Moles /volume] in Central venous bloodOrdered By: Gómez Yost on 06-30-2024 CO2 [Moles/Vol] 25.6 mmol/L Normal 21.0-32.0 [facility] Comment on above: Performed By: #### L 501.9910, L506.1001, L100.0100, L502.0250, L500.4100, L500.4050, L400.0001, L501.9520 #### [facility] [address] [place], [place], [id number] Chloride assayOrdered By: Tori Yost on 06-30-2024 Chloride [Moles/Vol] 106 mmol/L Normal 98-108 [facility] Comment on above: Performed By: #### L 501.9910, L506.1001, L100.0100, L502.0250, L500.4100, L500.4050, L400.0001, L501.9520 #### [facility] [address] [place], [address] Comprehensive Metabolic Prof ilon 06-30-2024 ALK PHOS 48 U/L Normal 40-129 [facility] Comment on above: Performed By: #### L 501.9910, L506.1001, L100.0100, L502.0250, L500.4100, L500.4050, L400.0001, L501.9520 #### [facility] [address], [address] BUN/CRE 18.2 RATIO Normal 10-20 [facility] Comment on above: Performed By: #### L 501.9910, L506.1001, L100.0100, L502.0250, L500.4100, L500.4050, L400.0001, L501.9520 #### [facility] [address] [place], [place], [id number] (313) GAP 11 Normal 5-15 [facility] Comment on above: Performed By: #### L 501.9910, L506.1001, L100.0100, L502.0250, L500.4100, L500.4050, L400.0001, L501.9520 #### [facility] [address] [place], [place], [id number] ([address] GFR/1.73 sq M.predicted among non-blacks MDRD (S/P/Bld) [Vol rate/Area] 72 mL/min/{1.73_m2} Normal >60 [facility] Comment on above: Result Comment: mL/m in/1.73m2 CKD-EPI Creatinine Equation (2020) Performed By: #### L 501.9910, L506.1001, L100.0100, L502.0250, L500.4100, L500.4050, L400.0001, L501.9520 #### [facility] [address] [place], [place], [id number] (108 T PROT 6.8 g/dL Normal 5.9-8.4 [facility] Comment on above: Performed By: #### L 501.9910, L506.1001, L100.0100, L502.0250, L500.4100, L500.4050, L400.0001, L501.9520 #### [facility] [address] [place], [address] Comprehensive Metabolic Prof ilOrdered By: Gómez Yost on 06-30-2024 AST [Catalytic activity/Vol] 23 U/L Normal <=37 [facility] Comment on above: Performed By: #### L 501.9910, L506.1001, L100.0100, L502.0250, L500.4100, L500.4050, L400.0001, L501.9520 #### [facility] [address] [place], [place], [id number] Creatinine Unsp time (U) [Ma ss/Vol]Ordered By: Gómez Yost on 06-30-2024 Creatinine (U) [Mass/Vol] 282.00 mg/dL High 39.00-259.0 0 [facility] Eosinophil percentageOrdered By: Gómez Yost on 06-30-2024 Eosinophils/100 WBC (Bld) 2.6 % 0-5 [facility] Epithelial cells.squamous LM Ql (Urine sed)Ordered By: Gómez Yost on 06-30-2024 Epithelial cells.squamous LM.HPF (Urine sed) [#/Area] 0 /[HPF] 0-5 [facility] Erythrocyte distribution wid th (RBC) [Ratio]Ordered By: Gómez Yost on 06-30-2024 Erythrocyte distribution width (RBC) [Entitic vol] 41.1 fL 35.1-43.9 [facility] Erythrocyte distribution wid th ratioOrdered By: Gómez Ysot on 06-30-2024 Erythrocyte distribution width (RBC) [Ratio] 12.3 % 11.6-14.6 [facility] GFR/1.73 sq M.predicted carla g non-blacks MDRD (S/P/Bld) [Vol rate/Area]Ordered By: Gómez Yost on 06-30-2024 Estimated GFR (MDRD) Non-Af Amer 72 >60 [facility] Comment on above: mL/min/1.73m2 CKD-EP I Creatinine Equation (2020) Glucose Ql (U)Ordered By: Tori Yost on 06-30-2024 Urine Glucose (UA) Normal mg/dl Normal [facility] Hematocrit Auto (Bld) [Volum e fraction]Ordered By: Gómez Yost on 06-30-2024 Hematocrit (Bld) [Volume fraction] 38.5 % Low 40-54 [facility] Hemoglobin measurementOrdere d By: Gómez Yost on 06-30-2024 Hemoglobin (Bld) [Mass/Vol] 12.8 g/dL Low 13.0-16.5 [facility] Immature granulocytes/100 WB C Auto (Bld)Ordered By: Gómez Yost on 06-30-2024 Immature granulocytes/100 WBC (Bld) 0.200 % 0.0-0.9 [facility] Comment on above: IG% - Immature Granu locytes (promyelocytes, myelocytes and metamyelocytes) > 1% indicates that a LEFT SHIFT is Present. Ketones Test strip Ql (U)Ord ered By: Gómez Yost on 06-30-2024 Ketones Ql (U) 5 mg/dl High Negative [facility] LDL calc ser/plasOrdered By: Gómez Yost on 06-30-2024 LDL Cholesterol, Calculated 93 mg/dL [facility] Comment on above: Wxnqgqvjuo=121-373 m g/dL & Higher Xaom=695 mg/dL or greater Lipid Profileon 06-30-2024 CHOL:HDL 3.05 Normal [facility] Comment on above: Performed By: #### L 501.9910, L506.1001, L100.0100, L502.0250, L500.4100, L500.4050, L400.0001, L501.9520 #### [facility] [address] [place], [place], [id number] Cholesterol [Mass/Vol] 162 mg/dL Normal <=200 [facility] Comment on above: Result Comment: Chol esterol level, Desirable <200 mg/dL Borderline high cholesterol 200-239 mg/dL High cholesterol >=240 mg/dL Recommendations of the NCEP Adult Treatment Panel for the following risk-cutoff thresholds for the [place] population. Performed By: #### L 501.9910, L506.1001, L100.0100, L502.0250, L500.4100, L500.4050, L400.0001, L501.9520 #### [facility] [address] [place], [address] Cholesterol in HDL [Mass/Vol] 53 mg/dL Normal [facility] Comment on above: Result Comment: Jessie onal Cholesterol Education Program (NCEP) guidelines: <40 mg/dL: Low HDL-cholesterol (major risk factor for CHD) >= 60 mg/dL: High HDL-cholesterol (negative risk factor for CHD) HDL-cholesterol is affected by a number of factors, e.g. smoking, exercise, hormones, sex and age. Performed By: #### L 501.9910, L506.1001, L100.0100, L502.0250, L500.4100, L500.4050, L400.0001, L501.9520 #### [facility] [address] [place], [address] Cholesterol in LDL [Mass/Vol] 93 mg/dL Normal [facility] Comment on above: Result Comment: Bord bamlrq=701-404 mg/dL Higher Icut=100 mg/dL or greater Performed By: #### L 501.9910, L506.1001, L100.0100, L502.0250, L500.4100, L500.4050, L400.0001, L501.9520 #### [facility] [address] [place], [address] Cholesterol in VLDL [Mass/Vol] 16 mg/dL Normal 5-40 [facility] Comment on above: Performed By: #### L 501.9910, L506.1001, L100.0100, L502.0250, L500.4100, L500.4050, L400.0001, L501.9520 #### [facility] [address] [place], [address] Triglyceride [Mass/Vol] 79 mg/dL Normal [facility] Comment on above: Result Comment: The drugs N-Acetylcysteine and Metamizole may falsely depress this assay. Normal range: <150 mg/dL Borderline High: 150-199 mg/dL High: 200-499 mg/dL Very High: >500 mg/dL Performed By: #### L 501.9910, L506.1001, L100.0100, L502.0250, L500.4100, L500.4050, L400.0001, L501.9520 #### [facility] [address] [place], [address] Lymphocytes Auto (Unsp spec) [#/Vol]Ordered By: Gómez Yost on 06-30-2024 Lymphocytes (Bld) [#/Vol] 1.30 10*3/uL 0.83-4.51 [facility] Lymphocytes/100 WBC Auto (Un sp spec)Ordered By: Gómez Yost on 06-30-2024 Lymphocytes/100 WBC (Bld) 22.2 % 19-41 [facility] MCV (mean corpuscular volume ) determinationOrdered By: Gómez Yost on 06-30-2024 MCV (RBC) [Entitic vol] 91.4 fL 80-94 [facility] Mean corpuscular hemoglobin (MCH) determinationOrdered By: Gómez Yost on 06-30-2024 MCH (RBC) [Entitic mass] 30.4 pg 27.0-32.0 [facility] Mean corpuscular hemoglobin concentration (MCHC) determinationOrdered By: Gómez Yost on 06-30-2024 MCHC (RBC) [Mass/Vol] 33.2 g/dL 32-36 [facility] Mean platelet volume determi nationOrdered By: Gómez Yost on 06-30-2024 Platelet mean volume (Bld) [Entitic vol] 10.3 fL 6.2-12.0 [facility] Microalb:Creat Ratio,Random URon 06-30-2024 Creatinine [Mass/Vol] 282.00 mg/dL High 39.00- 259.0 0 [facility] Comment on above: Performed By: #### L 400.0001, L501.9520 #### [facility] [address] [place], [address] MALB:CREAT UNABLE TO CALCULATE Normal [facility] Comment on above: Performed By: #### L 400.0001, L501.9520 #### [facility] [address] [place], [address] MICROALBUMIN,UR < 12.0 Normal NO RANGE EST. [facility] Comment on above: Performed By: #### L 400.0001, L501.9520 #### [facility] [address] [place], [address] Microalbumin/creat ratio urO rdered By: Gómez Yost on 06-30-2024 Urine Microalbumin/Creatinin e Ratio UNABLE TO CALCULATE mg/g CRE [facility] Microscopic analysis of urin e for red blood cells (RBC)Ordered By: Gómez Yost on 06-30-2024 Urine RBC 0 SEEN /hpf 0-5 [facility] Monocyte percentageOrdered B y: Gómez Yost on 06-30-2024 Monocytes/100 WBC (Bld) 7.5 % 0-10 [facility] Mucus LM Ql (Urine sed)Order ed By: Gómez Yost on 06-30-2024 Mucus Ql (Urine sed) 1+ /hpf [facility] Neutrophil percentageOrdered By: Gómez Yost on 06-30-2024 Neutrophils/100 WBC (Bld) 66.5 % 47-70 [facility] Nitrite Test strip Ql (U)Ord ered By: Gómez Yost on 06-30-2024 Nitrite Ql (U) Negative Negative [facility] Nucleated red blood cell per centageOrdered By: Gómez Yost on 06-30-2024 Nucleated RBC/100 WBC (Bld) [Ratio] 0 % 0-5 [facility] PSA, total screeningOrdered By: Gómez Yost on 06-30-2024 Prostate Specific Antigen Screen 0.84 ng/mL 0.02-4.00 [facility] Comment on above: This test was perfor med using the [employer] tPSA method. Measured values of a patient sample can vary depending on the testing procedure used. PSA values determined on patient samples by different testing procedures cannot be used interchangeably. If there is a change in PSA assays while monitoring therapy, sequential testing should be performed to confirm baseline values. PSA,Total - Annual Screenon 06-30-2024 PSA,TOT SCREEN 0.84 ng/mL Normal 0.02-4.00 [facility] Comment on above: Result Comment: This test was performed using the [employer] tPSA method. Measured values of a patient??sample can vary depending on the testing procedure used. PSA values determined on patient samples by different testing procedures cannot be used interchangeably. If there is a change in PSA assays while monitoring therapy, sequential testing should be performed to confirm baseline values. Performed By: #### L 501.9910, L506.1001, L100.0100, L502.0250, L500.4100, L500.4050, L400.0001, L501.9520 #### [facility] [address] [place], [place], [id number] Platelet countOrdered By: Tori Yost on 06-30-2024 Platelets (Bld) [#/Vol] 237 10*3/uL 150-450 [facility] Potassium measurement (mass/ volume)Ordered By: Gómez Yost on 06-30-2024 Potassium [Moles/Vol] 4.3 mmol/L Normal 3.3-5.1 [facility] Comment on above: Performed By: #### L 501.9910, L506.1001, L100.0100, L502.0250, L500.4100, L500.4050, L400.0001, L501.9520 #### [facility] [address] [place], [place], [id number] Protein Test strip Ql (U)Ord ered By: Gómez Yost on 06-30-2024 Protein Ql (U) 30 mg/dl High Negative [facility] RBC Auto (Bld) [#/Vol]Ordere d By: Gómez Yost on 06-30-2024 RBC (Bld) [#/Vol] 4.21 10*6/uL Low 4.6-6.2 [facility] Screening total cholesterol/ high density lipoprotein (HDL) cholesterol ratioOrdered By: Gómez Yost on 06-30-2024 Cholesterol.total/Chol esterol in HDL [Mass ratio] 3.05 {ratio} [facility] Serum creatinine measurement (mass/volume)Ordered By: Gómez Yost on 06-30-2024 Creatinine [Mass/Vol] 1.14 mg/dL Normal 0.70-1.20 [facility] Comment on above: Performed By: #### L 501.9910, L506.1001, L100.0100, L502.0250, L500.4100, L500.4050, L400.0001, L501.9520 #### [facility] [address] [facility] [place], [address] Serum globulin measurementOr dered By: Gómez Yost on 06-30-2024 Globulin (S) [Mass/Vol] 2.4 g/dL Normal 2.2-4.2 [facility] Comment on above: Performed By: #### L 501.9910, L506.1001, L100.0100, L502.0250, L500.4100, L500.4050, L400.0001, L501.9520 #### [facility] [address], [address] Serum glucose measurement (m ass/volume)Ordered By: Gómez Yost on 06-30-2024 Glucose [Mass/Vol] 103 mg/dL High 70-99 [facility] Comment on above: Performed By: #### L 501.9910, L506.1001, L100.0100, L502.0250, L500.4100, L500.4050, L400.0001, L501.9520 #### [facility] [address], [address] Serum or plasma alanine daniel otransferase (ALT) measurementOrdered By: Gómez Yost on 06-30-2024 ALT [Catalytic activity/Vol] 24 U/L Normal <=46 [facility] Comment on above: Performed By: #### L 501.9910, L506.1001, L100.0100, L502.0250, L500.4100, L500.4050, L400.0001, L501.9520 #### [facility] [address] [place], [address] Serum or plasma albumin yfn urement (mass/volume)Ordered By: Gómez Yost on 06-30-2024 Albumin [Mass/Vol] 4.3 g/dL Normal 3.4-4.8 [facility] Comment on above: Performed By: #### L 501.9910, L506.1001, L100.0100, L502.0250, L500.4100, L500.4050, L400.0001, L501.9520 #### [facility] [address], [place], [id number] (783) Serum or plasma albumin/glob ulin mass ratioOrdered By: Gómez Yost on 06-30-2024 Albumin/Globulin [Mass ratio] 1.8 {ratio} Normal 0.9-2.4 [facility] Comment on above: Performed By: #### L 501.9910, L506.1001, L100.0100, L502.0250, L500.4100, L500.4050, L400.0001, L501.9520 #### [facility] [address], [place], [id number] (910) Serum or plasma alkaline herve sphatase measurementOrdered By: Gómez Yost on 06-30-2024 ALP [Catalytic activity/Vol] 48 U/L 40-129 [facility] Serum or plasma calcium yfn urement (mass/volume)Ordered By: Gómez Yost on 06-30-2024 Calcium [Mass/Vol] 9.8 mg/dL Normal 7.6-11.0 [facility] Comment on above: Performed By: #### L 501.9910, L506.1001, L100.0100, L502.0250, L500.4100, L500.4050, L400.0001, L501.9520 #### [facility] [address] [facility] [address] [place], [place], [id number] Serum or plasma cholesterol in HDL measurement (mass/volume)Ordered By: Gómez Yost on 06-30-2024 Cholesterol in HDL [Mass/Vol] 53 mg/dL >40 [facility] Comment on above: National Cholesterol Education Program (NCEP) guidelines:<40 mg/dL: Low HDL-cholesterol (major risk factor for CHD)>= 60 mg/dL: High HDL-cholesterol (negative risk factor for CHD)HDL-cholesterol is affected by a number of factors, e.g. smoking, exercise, hormones, sex and age. Serum or plasma cholesterol measurement (mass/volume)Ordered By: Gómez Yost on 06-30-2024 Cholesterol [Mass/Vol] 162 mg/dL <201 [facility] Comment on above: Cholesterol level, D esirable <200 mg/dLBorderline high cholesterol 200-239 mg/dLHigh cholesterol >=240 mg/dLRecommendations of the NCEP Adult Treatment Panel for the following risk-cutoff thresholds for the [place] population. Serum or plasma urea nitroge n measurement (mass/volume)Ordered By: Gómez Yost on 06-30-2024 Urea nitrogen [Mass/Vol] 21 mg/dL High 4-19 [facility] Comment on above: Performed By: #### L 501.9910, L506.1001, L100.0100, L502.0250, L500.4100, L500.4050, L400.0001, L501.9520 #### [facility] [address] [place], [place], [id number] Sodium levelOrdered By: Kely Yost on 06-30-2024 Sodium [Moles/Vol] 143 mmol/L Normal 133-145 [facility] Comment on above: Performed By: #### L 501.9910, L506.1001, L100.0100, L502.0250, L500.4100, L500.4050, L400.0001, L501.9520 #### [facility] [address] [place], [place], [id number] TSH DL <= 0.005 mIU/L QnOrde red By: Gómez Yost on 06-30-2024 Thyroid Stimulating Hormone (TSH) 3.980 uIU/mL 0.300-4.200 [facility] Thyroid Stim Hormone (TSH)on 06-30-2024 TSH 3.980 uIU/mL Normal 0.300-4.200 [facility] Comment on above: Performed By: #### L 501.9910, L506.1001, L100.0100, L502.0250, L500.4100, L500.4050, L400.0001, L501.9520 #### [facility] [address] [place], [address] Total proteinOrdered By: Andriy Yost on 06-30-2024 Protein [Mass/Vol] 6.8 g/dL 5.9-8.4 [facility] Triglycerides measurementOrd ered By: Gómez Yost on 06-30-2024 Triglyceride [Mass/Vol] 79 mg/dL <199 [facility] Comment on above: The drugs N-Acetylcy steine and Metamizole may falsely depress this assay. Normal range: <150 mg/dLBorderline High: 150-199 mg/dLHigh: 200-499 mg/dLVery High: >500 mg/dL Urinalysis, Completeon 06-30 Mucus Ql (Urine sed) 1+ /hpf Normal [facility] Comment on above: Order Comment: Urine , Random Performed By: #### L 501.9910, L506.1001, L100.0100, L502.0250, L500.4100, L500.4050, L400.0001, L501.9520 #### [facility] [address] [place], [place], [id number] EPI,SQUAMOUS 0-5 SEEN Normal 0-5 [facility] Comment on above: Order Comment: Urine , Random Performed By: #### L 501.9910, L506.1001, L100.0100, L502.0250, L500.4100, L500.4050, L400.0001, L501.9520 #### [facility] [address] [facility] [place], [address] BACTERIA 0 SEEN Normal None Seen [facility] Comment on above: Order Comment: Urine , Random Performed By: #### L 501.9910, L506.1001, L100.0100, L502.0250, L500.4100, L500.4050, L400.0001, L501.9520 #### [facility] [address] [place], [address] RBC 0 SEEN Normal 0-5 [facility] Comment on above: Order Comment: Urine , Random Performed By: #### L 501.9910, L506.1001, L100.0100, L502.0250, L500.4100, L500.4050, L400.0001, L501.9520 #### [facility] [address] [place], [address] WBC 0 SEEN Normal 0-5 [facility] Comment on above: Order Comment: Urine , Random Performed By: #### L 501.9910, L506.1001, L100.0100, L502.0250, L500.4100, L500.4050, L400.0001, L501.9520 #### [facility] [address] [facility] [place], [address] Urine blood detectionOrdered By: Gómez Yost on 06-30-2024 Urine Occult Blood Negative Negative [facility] Urine clarityOrdered By: Andriy Yost on 06-30-2024 Clarity (U) Clear Clear [facility] Urine color determinationOrd ered By: Gómez Yost on 06-30-2024 Color (U) Yellow Yellow [facility] Urine leukocyte esterase det ection by dipstickOrdered By: Gómez Yost on 06-30-2024 Leukocyte esterase Test strip Ql (U) Negative Negative [facility] Urine pHOrdered By: Gómez Yost on 06-30-2024 pH (U) 5.0 [pH] 5.0 - 8.0 [facility] Urine sediment bacteria coun t by microscopy (number/high power field)Ordered By: Gómez Yost on 06-30-2024 Bacteria LM.HPF (Urine sed) [#/Area] 0 /[HPF] None Seen [facility] Urine specific gravity measu rementOrdered By: Gómez Yost on 06-30-2024 Specific gravity (U) [Rel density] 1.025 1.002-1.030 [facility] Urobilinogen Ql (U)Ordered B y: Gómez Yost on 06-30-2024 Urine Urobilinogen Normal mg/dl Normal [facility] Vitamin D, 25-hydroxyOrdered By: Gómez Yost on 06-30-2024 Vitamin D 25-Hydroxy 55.5 ng/mL 30-100 [facility] Comment on above: Vitamin D StatusDefi ciency: <20 ng/mL (50nmol/L)Insufficiency: 20-30 ng/mL (50-75 nmol/L)Sufficiency: 30-100 ng/mL (75-250 nmol/L)Toxicity: >100 ng/mL (>250 nmol/L) Vitamin D,25 Hydroxyon 06-30 Vitamin D 25-OH 55.5 ng/mL Normal 30-100 [facility] Comment on above: Result Comment: Melva min D Status Deficiency: <20 ng/mL (50nmol/L) Insufficiency: 20-30 ng/mL (50-75 nmol/L) Sufficiency: 30-100 ng/mL (75-250 nmol/L) Toxicity: >100 ng/mL (>250 nmol/L) Performed By: #### L 501.9910, L506.1001, L100.0100, L502.0250, L500.4100, L500.4050, L400.0001, L501.9520 #### [facility] [address] [place], [address] White blood cell (WBC) count Ordered By: Gómez Yost on 06-30-2024 WBC (Bld) [#/Vol] 5.9 10*3/uL 4.4-11.0 [facility] White blood cell countOrdere d By: Gómez Yost on 06-30-2024 Urine WBC 0 SEEN /hpf 0-5 [facility] [employer] Cytology Reporton Non-Inspector [employer] Cytology Report . Pathology Reports Accession: Collected Date/Time: Received Date/Time: Pathologist: [id number] 06/25/2024 13:00 EDT 06/26/2024 08:32 EDT HUSSEIN JACKSON MD Non-Ins[employer] Cytology Report CLINICAL INFORMATION: thyroid nodule DIAGNOSTIC CATEGORY: ATYPIA OF UNDETERMINED SIGNIFICANCE. Per [place] [facility] protocol, this specimen has been sent for [employer] Supervisor test. Results to follow in about 2 weeks. SPECIMEN: Right Thyroid FNA GROSS DESCRIPTION: # of Monolayers: 1 # of fixed Smears: 6 Volume (ml) 30 Color: fixed clear needle rinse in [employer]to[employer] sample collected for reflex testing SUGGESTION/EDUCATIONA L NOTES: This specimen was evaluated using criteria described in The [place] System for Reporting Thyroid Cytopathology, Second Edition (2018). The following risk of malignancy rates are estimates based on published studies and includes data extrapolation. Individual institutions may have different rates. Actual management may depend on other factors (e.g., clinical. Sonographic) besides the FNA interpretation. Diagnostic Category Risk of Usual management malignancy (%) Non diagnostic or Unsatisfactory 5-10 Repeat FNA with US guidance Benign 0-3 Clinical and US follow up Atypia of Undetermined 10-30 Repeat FNA, molecular Significance testing or lobectomy Follicular neoplasm or Suspicious 25-40 Molecular testing, for follicular neoplasm lobectomy Suspicious for Malignancy 50-75 Near-total thyroidectomy or lobectomy Malignant 97-99 Near-total thyroidectomy or lobectomy Verified by Pathology Report verified by [facility] Screened by: LALO GALINDO Electronically signed by HUSSEIN JACKSON Sign-Out Date: 06/29/2024 12:32 Performing Lab: [facility], [address] [place] [address] Pathology Dept Disclaimer If ancillary studies were utilized, the following Laboratory Developed Test (LDT) disclaimer will apply: Pathology Reports Accession: Collected Date/Time: Received Date/Time: Pathologist: [id number] 06/25/2024 13:00 EDT 06/26/2024 08:32 EDT HUSSEIN JACKSON MD Disclaimer Under CLIA requirements, [facility] is qualified to perform high complexity testing. For all ancillary stains, positive and negative controls stain appropriately. Performance characteristics of immunohistochemical and chromogenic in-situ hybridization tests have been determined by [facility]. These tests are used for clinical purposes, They should not be regarded as investigational or for research. Normal [facility] Arelis 05-29-2024 TSI <0.10 Normal 0.00-0.55 [facility] Comment on above: Result Comment: Perf ormed At: [facility] [id number] Iker Lagos MD Ph:[phone] Performed By: #### F T3, THYAB, GFR, FT4, 610732, CMP, TSH #### [address] [address] .GFRon 05-27-2024 Estimated Glomerular Filtration Rate 89 ml/min/1.73sqm Normal [facility] Comment on above: Result Comment: Stages of Chronic Kidney Disease (CKD) Stage Description eGFR(ml/min/1.73 sq.m.) CKD 1 Normal kidney function or >=90 normal kindney function with possible kidney damage (ex. Proteinuria) CKD 2 Kidney damage with mild loss 60-89 of kidney function CKD 3a Mild to moderate loss of kidney 45-59 function CKD 3b Moderate to severe loss of 30-44 of kindey function CKD 4 Severe loss of kidney function 15-29 CKD 5 Kidney failure <15 Note: (go live 2024) the eGFR calculation was updated to the 2020 CKD-EPI creatinine equation without a race factor to calculate the eGFR results. Performed By: #### F T3, THYAB, GFR, FT4, 614392, CMP, TSH #### [address] [address] CMPon 05-27-2024 Albumin Level 4.5 G/dL Normal 3.2-4.8 [facility] Comment on above: Performed By: #### F T3, THYAB, GFR, FT4, 071571, CMP, TSH #### [place] [address] Albumin/Globulin [Mass ratio] 1.6 {ratio} Normal 0.9-1.6 [facility] Comment on above: Performed By: #### F T3, THYAB, GFR, FT4, 739851, CMP, TSH #### [place] [address] ALP [Catalytic activity/Vol] 55 U/L Normal 38-126 [facility] Comment on above: Performed By: #### F T3, THYAB, GFR, FT4, 805454, CMP, TSH #### [place] [address] ALT [Catalytic activity/Vol] 27 U/L Normal 12-55 [facility] Comment on above: Performed By: #### F T3, THYAB, GFR, FT4, 123227, CMP, TSH #### [place] [address] AST [Catalytic activity/Vol] 32 U/L Normal 8-34 [facility] Comment on above: Performed By: #### F T3, THYAB, GFR, FT4, 320357, CMP, TSH #### [place] [address] Bili Total 0.70 mg/dL Normal 0.20-1.20 [facility] Comment on above: Result Comment: Use of this assay is not recommended for patients undergoing treatment with eltrombopag due to the potential for falsely elevated results. Performed By: #### F T3, THYAB, GFR, FT4, 660677, CMP, TSH #### [place] [address] BUN/Creatinine Ratio 17.9 ratio Normal 10.0-22.0 [facility] Comment on above: Performed By: #### F T3, THYAB, GFR, FT4, 767373, CMP, TSH #### [place] [address] Calcium [Mass/Vol] 10.4 mg/dL Normal 8.7-10.4 [facility] Comment on above: Performed By: #### F T3, THYAB, GFR, FT4, 636996, CMP, TSH #### [address] [address] Chloride [Moles/Vol] 108 mmol/L Normal 98-110 [facility] Comment on above: Performed By: #### F T3, THYAB, GFR, FT4, 359708, CMP, TSH #### [address] [address] CO2 [Moles/Vol] 28 mmol/L Normal 22-32 [facility] Comment on above: Performed By: #### F T3, THYAB, GFR, FT4, 549802, CMP, TSH #### [place] [id number] Creatinine [Mass/Vol] 0.95 mg/dL Normal 0.60-1.40 [facility] Comment on above: Result Comment: Test ing performed on nuMVC analyzer using enzymatic creatinine methodology. Performed By: #### F T3, THYAB, GFR, FT4, 848124, CMP, TSH #### [address] [address] Electrolyte Balance 6.0 mEq/L Normal 4.0-15.[address] [facility] Comment on above: Performed By: #### F T3, THYAB, GFR, FT4, 691470, CMP, TSH #### [place] [id number] Globulin 2.9 G/dL Normal 1.5-3.8 [facility] Comment on above: Performed By: #### F T3, THYAB, GFR, FT4, 498006, CMP, TSH #### [address] [address] Glucose [Mass/Vol] 94 mg/dL Normal 82-115 [facility] Comment on above: Performed By: #### F T3, THYAB, GFR, FT4, 616069, CMP, TSH #### [place] [id number] Potassium [Moles/Vol] 4.1 mmol/L Normal 3.5-5.0 [facility] Comment on above: Performed By: #### F T3, THYAB, GFR, FT4, 672159, CMP, TSH #### [place] [id number] [address] [place] [address] Sodium [Moles/Vol] 142 mmol/L Normal 136-145 [facility] Comment on above: Performed By: #### F T3, THYAB, GFR, FT4, 461202, CMP, TSH #### [address] [address] Total Protein 7.4 G/dL Normal 5.7-8.2 [facility] Comment on above: Performed By: #### F T3, THYAB, GFR, FT4, 944753, CMP, TSH #### [address] [address] Urea nitrogen [Mass/Vol] 17.0 mg/dL Normal 8.0-22.0 [facility] Comment on above: Performed By: #### F T3, THYAB, GFR, FT4, 883477, CMP, TSH #### [address] [address] CNOVon 05-27-2024 CNOV Office Visit (CVAKPO ) GLENROY THORNTON ([id number]) 1960 M Date Time Provider Department 05/27/24 1:30 PM ROSAMARIA HEDRICK CVAKPO During your visit today, we recorded the following information about you: Pulse Blood pressure Weight Height 82/minute 154/72 88 kg 1.829 m Rosamaria Hedrick APRN.SPORTS SPECIALIST 05/27/2024 3:05 PM Signed [facility] Established Visit Consultation is requested by: Lyn Lindo [address] [facility] [address] PCP: Ev Zeng (April) [address] [facility] [address] [place] [address] CEREBROVASCULAR HISTORY Glenroy Thornton is a 63 year old male presenting for hospital discharge follow up. Admitted to [facility] 02/08-02/12/24. From discharge summary Mr Glenroy Stokes is a 63 yo gentleman with HTN, HLD, and hypothyroidism who presented for left sided facial droop and dysarthria while having dinner. He did not noticed arm or leg weakness stumbled when they attempted to walk him to ambulance. He was brought to the ER where he was worked up for a stroke. CT head obtained on admission without any acute abnormality. CT angiogram of head and neck with right M2 insular branch occlusion. His imaging was evaliated following which he received tpa as he was within the window. He was taken to the neuro ICU for monitoring post tpa.Symptoms reported to have completely resolved the following morning. MRI brain obtained showed small acute right MCA territory infarct He underwent stroke work up including an transthoracic echocardiogram which revealed the presence of an intracardiac shunt. He then underwent a Transesophageal echocardiogram which revealed no thrombus but did show Large PFO with strongly positive bubble study visualized. Patient seen by neurology team who recommended continuing aspirin and clopidogrel for 21 days and continuing statin therapy. Seen by PT who cleared for home. For further work up of Patent foramen [place], patient will need to follow with Cardiology after DC to evaluate for closure of PFO. Will also need an event monitor on discharge. Reason for Visit: ischemic stroke Date of Last Event: 02/09/2024 Antiplatelets/Anticoa gulants: Aspirin and Clopidogrel Statins: Atorvastatin Residual Deficits: No residual deficits Current PT/OT/ST: None Current Living Situation: Home with spouse Current use of a mobility aid for walking/getting around: None Office Visit 02/24/24 -presents for hospital discharge follow up with his , Marcy who is a nurse -denies any new symptoms or clinical events -feels fatigued, but denies focal deficits or therapy needs -Cardiology for PFO evaluation - scheduled for 04/01/24 -event monitor placed a few days ago, recommended 30 days -aspirin 81mg + plavix 75mg x 21 days recommended -they are worried about stopping plavix because he was on aspirin when he had his stroke -no bleeding or bruising on DAPT -lipitor 40mg -BP 146/90 - at home generally 110-120s, occasional reading 130s, single reading in 150s, HR 50-70s -never smoker -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, 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 Office Visit 05/27/24 -presents for follow up -denies any new stroke-like symptoms -will be getting needle biopsy for thyroid nodule -s/p PFO closure on 04/09/24 -aspirin 81mg + plavix x 3 months post PFO, then single antiplatelet -lipitor 40mg -BP 154/72 PAST MEDICAL HISTORY Diagnosis Date Hyperlipemia Hypertension Hypothyroidism PFO (patent foramen ovale) Closure 04/09/24 Stroke (HCC) 01/2024 PAST SURGICAL HISTORY Procedure Laterality Date INGUINAL HERNIA REPAIR HX PFO CLOSURE 04/09/2024 FAMILY HISTORY Problem Relation Age of Onset Stroke Mother 80 - 89 in 90s other (tia) Mother Heart disease Father Heart disease Brother Social History Tobacco Use Smoking status: Never Smokeless tobacco: Never Vaping Use Vaping status: Never Used Substance Use Topics Alcohol use: Not Currently Drug use: Never MEDICATIONS Current Outpatient Medications Medication Sig clopidogrel (PLAVIX) 75 mg tablet Take 1 tablet by mouth once daily. clopidogrel (PLAVIX) 75 mg tablet Take 1 tablet by mouth once daily. levothyroxine (SYNTHROID) 75 mcg tablet Take 75-150 mcg by mouth daily before breakfast. Taking 75 mg Saturday - Saturday Taking 150 mg Saturday and Saturday metoprolol succinate ER (TOPROL XL) 100 mg Take 100 mg by mouth once daily. atorvastatin (LIPITOR) 40 mg tablet Take 40 mg by mouth once daily. losartan (COZAAR) 100 mg tablet Take 100 mg by mouth once daily. hydroCHLOROthiazide 25 mg tablet Take 25 mg by mouth once daily. aspirin (ASPIRIN CHILDRENS) 81 mg chewable tablet Take 81 mg by mouth once daily. cholecalciferol (VITAMIN D-3) 50 mcg (2,000 unit) tablet Take 2,000 Units by mouth once daily. No current facility-administered medications for this visit. ALLERGIES (more content not included)... Normal [facility] FT3on 05-27-2024 Free T3 [Mass/Vol] 3.15 pg/mL Normal 2.30-4.20 [facility] Comment on above: Performed By: #### F T3, THYAB, GFR, FT4, [id number], CMP, TSH #### [address] [address] FT4on 05-27-2024 Free T4 [Mass/Vol] 1.57 ng/dL Normal 0.89-1.76 [facility] Comment on above: Result Comment: No te - New Reference Range in effect 19 Performed By: #### F T3, THYAB, GFR, FT4, [id number], CMP, TSH #### [address] [address] Fact VIII Act/Nor PPPon 05-16 Coagulation factor VIII activity actual/normal Coag (PPP) [Relative time] 196 % High 50-173 [facility] Comment on above: Order Comment: Speci men Type: BLOOD SPECIMENOrdering Facility: [facility] Address: [address] [place] [address] Result Comment: The factor VIII clottable activity level is elevated. This can be observed during the acute phase response. Persistent elevation of factor VIII, however, has been shown to be a risk factor for venous thrombosis. Suggest rechecking the factor VIII level in 1-2 months. Performed By: #### 3 209-4 ####[facility] LABCLIA [id number] [place] [address] [place] THYABon 05-27-2024 anti-Thyroid Peroxidase 1195 units/ml High 0-60 [facility] Comment on above: Result Comment: No te - New Reference Range in effect 19 Performed By: #### F T3, THYAB, GFR, FT4, 100236, CMP, TSH #### [address] [address] Thyroglobulin Ab 74 units/ml High 15-60 [facility] Comment on above: Result Comment: No te - New Reference Range in effect 19 Performed By: #### F T3, THYAB, GFR, FT4, 400366, CMP, TSH #### [address] [address] TSHon 05-27-2024 TSH 2.552 mIU/mL Normal 0.550-4.780 [facility] Comment on above: Performed By: #### F T3, THYAB, GFR, FT4, [id number], CMP, TSH #### [facility] [address] [place], [place] [id number] CNOVon 05-20-2024 CNOV Office Visit (AGCARDPOB) GLENROY THORNTON ([id number]) 1960 M Date Time Provider Department 05/20/24 1:40 PM DELVIN GAMEZ AGCARDPOJose During your visit today, we recorded the following information about you: Pulse Blood pressure Weight 72/minute 148/79 88.2 kg Delvin Gamez MD 05/20/2024 2:22 PM Signed Chief Complaint: Patient presents with: CARD Follow Up 1 Month: PFO (patent foramen ovale) Glenroy Thornton is a 63 year old male with a known past medical history of hypertension, hyperlipidemia who presented to the hospital with left-sided facial droop and dysarthria while having dinner on 02/05/2024. A CT scan was done in the emergency room which revealed no acute abnormalities, but CT angiogram of the head and neck showed a right M2 insular branch occlusion. He received tPA with complete resolution of his symptoms. He had a 30 day monitor which ruled out afib. He remians on ASA/Plavix at this time with no issues with bleeding. He is status post PFO closure with a 30 mm [place] cardio form septal occluder device with good result. The patient denies any complaints of chest pain or pressure. He denies any dyspnea, orthopnea, paroxysmal nocturnal dyspnea, syncope or presyncope denies any palpitations or leg swelling. PAST MEDICAL HISTORY Diagnosis Date Hyperlipemia Hypertension Hypothyroidism PFO (patent foramen ovale) Closure 04/09/24 Stroke (HCC) 01/2024 PAST SURGICAL HISTORY Procedure Laterality Date INGUINAL HERNIA REPAIR HX PFO CLOSURE 04/09/2024 FAMILY HISTORY Problem Relation Age of Onset Stroke Mother 80 - 89 in 90s other (tia) Mother Heart disease Father Heart disease Brother Social History Tobacco Use Smoking status: Never Smokeless tobacco: Never Vaping Use Vaping status: Never Used Substance Use Topics Alcohol use: Not Currently Drug use: Never Current Outpatient Medications Medication Sig clopidogrel (PLAVIX) 75 mg tablet Take 1 tablet by mouth once daily. levothyroxine (SYNTHROID) 75 mcg tablet Take 75-150 mcg by mouth daily before breakfast. Taking 75 mg Saturday - Saturday Taking 150 mg Saturday and Saturday metoprolol succinate ER (TOPROL XL) 100 mg Take 100 mg by mouth once daily. atorvastatin (LIPITOR) 40 mg tablet Take 40 mg by mouth once daily. losartan (COZAAR) 100 mg tablet Take 100 mg by mouth once daily. hydroCHLOROthiazide 25 mg tablet Take 25 mg by mouth once daily. aspirin (ASPIRIN CHILDRENS) 81 mg chewable tablet Take 81 mg by mouth once daily. cholecalciferol (VITAMIN D-3) 50 mcg (2,000 unit) tablet Take 2,000 Units by mouth once daily. No current facility-administered medications for this visit. ALLERGIES No Known Allergies Cardiac Testing TTE 04/09/2024: Impression CONCLUSIONS: - Technically difficult exam due to suboptimal positioning and post op. - Exam indication: Re-evaluation to guide therapy in known adult CHD - The left ventricle is normal in size. There is no left ventricular hypertrophy. Left ventricular systolic function is normal. EF = 63 ? 5% (2D biplane) - Agitated saline study performed on clips# (22-23). No obvious shunt seen. - Exam was compared with the prior echocardiographic exam performed on 02/09/2024. (MYRNA) No obvious shunt seen, otherwise there is no significant change. CT brain 02/06/2025: IMPRESSION: Evolving acute right MCA territory infarct. No acute intracranial hemorrhage or significant mass effect. MRI brain 02/09/2025: IMPRESSION: Small acute right MCA territory infarct. No hemorrhagic transformation. No significant mass effect. 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 No acute intracranial hemorrhage. Remaining extracranial and intracranial vasculature is patent without high-grade stenosis or aneurysm. Arterial blood flow was measured to detect acute large vessel occlusion by computer aided detection software: Not Performed. Concordance between software and imaging review: Not Applicable. COMMUNICATION: Communicated with SREE Teena HAYWOOD on 02/09/2024 8:40 PM via verbal communication. Right thyroid nodule. Event monitor 02/11/2024: Review of Systems: See HPI Physical Examination:: BP 148/79 Pulse 72 Wt 194 lb 6.4 oz (88.2kg) SpO2 96% General Appearance: Well appearing, alert, in no acute distress, well-hydrated, well nourished.. Skin: Skin color, texture, turgor normal, no suspicious rashes or lesions. Head: Normocephalic, no masses, lesions, tenderness or abnormalities. Eyes: Anicteric sclera. Pupils are equally round. Extraocular movements are intact. Neck: Supple, no adenopathy; thyroid symmetric, normal size, no bruits. Lungs: Lungs clear to auscultation. No wheezing, rhonchi, rales.. Heart: regular rate and rhythm, no murmur, gallop or rub, normal, S1, S2, physiologic split Peripheral Pulses: Nor (more content not included)... Normal [facility] CT CHEST W IVCONon CT CHEST W IVCON * * *Final Report* * * DATE OF EXAM: May 06 2024 2:26PM [facility] 0539 - CT CHEST W IVCON / PROCEDURE REASON: evaluate incidental pulmonary nodule * * * * Physician Interpretation * * * * EXAMINATION: CHEST CT WITH CONTRAST CLINICAL HISTORY: Evaluate for nodular opacity seen on prior radiograph Technique: Spiral CT acquisition of the chest from the thoracic inlet to the upper abdomen following IV contrast. MQ: CTCW_6 Contrast: 50 mL Omnipaque [address] Radiation dose: Integrated Dose-length product (DLP) for this visit = 244 mGy*cm CT Dose Reduction Employed: Automated exposure control(AEC) and iterative recon Comparison: No prior chest CTs available. Chest radiograph dated 04/09/2024 RESULT: Limitations: None. Lines, tubes, and devices: None. Lung parenchyma and airways: Patent central airways. RLL 9 x 6 mm nodule along the fissure is compatible with lymph node, image 104. Bilateral scattered micronodules (e.g., LLL image 172). No suspicious lung nodules. Pleural space: No pleural effusion or nodular thickening. Lower neck, lymph nodes, and mediastinum: No thoracic lymph nodes enlargement. Right thyroid 17 mm nodule, for correlation with same day ultrasound Heart, pericardium, and thoracic vessels: Normal heart size and pulmonary trunk diameter. Interatrial septal occlusion device. Dilated ascending aorta (4.0 cm). Scattered coronary calcification. No pericardial effusion. Bones and soft tissues: No destructive osseous lesion Upper abdomen: No acute abnormality Localizer images: No additional findings. IMPRESSION: No suspicious pulmonary nodules. Scattered pulmonary micronodules Incidental Finding: Follow-up Acuity: Incidental Finding: Solid: <6 mm (solitary or multiple) Routing Code: N/A Recommendation: No imaging follow-up is recommended Time Frame: N/A Comments: If there are risk factors for lung malignancy, a follow-up chest CT exam could be obtained in 12 months --END OF FINDING-- Pcb Design Engineer: DEN Transcribe Date/Time: May 06 2024 2:27P Dictated by : MAMI MANE MD This examination was interpreted and the report reviewed and electronically signed by: MAMI MANE MD on May 06 2024 2:37PM EST [id number] ACTIONABLE Invalid Interpretation Code [facility] CT Chest W contrast IVOrdere d By: [facility] Provider on 05-06-2024 Interpretation and review of laboratory results Abnormal [facility] Radiology Result ACTIONABLE Abnormal [facility] Comment on above: This report contains an incidental or actionable finding. This finding may be a new finding separate from the reason your provider ordered the imaging test or it may be an already known finding that needs additional or continued follow-up. Because of this incidental or actionable finding, you may need another test (imaging or a different type of test). Please contact your provider for the next steps. [facility] CT Chest W contrast Supriya IMPRESSION: No suspicious pulmonary nodules. Scattered pulmonary micronodules Incidental Finding: Follow-up Acuity: Incidental Finding: Solid: <6 mm (solitary or multiple) Routing Code: N/A Recommendation: No imaging follow-up is recommended Time Frame: N/A Comments: If there are risk factors for lung malignancy, a follow-up chest CT exam could be obtained in 12 months --END OF FINDING-- Pcb Design Engineer: PSC Transcribe Date/Time: May 06 2024 2:27P Dictated by : MAMI MANE MD This examination was interpreted and the report reviewed and electronically signed by: MAMI MANE MD on May 06 2024 2:37PM [facility] DIVISION OF RADIOLOGY * * *Final Report* * * DATE OF EXAM: May 06 2024 2:26PM [facility] 0539 - CT CHEST W IVCON / PROCEDURE REASON: evaluate incidental pulmonary nodule * * * * Physician Interpretation * * * * EXAMINATION: CHEST CT WITH CONTRAST CLINICAL HISTORY: Evaluate for nodular opacity seen on prior radiograph Technique: Spiral CT acquisition of the chest from the thoracic inlet to the upper abdomen following IV contrast. MQ: CTCW_6 Contrast: 50 mL Omnipaque [address] Radiation dose: Integrated Dose-length product (DLP) for this visit = 244 mGy*cm CT Dose Reduction Employed: Automated exposure control(AEC) and iterative recon Comparison: No prior chest CTs available. Chest radiograph dated 04/09/2024 RESULT: Limitations: None. Lines, tubes, and devices: None. Lung parenchyma and airways: Patent central airways. RLL 9 x 6 mm nodule along the fissure is compatible with lymph node, image 104. Bilateral scattered micronodules (e.g., LLL image 172). No suspicious lung nodules. Pleural space: No pleural effusion or nodular thickening. Lower neck, lymph nodes, and mediastinum: No thoracic lymph nodes enlargement. Right thyroid 17 mm nodule, for correlation with same day ultrasound Heart, pericardium, and thoracic vessels: Normal heart size and pulmonary trunk diameter. Interatrial septal occlusion device. Dilated ascending aorta (4.0 cm). Scattered coronary calcification. No pericardial effusion. Bones and soft tissues: No destructive osseous lesion Upper abdomen: No acute abnormality Localizer images: No additional findings. DIVISION OF RADIOLOGY Provider, [facility] - 05/06/2024 * * *Final Report* * * DATE OF EXAM: May 06 2024 2:26PM [facility] 0539 - CT CHEST W IVCON / PROCEDURE REASON: evaluate incidental pulmonary nodule * * * * Physician Interpretation * * * * EXAMINATION: CHEST CT WITH CONTRAST CLINICAL HISTORY: Evaluate for nodular opacity seen on prior radiograph Technique: Spiral CT acquisition of the chest from the thoracic inlet to the upper abdomen following IV contrast. MQ: CTCW_6 Contrast: 50 mL Omnipaque [address] Radiation dose: Integrated Dose-length product (DLP) for this visit = 244 mGy*cm CT Dose Reduction Employed: Automated exposure control(AEC) and iterative recon Comparison: No prior chest CTs available. Chest radiograph dated 04/09/2024 RESULT: Limitations: None. Lines, tubes, and devices: None. Lung parenchyma and airways: Patent central airways. RLL 9 x 6 mm nodule along the fissure is compatible with lymph node, image 104. Bilateral scattered micronodules (e.g., LLL image 172). No suspicious lung nodules. Pleural space: No pleural effusion or nodular thickening. Lower neck, lymph nodes, and mediastinum: No thoracic lymph nodes enlargement. Right thyroid 17 mm nodule, for correlation with same day ultrasound Heart, pericardium, and thoracic vessels: Normal heart size and pulmonary trunk diameter. Interatrial septal occlusion device. Dilated ascending aorta (4.0 cm). Scattered coronary calcification. No pericardial effusion. Bones and soft tissues: No destructive osseous lesion Upper abdomen: No acute abnormality Localizer images: No additional findings. IMPRESSION IMPRESSION: No suspicious pulmonary nodules. Scattered pulmonary micronodules Incidental Finding: Follow-up Acuity: Incidental Finding: Solid: <6 mm (solitary or multiple) Routing Code: N/A Recommendation: No imaging follow-up is recommended Time Frame: N/A Comments: If there are risk factors for lung malignancy, a follow-up chest CT exam could be obtained in 12 months --END OF FINDING-- Pcb Design Engineer: DEN Transcribe Date/Time: May 06 2024 2:27P Dictated by : MAMI MANE MD This examination was interpreted and the report reviewed and electronically signed by: MAMI MANE MD on May 06 2024 2:37PM EST [facility] Radiology Study observation (narrative) [facility] US THYROID/PARATHYROIDon US THYROID/PARATHYROID * * *Final Report * * * DATE OF EXAM: May 06 2024 1:30PM [facility] 1048 - US THYROID/PARATHYROID / PROCEDURE REASON: 1.6cm on CT neck [facility] * * * * Physician Interpretation * * * * EXAMINATION: THYROID ULTRASOUND CLINICAL HISTORY: Right-sided thyroid nodule. TECHNIQUE: Sonography and Doppler imaging of the thyroid was performed. Images were obtained and stored in a permanent archive. MQ: UST_1 COMPARISON: CTA neck on 02/09/2024 RESULT: Right Lobe: 4.8 cm x 1.5 cm x 2.5 cm; heterogeneous echogenicity, expected vascular flow. Left Lobe: 3.1 cm x 1.5 cm x 1.4 cm; heterogeneous echogenicity, expected vascular flow. Isthmus: 0.3 cm The most suspicious thyroid nodule(s) (up to four) as below: NODULE 1: Location: Right inferior Size: 1.6 x 1.9 x 1.4 cm Characteristics: Composition: Solid or almost completely solid, 2 points Echogenicity: Isoechoic, 1 point Shape: [id number], 3 points Margin: Smooth, 0 points Echogenic foci (add points for all that apply): None, 0 points Internal vascularity: present Interval growth: No prior available for comparison TI-RADS Category: TR4 ACR Recommendation: TI-RADS 4 nodule. FNA is recommended. IMPRESSION: Thyroid nodule(s) is/are present. Fine needle aspiration is recommended if not previously performed. . TI-RADS Category: TR4 ACR Recommendation: TI-RADS 4 nodule. FNA is recommended. ACR recommendations are strictly based on the size and imaging appearance at the time of the exam and do not consider stability or previous biopsy results. Pcb Design Engineer: DEN Transcribe Date/Time: May 08 2024 10:03A Dictated by : ROBERT CUELLAR MD This examination was interpreted and the report reviewed and electronically signed by: ROBERT CUELLAR MD on May 08 2024 10:06AM EST [id number] N Normal [facility] Jose 04-13-2024 CNPN Telephone (AGCARDPOB ) GLENROY THORNTON ([id number]) 1960 M Date Time Provider Department 04/13/24 RICHARD REYNOLDS AGCARDPOB During your visit today, we recorded the following information about you: Celia Apodaca LPN 04/13/2024 12:54 PM Signed ----- Message from Richard Reynolds APRN.SPORTS SPECIALIST sent at 04/13/2024 12:53 PM EST ----- Please call the patient and report CXR results have an incidental finding of nodular opacity in his left midlung. Further evaluation recommended with dedicated CT Scan. We do not follow these incidental findings. Please required patient follow up with PCP for further monitoring/evaluation . Richard Reynolds APRN.Celia Alexis LPN 04/13/2024 12:56 PM Signed Left message for Mr. Thornton to call [facility] for test results. [facility] phone number provided. KEN Grande Linda S, RN 04/13/2024 1:01 PM Signed Glenroy Thornton returned call. Relayed Richard's message and recommendation to follow up with PCP. He verbalized understanding and is agreeable to call PCP for further evaluation. Nohemi Cummins RN Allergies As of Date: 04/13/2024 (No Known Allergies) Date Reviewed: 04/09/2024 Reviewed by: Cady Aviles, SILVIO - Fully Assessed Reason for Visit: Results [95] Prescriptions as of 04/13/2024 - cephALEXin (KEFLEX) 500 mg capsule Take 1 capsule by mouth two times a day for 7 days. - clopidogrel (PLAVIX) 75 mg tablet Take 1 tablet by mouth once daily. - levothyroxine (SYNTHROID) 75 mcg tablet Take 75-150 mcg by mouth daily before breakfast. Taking 75 mg Saturday - Saturday Taking 150 mg Saturday and Saturday - metoprolol succinate ER (TOPROL XL) 100 mg Take 100 mg by mouth once daily. - atorvastatin (LIPITOR) 40 mg tablet Take 40 mg by mouth once daily. - losartan (COZAAR) 100 mg tablet Take 100 mg by mouth once daily. - hydroCHLOROthiazide 25 mg tablet Take 25 mg by mouth once daily. - aspirin (ASPIRIN CHILDRENS) 81 mg chewable tablet Take 81 mg by mouth once daily. - cholecalciferol (VITAMIN D-3) 50 mcg (2,000 unit) tablet Take 2,000 Units by mouth once daily. Problem List As Of Date 04/13/2024 Noted Resolved Ischemic stroke (HCC) [I63.9] 02/09/2024 Hypokalemia [E87.6] 02/09/2024 02/12/2024 Cerebral infarction due to embolism of right mi*02/09/2024 Primary hypertension [I10] 02/09/2024 Hypertensive urgency [I16.0] 02/09/2024 02/12/2024 Received tissue plasminogen activator (t-PA) le*02/10/2024 02/12/2024 PFO (patent foramen ovale) [Q21.12] 04/09/2024 Encounter Status:Closed by NOHEMI CUMMINS on 04/13/24 Normal [facility] ACTIVATED CLOTTING TIME, POC (AK,,MR)on 04-09-2024 Activated Clotting Time (POCT) 239 Abnormal [facility] Interpretation and review of laboratory results Abnormal [facility] Meter ID:[id number] Location:[facility] Aquatic Physiotherapist, [address] [place] [address], [id number] [place] [address] POINT OF CARE [facility] ECHO LIMITEDon 04-09-2024 CONCLUSIONS: - Technically difficult exam due to suboptimal positioning and post op. - Exam indication: Re-evaluation to guide therapy in known adult CHD - The left ventricle is normal in size. There is no left ventricular hypertrophy. Left ventricular systolic function is normal. EF = 63 5% (2D biplane) - Agitated saline study performed on clips# (2223). No obvious shunt seen. - Exam was compared with the prior echocardiographic exam performed on 02/09/2024. (MYRNA) No obvious shunt seen, otherwise there is no significant change. * * * Final * * * [facility] Echocardiography Report: [facility] Date of service: 04/09/2024 11:47:07 AM HOSPITAL Ordering physician: RICHARD REYNOLDS Indication: Re-evaluation to guide therapy in known adult CHD Technologist: Taran Tracy Interpreting physician: Denise Rivero MD PATIENT: Name: MR. GLENROY THORNTON : 1960 Age: 63 years Gender: M History of hypertension. Previous cardiovascular interventions: Percutaneous patent foramen ovale (PFO) repair (04/09/2024) Primary rhythm: sinus. Height: 182.90 cm BSA: 2.10 m Weight: 87.09 kg BMI: 26.0 kg/m Heart rate 48 bpm Blood pressure 101/68 mmHg Technically difficult exam due to suboptimal positioning and post op. Color Doppler was utilized to interrogate the cardiac valves assessed and spectral Doppler was utilized to determine the flow velocities and pressure gradients reported in this exam. MEASUREMENTS: Value Indexed Normal LV ID (diastole) 4.2 cm (2D) 2.01 cm/m LV ID (systole) 3.1 cm (2D) 1.49 cm/m IVS, leaflet tips 1.0 cm (2D) Posterior wall thickness 1.0 cm (2D) Left ventricular mass 139 g (2D) 66 g/m LV stroke volume 65 ml (2D biplane) LV end diastolic volume 102 ml (2D biplane) 48.6 ml/m 34<=EDVi<75 LV end systolic volume 38 ml (2D biplane) 17.9 ml/m Ejection Fraction 63 % (2D biplane) EF > 52 FINDINGS: LEFT VENTRICLE The left ventricle is normal in size. There is no left ventricular hypertrophy. Left ventricular systolic function is normal globally. Wall Motion: All scored segments are normal. RIGHT VENTRICLE The right ventricle is unseen or not interrogated. LEFT ATRIUM The left atrium is unseen or not interrogated. RIGHT ATRIUM The right atrium is unseen or not interrogated. TRICUSPID VALVE The tricuspid valve leaflets are structurally normal. There is trace tricuspid valve regurgitation. AORTIC VALVE Tricuspid aortic valve. PULMONARY ARTERIES The pulmonary arteries are unseen or not interrogated. INTERATRIAL SEPTUM There is no evidence of intracardiac shunting as detected by agitated saline contrast with valsalva and Doppler. PERICARDIUM There is no pericardial effusion. [facility] ECHO LIMITED Echocardiography Report: [facility] Date of service: 04/09/2024 11:47:07 AM HOSPITAL Ordering physician: RICHARD REYNOLDS Indication: Re-evaluation to guide therapy in known adult CHD Technologist: Taran Tracy Interpreting physician: Denise Rivero MD PATIENT: Name: MR. GLENROY THORNTON : 1960 Age: 63 years Gender: M History of hypertension. Previous cardiovascular interventions: Percutaneous patent foramen ovale (PFO) repair (04/09/2024) Primary rhythm: sinus. Height: 182.90 cm BSA: 2.10 m Weight: 87.09 kg BMI: 26.0 kg/m Heart rate 48 bpm Blood pressure 101/68 mmHg Technically difficult exam due to suboptimal positioning and post op. Color Doppler was utilized to interrogate the cardiac valves assessed and spectral Doppler was utilized to determine the flow velocities and pressure gradients reported in this exam. MEASUREMENTS: Value Indexed Normal LV ID (diastole) 4.2 cm (2D) 2.01 cm/m LV ID (systole) 3.1 cm (2D) 1.49 cm/m IVS, leaflet tips 1.0 cm (2D) Posterior wall thickness 1.0 cm (2D) Left ventricular mass 139 g (2D) 66 g/m LV stroke volume 65 ml (2D biplane) LV end diastolic volume 102 ml (2D biplane) 48.6 ml/m 34<=EDVi<75 LV end systolic volume 38 ml (2D biplane) 17.9 ml/m Ejection Fraction 63 % (2D biplane) EF > 52 FINDINGS: LEFT VENTRICLE The left ventricle is normal in size. There is no left ventricular hypertrophy. Left ventricular systolic function is normal globally. Wall Motion: All scored segments are normal. RIGHT VENTRICLE The right ventricle is unseen or not interrogated. LEFT ATRIUM The left atrium is unseen or not interrogated. RIGHT ATRIUM The right atrium is unseen or not interrogated. TRICUSPID VALVE The tricuspid valve leaflets are structurally normal. There is trace tricuspid valve regurgitation. AORTIC VALVE Tricuspid aortic valve. PULMONARY ARTERIES The pulmonary arteries are unseen or not interrogated. INTERATRIAL SEPTUM There is no evidence of intracardiac shunting as detected by agitated saline contrast with valsalva and Doppler. PERICARDIUM There is no pericardial effusion. CONCLUSIONS: - Technically difficult exam due to suboptimal positioning and post op. - Exam indication: Re-evaluation to guide therapy in known adult CHD - The left ventricle is normal in size. There is no left ventricular hypertrophy. Left ventricular systolic function is normal. EF = 63 5% (2D biplane) - Agitated saline study performed on clips# (22-23). No obvious shunt seen. - Exam was compared with the prior echocardiographic exam performed on 02/09/2024. (MYRNA) No obvious shunt seen, otherwise there is no significant change. * * * Final * * * [facility] [facility] : [id number] amicsSISUID Normal [facility] LVEF ECHO LIMITEDon 04-09-19 25 LV Ejection Fraction 63 % [facility] Comment on above: (2D biplane) EF > 52 An LV Ejection Fraction of > 50% is normal No Panel Informationon 04-09 [facility] OPERATIVE NOon 04-09-2024 OPERATIVE NO HNO ID: [id number] Author: DELVIN GAMEZ MD Service: Cardiovascular Medicine Author Type: Physician Type: Operative Report Filed: 04/09/2024 10:42 Note Text: PROCEDURE: Intracardiac Echocardiography PFO Closure with a 30mm [place] Cardioform septal occluder Name: Glenroy Thornton Date: April 09, 2024 STAFF PHYSICIAN: Dr. Delvin Ge MD ACCESS: 11F RFV superior access, 11F RFV inferior Access DEVICE: 30mm [place] Cardioform septal occluder device DETAILS OF PROCEDURE: After yielding full informed consent including discussion of risks, benefits, and alternatives to this procedure, the patient was brought to the Cardiac Catheterization Lab. The patient was dressed and draped in the usual sterile fashion and 1% lidocaine used for local anesthesia for sheath placement. An 11 Fr long sheath was placed in the right femoral vein after preclosure with perclose x1 and an 11 Fr short sheath was placed in the right femoral vein after preclosure with perclose x1. Through the 11 Fr Long sheath, the AcuNAV ICE probe was advanced to the RA. Images were taken which showing positive PFO. Agitated saline demonstrated quick and brisk crossing into the left atrium. We administered full dose intravenous heparin for anticoagulation to an ACT > 250 sec. The atrial septum was crossed using a J wire and a 6 Fr MPA catheter. We exchanged for an Amplatz Extra stiff J-tip wire. Images were taken which showing +PFO with long tunnel. A 30mm device was selected and deployed it in the PFO. ICE was used to confirm placement; this did not show any residual leak across the interatrial septum. We confirmed no new pericardial effusion present after device with ICE. Fluoroscopic evaluation of the chest demonstrated no new pleural effusions. We then removed all equipment and closed the femoral vein access with a perclose proglide .The patient tolerated the procedure well. COMPLICATIONS: None HEMOSTASIS: Perclose IMPRESSION: Successful PFO closure PLAN: 1) Three months aspirin 81mg and Plavix 75mg daily 2) Five days Keflex antibiotic prophylaxis 3) TTE w/ bubble and CXR (PA / lateral) today 4) Follow-up one month with TTE w/ bubble and ECG prior 5) Dispo: tentative same-day discharge after echo if no issues with ambulation Delvin Ge MD [employer] Operator of Internal Medicine [facility] Section of Interventional Cardiology Dope Weigh Operator of Structural Heart Disease [address], [address] [place] [address] Facsimile: [phone] Email: [email or web address] [facility] XR CHEST 1V FRONTAL PORTon 0 04-09-2024 XR CHEST 1V FRONTAL PORT * * *Final Report* * * DATE OF EXAM: Apr 09 2024 12:02PM AKX [id number] - XR CHEST 1V FRONTAL PORT / PROCEDURE REASON: Post-operative/post-p rocedure assessment * * * * Physician Interpretation * * * * EXAM TITLE: AP/PA CHEST X RAY COMPARISON: None. CLINICAL HISTORY: Post-operative/post-p rocedure assessment ENCOUNTER: Not applicable MQ: XC1_5 RESULT: Lines, tubes, and devices: Examination limited due to overlying EKG leads. Lungs and pleura: Elevation the right hemidiaphragm. Indeterminate subpleural rounded opacity at the lateral aspect of the left midlung zone 2.1 x 1.2 cm. No discrete airspace consolidation, effusion or pneumothorax. Cardiomediastinal silhouette: Interatrial septal closure device noted. No cardiomegaly. Other: Osseous structures and soft tissues grossly intact. IMPRESSION: No discrete airspace consolidation, effusion or pneumothorax. Indeterminate 2.1 x 1.2 cm nodular opacity at the left midlung zone, possibly representing pulmonary nodule. Further evaluation with dedicated CT examination of the chest without contrast is suggested. ACTIONABLE RESULT: FOLLOW-UP Acuity: Actionable Findings: Thoracic-Other Routing Code: CT_1 Recommendation: CT Chest WO IVCON Time Frame: At the discretion of the clinical team. COMMUNICATION: Results will be communicated with the ordering provider via [employer] staff message or phone message by [employer] within 2 business days of report finalization. --END OF FINDING-- Pcb Design Engineer: PSCB Transcribe Date/Time: Apr 10 2024 6:44A Dictated by : TIP TORREZ MD This examination was interpreted and the report reviewed and electronically signed by: TIP TORREZ MD on Apr 10 2024 6:48AM EST [id number] ACTIONABLE Invalid Interpretation Code [facility] Basic metabolic 2000 panelon 04-02-2024 Anion gap [Moles/Vol] 14 mmol/L Normal 8-[address] [facility] Comment on above: Order Comment: Speci isa Type: BLOOD SPECIMENOrdering Facility: [facility] Address: [address] [place] [address] Performed By: #### 2 4321-2 ####[facility] LABIA [id number] [place] [address] [place] Calcium [Mass/Vol] 10.0 mg/dL Normal 8.5-10.2 [facility] Comment on above: Order Comment: Speci isa Type: BLOOD SPECIMENOrdering Facility: [facility] Address: [address] [place] [address] Performed By: #### 2 4321-2 ####[facility] LABIA [id number] [place] [address] [place] Chloride [Moles/Vol] 101 mmol/L Normal 98-107 [facility] Comment on above: Order Comment: Speci men Type: BLOOD SPECIMENOrdering Facility: [facility] Address: [address] [place] [address] Performed By: #### 2 4321-2 ####[facility] LABCLIA [id number] [place] [address] [place] CO2 [Moles/Vol] 26 mmol/L Normal 22-30 [facility] Comment on above: Order Comment: Speci men Type: BLOOD SPECIMENOrdering Facility: [facility] Address: [address] [place] [address] Performed By: #### 2 4321-2 ####[facility] LABIA [id number] [place] [address] [place] Creatinine [Mass/Vol] 1.06 mg/dL Normal 0.73-1.[address] [facility] Comment on above: Order Comment: Speci men Type: BLOOD SPECIMENOrdering Facility: [facility] Address: [address] [place] [address] Performed By: #### 2 4321-2 ####[facility] LABIA [id number] [place] [address] [place] Creatinine and Glomerular filtration rate.predicted panel (S/P/Bld) 78 mL/min/1.73m??? Normal >=60 [facility] Comment on above: Order Comment: Speci men Type: BLOOD SPECIMENOrdering Facility: [facility] Address: [address] [place] [address] Result Comment: Nya mated Glomerular Filtration Rate (eGFR) is calculated using the 2020 CKD-EPI creatinine equation. This equation utilizes serum creatinine, sex, and age as parameters. The creatinine assay has traceable calibration to isotope dilution-mass spectrometry. Refer to KDIGO guidelines for clinical interpretation. In patients with unstable renal function, e.g. those with acute kidney injury, the eGFR may not accurately reflect actual GFR. Performed By: #### 2 4321-2 ####[facility] LABIA [id number] [place] [address] [place] Glucose [Mass/Vol] 94 mg/dL Normal 74-99 [facility] Comment on above: Order Comment: Speci men Type: BLOOD SPECIMENOrdering Facility: [facility] Address: [address] [place] [address] Result Comment: The [place] Diabetes Association (ADA) provides guidance for cutoff values for fasting glucose and random glucose. The ADA defines fasting as no caloric intake for at least 8 hours. Fasting plasma glucose results between 100 to 125 mg/dL indicate increased risk for diabetes (prediabetes). Fasting plasma glucose results greater than or equal to 126 mg/dL meet the criteria for diagnosis of diabetes. In the absence of unequivocal hyperglycemia, results should be confirmed by repeat testing. In a patient with classic symptoms of hyperglycemia or hyperglycemic crisis, random plasma glucose results greater than or equal to 200 mg/dL meet the criteria for diagnosis of diabetes. Reference: Standards of Medical Care in Diabetes 2016, [place] [employer] Association. Diabetes Care. 2016.39(Suppl 1). Performed By: #### 2 4321-2 ####[facility] LABCLIA [id number] [place] [address] [place] Potassium [Moles/Vol] 3.8 mmol/L Normal 3.7-5.[address] [facility] Comment on above: Order Comment: Speci men Type: BLOOD SPECIMENOrdering Facility: [facility] Address: [address] [place] [address] Performed By: #### 2 4321-2 ####[facility] LABCLIA [id number] [place] [address] [place] Sodium [Moles/Vol] 141 mmol/L Normal 136-144 [facility] Comment on above: Order Comment: Speci men Type: BLOOD SPECIMENOrdering Facility: [facility] Address: [address] [place] [address] Performed By: #### 2 4321-2 ####[facility] LABCLIA [id number] [place] [address] [place] Urea nitrogen [Mass/Vol] 19 mg/dL Normal 9-24 [facility] Comment on above: Order Comment: Speci men Type: BLOOD SPECIMENOrdering Facility: [facility] Address: [address] [place] [address] Performed By: #### 2 4321-2 ####[facility] LABCLIA [id number] [place] [address] [place] CBC panel Auto (Bld)on 04-02 Erythrocyte distribution width (RBC) [Ratio] 12.0 % Normal 11.5-15.0 [facility] Comment on above: Order Comment: Speci men Type: BLOOD SPECIMENOrdering Facility: [facility] Address: [address] [place] [address] Performed By: #### 5 8410-2 ####[facility] LABCLIA [id number] [place] [address] [place] Hematocrit (Bld) [Volume fraction] 38.9 % Low 39.0-51.0 [facility] Comment on above: Order Comment: Speci men Type: BLOOD SPECIMENOrdering Facility: [facility] Address: [address] [place] [address] Performed By: #### 5 8410-2 ####[facility] LABIA [id number] [place] [address] [place] Hemoglobin (Bld) [Mass/Vol] 13.0 g/dL Normal 13.0-17.0 [facility] Comment on above: Order Comment: Speci men Type: BLOOD SPECIMENOrdering Facility: [facility] Address: [address] [place] [address] Performed By: #### 5 8410-2 ####[facility] LABCLIA [id number] [place] [address] [place] MCH (RBC) [Entitic mass] 31.6 pg Normal 26.0-34.0 [facility] Comment on above: Order Comment: Speci men Type: BLOOD SPECIMENOrdering Facility: [facility] Address: [address] [place] [address] Performed By: #### 5 8410-2 ####[facility] LABCLIA [id number] [place] [address] [place] MCHC (RBC) [Mass/Vol] 33.4 g/dL Normal 30.5-36.[address] [facility] Comment on above: Order Comment: Speci men Type: BLOOD SPECIMENOrdering Facility: [facility] Address: [address] [place] [address] Performed By: #### 5 8410-2 ####[facility] LABCLIA [id number] [place] [address] [place] MCV (RBC) [Entitic vol] 94.6 fL Normal 80.0-100.0 [facility] Comment on above: Order Comment: Speci men Type: BLOOD SPECIMENOrdering Facility: [facility] Address: [address] [place] [address] Performed By: #### 5 8410-2 ####[facility] LABCLIA [id number] [place] [address] [place] Nucleated RBC (Bld) [#/Vol] 10*3/uL Normal <0.01 [facility] Comment on above: Order Comment: Speci men Type: BLOOD SPECIMENOrdering Facility: [facility] Address: [address] [place] [address] Performed By: #### 5 8410-2 ####[facility] LABCLIA [id number] [place] [address] [place] Platelet mean volume (Bld) [Entitic vol] 10.3 fL Normal 9.0-12.7 [facility] Comment on above: Order Comment: Speci men Type: BLOOD SPECIMENOrdering Facility: [facility] Address: [address] [place] [address] Performed By: #### 5 8410-2 ####[facility] LABCLIA [id number] [place] [address] [place] Platelets (Bld) [#/Vol] 227 10*3/uL Normal 150-400 [facility] Comment on above: Order Comment: Speci men Type: BLOOD SPECIMENOrdering Facility: [facility] Address: [address] [place] [address] Performed By: #### 5 8410-2 ####[facility] LABCLIA [id number] [place] [address] [place] RBC (Bld) [#/Vol] 4.11 10*6/uL Low 4.20-6.00 [facility] Comment on above: Order Comment: Speci men Type: BLOOD SPECIMENOrdering Facility: [facility] Address: [address] [place] [address] Performed By: #### 5 8410-2 ####[facility] LABCLIA [id number] [place] [address] [place] WBC (Bld) [#/Vol] 4.93 10*3/uL Normal 3.70-11.00 [facility] Comment on above: Order Comment: Speci men Type: BLOOD SPECIMENOrdering Facility: [facility] Address: [address] [place] [address] Performed By: #### 5 8410-2 ####[facility] LABCLIA [id number] [place] [address] [place] CNOVon 04-01-2024 CNOV Office Visit (AGCARDPOB) GLENROY THORNTON ([id number]) 1960 M Date Time Provider Department 04/01/24 1:00 PM DELVIN GAMEZ During your visit today, we recorded the following information about you: Pulse Respiration Blood pressure Weight 86/minute 18/minute 148/78 87.1 kg Height 1.829 m Gail Maldonado MA 04/01/2024 3:05 PM Signed Patient denies any cardiac issues or symptoms. Delvin Gamez MD 04/01/2024 3:05 PM Signed Chief Complaint: Patient presents with: CARD New Patient Consult: COLLATOR REF FOR PFO Glenroy Thornton is a 63 year old male with a known past medical history of hypertension, hyperlipidemia who presented to the hospital with left-sided facial droop and dysarthria while having dinner on 02/05/2024. A CT scan was done in the emergency room which revealed no acute abnormalities, but CT angiogram of the head and neck showed a right M2 insular branch occlusion. He received tPA with complete resolution of his symptoms. The patient denies any complaints of chest pain or pressure. He denies any dyspnea, orthopnea, paroxysmal nocturnal dyspnea, syncope or presyncope denies any palpitations or leg swelling. He had a 30 day monitor which ruled out afib. He remians on ASA/Plavix at this time with no issues with bleeding. PAST MEDICAL HISTORY Diagnosis Date Hyperlipemia Hypertension Hypothyroidism PFO (patent foramen ovale) Stroke (HCC) 01/2024 PAST SURGICAL HISTORY Procedure Laterality Date INGUINAL HERNIA REPAIR HX FAMILY HISTORY Problem Relation Age of Onset Stroke Mother 80 - 89 in 90s other (tia) Mother Heart disease Father Heart disease Brother Social History Tobacco Use Smoking status: Never Smokeless tobacco: Never Vaping Use Vaping status: Never Used Substance Use Topics Alcohol use: Not Currently Drug use: Never Current Outpatient Medications Medication Sig clopidogrel (PLAVIX) 75 mg tablet Take 1 tablet by mouth once daily. levothyroxine (SYNTHROID) 75 mcg tablet Take 75-150 mcg by mouth daily before breakfast. Taking 75 mg Saturday - Saturday Taking 150 mg Saturday and Saturday metoprolol succinate ER (TOPROL XL) 100 mg Take 100 mg by mouth once daily. atorvastatin (LIPITOR) 40 mg tablet Take 40 mg by mouth once daily. losartan (COZAAR) 100 mg tablet Take 100 mg by mouth once daily. hydroCHLOROthiazide 25 mg tablet Take 25 mg by mouth once daily. aspirin (ASPIRIN CHILDRENS) 81 mg chewable tablet Take 81 mg by mouth once daily. cholecalciferol (VITAMIN D-3) 50 mcg (2,000 unit) tablet Take 2,000 Units by mouth once daily. No current facility-administered medications for this visit. ALLERGIES No Known Allergies Cardiac Testing CT brain 02/06/2025: IMPRESSION: Evolving acute right MCA territory infarct. No acute intracranial hemorrhage or significant mass effect. MRI brain 02/09/2025: IMPRESSION: Small acute right MCA territory infarct. No hemorrhagic transformation. No significant mass effect. 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 No acute intracranial hemorrhage. Remaining extracranial and intracranial vasculature is patent without high-grade stenosis or aneurysm. Arterial blood flow was measured to detect acute large vessel occlusion by computer aided detection software: Not Performed. Concordance between software and imaging review: Not Applicable. COMMUNICATION: Communicated with SREE HAYWOOD on 02/09/2024 8:40 PM via verbal communication. Right thyroid nodule. Event monitor 02/11/2024: Review of Systems: See HPI Physical Examination:: BP 148/78 Pulse 86 Resp 18 Ht 6' 0" (1.83m) Wt 192 lb (87.1kg) SpO2 99% BMI 26.03 kg/(m2). General Appearance: Well appearing, alert, in no acute distress, well-hydrated, well nourished.. Skin: Skin color, texture, turgor normal, no suspicious rashes or lesions. Head: Normocephalic, no masses, lesions, tenderness or abnormalities. Eyes: Anicteric sclera. Pupils are equally round. Extraocular movements are intact. Neck: Supple, no adenopathy; thyroid symmetric, normal size, no bruits. Lungs: Lungs clear to auscultation. No wheezing, rhonchi, rales.. Heart: regular rate and rhythm, no murmur, gallop or rub, normal, S1, S2, physiologic split Peripheral Pulses: Normal. ASSESSMENT/PLAN: 1. PFO (patent foramen ovale) - ICD9: 745.5, ICD10: Q21.12 He has a large PFO and after full evaluation his stroke is deemed cryptogenic. He meets indication for PFO closure at this time Continue ASA/Plavix for now. We will schedule him at the next available appointment. F/U in one month Delvin Ge MD [employer] Convert[employer] Operator of Internal Medicine [facility] Section of Interventional Cardiology Dope Weigh Operator of Structural Heart Disease [facility] [address] (more content not included)... Normal [facility] CNPNon 03-26-2024 CNPN Telephone (DERRICK) GLENROY THORNTON ([id number]) 1960 M Date Time Provider Department 03/26/24 KATARZYNA TRACY During your visit today, we recorded the following information about you: Allergies As of Date: 03/26/2024 (No Known Allergies) Date Reviewed: 02/24/2024 Reviewed by: Анна Herrmann MA - Fully Assessed Prescriptions as of 03/26/2024 - clopidogrel (PLAVIX) 75 mg tablet Take 1 tablet by mouth once daily. - levothyroxine (SYNTHROID) 75 mcg tablet Take 75-150 mcg by mouth daily before breakfast. Taking 75 mg Saturday - Saturday Taking 150 mg Saturday and Saturday - metoprolol succinate ER (TOPROL XL) 100 mg Take 100 mg by mouth once daily. - atorvastatin (LIPITOR) 40 mg tablet Take 40 mg by mouth once daily. - losartan (COZAAR) 100 mg tablet Take 100 mg by mouth once daily. - hydroCHLOROthiazide 25 mg tablet Take 25 mg by mouth once daily. - aspirin (ASPIRIN CHILDRENS) 81 mg chewable tablet Take 81 mg by mouth once daily. - cholecalciferol (VITAMIN D-3) 50 mcg (2,000 unit) tablet Take 2,000 Units by mouth once daily. Problem List As Of Date 03/26/2024 Noted Resolved Ischemic stroke (HCC) [I63.9] 02/09/2024 Hypokalemia [E87.6] 02/09/2024 02/12/2024 Cerebral infarction due to embolism of right mi*02/09/2024 Primary hypertension [I10] 02/09/2024 Hypertensive urgency [I16.0] 02/09/2024 02/12/2024 Received tissue plasminogen activator (t-PA) le*02/10/2024 02/12/2024 Encounter Status:Closed by KATARZYNA MCCLOUD on 03/26/24 Normal [facility] Chest PA and Lateralon 03-09 Chest PA and Lateral [facility] Radiology [address] [address] Chest PA and Lateral MR#: [id number] Acct: [id number] Name: GLENROY THORNTON Rep #: [id number] : 1960 M 63 From: Reny curtis MD PCP: QUYEN Griffith Status: DEP AMB Study: Chest PA and Lateral Date of Exam: 03/09/24 Exam# [id number] Ordering Dr: Fatoumata Mcmillan DO [id number] HISTORY: ABNORMAL LUNG SOUNDS -- STAT. TECHNIQUE: XR Chest 2 Views. COMPARISON: CT 05/01/2010. FINDINGS: CARDIOMEDIASTINAL BORDERS: Cardiac silhouette within normal limits in size. Mediastinal contour unremarkable. LUNGS: Radiographically clear. PLEURA: No pleural effusion or pneumothorax seen. OSSEOUS STRUCTURES: Mild degenerative change. RAD/Chest PA and Lateral IMPRESSION: No acute cardiopulmonary process identified. Electronically Signed: Reny Beal MD at 15:40 EST , CC: QUYEN Yost; Dr. Fatoumata Mcmillan DO Pcb Design Engineer: Signed [facility] 03[facility]02[facility]2024 [facility] IRVINGLENROY ([id number]) 1960 M Date Time Provider Department 03/02/24 ROS[facility]ARIA HEDRICK [facility] During your visit today, we recorded the following information about you: Rosamaria Hedrick APRN.CNP 03/02/2024 3:12 PM Signed Simon Sheldon - would you mind calling the patient regarding the below lab results? Lupus anticoagulant panel did not show blood clotting disorder. He had some mild elevations in factor VIII and fibrinogen. These can be falsely elevated in setting of recent stroke/hospitalizatio n. The fibrinogen elevation is not significant. I recommend we just repeat the factor VIII in 3 months to make sure its trending down. Even if truly abnormal, it isn't necessarily a risk factor for stroke. Thank you! Roel Morin RN 03/02/2024 4:07 PM Signed Called pt home and cell, no answer, left VM to call back [phone]. Called patient , Marcy, and relayed Rosamaria's message to her. Advised, per Rosamaria's message, that: "Lupus anticoagulant panel did not show blood clotting disorder. He had some mild elevations in factor VIII and fibrinogen. These can be falsely elevated in setting of recent stroke/hospitalizatio n. The fibrinogen elevation is not significant. I recommend we just repeat the factor VIII in 3 months to make sure its trending down. Even if truly abnormal, it isn't necessarily a risk factor for stroke." asked if they could have blood draw in [place] same day of upcoming 05/27/2024. This RN advised that would be acceptable and that I would request Rosamaria adjust lab "Expected By" date to 05/27/2024 to coincide with appointment that same day ("Expected By" date is currently 05/31/2024). This RN stated I would also send this information via [employer] as shopping at time of call. verbalized understanding and denied further questions. SILVIO Hughes Stephany, APRN.CNP 03/02/2024 4:30 PM Signed Addended by: ROSAMARIA HEDRICK on: 03/02/2024 04:30 PM Modules accepted: Orders Allergies As of Date: 03/02/2024 (No Known Allergies) Date Reviewed: 02/24/2024 Reviewed by: Анна Herrmann MA - Fully Assessed Reason for Visit: Results [95] Primary Visit Diagnosis:Elevated factor VIII level [R79.1] Order(s):FACTOR VIII:C ASSAY [SQFVIIIC] Order #: [id number] FUTURE Prescriptions as of 03/02/2024 - clopidogrel (PLAVIX) 75 mg tablet Take 1 tablet by mouth once daily. - levothyroxine (SYNTHROID) 75 mcg tablet Take 75-150 mcg by mouth daily before breakfast. Taking 75 mg Saturday - Saturday Taking 150 mg Saturday and Saturday - metoprolol succinate ER (TOPROL XL) 100 mg Take 100 mg by mouth once daily. - atorvastatin (LIPITOR) 40 mg tablet Take 40 mg by mouth once daily. - losartan (COZAAR) 100 mg tablet Take 100 mg by mouth once daily. - hydroCHLOROthiazide 25 mg tablet Take 25 mg by mouth once daily. - aspirin (ASPIRIN CHILDRENS) 81 mg chewable tablet Take 81 mg by mouth once daily. - cholecalciferol (VITAMIN D-3) 50 mcg (2,000 unit) tablet Take 2,000 Units by mouth once daily. Problem List As Of Date 03/02/2024 Noted Resolved Ischemic stroke (HCC) [I63.9] 02/09/2024 Hypokalemia [E87.6] 02/09/2024 02/12/2024 Cerebral infarction due to embolism of right mi*02/09/2024 Primary hypertension [I10] 02/09/2024 Hypertensive urgency [I16.0] 02/09/2024 02/12/2024 Received tissue plasminogen activator (t-PA) le*02/10/2024 02/12/2024 Encounter Status:Closed by ROSAMARIA HEDRICK on 03/02/24 [facility] Jose 02-26-2024 CNPN Telephone (NECVS8) GLENROY THORNTON ([id number]) 1960 M Date Time Provider Department 02/26/24 JESSICAROSAMARIA SPICER NECVS8 During your visit today, we recorded the following information about you: Fuad Ta 02/26/2024 1:19 PM Signed CV PHONE Name of caller : Glenroy Relationship to patient : Self If not self Will need patient permission to release results or disclose health information with called documented in fyi. Patient identified by Name and Date of . ( Glenroy Thornton, 1960). Yes Number to return call [phone] Reason for Call: Patient Question/Update: Patient calling regarding the Plavix medication refill that was discussed during his latest office visit. Patient states that COLLATOR was to send in refill to preferred pharmacy until his upcoming Cardiology appt. Thank you calling [facility]. You will receive a return call within 48 hours ( or 2 business days if close to the weekend). If you feel that this is an urgent issue and needs immediate attention, it is recommended that you contact your primary care provider office or proceed to your nearest Urgent Care Center of Emergency Room ED for evaluation/treatment. Roel Morin RN 02/26/2024 2:46 PM Addendum Pt requesting script for Plavix. Originally prescribed by Dr. Lomeli on 02/13/24. Per last OV note dated 02/24/24: Discussed risks and benefits of continuing both Aspirin + plavix at least until seeing Cardiology, which is reasonable given sizeable PFO. Monitor for bleeding. Cardiology appt 04/01/24. If plan remains appropriate, please sign script. Please note, script updated to 30 day fill with one refill. Roel Morin RN 02/27/2024 1:35 PM Signed This RN called patient and notified him that Plavix prescription was sent to [facility] on . Pt verbalized understanding and denied further questions. Roel Morin RN Allergies As of Date: 02/26/2024 (No Known Allergies) Date Reviewed: 02/24/2024 Reviewed by: Анна Herrmann MA - Fully Assessed Reason for Visit: MEDICATION REQUEST [Other] Order(s):clopidogrel (PLAVIX) 75 mg tabletTake 1 tablet by mouth once daily.Disp: 30 tabletRfl: 2 Prescriptions as of 02/27/2024 - clopidogrel (PLAVIX) 75 mg tablet Take 1 tablet by mouth once daily. - levothyroxine (SYNTHROID) 75 mcg tablet Take 75-150 mcg by mouth daily before breakfast. Taking 75 mg Saturday - Saturday Taking 150 mg Saturday and Saturday - metoprolol succinate ER (TOPROL XL) 100 mg Take 100 mg by mouth once daily. - atorvastatin (LIPITOR) 40 mg tablet Take 40 mg by mouth once daily. - losartan (COZAAR) 100 mg tablet Take 100 mg by mouth once daily. - hydroCHLOROthiazide 25 mg tablet Take 25 mg by mouth once daily. - aspirin (ASPIRIN CHILDRENS) 81 mg chewable tablet Take 81 mg by mouth once daily. - cholecalciferol (VITAMIN D-3) 50 mcg (2,000 unit) tablet Take 2,000 Units by mouth once daily. Problem List As Of Date 02/26/2024 Noted Resolved Ischemic stroke (HCC) [I63.9] 02/09/2024 Hypokalemia [E87.6] 02/09/2024 02/12/2024 Cerebral infarction due to embolism of right mi*02/09/2024 Primary hypertension [I10] 02/09/2024 Hypertensive urgency [I16.0] 02/09/2024 02/12/2024 Received tissue plasminogen activator (t-PA) le*02/10/2024 02/12/2024 Prescriptions ordered this encounter Disp Refills Start End CLOPIDOGREL 75 MG TABLET 30 t* 2 02/27/2024 Route: ORAL Sig: Take 1 tablet by mouth once daily. Medications Discontinued During This Encounter Prescriptions - clopidogrel (PLAVIX) 75 mg tablet (Discontinued) Take 1 tablet by mouth once daily for 21 days. Encounter Status:Closed by ROSAMARIA HEDRICK on 02/27/24 Normal [facility] BETA 2 GLYCOPROTEIN 1, IGAon 02-24-2024 BETA 2 GLYCOPROTEIN 1, IGA <10 Normal <=20 [facility] Comment on above: Order Comment: Speci men Type: BLOOD SPECIMENOrdering Facility: [facility] Address: [address] [place] [address] Result Comment: Perf ormed by [employer], [address] [place] [id number] [email or web address], Peter Welch MD, Lab. Director [facility] Number: [id number] Performed By: #### B CRYSTAL ####[facility] [id number] [place] [address] BETA 2 GLYCOPROTEIN, IGGon 1 04-26-2023 Beta 2 glycoprotein 1 IgG IA Qn <9 Normal <20 [facility] Comment on above: Order Comment: Speci men Type: BLOOD SPECIMENOrdering Facility: [facility] Address: [address] [place] [address] Result Comment: <20 SGU Negative 20-80 SGU Low Positive >80 SGU High Positive These results were obtained with the [employer]ova QUANTA Lite B2 GPI IgG SCOTT. B2 GPI IgG values obtained with different manufacturers' assay methods may not be used interchangeably. The magnitude of the reported IgG levels cannot be correlated to an endpoint titer. Performed By: #### B KRANTHI HERMAN, 5076-5, BONI GARCIA ####[facility] LABCLIA [id number] [place] [address] [place] BETA 2 GLYCOPROTEIN, IGMon 1 04-26-2023 Beta 2 glycoprotein 1 IgM IA Qn <9 Normal <20 [facility] Comment on above: Order Comment: Speci men Type: BLOOD SPECIMENOrdering Facility: [facility] Address: [address] [place] [address] Result Comment: <20 SMU Negative 20-80 SMU Low Positive >80 SMU High positive These results were obtained with the Inova QUANTA Lite B2 GPI IgM SCOTT. B2 GPI IgM values obtained with different manufacturers' assay methods may not be used interchangeably. The magnitude of the reported IgM levels cannot be correlated to an endpoint titer. Performed By: #### B VIRGIL BETA2M, 5076-5RADHA CARDIG ####[facility] LABCLIA [id number] [place] [address] [place] CARDIOLIPIN IGG ABSon 2023 Cardiolipin IgG IA Qn (S) <9.0 Normal <15.0 [facility] Comment on above: Order Comment: Speci men Type: BLOOD SPECIMENOrdering Facility: [facility] Address: [address] [place] [address] Performed By: #### B ETA2G, BETA2M, 5076-5, CARDIM, CARDIG ####[facility] LABCLIA [id number] [address] CARDIOLIPIN IGM ABSon 2023 Cardiolipin IgM IA Qn (S) <9.0 Normal <12.5 [facility] Comment on above: Order Comment: Speci men Type: BLOOD SPECIMENOrdering Facility: [facility] Address: [address] [place] [address] Performed By: #### B ETA2G, BETA2M, 5076-5, CARDIM, CARDIG ####[facility] LABCLIA [id number] [address] [facility] CNOVon 02-24-2024 CNOV Office Visit (NECBFS ) GLENROY THORNTON ([id number]) 1960 M Date Time Provider Department 02/24/24 11:00 AM ROSAMARIA HEDRICK NECBFS During your visit today, we recorded the following information about you: Pulse Blood pressure Weight 57/minute 146/90 86.2 kg Rosamaria Hedrick APRN.SPORTS SPECIALIST 02/24/2024 3:28 PM Signed [facility] Established Visit Consultation is requested by: Lyn Lindo [address] [facility] [id number] PCP: Ev Zeng (April) [address] [place] [address] [address] [place] [address] [facility] Glenroy Thornton is a 63 year old male presenting for hospital discharge follow up. Admitted to [facility] 02/08-02/12/24. From discharge summary Mr Glenroy Stokes is a 63 yo gentleman with HTN, HLD, and hypothyroidism who presented for left sided facial droop and dysarthria while having dinner. He did not noticed arm or leg weakness stumbled when they attempted to walk him to ambulance. He was brought to the ER where he was worked up for a stroke. CT head obtained on admission without any acute abnormality. CT angiogram of head and neck with right M2 insular branch occlusion. His imaging was evaliated following which he received tpa as he was within the window. He was taken to the neuro ICU for monitoring post tpa.Symptoms reported to have completely resolved the following morning. MRI brain obtained showed small acute right MCA territory infarct He underwent stroke work up including an transthoracic echocardiogram which revealed the presence of an intracardiac shunt. He then underwent a Transesophageal echocardiogram which revealed no thrombus but did show Large PFO with strongly positive bubble study visualized. Patient seen by neurology team who recommended continuing aspirin and clopidogrel for 21 days and continuing statin therapy. Seen by PT who cleared for home. For further work up of Patent foramen Ovale, patient will need to follow with Cardiology after DC to evaluate for closure of PFO. Will also need an event monitor on discharge. Reason for Visit: ischemic stroke Date of Last Event: 02/09/2024 Antiplatelets/Anticoa gulants: Aspirin and Clopidogrel Statins: Atorvastatin Residual Deficits: No residual deficits Current PT/OT/ST: None Current Living Situation: Home with spouse Current use of a mobility aid for walking/getting around: None Office Visit 02/24/24 -presents for hospital discharge follow up with his , Marcy who is a nurse -denies any new symptoms or clinical events -feels fatigued, but denies focal deficits or therapy needs -Cardiology for PFO evaluation - scheduled for 04/01/24 -event monitor placed a few days ago, recommended 30 days -aspirin 81mg + plavix 75mg x 21 days recommended -they are worried about stopping plavix because he was on aspirin when he had his stroke -no bleeding or bruising on DAPT -lipitor 40mg -BP 146/90 - at home generally 110-120s, occasional reading 130s, single reading in 150s, HR 50-70s -never smoker -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 levothyroxine (SYNTHROID) 75 mcg tablet Take 75-150 mcg by mouth daily before breakfast. Taking 75 mg Saturday - Saturday Taking 150 mg Saturday and Saturday metoprolol succinate ER (TOPROL XL) 100 mg Take 100 mg by mouth once daily. atorvastatin (LIPITOR) 40 mg tablet Take 40 mg by mouth once daily. losartan (COZAAR) 100 mg tablet Take 100 mg by mouth once daily. hydroCHLOROthiazide 25 mg tablet Take 25 mg by mouth once daily. aspirin (ASPIRIN CHILDRENS) 81 mg chewable tablet Take 81 mg by mouth once daily. cholecalciferol (VITAMIN D-3) 50 mcg (2,000 unit) tablet Take 2,000 Units by mouth once daily. No current facility-administered medications for this visit. ALLERGIES ALLERGIES No Known Allergies PHYSICAL EXAMINATION BP 146/90 Pulse (!) 57 Wt 86.2 kg (190 lb) BMI 25.77 kg/m? General: Well-developed, well-nourished, in no acute distress. HEENT: Normocephalic, atraumatic. Sclerae anicteric. Oropharynx clear. Neck: No JVD Heart: Skin well-perfused. Lungs: Breathing comfortably on room air. Extremities: No edema, cyanosis, or clubbing. Skin: No rash or ecchymoses. Neurological: Awake, alert, orie (more content not included)... Normal [facility] COAG CORE PANEL BLDon 2023 aPTT Coag (PPP) [Time] 25.7 s Normal 23.0-32.4 Cl [facility] Comment on above: Order Comment: Speci men Type: BLOOD SPECIMENOrdering Facility: [facility] Address: [address] [place] [address] [place] [address] Performed By: #### C ORPNL ####[facility] LABCLIA [id number] [place] [address] [place] Fibrinogen Coag (PPP) [Mass/Vol] 441 mg/dL High 200-400 [facility] Comment on above: Order Comment: Speci men Type: BLOOD SPECIMENOrdering Facility: [facility] Address: [address] [place] [address] Performed By: #### C ORPNL ####[facility] [id number] [place] [address] [place] INR Coag (PPP) [Relative time] 1.1 {INR} Normal 0.9-1.3 [facility] Comment on above: Order Comment: Speci men Type: BLOOD SPECIMENOrdering Facility: [facility] Address: [address] [place] [address] Result Comment: Melva min K Antagonist (VKA) Therapeutic Range: INR 2 to 3 (Target INR of 2.5) Note: For patients treated with VKA drugs, such as warfarin, the [place] [employer] 2012 Guideline recommends a therapeutic INR range of 2 to 3 (target INR of 2.5). This recommendation includes high-risk patients with antiphospholipid syndrome with previous arterial or venous thromboembolism, current-generation mechanical or bioprosthetic aortic heart valve replacement. Note: Patients with mechanical aortic valve replacement and additional risk factors for thromboembolic events (atrial fibrillation, previous thromboembolism, LV dysfunction, hypercoagulable conditions) or an older generation mechanical AVR (i.e., ball in-Cage) or any mechanical MVR should have a INR therapeutic range of 2.5 to 3.5 (target INR of 3). Nico GH, et al. Chest 2012, 141:7S-47S Lakeisha RA et al. JAC 2017, 70: 252-289 Performed By: #### C ORPNL ####[facility] LABIA [id number] [place] [address] [place] PT Coag (PPP) [Time] 11.5 s Normal 9.7-13.0 [facility] Comment on above: Order Comment: Speci men Type: BLOOD SPECIMENOrdering Facility: [facility] Address: [address] [place] [address] Result Comment: Nyla en Plasma Aliquot Performed By: #### C ORPNL ####[facility] LABCLIA [id number] [place] [address] [place] CRP SerPl-mCncon 02-24-2024 CRP [Mass/Vol] mg/L Normal <0.9 [facility] Comment on above: Order Comment: Speci men Type: BLOOD SPECIMENOrdering Facility: [facility] Address: [address] [place] [address] Performed By: #### 1 988-5 ####[facility] LABCLIA [id number] [place] [address] [place] Cardiolipin IgA Ser IA-aCnco n 02-24-2024 Cardiolipin IgA IA Qn (S) <9.0 Normal <12.0 [facility] Comment on above: Order Comment: Speci men Type: BLOOD SPECIMENOrdering Facility: [facility] Address: [address] [place] [address] Performed By: #### B ETA2G, BETA2M, 5076-5, CARDIM, CARDIG ####[facility] LABCLIA [id number] [address] [place] HYPERCOAG PANELon 02-24-2024 Activated protein C resistance Coag (PPP) [Time ratio] 2.31 Ratio Normal >1.96 [facility] Comment on above: Order Comment: Speci men Type: BLOOD SPECIMENOrdering Facility: [facility] Address: [address] [place] [address] Performed By: #### L [id number], HCOAG ####[facility] LABCLIA [id number] [place] [address] [place] Antithrombin actual/normal Chromogenic method (PPP) [Rel catalytic activity/Vol] 138 % Normal 84-138 [facility] Comment on above: Order Comment: Speci men Type: BLOOD SPECIMENOrdering Facility: [facility] Address: [address] [place] [address] Performed By: #### L [id number], HCOAG ####[facility] LABCLIA [id number] [place] [address] [place] aPTT Coag (Bld) [Time] 25.4 s Normal 24.0-35.1 [facility] Comment on above: Order Comment: Speci men Type: BLOOD SPECIMENOrdering Facility: [facility] Address: [address] [place] [address] Performed By: #### L [id number], HCOAG ####[facility] LABCLIA [id number] [place] [address] [place] aPTT W excess hexagonal phase phospholipid Coag (PPP) [Time] 37.7 seconds Normal 34.0-51.8 [facility] Comment on above: Order Comment: Speci men Type: BLOOD SPECIMENOrdering Facility: [facility] Address: [address] [place] [address] Performed By: #### L [id number], HCOAG ####[facility] LABCLIA [id number] [place] [address] [place] Coagulation factor VIII activity actual/normal Coag (PPP) [Relative time] 235 % High 50-173 [facility] Comment on above: Order Comment: Speci men Type: BLOOD SPECIMENOrdering Facility: [facility] Address: [address] [place] [address] Performed By: #### L [id number], HCOAG ####[facility] LABCLIA [id number] [place] [address] [place] Coagulation factor X activated act Coag Qn (PPP) <0.10 Normal <0.10 [facility] Comment on above: Order Comment: Speci men Type: BLOOD SPECIMENOrdering Facility: [facility] Address: [address] [place] [address] Result Comment: This test was developed, and its performance characteristics determined by the [facility] Department of Pathology and Laboratory Medicine. It has not been cleared or approved by the FDA. The [facility] Department of Pathology and Laboratory Medicine is regulated under CLIA as qualified to perform high-complexity testing. This test is used for clinical purposes. It should not be regarded as investigational or for research. Performed By: #### L [id number], HCOAG ####[facility] LABCLIA [id number] [place] [address] [place] Delta dRVVT Coag (PPP) [Time diff] 0.8 delta seconds Normal <7.1 [facility] Comment on above: Order Comment: Speci men Type: BLOOD SPECIMENOrdering Facility: [facility] Address: [address] [place] [address] Performed By: #### L [id number], HCOAG ####[facility] LABCLIA [id number] [place] [address] [place] dRVVT W excess hexagonal phase phospholipid actual/normal Coag (PPP) [Relative time] 36.8 seconds Normal 34.2-47.9 [facility] Comment on above: Order Comment: Speci men Type: BLOOD SPECIMENOrdering Facility: [facility] Address: [address] [place] [address] Performed By: #### L [id number], HCOAG ####[facility] LABCLIA [id number] [place] [address] [place] Protein C actual/normal Coag (PPP) [Relative time] 140 % Normal 76-147 [facility] Comment on above: Order Comment: Speci men Type: BLOOD SPECIMENOrdering Facility: [facility] Address: [address] [place] [address] Performed By: #### L [id number], HCOAG ####[facility] LABCLIA [id number] [place] [address] [place] Protein S actual/normal Coag (PPP) [Relative time] 120 % Normal 59-152 [facility] Comment on above: Order Comment: Faye moss Type: BLOOD SPECIMENOrdering Facility: [facility] Address: [address] [place] [address] Performed By: #### L [id number], HCOAG ####[facility] LABCLIA [id number] [address] [place] Thrombin time Coag (PPP) [Time] 17.2 seconds Normal <18.6 [facility] Comment on above: Order Comment: Ashvini men Type: BLOOD SPECIMENOrdering Facility: [facility] Address: [address] [place] [address] Performed By: #### L [id number], HCOAG ####[facility] LABIA [id number] [place] [address] [place] HYPERCOAG PANEL INTERPon INTERPRETATION (HYPERCOAG) Normal [facility] Comment on above: Order Comment: Faye moss Type: BLOOD SPECIMENOrdering Facility: [facility] Address: [address] [place] [address] Result Comment: Abno rmal - see comment below. SIGNIFICANT FINDINGS: 1. Elevated Factor VIII and fibrinogen A laboratory evaluation for congenital and acquired risk factors for thrombophilia was performed. Both the PT and APTT results are normal. The thrombin time and anti-Xa screen were normal. No heparin, anti-Xa or direct thrombin inhibitor drug effect is present. LUPUS ANTICOAGULANT STUDIES: The normal hexagonal phase phospholipid neutralization and APTT assays make a lupus anticoagulant unlikely. The criteria for the diagnosis of a Lupus Anticoagulant, as detailed by the Subcommittee on Lupus Anticoagulants and Anti-Phospholipid Antibodies of the Scientific and Standardization Committee of the International Society on Thrombosis and Haemostasis (ISTH), are the following: (1) A prolonged phospholipid-dependent clotting test (screening test); (2) Evidence for an inhibitor (1:1 mix of patient:normal plasma); (3) Evidence that the inhibitor is phospholipid dependent and (4) Exclusion of specific inhibitors (ie, fVIII inhibitors, direct thrombin inhibitors, or heparin). Thromb. Haemost. 74:1185 (1994). ANTIPHOSPHOLIPID ANTIBODY STUDIES: The IgG, IgM and IgA anticardiolipin antibody titers were all negative. Antiphospholipid syndrome (APS) is present if at least one clinical criteria and one laboratory criteria are met. The clinical criteria for APS include the presence of vascular thrombosis or morbidity. The laboratory criteria for APS include positive testing for one of the following on two or more occasions, at least 12 weeks apart: (1) lupus anticoagulant; (2) anticardiolipin IgG or IgM in medium or high titer (>20 GPL or >20 MPL); (3) anti-beta 2 glycoprotein I IgG or IgM antibody. J. Thromb Haemost 4:295 (2006). PROTEIN STUDIES: The clottable fibrinogen and factor VIII levels are both increased with a normal C-reactive protein. A persistent elevation of factor VIII has been associated with an increased risk of venous thrombosis. Elevated fibrinogen has been associated with cardiovascular disease, but its association with venous thrombosis is not well defined. GENOTYPING STUDIES: The activated protein C resistance ratio (APC-R) is normal. The Factor V Leiden mutation, a c.1601G>A variant (legacy name R506Q) in the Factor V (F5) gene, is unlikely. The patient is negative for the c.*97G>A variant (legacy name 83185U>A) in the 3' untranslated region of the Factor II (F2) prothrombin gene. This result is not associated with an increased risk of thromboembolic disease. Please refer to the interpretation provided with the PT Gene Mutation result for further diagnostic and prognostic information. Other assay results were within the normal range. Please correlate these laboratory results with clinical findings and medication history. THE FOLLOWING TESTS WERE ADDED AND ARE REPORTED SEPARATELY: Protein C functional, Antithrombin functional, Protein S clottable, APC-R, Factor VIII, and Hexagonal phase phospholipid neutralization. Performed By: #### L [id number], HCOAG ####[facility] LABCLIA [id number] [place] [address] [place] Pathologist name Reviewed by Michelle Singletary M.D., Ph.D Normal [facility] Comment on above: Order Comment: Speci men Type: BLOOD SPECIMENOrdering Facility: [facility] Address: [address] [place] [address] Performed By: #### L [id number], HCOAG ####[facility] LABCLIA [id number] [address] STATES OF [facility] PROTHROMBIN GENE PCRon 02-23 PROTHROMBIN GENE MUTATION Normal [facility] Comment on above: Order Comment: Speci men Type: BLOOD SPECIMENOrdering Facility: [facility] Address: [address] [place] [address] Result Comment: Prot hrombin Gene Mutation Laboratory Accession Number: [id number] Result: NORMAL Interpretation: The DNA sample is negative for the c.*97G>A variant (legacy name 44122J>A) in the 3' untranslated region of the Factor II (F2) gene. This result is not associated with an increased risk of thromboembolic disease. Thromboembolic disease is a multifactorial disorder and other causes are not excluded by this result. Methodology: Isolated Genomic DNA from the patient's blood specimen is evaluated for the c*97G>A (g.05215139) variant of the F2 gene [RefSeq NM_000506.53;GRCh38/hg38] by multiplex polymerase chain reaction (PCR) followed by melting curve analysis. Limitations: This assay is designed to detect the c.*97G>A (51171T>A) variant in the F2 gene. Uncommon variants or single nucleotide polymorphisms may affect binding of probes and may rarely result in false negative, false positive or indeterminate results. This assay does not detect other disease-associated rare variants in F2 or other causes of thromboembolic disease. Disclaimer: This test was developed and its performance characteristics determined by [facility]'s Pathology and Laboratory Medicine Department. It has not been cleared or approved by the FDA. [facility] Pathology and Laboratory Medicine Department is regulated under CLIA as certified to perform high-complexity testing. This test is used for clinical purposes. It should not be regarded as investigational or for research. Testing and interpretation performed at [facility], [address] [place] [address]. CLIA Number: [id number] References: 1) Inheritied Thrombophilias in . ACOG Practice Bulletin. No. 197. [place] [employer]. Obsete Gynecol 2018;132:e18-34. 2) Josh SR, Edgar FR, Franco PH, and Juanis GARCIA. A common genetic variation in the 3'-untranslated region of the prothrombin gene is associated with elevated plasma prothrombin levels and an increase in venous thrombosis. Blood 88:3698-703, 1996. 3) Jasen I, Nikolas V, Rosalinda C, Jenyn Daly. Prothrombin 03151S>T: 16 new cases, association with the 24168R>G polymorphism, and literature review. J Thromb Haemost. 2009;9:1585-7. As reviewed by Taylor Ferrer, PhD Performed By: #### P TGBENJIE ####[facility]ITALNick [id number] [address] Jose 02-20-2024 [facility] Telephone (NENexgence) GLENROY THORNTON ([id number]) 1960 M Date Time Provider Department 02/20/24 ROSAMARIA HEDRICK During your visit today, we recorded the following information about you: Emma Harden 02/20/2024 12:08 PM Signed Patient has a upcoming appointment on 02/24/24 Patient's insurance [employer] requesting a call back for clinical reason the patient is being and dx and procedure [phone] or [phone] Roel Morin RN 02/21/2024 4:57 PM Addendum 1528 Called [employer] at [phone]. On hold until 163. Spoke with Elvie Hare who was unable to assist (Stated she did not see anything in their system regarding a 02/24/24 date of service). This RN asked if another department may be able to help at which time this RN was transferred back to [facility]. 1553 Called [phone] - This RN ended call since on hold in same que as first call. 1621 Sent Discharge Summary via RightFax to [phone], Cover sheet provided answers to inquiry. 1645 Addended to Add: Roel Morin RN Allergies As of Date: 02/20/2024 (No Known Allergies) Date Reviewed: 02/12/2024 Reviewed by: Gabrielle Ventuar, RN - Fully Assessed Reason for Visit: Called Back [2750] Warp Yarn Sorter - Other [4546] Prescriptions as of 02/21/2024 - clopidogrel (PLAVIX) 75 mg tablet Take 1 tablet by mouth once daily for 21 days. - levothyroxine (SYNTHROID) 75 mcg tablet Take 75-150 mcg by mouth daily before breakfast. Taking 75 mg Saturday - Saturday Taking 150 mg Saturday and Saturday - metoprolol succinate ER (TOPROL XL) 100 mg Take 100 mg by mouth once daily. - atorvastatin (LIPITOR) 40 mg tablet Take 40 mg by mouth once daily. - losartan (COZAAR) 100 mg tablet Take 100 mg by mouth once daily. - hydroCHLOROthiazide 25 mg tablet Take 25 mg by mouth once daily. - aspirin (ASPIRIN CHILDRENS) 81 mg chewable tablet Take 81 mg by mouth once daily. - cholecalciferol (VITAMIN D-3) 50 mcg (2,000 unit) tablet Take 2,000 Units by mouth once daily. Problem List As Of Date 02/20/2024 Noted Resolved Ischemic stroke (HCC) [I63.9] 02/09/2024 Hypokalemia [E87.6] 02/09/2024 02/12/2024 Cerebral infarction due to embolism of right mi*02/09/2024 Primary hypertension [I10] 02/09/2024 Hypertensive urgency [I16.0] 02/09/2024 02/12/2024 Received tissue plasminogen activator (t-PA) le*02/10/2024 02/12/2024 Encounter Status:Closed by ROEL MORIN [facility] GLENROY THORNTON ([id number]) 1960 M Date Time Provider Department 02/18/24 REINA HENNING During your visit today, we recorded the following information about you: Abhishek Hernandez RN 02/18/2024 1:37 PM Signed STROKE POST-DISCHARGE CALLBACK Telephone Visit Patient Name: Glenroy Thornton Today's date: February 18, 2024 Date of discharge: February 12, 2024 Person giving information: Glenroy Thornton. Relationship to patient: self. Contact information: [phone] Contact attempt: #1 Patient discharge location: home I spoke with Mr. Thornton regarding his recent hospitalization for stroke. I reviewed the following areas of education: 1.Risk factors. I asked patient if he had been taught about stroke and his risk factors. He said that he had but could not list them. I discussed the pathophysiology of ischemic stroke and how it is related to PFO, high blood pressure or high cholesterol. I emphasized the risk for another stroke and the need to be sure these risk factors are controlled as much as possible. 2.Signs and symptoms of stroke. I asked if the patient remembered being taught the symptoms of stroke. He said that he did. I encouraged him to call 911 if any symptoms occur. 3.Medications. Patient states that he has picked up the Plavix. Was already on aspirin and Lipitor. I talked with him about the actions of the dual antiplatelets for stroke prevention. 4.Follow ups. Glenroy states he has his follow up with neurology next week and with structural cardiology in March. Signature: Abhishek Hernandez RN February 18, 2024 1:34 PM Allergies As of Date: 02/18/2024 (No Known Allergies) Date Reviewed: 02/12/2024 Reviewed by: Gabrielle Ventura RN - Fully Assessed Reason for Visit: Stroke discharge callback [Other] Prescriptions as of 02/18/2024 - clopidogrel (PLAVIX) 75 mg tablet Take 1 tablet by mouth once daily for 21 days. - levothyroxine (SYNTHROID) 75 mcg tablet Take 75-150 mcg by mouth daily before breakfast. Taking 75 mg Saturday - Saturday Taking 150 mg Saturday and Saturday - metoprolol succinate ER (TOPROL XL) 100 mg Take 100 mg by mouth once daily. - atorvastatin (LIPITOR) 40 mg tablet Take 40 mg by mouth once daily. - losartan (COZAAR) 100 mg tablet Take 100 mg by mouth once daily. - hydroCHLOROthiazide 25 mg tablet Take 25 mg by mouth once daily. - aspirin (ASPIRIN CHILDRENS) 81 mg chewable tablet Take 81 mg by mouth once daily. - cholecalciferol (VITAMIN D-3) 50 mcg (2,000 unit) tablet Take 2,000 Units by mouth once daily. Problem List As Of Date 02/18/2024 Noted Resolved Ischemic stroke (HCC) [I63.9] 02/09/2024 Hypokalemia [E87.6] 02/09/2024 02/12/2024 Cerebral infarction due to embolism of right mi*02/09/2024 Primary hypertension [I10] 02/09/2024 Hypertensive urgency [I16.0] 02/09/2024 02/12/2024 Received tissue plasminogen activator (t-PA) le*02/10/2024 02/12/2024 Encounter Status:Closed by ABHISHEK HERNANDEZ on 02/18/24 [facility] oJse 02-14-2024 MIGUELN Telephone (DERRICK) GLENROY THORNTON ([id number]) 1960 M Date Time Provider Department 02/14/24 BRITNEY OCHOA During your visit today, we recorded the following information about you: Britney Ochoa, Straightening Press Operator Helper 02/14/2024 10:44 AM Signed Pt agreeable to have event monitor sent to home. Blair contacted to send monitor to pt. Allergies As of Date: 02/14/2024 (No Known Allergies) Date Reviewed: 02/12/2024 Reviewed by: Gabrielle Ventura, SILVIO - Fully Assessed Prescriptions as of 02/14/2024 - clopidogrel (PLAVIX) 75 mg tablet Take 1 tablet by mouth once daily for 21 days. - levothyroxine (SYNTHROID) 75 mcg tablet Take 75-150 mcg by mouth daily before breakfast. Taking 75 mg Saturday - Saturday Taking 150 mg Saturday and Saturday - metoprolol succinate ER (TOPROL XL) 100 mg Take 100 mg by mouth once daily. - atorvastatin (LIPITOR) 40 mg tablet Take 40 mg by mouth once daily. - losartan (COZAAR) 100 mg tablet Take 100 mg by mouth once daily. - hydroCHLOROthiazide 25 mg tablet Take 25 mg by mouth once daily. - aspirin (ASPIRIN CHILDRENS) 81 mg chewable tablet Take 81 mg by mouth once daily. - cholecalciferol (VITAMIN D-3) 50 mcg (2,000 unit) tablet Take 2,000 Units by mouth once daily. Problem List As Of Date 02/14/2024 Noted Resolved Ischemic stroke (HCC) [I63.9] 02/09/2024 Hypokalemia [E87.6] 02/09/2024 02/12/2024 Cerebral infarction due to embolism of right mi*02/09/2024 Primary hypertension [I10] 02/09/2024 Hypertensive urgency [I16.0] 02/09/2024 02/12/2024 Received tissue plasminogen activator (t-PA) le*02/10/2024 02/12/2024 Encounter Status:Closed by BRITNEY OCHOA on 02/14/24 [facility] BRIEF OP NOTon 02-12-2024 BRIEF OP NOT HNO ID: [id number] Author: DENISE RIVERO MD Service: Cardiovascular Medicine Author Type: Physician Type: Brief Op Note Filed: 02/12/2024 12:47 Note Text: PROCEDURE: MYRNA REASON FOR PROCEDURE: CVA UNIVERSAL PROTOCOL / SAFETY CHECKLIST: Procedure to be performed: DC CVN. Sign in Communication: Completed. Time Out: Team Confirms the Correct Patient, Correct Procedure, Correct Site and Site Marking, Correct Position (if applicable). Affirmation of Time Out: YES. Sign Out Discussion: Completed. PROCEDURE IN DETAIL: The procedure was explained to the patient/patient's surrogate with risks (including very rare complication of esophageal tear) and benefits of the procedure. The patient/family understands. The patient was placed on a monitor and supplemental oxygen. Oropharyngeal area was locally anesthestized with cetacaine spray. Bite block was placed and patient was positioned in left lateral decubitus position. Patient received proper sedation with versed and fentanyl. MYRNA probe was passed without resistance. Images were obtained per indication. MYRNA probe was then pulled out. IMPRESSION: Successful MYRNA with no immediate complication. No RAFAELA thrombus No papillary fibroelastoma in aortic valve Large PFO with strongly positive bubble study visualized Normal [facility] Basic metabolic 2000 panelon 02-12-2024 Anion gap [Moles/Vol] 11 mmol/L Normal 8-15 [facility] Comment on above: Order Comment: Speci isa Type: BLOOD SPECIMENOrdering Facility: [facility] Address: [address] [place] [address] Performed By: #### 1 9123-9, 46001-4, 2776-03 ####[facility]ORYCLIA [id number] [place] [address] [place] Calcium [Mass/Vol] 9.1 mg/dL Normal 8.5-10.2 [facility] Comment on above: Order Comment: Speci isa Type: BLOOD SPECIMENOrdering Facility: [facility] Address: [address] [place] [address] Performed By: #### 1 9123-9, 38784-8, 2776-03 ####[facility]ATORYCLIA [id number] [place] [address] [place] Chloride [Moles/Vol] 104 mmol/L Normal 98-107 [facility] Comment on above: Order Comment: Speci men Type: BLOOD SPECIMENOrdering Facility: [facility] Address: [address] [place] [address] Performed By: #### 1 9123-9, 90607-9, 2776-03 ####[facility]ATORYCLIA [id number] [place] [address] [place] CO2 [Moles/Vol] 23 mmol/L Normal 22-30 [facility] Comment on above: Order Comment: Faye moss Type: BLOOD SPECIMENOrdering Facility: [facility] Address: [address] [place] [address] Performed By: #### 1 9123-9, 11328-1, 277- ####[facility] [id number] [address] OF [facility] Creatinine [Mass/Vol] 1.01 mg/dL Normal 0.73-1.22 [facility] Comment on above: Order Comment: Speci isa Type: BLOOD SPECIMENOrdering Facility: [facility] Address: [address] [place] [address] Performed By: #### 1 9123-9, 11939-2, 2776-03 ####[facility]ENTERIA [id number] [address] Creatinine and Glomerular filtration rate.predicted panel (S/P/Bld) 83 mL/min/1.73m??? Normal >=60 [facility] Comment on above: Order Comment: Specbeatriz moss Type: BLOOD SPECIMENOrdering Facility: [facility] Address: [address] [place] [address] Result Comment: Nya mated Glomerular Filtration Rate (eGFR) is calculated using the 2020 CKD-EPI creatinine equation. This equation utilizes serum creatinine, sex, and age as parameters. The creatinine assay has traceable calibration to isotope dilution-mass spectrometry. Refer to KDIGO guidelines for clinical interpretation. In patients with unstable renal function, e.g. those with acute kidney injury, the eGFR may not accurately reflect actual GFR. Performed By: #### 1 9123-9, 01521-4, 27709-15 ####[facility] LABORATORYIA [id number] [place] [id number] [place] Glucose [Mass/Vol] 106 mg/dL High 74-99 [facility] Comment on above: Order Comment: Faye moss Type: BLOOD SPECIMENOrdering Facility: [facility] Address: [address] [place] [address] Result Comment: The [place] Diabetes Association (ADA) provides guidance for cutoff values for fasting glucose and random glucose. The ADA defines fasting as no caloric intake for at least 8 hours. Fasting plasma glucose results between 100 to 125 mg/dL indicate increased risk for diabetes (prediabetes). Fasting plasma glucose results greater than or equal to 126 mg/dL meet the criteria for diagnosis of diabetes. In the absence of unequivocal hyperglycemia, results should be confirmed by repeat testing. In a patient with classic symptoms of hyperglycemia or hyperglycemic crisis, random plasma glucose results greater than or equal to 200 mg/dL meet the criteria for diagnosis of diabetes. Reference: Standards of Medical Care in Diabetes 2016, [place] [employer] Association. Diabetes Care. 2016.39(Suppl 1). Performed By: #### 1 9123-9, 87592-3, 2776-03 ####[facility]ATORYCLIA [id number] [place] [address] [place] Potassium [Moles/Vol] 4.1 mmol/L Normal 3.7-5.1 [facility] Comment on above: Order Comment: Speci men Type: BLOOD SPECIMENOrdering Facility: [facility] Address: [address] [place] [address] Performed By: #### 1 9123-9, , 2776-03 ####[facility]ORYCLIA [id number] [place] [address] [place] Sodium [Moles/Vol] 138 mmol/L Normal 136-144 [facility] Comment on above: Order Comment: Speci men Type: BLOOD SPECIMENOrdering Facility: [facility] Address: [address] [place] [address] Performed By: #### 1 9123-9, 11408-8, 2776-03 ####[facility]ORYCLIA [id number] [place] [address] [place] Urea nitrogen [Mass/Vol] 16 mg/dL Normal 9-24 [facility] Comment on above: Order Comment: Speci men Type: BLOOD SPECIMENOrdering Facility: [facility] Address: [address] [place] [address] Performed By: #### 1 9123-9, 80513-1, 2777-1 ####[facility]ORYCLIA [id number] [address] CBC panel Auto (Bld)on 02-11 Erythrocyte distribution width (RBC) [Ratio] 11.9 % Normal 11.5-15.0 [facility] Comment on above: Order Comment: Speci men Type: BLOOD SPECIMENOrdering Facility: [facility] Address: [address] [place] [address] Performed By: #### 5 8410-2 ####[facility]ORYCLIA [id number] [address] Hematocrit (Bld) [Volume fraction] 39.7 % Normal 39.0-51.0 [facility] Comment on above: Order Comment: Speci men Type: BLOOD SPECIMENOrdering Facility: [facility] Address: [address] [place] [address] Performed By: #### 5 8410-2 ####[facility]ORYCLIA [id number] [address] Hemoglobin (Bld) [Mass/Vol] 13.3 g/dL Normal 13.0-17.0 [facility] Comment on above: Order Comment: Speci men Type: BLOOD SPECIMENOrdering Facility: [facility] Address: [address] [place] [address] Performed By: #### 5 8410-2 ####[facility]ORYCLIA [id number] [address] STATES [facility] MCH (RBC) [Entitic mass] 31.3 pg Normal 26.0-34.0 [facility] Comment on above: Order Comment: Speci men Type: BLOOD SPECIMENOrdering Facility: [facility] Address: [address] [place] [address] Performed By: #### 5 8410-2 ####[facility]ORYCLIA [id number] [place] [address] [place] MCHC (RBC) [Mass/Vol] 33.5 g/dL Normal 30.5-36.0 [facility] Comment on above: Order Comment: Speci men Type: BLOOD SPECIMENOrdering Facility: [facility] Address: [address] [place] [address] Performed By: #### 5 8410-2 ####[facility]ORYCLIA [id number] [address] [place] MCV (RBC) [Entitic vol] 93.4 fL Normal 80.0-100.0 [facility] Comment on above: Order Comment: Speci men Type: BLOOD SPECIMENOrdering Facility: [facility] Address: [address] [place] [address] Performed By: #### 5 8410-2 ####[facility]ORYCLIA [id number] [address] OF [facility] Nucleated RBC (Bld) [#/Vol] 10*3/uL Normal <0.01 [facility] Comment on above: Order Comment: Speci men Type: BLOOD SPECIMENOrdering Facility: [facility] Address: [address] [place] [address] Performed By: #### 5 8410-2 ####[facility]ORYCLIA [id number] [address] [place] Platelet mean volume (Bld) [Entitic vol] 10.0 fL Normal 9.0-12.7 [facility] Comment on above: Order Comment: Speci men Type: BLOOD SPECIMENOrdering Facility: [facility] Address: [address] [place] [address] Performed By: #### 5 8410-2 ####[facility]ORYCLIA [id number] [address] [place] Platelets (Bld) [#/Vol] 201 10*3/uL Normal 150-400 [facility] Comment on above: Order Comment: Speci men Type: BLOOD SPECIMENOrdering Facility: [facility] Address: [address] [place] [address] Performed By: #### 5 8410-2 ####[facility]ORYCLIA [id number] [place], [place] [id number] [place] [address] OF [facility] RBC (Bld) [#/Vol] 4.25 10*6/uL Normal 4.20-6.00 [facility] Comment on above: Order Comment: Speci men Type: BLOOD SPECIMENOrdering Facility: [facility] Address: [address] [place] [address] Performed By: #### 5 8410-2 ####[facility]ORYCLIA [id number] [place] [id number] [facility] WBC (Bld) [#/Vol] 5.96 10*3/uL Normal 3.70-11.00 [facility] Comment on above: Order Comment: Speci men Type: BLOOD SPECIMENOrdering Facility: [facility] Address: [address] [place] [address] Performed By: #### 5 8410-2 ####[facility]ORYCLIA [id number] [address] CNDSon 02-12-2024 [facility] HNO ID: [id number] Author: FLOR LOMELI MD Service: Hospital Medicine Author Type: Physician Type: Discharge Summary Filed: 02/12/2024 17:06 Note Text: DISCHARGE SUMMARY PATIENT NAME: Glenroy Thornton Code Status: Full Code Highest Readmission Risk Score: 13 The 30 day readmissions risk score is derived from an internally validated risk model which evaluates patient level characteristics, utilization history, medication orders and lab results up until the day of discharge. Patients with a score of 40 or above are considered highest risk for readmission. Specific patient level drivers will be listed at the bottom of the summary. Admission Information Admission Information ADMIT DATE: 02/09/2024 DISCHARGE DATE: 02/12/2024 MY DOCTORS AND MEDICAL TEAM: My Main Hospital Doctor: Flor Lomeli MD Primary Care Provider: Ev Zeng MD My Medical Team Members: Treatment Team: Attending Provider: Flor Lomeli MD Consulting: Reina Henning MD Consulting: Shiva Caballero MD Primary Service: VANESSA BENITEZ MY CONDITION AT DISCHARGE: Stable REASON I WAS IN THE HOSPITAL: Left sided facial droop and slurred speech SUMMARY OF WHAT HAPPENED WHILE I WAS IN THE HOSPITAL: Mr Glenroy Stokes is a 63 yo gentleman with HTN, HLD, and hypothyroidism who presented for left sided facial droop and dysarthria while having dinner. He did not noticed arm or leg weakness stumbled when they attempted to walk him to ambulance. He was brought to the ER where he was worked up for a stroke. CT head obtained on admission without any acute abnormality. CT angiogram of head and neck with right M2 insular branch occlusion. His imaging was evaliated following which he received tpa as he was within the window. He was taken to the neuro ICU for monitoring post tpa.Symptoms reported to have completely resolved the following morning. MRI brain obtained showed small acute right MCA territory infarct He underwent stroke work up including an transthoracic echocardiogram which revealed the presence of an intracardiac shunt. He then underwent a Transesophageal echocardiogram which revealed no thrombus but did show Large PFO with strongly positive bubble study visualized. Patient seen by neurology team who recommendedcontinuing aspirin and clopidogrel for 21 days and continuing statin therapy. Seen by PT who cleared for home. For further work up of Patent foramen Ovale, patient will need to follow with Cardiology after DC to evaluate for closure of PFO. Will also need an event monitor on discharge. OTHER PROBLEMS/DIAGNOSIS: Principal Problem: Ischemic stroke (HCC) Active Problems: Cerebral infarction due to embolism of right middle cerebral artery (HCC) Primary hypertension Resolved Problems: Hypertensive urgency Received tissue plasminogen activator (t-PA) less than 24 hours prior to arrival Hypokalemia OPERATIONS PERFORMED WHILE IN THE HOSPITAL: None IMPORTANT TEST/PROCEDURES: No procedures performed TEST RESULTS NOT AVAILABLE AT THIS TIME: No pending results Discharge Disposition Discharge Disposition: Home With Home Care Additional Provider to Provider Information: Treatment Team: Attending Provider: Flor Lomeli MD Consulting: Reina Henning MD Consulting: Shiva Caballero MD Primary Service: VANESSA BENITEZ Transitions of Care Critical Issues: LABS AND PROCEDURES PENDING AT DISCHARGE: No pending results. FOLLOW-UP APPOINTMENTS ALREADY SCHEDULED WITH A [facility] PROVIDER: Future Appointments Date Time Provider Department Center 02/24/2024 11:00 AM Rosamaria Hedrick APRN.[facility] 04/24/2024 8:00 AM Delvin Gamez MD AGCARDPO[facility] Pob ALLERGIES No Known Allergies DISCHARGE MEDICATION: Medication List START taking these medications clopidogrel 75 mg tablet Commonly known as: PLAVIX Take 1 tablet by mouth once daily for 21 days. Start taking on: February 13, 2024 CONTINUE taking these medications ASPIRIN CHILDRENS 81 mg chewable tablet Generic drug: aspirin atorvastatin 40 mg tablet Commonly known as: LIPITOR hydroCHLOROthiazide 25 mg tablet losartan 100 mg tablet Commonly known as: COZAAR metoprolol succinate ER 100 mg Commonly known as: TOPROL XL SYNTHROID 75 mcg tablet Generic drug: levothyroxine Vitamin D-3 50 mcg (2,000 unit) tablet Generic drug: cholecalciferol Where to Get Your Medications These medications were sent to [facility] [place] [address] [address] [facility] - [phone] [id number] [facility] [address] clopidogrel 75 mg tablet The patient's risk for 30-day readmission is determined using the following contributing factors: Pt variables contributing to increased readmission risk: 16 Most Recent BUN Result 9.1 First Resulted Calcium During Admission 7 Active Medication Orders 1 Previous ED Visit (6 mos.)? 1 Number of Previous E (more content not included)... Normal [facility] GLENROY THORNTON ([id number]) 1960 M Date Time Provider Department 02/12/24 DELVIN GAMEZ During your visit today, we recorded the following information about you: Magalis Hilario RN 02/12/2024 3:47 PM Addendum Pt had MYRNA today. He is scheduled for OV 04/24/23 to discuss PFO closure. Pt will be out of town and asks if it would be ok from a cardiac standpoint to be seen later in Apr.? SILVIO Cope Stacey, RN 02/17/2024 8:26 AM Signed Delvin Gamez MD You4 days ago He has a large PFO. Can he be seen sooner, and prior to his travel? Magalis Luna RN 02/17/2024 8:26 AM Signed Spoke with pt. He is agreeable to sooner OV if available. He reports he will be out of town 04/24/24 - 04/28/24. Pt requests a return call with sooner OV. SILVIO Cope Amber W 02/17/2024 8:59 AM Signed Spoke with pt and scheduled him for a sooner new pt appt on 04/01/2024 at 1pm. Pt was very thankful and agreeable to date and time. Thank you, Tamie Sanchez Allergies As of Date: 02/12/2024 (No Known Allergies) Date Reviewed: 02/12/2024 Reviewed by: Gabrielle Ventura, SILVIO - Fully Assessed Reason for Visit: Patient Question [5667] Prescriptions as of 02/17/2024 - clopidogrel (PLAVIX) 75 mg tablet Take 1 tablet by mouth once daily for 21 days. - levothyroxine (SYNTHROID) 75 mcg tablet Take 75-150 mcg by mouth daily before breakfast. Taking 75 mg Saturday - Saturday Taking 150 mg Saturday and Saturday - metoprolol succinate ER (TOPROL XL) 100 mg Take 100 mg by mouth once daily. - atorvastatin (LIPITOR) 40 mg tablet Take 40 mg by mouth once daily. - losartan (COZAAR) 100 mg tablet Take 100 mg by mouth once daily. - hydroCHLOROthiazide 25 mg tablet Take 25 mg by mouth once daily. - aspirin (ASPIRIN CHILDRENS) 81 mg chewable tablet Take 81 mg by mouth once daily. - cholecalciferol (VITAMIN D-3) 50 mcg (2,000 unit) tablet Take 2,000 Units by mouth once daily. Problem List As Of Date 02/12/2024 Noted Resolved Ischemic stroke (HCC) [I63.9] 02/09/2024 Hypokalemia [E87.6] 02/09/2024 02/12/2024 Cerebral infarction due to embolism of right mi*02/09/2024 Primary hypertension [I10] 02/09/2024 Hypertensive urgency [I16.0] 02/09/2024 02/12/2024 Received tissue plasminogen activator (t-PA) le*02/10/2024 02/12/2024 Encounter Status:Closed by TAMIE SANCHEZ on 02/17/24 [facility] CNPN Telephone (AGTAVR) GLENROY THORNTON ([id number]) 1960 M Date Time Provider Department 02/12/24 RICHARD REYNOLDS AGTAVR During your visit today, we recorded the following information about you: Richard Reynolds APRN.MIGUEL 02/12/2024 1:57 PM Signed Please schedule patient for office visit with Dr. Ge for evaluation of PFO closure. Thank you, Richard Reynolds APRN.Dank Nuñez 02/12/2024 2:04 PM Signed Pt scheduled for 04/24/24; left VM and sent letter. Dank Motley Allergies As of Date: 02/12/2024 (No Known Allergies) Date Reviewed: 02/12/2024 Reviewed by: Gabrielle Ventura, RN - Fully Assessed Prescriptions as of 02/12/2024 - levothyroxine (SYNTHROID) 75 mcg tablet Take 75-150 mcg by mouth daily before breakfast. Taking 75 mg Saturday - Saturday Taking 150 mg Saturday and Saturday - metoprolol succinate ER (TOPROL XL) 100 mg Take 100 mg by mouth once daily. - atorvastatin (LIPITOR) 40 mg tablet Take 40 mg by mouth once daily. - losartan (COZAAR) 100 mg tablet Take 100 mg by mouth once daily. - hydroCHLOROthiazide 25 mg tablet Take 25 mg by mouth once daily. - aspirin (ASPIRIN CHILDRENS) 81 mg chewable tablet Take 81 mg by mouth once daily. - cholecalciferol (VITAMIN D-3) 50 mcg (2,000 unit) tablet Take 2,000 Units by mouth once daily. Facility-Administered Medications as of 02/12/2024 - levothyroxine 75 mcg tab(s) (SYNTHROID) - aspirin 81 mg chewable tab(s) - clopidogrel 75 mg tab(s) (PLAVIX) - enoxaparin 40 mg injection (LOVENOX) - senna-docusate 8.6-50 mg 1 tablet (SENNA-S) - bisacodyl 10 mg suppository (DULCOLAX) - ondansetron (PF) 4 mg injection (ZOFRAN) - atorvastatin 40 mg tab(s) (LIPITOR) Problem List As Of Date 02/12/2024 Noted Resolved Ischemic stroke (HCC) [I63.9] 02/09/2024 Hypokalemia [E87.6] 02/09/2024 Cerebral infarction due to embolism of right mi*02/09/2024 Primary hypertension [I10] 02/09/2024 Hypertensive urgency [I16.0] 02/09/2024 Received tissue plasminogen activator (t-PA) le*02/10/2024 Encounter Status:Closed by DANK MOTLEY on 02/12/24 [facility] CONSULT PROGon 02-12-2024 CONSULT PROG HNO ID: [id number] Author: YAA PATRICK APRN.CNP Service: Neurology General Author Type: Nurse Practitioner Type: Consult Progress Note Filed: 02/12/2024 16:19 Note Text: NEURO STROKE CONSULT PROGRESS NOTE SERVICE DATE: 02/12/2024 SERVICE TIME: 1500 Subjective INTERVAL HISTORY: Resting in bed. at the bedside. Had MYRAN done today. Discussed findings and POC. Discussed medications and follow up plans for stroke. All questions answered to their satisfaction. MEDICATIONS Current Facility-Administered Medications Medication Dose Route Frequency senna-docusate 8.6-50 mg 1 tablet (SENNA-S) 1 tablet ORAL/FEEDING TUBE BID bisacodyl 10 mg suppository (DULCOLAX) 10 mg RECTAL DAILY PRN ondansetron (PF) 4 mg injection (ZOFRAN) 4 mg INTRAVENOUS q 4 H PRN atorvastatin 40 mg tab(s) (LIPITOR) 40 mg ORAL/FEEDING TUBE AT BEDTIME levothyroxine 75 mcg tab(s) (SYNTHROID) 75 mcg ORAL DAILY (6 AM) clopidogrel 75 mg tab(s) (PLAVIX) 75 mg ORAL/FEEDING TUBE DAILY enoxaparin 40 mg injection (LOVENOX) 40 mg SUBCUTANEOUS q 24 H Objective PHYSICAL EXAM Vital Signs: BP 155/102 Pulse 93 Temp 36.3 ?C (97.4 ?F) Resp 12 Ht 182.9 cm (6') Wt 86.5 kg (190 lb 11.2 oz) SpO2 100% BMI 25.86 kg/m? NEUROLOGICAL: LOC: 0 - alert and responsive 0 LOC Questions: 0 - both correct 0 LOC Commands: 0 - both correct 0 Best Gaze: 0 - normal gaze 0 Visual: 0 - no visual loss 0 Facial Palsy: 0 - normal 0 Motor Left Arm: 0 - no drift 0 Motor Right Arm: 0 - no drift 0 Motor Left Le - no drift 0 Motor Right Le - no drift 0 Limb Ataxia: 0 - no ataxia (or aphasic, hemiplegic) 0 Sensory: 0 - normal 0 Best Language: 0 - normal 0 Dysarthria: 0 - normal 0 Extinction and Inattention: 0 - normal, none detected (or visual loss alone) 0 Daily NIHSS Score: 0 (02/12/24 1507 : Yaa Patrick, MOE.SPORTS SPECIALIST) 0 MENTAL STATUS: Alert, oriented to person, place and time and Follows commands CRANIAL NERVES: PERRLA, EOM's intact, Visual chou intact to confrontation, Extraocular movements intact, Facial sensation intact, Face symmetric, No dysarthria, and Shoulder shrug intact and symmetric MOTOR: No drift and Normal tone MOTOR STRENGTH: Upper and lower extremity 5/5 bilaterally SENSATION: Intact light touch COORDINATION: Finger-to- nose-finger intact bilaterally and Gssl-ba-lvuy intact bilaterally DATA: Diagnostic tests reviewed for today's visit: Lipids, HbA1c, Recent Labs 02/09/24 2344 CHOL 167 HDL 47 LDL 70 TG 250* HBA1C 5.4 Most recent labs and imaging results. MEDICAL EVENTS: No medical events have been recorded. STROKE 9 CARE AND PREVENTION CHECKLIST 1. Is the patient currently on an ANTITHROMBOTIC medication (Antiplatelet or Anticoagulant): Clopidogrel 2. Does the patient have known AFIB/FLUTTER: No 3. Is the patient on a STATIN: Atorvastatin 40 mg 4. Is the patient on VTE prophylaxis: Mechanical prophylaxis Mechanical intervention type: Intermittent compression stocking(s) 5. GLYCEMIC Control Medications: Not Diabetic 6. Stroke BP Goals: <180/105 Stroke BP Control: BP needs further management 7. Stroke IVF/Nutrition: NPO except med 8. TEMPERATURE Control: Normothermic 9. Does the patient need THERAPY: Yes Therapy involvement: PT, OT, ST Stroke Care and Prevention (personally reviewed by Yaa Patrick APRN.SPORTS SPECIALIST): Daily Rounding Date: 02/12/24 Daily Rounding Time: 1508 PROBLEM LIST: Principal Problem: Ischemic stroke (HCC) (POA: Yes) Active Problems: Hypokalemia (POA: Yes) Cerebral infarction due to embolism of right middle cerebral artery (HCC) (POA: Yes) Primary hypertension (POA: Yes) Hypertensive urgency (POA: Yes) Received tissue plasminogen activator (t-PA) less than 24 hours prior to arrival (POA: Yes) Resolved Problems: * No resolved hospital problems. * Impression/Recommenda tions IMPRESSION 63 yo male with pmh of HTN, HLD, and hypothyroidism who presented for left sided facial droop and dysarthria while having dinner. He did not noticed arm or leg weakness but on testing he was unable to squeeze hand and he stumbled when they attempted to walk him to ambulance. CTH with NAP. CTA h/n with right M2 insular branch occlusion. S/p TNK. rCTH with no HT. He was transferred to [facility] 02/10. CTH (02/08) - NAP CTA h/n (02/08) - right M2 insular branch occlusion MRI brain (02/09) - small acute R MCA territory infarct rCTH (02/09) - evolving acute right MCA territory infarct without HT TTE (02/09) - EF 69% - moderate LAE - no significant valvular abnormalities - interatrial septum is mobile and there is evidence of intracardiac shunting DVT scan (02/09) - negative MYRNA(02/11) - EF 60% - larger PFO 7mm - no significant valvular abnormalities or RAFAELA thrombus seen Labs LDL 70 A1c 5.4 RMCA stroke - s/p TNK - etiology cardioembolic with large PFO noted during admission - cardiology follow up after DC to (more content not included)... Normal [facility] ECHO TRANSESOPHAGEALon 02-11 ECHO TRANSESOPHAGEAL Echocardiography Report: Transesophageal Echo [facility] Date of service: 02/12/2024 12:00:53 PM HOSPITAL Ordering physician: LYN LINDO Indication: Stroke Technologist: Pete Dejesus [facility] Interpreting physician: Denise Rivero MD PATIENT: Name: MR. GLENROY THORNTON : 1960 Age: 63 years Gender: M History of hypertension. Primary rhythm: sinus. Height: 182.90 cm BSA: 2.10 m Weight: 86.50 kg BMI: 25.9 kg/m Pre Heart rate 86 bpm Blood pressure 189/99 mmHg Agitated saline was administered to rule out shunt. Color Doppler was utilized to interrogate the cardiac valves assessed and spectral Doppler was utilized to determine the flow velocities and pressure gradients reported in this exam. Medications Total Dose Versed 6.00 mg Fentanyl 150.00 mcg Agitated Saline 10.00 ml Viscous Lidocaine x1, Hurricaine spray x1 Exam performed under moderate sedation with continuous ECG, pulse oximetry and cardiopulmonary monitoring by nursing, overseen by the performing physician(s), for an intraservice time of 9 min. (Stop Time: 12:42PM) No specimens collected. No blood loss. The interpreting physician was present for and actively participated in the MYRNA procedure. MEASUREMENTS: Value Normal Ejection Fraction 60 % (visual est.) EF > 52 FINDINGS: LEFT VENTRICLE Left ventricular systolic function is normal. RIGHT VENTRICLE The right ventricle is normal in size. Right ventricular systolic function is normal. LEFT ATRIUM The left atrial cavity is normal in size. There is no left atrial appendage thrombus. RIGHT ATRIUM The right atrial cavity is normal in size. MITRAL VALVE The mitral valve leaflets are structurally normal. There is no mitral stenosis. There is trace mitral valve regurgitation. TRICUSPID VALVE The tricuspid valve leaflets are structurally normal. There is no tricuspid stenosis. There is no tricuspid valve regurgitation. AORTIC VALVE The aortic valve cusps are structurally normal. There is no aortic valve stenosis. There is no aortic valve regurgitation. Tricuspid aortic valve. PULMONIC VALVE The pulmonic valve cusps are structurally normal. There is no pulmonic stenosis. There is trace pulmonic valve regurgitation. INTERATRIAL SEPTUM There is evidence of intracardiac shunting as detected by Doppler and agitated saline contrast. CONCLUSIONS: - Exam indication: Stroke - Agitated saline was administered to rule out shunt. There is evidence of intracardiac shunting as detected by Doppler and agitated saline contrast. - Left ventricular systolic function is normal. EF = 60 5% (visual est.) - The right ventricle is normal in size. Right ventricular systolic function is normal. - There are no significant valvular abnormalities. - There is no left atrial appendage thrombus. - No atheroma in desceding aorta and aortic arch - Large PFO (width: 7 mm) with large right to left shunt with bubble study (>20 microbubbles) each beats. - Exam was compared with the prior echocardiographic exam performed on 02/10/2024. no significant change * * * Final * * * [facility] [facility] : [id number] amicsSISUID Normal [facility] Magnesium SerPl-mCncon 02-11 Magnesium [Mass/Vol] 2.0 mg/dL Normal 1.7-2.3 [facility] Comment on above: Order Comment: Speci isa Type: BLOOD SPECIMENOrdering Facility: [facility] Address: [address] [place] [address] Performed By: #### 1 9123-9, 81450-6, 2777 ####[facility] [id number] [address] [place] Phosphate SerPl-mCncon 02-11 Phosphate [Mass/Vol] 3.7 mg/dL Normal 2.7-4.8 [facility] Comment on above: Order Comment: Speci isa Type: BLOOD SPECIMENOrdering Facility: [facility] Address: [address] [place] [address] Performed By: #### 1 9123-9, 59771-9, 2777-1 ####[facility]ATORYCLIA [id number] [place] [address] [place] Basic metabolic 2000 panelon 02-11-2024 Anion gap [Moles/Vol] 10 mmol/L Normal 8-15 [facility] Comment on above: Order Comment: Speci men Type: BLOOD SPECIMENOrdering Facility: [facility] Address: [address] [place] [address] Performed By: #### 2 4321-2, , 2776-03 ####[facility]ATORYCLIA [id number] [place] [address] [place] Calcium [Mass/Vol] 9.3 mg/dL Normal 8.5-10.2 [facility] Comment on above: Order Comment: Speci men Type: BLOOD SPECIMENOrdering Facility: [facility] Address: [address] [place] [address] Performed By: #### 2 4321-2, , 2776-03 ####[facility]ORYCLIA [id number] [place] [address] [place] Chloride [Moles/Vol] 100 mmol/L Normal 98-107 [facility] Comment on above: Order Comment: Speci men Type: BLOOD SPECIMENOrdering Facility: [facility] Address: [address] [place] [address] Performed By: #### 2 4321-2, , 2776-03 ####[facility]ORYCLIA [id number] [place] [address] [place] CO2 [Moles/Vol] 24 mmol/L Normal 22-30 [facility] Comment on above: Order Comment: Speci men Type: BLOOD SPECIMENOrdering Facility: [facility] Address: [address] [place] [address] Performed By: #### 2 4321-2, , 2776-03 ####[facility]ORYCLIA [id number] [place] [address] [place] Creatinine [Mass/Vol] 0.99 mg/dL Normal 0.73-1.22 [facility] Comment on above: Order Comment: Faye moss Type: BLOOD SPECIMENOrdering Facility: [facility] Address: [address] [place] [address] Performed By: #### 2 4321-2, , 2776-03 ####[facility]ORYCLIA [id number] [address] [place] Creatinine and Glomerular filtration rate.predicted panel (S/P/Bld) 85 mL/min/1.73m??? Normal >=60 [facility] Comment on above: Order Comment: Faye moss Type: BLOOD SPECIMENOrdering Facility: [facility] Address: [address] [place] [address] Result Comment: Nya mated Glomerular Filtration Rate (eGFR) is calculated using the 2020 CKD-EPI creatinine equation. This equation utilizes serum creatinine, sex, and age as parameters. The creatinine assay has traceable calibration to isotope dilution-mass spectrometry. Refer to KDIGO guidelines for clinical interpretation. In patients with unstable renal function, e.g. those with acute kidney injury, the eGFR may not accurately reflect actual GFR. Performed By: #### 2 4321-2, , 2776-03 ####[facility]ORYCLIA [id number] [place] [address] [place] Glucose [Mass/Vol] 110 mg/dL High 74-99 [facility] Comment on above: Order Comment: Faye moss Type: BLOOD SPECIMENOrdering Facility: [facility] Address: [address] [place] [address] Result Comment: The [place] Diabetes Association (ADA) provides guidance for cutoff values for fasting glucose and random glucose. The ADA defines fasting as no caloric intake for at least 8 hours. Fasting plasma glucose results between 100 to 125 mg/dL indicate increased risk for diabetes (prediabetes). Fasting plasma glucose results greater than or equal to 126 mg/dL meet the criteria for diagnosis of diabetes. In the absence of unequivocal hyperglycemia, results should be confirmed by repeat testing. In a patient with classic symptoms of hyperglycemia or hyperglycemic crisis, random plasma glucose results greater than or equal to 200 mg/dL meet the criteria for diagnosis of diabetes. Reference: Standards of Medical Care in Diabetes 2016, [place] [employer] Association. Diabetes Care. 2016.39(Suppl 1). Performed By: #### 2 4321-2, , 2776- ####[facility]ORYCLIA [id number] [place] [address] [place] Potassium [Moles/Vol] 3.9 mmol/L Normal 3.7-5.1 [facility] Comment on above: Order Comment: Speci men Type: BLOOD SPECIMENOrdering Facility: [facility] Address: [address] [place] [address] Performed By: #### 2 4321-2, , 2776-03 ####[facility]ORYCLIA [id number] [address] [place] Sodium [Moles/Vol] 134 mmol/L Low 136-144 [facility] Comment on above: Order Comment: Speci men Type: BLOOD SPECIMENOrdering Facility: [facility] Address: [address] [place] [address] Performed By: #### 2 4321-2, , 2776-03 ####[facility]ORYCLIA [id number] [address] [place] Urea nitrogen [Mass/Vol] 12 mg/dL Normal 9-24 [facility] Comment on above: Order Comment: Speci men Type: BLOOD SPECIMENOrdering Facility: [facility] Address: [address] [place] [address] Performed By: #### 2 4321-2, , 2776-03 ####[facility]ORYCLIA [id number] [address] [place] CBC panel Auto (Bld)on 02-10 Erythrocyte distribution width (RBC) [Ratio] 12.0 % Normal 11.5-15.0 [facility] Comment on above: Order Comment: Speci men Type: BLOOD SPECIMENOrdering Facility: [facility] Address: [address] [place] [address] Performed By: #### 5 8410-2 ####[facility]ORYCLIA [id number] [address] Hematocrit (Bld) [Volume fraction] 38.7 % Low 39.0-51.0 [facility] Comment on above: Order Comment: Speci men Type: BLOOD SPECIMENOrdering Facility: [facility] Address: [address] [place] [address] Performed By: #### 5 8410-2 ####[facility]ORYCLIA [id number] [address] OF THE [facility] Hemoglobin (Bld) [Mass/Vol] 13.1 g/dL Normal 13.0-17.0 [facility] Comment on above: Order Comment: Speci men Type: BLOOD SPECIMENOrdering Facility: [facility] Address: [address] [place] [address] Performed By: #### 5 8410-2 ####[facility]ORYCL[facility] [id number] [address] MCH (RBC) [Entitic mass] 31.6 pg Normal 26.0-34.0 [facility] Comment on above: Order Comment: Speci men Type: BLOOD SPECIMENOrdering Facility: [facility] Address: [address] [place] [address] Performed By: #### 5 8410-2 ####[facility]ATORYCLIA [id number] [address] [place] MCHC (RBC) [Mass/Vol] 33.9 g/dL Normal 30.5-36.0 [facility] Comment on above: Order Comment: Speci men Type: BLOOD SPECIMENOrdering Facility: [facility] Address: [address] [place] [address] Performed By: #### 5 8410-2 ####[facility]ATORYCLIA [id number] [address] MCV (RBC) [Entitic vol] 93.3 fL Normal 80.0-100.0 [facility] Comment on above: Order Comment: Speci men Type: BLOOD SPECIMENOrdering Facility: [facility] Address: [address] [place] [address] Performed By: #### 5 8410-2 ####[facility]ORYCLIA [id number] [address] [place] Nucleated RBC (Bld) [#/Vol] 10*3/uL Normal <0.01 [facility] Comment on above: Order Comment: Speci men Type: BLOOD SPECIMENOrdering Facility: [facility] Address: [address] [place] [address] Performed By: #### 5 8410-2 ####[facility]ATORYCLIA [id number] [address] [place] Platelet mean volume (Bld) [Entitic vol] 9.8 fL Normal 9.0-12.7 [facility] Comment on above: Order Comment: Speci men Type: BLOOD SPECIMENOrdering Facility: [facility] Address: [address] [place] [address] Performed By: #### 5 8410-2 ####[facility]ATORYCLIA [id number] [address] [place] Platelets (Bld) [#/Vol] 175 10*3/uL Normal 150-400 [facility] Comment on above: Order Comment: Speci men Type: BLOOD SPECIMENOrdering Facility: [facility] Address: [address] [place] [address] Performed By: #### 5 8410-2 ####[facility]ATORYCLIA [id number] [address] [place] RBC (Bld) [#/Vol] 4.15 10*6/uL Low 4.20-6.00 [facility] Comment on above: Order Comment: Speci men Type: BLOOD SPECIMENOrdering Facility: [facility] Address: [address] [place] [address] Performed By: #### 5 8410-2 ####[facility]ORYCLIA [id number] [address] [place] WBC (Bld) [#/Vol] 5.69 10*3/uL Normal 3.70-11.00 [facility] Comment on above: Order Comment: Speci men Type: BLOOD SPECIMENOrdering Facility: [facility] Address: [address] [place] [address] Performed By: #### 5 8410-2 ####[facility]ATORYCLIA [id number] [place] [address] [place] Magnesium SerPl-mCncon 02-10 Magnesium [Mass/Vol] 2.1 mg/dL Normal 1.7-2.3 [facility] Comment on above: Order Comment: Speci men Type: BLOOD SPECIMENOrdering Facility: [facility] Address: [address] [place] [address] Performed By: #### 2 4321-2, 33710-2, 277-1 ####[facility]ORYCL[facility] [id number] [address] Phosphate SerPl-mCncon 02-10 Phosphate [Mass/Vol] 3.5 mg/dL Normal 2.7-4.8 [facility] Comment on above: Order Comment: Speci men Type: BLOOD SPECIMENOrdering Facility: [facility] Address: [address] [place] [address] Performed By: #### 2 4321-2, 03462-7, 277-1 ####[facility]ORYCLIA [id number] [place] [address] [place] Sodium SerPl-sCncon 02-11-20 24 Sodium [Moles/Vol] 139 mmol/L Normal 136-144 [facility] Comment on above: Order Comment: Speci men Type: BLOOD SPECIMENOrdering Facility: [facility] Address: [address] [place] [address] Performed By: #### 2 951-2 ####[facility]ORYCLIA [id number] [place] [address] [place] THERAPY NTon 02-11-2024 THERAPY NT HNO ID: [id number] Author: LUIGI DAWSON OTR/L Service: Occupational Therapy Author Type: Occupational Therapist Type: Therapy (PT/OT/Speech/Resp) Filed: 02/11/2024 12:49 Note Text: OCCUPATIONAL THERAPY MISSED VISIT SERVICE DATE: 02/11/2024 SERVICE TIME: 1144 ROOM: [place] [address] Patient not seen due to Clinical Appropriateness (per PT pt back to baseline). No acute OT needs identified, will sign off. SIGNATURE: Luigi Dawson OTR/L PATIENT NAME: Glenroy Thornton DATE: February 11, 2024 TIME: 10:36 AM Normal [facility] THERAPY NT HNO ID: [id number] Author: HARJINDER FELIPE CCC-SINKER PULLER Service: Speech/Swallow Author Type: Speech Language Pathologist Type: Therapy (PT/OT/Speech/Resp) Filed: 02/11/2024 10:36 Note Text: SPEECH THERAPY MISSED VISIT SERVICE DATE: 02/11/2024 SERVICE TIME: 1035 ROOM: [place] [address] Patient not seen due to Clinical Appropriateness. Patient reported he is nearly back to baseline and declined evaluation at this time. No further skilled Speech Therapy indicated at this time. Please re-consult if change in patient status. SIGNATURE: Harjinder Felipe CCC-SINKER PULLER PATIENT NAME: Glenroy Thornton DATE: February 11, 2024 TIME: 10:35 AM Normal [facility] THERAPY NT HNO ID: [id number] Author: RADHA KRAFT, PT Service: Physical Therapy Author Type: Physical Therapist Type: Therapy (PT/OT/Speech/Resp) Filed: 02/11/2024 10:03 Note Text: Physical Therapy Evaluation Summary SERVICE DATE: 02/11/2024 SERVICE TIME: 926 to 0942 ROOM: [place] [address] PT 6 Clicks Score: 22 DISCHARGE RECOMMENDATIONS Home Recommended Discharge Equipment: No equipment needs anticipated ASSESSMENT Response to Therapy Interventions: Good Participation in Activities Pt appears back to baseline, no focal deficits. No further PT needs identified, will sign off. CURRENT HOSPITAL COURSE R MCA CVA, received TNK. 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 SUBJECTIVE Pt pleasant and agreeable to PT. THERAPY DIAGNOSIS Reduced mobility-other TREATMENT INTERVENTIONS Evaluation $ Evaluation-Moderate (92163) Billed Units: 1 unit Skilled Treatment Time (minutes): 15 TRAINING AND EDUCATION PROVIDED Benefits of In-Hospital Mobility, Discharge Planning, Role of Physical Therapy THERAPEUTIC SKILLS USED Cues for Sequencing/Proper Technique for Activity, Assessment of Tolerance Including Vitals Response to Activity FUNCTIONAL STATUS Bed Mobility Transfers Sit To Stand: Stand By Assistance Stand To Sit: Stand By Assistance Bed to Chair Gait Contact Guard Assistance, Additional Information mild increase in sway initially and with dynamic challenges, improves with further distance; HR up to 130s with ambulation, but asymptomatic Gait Device: None General Deviations/Observatio ns: Marian decreased, Lateral sway increased Gait Distance (feet): 250 Stairs ROM WFL STRENGTH WFL BALANCE Static Standing Balance: Good Dynamic Standing Balance: Fair PLAN PT Frequency: Discontinue Therapy Services Reasons Therapy Services Discontinued: No skilled needs SIGNATURE: Radha Kraft PT PATIENT NAME: Glenroy Thornton DATE: February 11, 2024 TIME: 10:03 AM Normal [facility] ALLIED HEALTHon 02-10-2024 ALLIED HEALTH HNO ID: [id number] Author: LUIGI GALLARDO Tech Service: ? Author Type: Rougher Helper Type: Allied Health Filed: 02/10/2024 08:28 Note Text: Radiology Service Progress Note PATIENT NAME: Glenroy Thornton DATE OF SERVICE: February 10, 2024 TIME: 8:27 AM PATIENT IDENTITY VERIFICATION COMPLETED USING TWO (2) IDENTIFIERS: Name and Date of confirmed by patient verbally and Name and Date of confirmed by identification band. FALL SCREENING: Has the patient had 2 falls in the last year or 1 fall with injury or currently using an Ambulatory Assistive Device (Walker, Cane, Wheelchair, Crutches, etc.)? Inpatient: Screened on floor PATIENT GENDER DATA: Male PATIENT RELEVANT IMPLANT DATA REVIEWED: Not Applicable PATIENT PRESENTS WITH AN IMPLANTABLE OR ATTACHED SHEET FOLDER: No RADIOLOGY DEPARTMENT: MR; Exam(s) Completed: Head: Routine Brain PERIPHERAL IV DATA: Not applicable SIGNED BY: Meri Ibarra February 10, 2024 8:27 AM Normal [facility] Basic metabolic 2000 panelon 02-10-2024 Anion gap [Moles/Vol] 12 mmol/L Normal 8-15 [facility] Comment on above: Order Comment: Speci men Type: BLOOD SPECIMENOrdering Facility: [facility] Address: [address] [place] [address] Performed By: #### 1 9123-9, 38353-6, 2776- ####[facility]ORYCLIA [id number] [place] [address] [place] Calcium [Mass/Vol] 9.1 mg/dL Normal 8.5-10.2 [facility] Comment on above: Order Comment: Speci men Type: BLOOD SPECIMENOrdering Facility: [facility] Address: [address] [place] [address] Performed By: #### 1 9123-9, 16739-8, 2776- ####[facility]ORYCLIA [id number] [place] [address] [place] Chloride [Moles/Vol] 105 mmol/L Normal 98-107 [facility] Comment on above: Order Comment: Speci men Type: BLOOD SPECIMENOrdering Facility: [facility] Address: [address] [place] [address] Performed By: #### 1 9123-9, 79346-5, 2776- ####[facility]ORYCLIA [id number] [place] [address] [place] CO2 [Moles/Vol] 24 mmol/L Normal 22-30 [facility] Comment on above: Order Comment: Speci men Type: BLOOD SPECIMENOrdering Facility: [facility] Address: [address] [place] [address] Performed By: #### 1 9123-9, 66608-2, 2776-1 ####[facility]ORYCLIA [id number] [place] [address] [place] Creatinine [Mass/Vol] 1.09 mg/dL Normal 0.73-1.22 [facility] Comment on above: Order Comment: Speci men Type: BLOOD SPECIMENOrdering Facility: [facility] Address: [address] [place] [address] Performed By: #### 1 9123-9, 80804-3, 2777-1 ####[facility]ORYCLIA [id number] [address] [place] Creatinine and Glomerular filtration rate.predicted panel (S/P/Bld) 76 mL/min/1.73m??? Normal >=60 [facility] Comment on above: Order Comment: Faye moss Type: BLOOD SPECIMENOrdering Facility: [facility] Address: [address] [place] [address] Result Comment: Nya mated Glomerular Filtration Rate (eGFR) is calculated using the 2020 CKD-EPI creatinine equation. This equation utilizes serum creatinine, sex, and age as parameters. The creatinine assay has traceable calibration to isotope dilution-mass spectrometry. Refer to KDIGO guidelines for clinical interpretation. In patients with unstable renal function, e.g. those with acute kidney injury, the eGFR may not accurately reflect actual GFR. Performed By: #### 1 9123-9, 10323-7, 2777-1 ####[facility]ORYCLIA [id number] [place] [address] [place] Glucose [Mass/Vol] 117 mg/dL High 74-99 [facility] Comment on above: Order Comment: Faye moss Type: BLOOD SPECIMENOrdering Facility: [facility] Address: [address] [place] [address] Result Comment: The [place] [employer] (ADA) provides guidance for cutoff values for fasting glucose and random glucose. The ADA defines fasting as no caloric intake for at least 8 hours. Fasting plasma glucose results between 100 to 125 mg/dL indicate increased risk for diabetes (prediabetes). Fasting plasma glucose results greater than or equal to 126 mg/dL meet the criteria for diagnosis of diabetes. In the absence of unequivocal hyperglycemia, results should be confirmed by repeat testing. In a patient with classic symptoms of hyperglycemia or hyperglycemic crisis, random plasma glucose results greater than or equal to 200 mg/dL meet the criteria for diagnosis of diabetes. Reference: Standards of Medical Care in Diabetes 2016, [place] [employer] Association. Diabetes Care. 2016.39(Suppl 1). Performed By: #### 1 9123-9, 45878-4, 2777- ####[facility]ORYCLIA [id number] [place] [address] [place] Potassium [Moles/Vol] 3.7 mmol/L Normal 3.7-5.1 [facility] Comment on above: Order Comment: Speci men Type: BLOOD SPECIMENOrdering Facility: [facility] Address: [address] [place] [address] Performed By: #### 1 9123-9, 57350-6, 277- ####[facility]ORYCLIA [id number] [address] STATES OF [facility] Sodium [Moles/Vol] 141 mmol/L Normal 136-144 [facility] Comment on above: Order Comment: Speci men Type: BLOOD SPECIMENOrdering Facility: [facility] Address: [address] [place] [address] Performed By: #### 1 9123-9, 77490-4, 2776-03 ####[facility]ORYCLIA [id number] [address] STATES OF [facility] Urea nitrogen [Mass/Vol] 19 mg/dL Normal 9-24 [facility] Comment on above: Order Comment: Speci men Type: BLOOD SPECIMENOrdering Facility: [facility] Address: [address] [place] [address] Performed By: #### 1 9123-9, 20295-8, 2776- ####[facility]ORYCLIA [id number] [address] [place] CBC panel Auto (Bld)on 02-09 Erythrocyte distribution width (RBC) [Ratio] 11.8 % Normal 11.5-15.0 [facility] Comment on above: Order Comment: Speci men Type: BLOOD SPECIMENOrdering Facility: [facility] Address: [address] [place] [address] Performed By: #### 5 8410-2 ####[facility]ATORYCLIA [id number] [address] OF [facility] Hematocrit (Bld) [Volume fraction] 35.2 % Low 39.0-51.0 [facility] Comment on above: Order Comment: Speci men Type: BLOOD SPECIMENOrdering Facility: [facility] Address: [address] [place] [address] Performed By: #### 5 8410-2 ####[facility]ORYCLIA [id number] [address] OF [facility] Hemoglobin (Bld) [Mass/Vol] 11.8 g/dL Low 13.0-17.0 [facility] Comment on above: Order Comment: Speci men Type: BLOOD SPECIMENOrdering Facility: [facility] Address: [address] [place] [address] Performed By: #### 5 8410-2 ####[facility]ORYCLIA [id number] [address] MCH (RBC) [Entitic mass] 31.6 pg Normal 26.0-34.0 [facility] Comment on above: Order Comment: Speci men Type: BLOOD SPECIMENOrdering Facility: [facility] Address: [address] [place] [address] Performed By: #### 5 8410-2 ####[facility]ORYCLIA [id number] [address] [place] MCHC (RBC) [Mass/Vol] 33.5 g/dL Normal 30.5-36.0 [facility] Comment on above: Order Comment: Speci men Type: BLOOD SPECIMENOrdering Facility: [facility] Address: [address] [place] [address] Performed By: #### 5 8410-2 ####[facility]ORYCLIA [id number] [address] MCV (RBC) [Entitic vol] 94.1 fL Normal 80.0-100.0 [facility] Comment on above: Order Comment: Speci men Type: BLOOD SPECIMENOrdering Facility: [facility] Address: [address] [place] [address] Performed By: #### 5 8410-2 ####[facility]ORYCLIA [id number] [address] [place] Nucleated RBC (Bld) [#/Vol] 10*3/uL Normal <0.01 [facility] Comment on above: Order Comment: Speci men Type: BLOOD SPECIMENOrdering Facility: [facility] Address: [address] [place] [address] Performed By: #### 5 8410-2 ####[facility]ORYCLIA [id number] [address] [place] Platelet mean volume (Bld) [Entitic vol] 9.9 fL Normal 9.0-12.7 [facility] Comment on above: Order Comment: Speci men Type: BLOOD SPECIMENOrdering Facility: [facility] Address: [address] [place] [address] Performed By: #### 5 8410-2 ####[facility]ORYCLIA [id number] [address] [place] Platelets (Bld) [#/Vol] 195 10*3/uL Normal 150-400 [facility] Comment on above: Order Comment: Speci men Type: BLOOD SPECIMENOrdering Facility: [facility] Address: [address] [place] [address] Performed By: #### 5 8410-2 ####[facility]ORYCLIA [id number] [address] [place] RBC (Bld) [#/Vol] 3.74 10*6/uL Low 4.20-6.00 [facility] Comment on above: Order Comment: Speci men Type: BLOOD SPECIMENOrdering Facility: [facility] Address: [address] [place] [address] Performed By: #### 5 8410-2 ####[facility]ORYCLIA [id number] [address] [place] WBC (Bld) [#/Vol] 6.73 10*3/uL Normal 3.70-11.00 [facility] Comment on above: Order Comment: Speci men Type: BLOOD SPECIMENOrdering Facility: [facility] Address: [address] [place] [id number] Performed By: #### 5 8410-2 ####[facility]ATORYCLIA [id number] [place] [address] [place] CNCOon 02-10-2024 CNCO Letter Text Normal [facility] CONSULTon 02-10-2024 CONSULT HNO ID: [id number] Author: BESSY DUENAS MD Service: Neurology General Author Type: Physician Type: Consults Filed: 02/10/2024 11:59 Note Text: NEURO STROKE INITIAL CONSULT SERVICE DATE: 02/10/2024 SERVICE TIME: 730 am REQUESTING PHYSICIAN: Juliane Alberts PCP: Ev Zeng MD REASON FOR STROKE EVALUATION: stroke Subjective HPI: 63 yo male with history of: HTN, HPL, hypothyroid. Transferred to [facility] from [facility]. LKW 02/08 @ 1830. Was eating dinner with (a nurse) and she noted that he had left facial weakness and dysarthria. There was also arm>leg weakness. He did not noticed arm or leg weakness but on testing he was unable to squeeze hand and he stumbled when they attempted to walk him to ambulance. CTH> no acute finding. CTA H/N showed Occlusion of the proximal right M2 insular branch. Evaluated by tele stroke. Given TNK 02/08 @ 2101. There was some delay due to need to control BP prior to drug administration. He denies any dizziness, vision changes, DANIEL. He denies previous stroke or TIA. His mother has history of TIA and strokes but in advanced age. He has no personal clotting history and there is no family history. He denies Afib. He takes daily asa 81 mg. Pre-admission Was patient on antithrombotic agent prior to admission: Antiplatelet Antiplatelet: Aspirin Was patient on lipid lowering agent prior to admission: Statin Pre-morbid mRS: Premorbid Modified Flagler Score: 0 - No symptoms at all PAST MEDICAL HISTORY Diagnosis Date Hyperlipemia Hypertension Hypothyroidism PAST SURGICAL HISTORY Procedure Laterality Date INGUINAL HERNIA REPAIR HX Social History Tobacco Use Smoking status: Never Vaping Use Vaping status: Never Used Substance Use Topics Alcohol use: Not Currently Drug use: Never FAMILY HISTORY Problem Relation Age of Onset Stroke Mother 80 - 89 in 90s other (tia) Mother Heart disease Father Heart disease Brother ALLERGIES No Known Allergies MEDICATION Pre-admission levothyroxine (SYNTHROID) 75 mcg tablet, Take 75 mcg by mouth daily before breakfast., Disp: , Rfl: metoprolol succinate ER (TOPROL XL) 100 mg, Take 100 mg by mouth once daily., Disp: , Rfl: atorvastatin (LIPITOR) 40 mg tablet, Take 40 mg by mouth once daily., Disp: , Rfl: losartan (COZAAR) 100 mg tablet, Take 100 mg by mouth once daily., Disp: , Rfl: hydroCHLOROthiazide 25 mg tablet, Take 25 mg by mouth once daily., Disp: , Rfl: aspirin (ASPIRIN CHILDRENS) 81 mg chewable tablet, Take 81 mg by mouth once daily., Disp: , Rfl: Current levothyroxine (SYNTHROID) 75 mcg tabletTake 75 mcg by mouth daily before breakfast.Disp: Rfl: metoprolol succinate ER (TOPROL XL) 100 mgTake 100 mg by mouth once daily.Disp: Rfl: atorvastatin (LIPITOR) 40 mg tabletTake 40 mg by mouth once daily.Disp: Rfl: losartan (COZAAR) 100 mg tabletTake 100 mg by mouth once daily.Disp: Rfl: hydroCHLOROthiazide 25 mg tabletTake 25 mg by mouth once daily.Disp: Rfl: aspirin (ASPIRIN CHILDRENS) 81 mg chewable tabletTake 81 mg by mouth once daily.Disp: Rfl: REVIEW OF SYSTEMS The following systems were reviewed with the patient, and are unremarkable other than as described below. SYSTEMIC: No fever, chills, or change in weight or appetite HEENT: No recent change in vision or hearing. GI: No recent nausea, vomiting or diarrhea. : No recent hematuria or dysuria. SKIN: No recent itching or eruption. PSYCH: No recent active anxiety or depression. HEMATOLOGY/ONCOLOGY: No recent diagnosis of bleeding or cancer. ENDOCRINE: No recent diagnosis of DM or thyroid disease. RHEUMATOLOGY: No recent active connective tissue disease. Objective PHYSICAL EXAM Vital Signs: BP 163/83 Pulse 89 Temp 36.4 ?C (97.5 ?F) (Temporal) Resp 13 Ht 182.9 cm (6') Wt 86.5 kg (190 lb 11.2 oz) SpO2 98% BMI 25.86 kg/m? NEUROLOGICAL: LOC: 0 - alert and responsive 0 LOC Questions: 0 - both correct 0 LOC Commands: 0 - both correct 0 Best Gaze: 0 - normal gaze 0 Visual: 0 - no visual loss 0 Facial Palsy: 0 - normal 0 Motor Left Arm: 0 - no drift 0 Motor Right Arm: 0 - no drift 0 Motor Left Le - no drift 0 Motor Right Le - no drift 0 Limb Ataxia: 0 - no ataxia (or aphasic, hemiplegic) 0 Sensory: 0 - normal 0 Best Language: 0 - normal 0 Dysarthria: 0 - normal 0 Extinction and Inattention: 0 - normal, none detected (or visual loss alone) 0 Initial NIHSS Score: 0 (02/10/24 0700 : Bessy Duenas MD) 0 DATA: Diagnostic tests reviewed for today's visit: Lipids, HbA1c, Recent Labs 02/09/24 2344 CHOL 167 HDL 47 LDL 70 TG 250* Most recent labs and imaging results. STROKE CARE PATH [facility] [employer] Initial NIHSS Score: 0 Date Patient Last Known Well: 02/09/24 Time Patient Last Known Well: 1830 Date of Patient Arrival at THIS Facility: 02/09/24 Time of Patient Arrival at THIS Facility: 2306 IV Thrombolysis Details Date IV Thrombolysi (more content not included)... Normal [facility] CT BRAIN WO IVCONon 02-10-20 CT BRAIN WO IVCON * * *Final Report* * * DATE OF EXAM: Feb 10 2024 8:59PM [facility] 0504 - CT BRAIN WO IVCON / PROCEDURE REASON: Stroke, follow up * * * * Physician Interpretation * * * * EXAMINATION: CT BRAIN WO IVCON CLINICAL HISTORY: Stroke, follow-up. 24 hours post thrombectomy or IV thrombolytic dose. TECHNIQUE: Serial axial images without IV contrast were obtained from the vertex to the foramen magnum. MQ: [id number] CT Radiation dose: Integrated Dose-Length Product (DLP) for this visit = 792 mGy*cm CT Dose Reduction Employed: [employer] COMPARISON: Brain MRI 02/10/2024, 8:26 AM. RESULT: Localizer images: Unremarkable. Post-operative change: None. Acute change: Small demarcated hypodense area in the right parietal lobe extending into the right posterior insula consistent with an evolving acute MCA territory infarct. Hemorrhage: No evidence of acute intracranial hemorrhage. ECASS hemorrhagic transformation score: Not Applicable Mass Lesion / Mass Effect: There is no evidence of an intracranial mass or extraaxial fluid collection. No significant mass effect. Chronic change: None apparent. Parenchyma: There is no significant volume loss. The brain parenchyma is otherwise within normal limits for age. Ventricles: The ventricles are within normal limits of size and configuration for age. Paranasal sinuses and skull base: The visualized paranasal sinuses are grossly clear. The skull base and imaged soft tissues are unremarkable. IMPRESSION: Evolving acute right MCA territory infarct. No acute intracranial hemorrhage or significant mass effect. Pcb Design Engineer: PSCB Transcribe Date/Time: Feb 10 2024 9:48P Dictated by : AC NGUYEN MD This examination was interpreted and the report reviewed and electronically signed by: AC NGUYEN MD on Feb 10 2024 9:52PM EST [id number] N Normal [facility] ECHOon 02-10-2024 Echocardiography Echocardiography Report: Transthoracic Echo [facility] Date of service: 02/10/2024 7:04:30 AM HOSPITAL Ordering physician: CARL SIN Indication: Stroke Technologist: Pete Dejesus [facility] Interpreting physician: Evaristo Richey MD PATIENT: Name: MR. GLENROY THORNTON : 1960 Age: 63 years Gender: M History of hypertension. Primary rhythm: sinus. Height: 182.90 cm BSA: 2.19 m Weight: 94.60 kg BMI: 28.3 kg/m Heart rate 85 bpm Blood pressure 162/76 mmHg Agitated saline was administered to rule out shunt. Color Doppler was utilized to interrogate the cardiac valves assessed and spectral Doppler was utilized to determine the flow velocities and pressure gradients reported in this exam. MEASUREMENTS: Value Indexed Normal Max aortic dimension 4.0 cm Ao < 3.8 Left atrial volume 100 ml (biplane A-L) 46 ml/m Bereket <= 34 LV ID (diastole) 4.7 cm (2D) 2.15 cm/m LV ID (systole) 2.9 cm (2D) 1.32 cm/m IVS, leaflet tips 1.1 cm (2D) Posterior wall thickness 0.9 cm (2D) Left ventricular mass 166 g (2D) 76 g/m LV stroke volume 63 ml (2D biplane) LV end diastolic volume 91 ml (2D biplane) 41.4 ml/m 34<=EDVi<75 LV end systolic volume 28 ml (2D biplane) 12.8 ml/m Ejection Fraction 69 % (2D biplane) EF > 52 FINDINGS: LEFT VENTRICLE The left ventricle is normal in size. There is no left ventricular hypertrophy. Left ventricular systolic function is normal globally. Indeterminate left ventricular diastolic function due to inconsistent or technically suboptimal data. Mitral annular lateral E/e': 5.7. Mitral annular septal E/e': 6.2. Wall Motion: All scored segments are normal. RIGHT VENTRICLE The right ventricle is normal in size. Right ventricular systolic function is normal. RV systolic tissue Doppler velocity is 20.0 cm/s. Tricuspid annular displacement is 2.4 cm. Estimated right ventricular systolic pressure is likely underestimated due to a weak or incomplete tricuspid regurgitation signal and is, at least, 35 mmHg consistent with normal pulmonary artery pressures. Estimated right atrial pressure is 3 mmHg based on IVC assessment. LEFT ATRIUM The left atrial cavity is moderately dilated. RIGHT ATRIUM The right atrial cavity is normal in size. Inferior Vena Cava: The inferior vena cava appears normal measuring 1.0 cm. The vessel decreases greater than 50 percent with inspiration. MITRAL VALVE The mitral valve leaflets are structurally normal. There is trace mitral valve regurgitation. The pressure half time is 74 msec. The peak mitral E/A ratio is 0.85. The average mitral E/e' ratio is 5.9. The mitral flow deceleration time is 256 msec. TRICUSPID VALVE The tricuspid valve leaflets are structurally normal. There is trace tricuspid valve regurgitation. AORTIC VALVE The aortic valve cusps are structurally normal. There is no aortic valve stenosis. There is no aortic valve regurgitation. Tricuspid aortic valve. PULMONIC VALVE The pulmonic valve cusps are structurally normal. There is trace pulmonic valve regurgitation. AORTA The visualized aorta is borderline dilated. Measurements - Sinus: 3.3 cm. Sinotubular junction 3.0 cm. Mid ascending aorta 4.0 cm. PULMONARY ARTERIES The pulmonary arteries are unseen or not interrogated. INTERATRIAL SEPTUM The interatrial septum is mobile. There is evidence of intracardiac shunting as detected by agitated saline contrast. PERICARDIUM There is no pericardial effusion. CONCLUSIONS: - Exam indication: Stroke - The left ventricle is normal in size. There is no left ventricular hypertrophy. Left ventricular systolic function is normal. EF = 69 5% (2D biplane) Indeterminate left ventricular diastolic function due to inconsistent or technically suboptimal data. - The right ventricle is normal in size. Right ventricular systolic function is normal. - There are no significant valvular abnormalities. - The visualized aorta is borderline dilated with a maximal dimension of 4.0 cm. - Agitated saline was administered to rule out shunt. There is evidence of intracardiac shunting as detected by agitated saline contrast. - The patient has not had a prior CC echocardiographic exam for comparison. * * * Final * * * [facility] Image : [id number] amicsSISUID Normal [facility] HISTORY PHYSICALon HISTORY PHYSICAL HNO ID: [id number] Author: CARL SIN APRN.SPORTS SPECIALIST Service: Neurology ICU Author Type: Nurse Practitioner Type: H&P Filed: 02/10/2024 00:22 Note Text: Attestation signed by Jose Mishra MD at 02/10/2024 12:07 PM ICU Progress Note (Staff Attestation) In brief, Glenroy Thornton is a 63 year old male with history of HTN, HLD, hypothyroidism who presented to the [facility] ED on 02/08. The patient was reportedly having dinner with his , and was noted to exhibit a left facial droop and dysarthria. He was also noted to exhibit arm weakness. He was noted to stumble when he attempted to ambulate to the ambulance, however, no trauma or fall was reported. On arrival to OSH, NIHSS documented at 0. CTH demonstrated no acute process. CTA head/neck demonstrated occlusion of R M2 insular branch. He was administered TNK at 2101 on 02/08. No EVT performed given NIHSS. He was transferred to [facility] for further management. Patient admitted by overnight team and my colleague and patient seen in AM. I have personally performed a face to face assessment of the patient and have reviewed the PA/COMPOUNDING ASSISTANT/Resident/Medic al Student note. Plan of care discussed with: ICU Team, Pharmacist, and consultants, provider, patient. 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 No acute intracranial hemorrhage. Remaining extracranial and intracranial vasculature is patent without high-grade stenosis or aneurysm. -MRI brain (02/09) IMPRESSION Small acute right MCA territory infarct. No hemorrhagic transformation. No significant mass effect. -CTH 24 hour after TNK or STAT for change in exam -High intensity statin -HbA1c, lipid panel -Start ASA 24 hours after TNK provided no hemorrhage -DAPT per stroke neurology input, following post-TNK protocol -PT/OT as indicated -Post-TNK precautions/protocol -Serial/close neurological monitoring CV -TTE pending -SBP <180 per post-TNK protocol -Resume home antihypertensives as able (per chart review, previously ordered Toprol XL, losartan, and HCTZ) -If no arrhythmia on telemetry, MYRNA and DC on Zio patch per stroke -Continuous telemetry and BP monitoring Pulmonary -SpO2 monitoring -Supplemental oxygen as indicated Renal -Trend I/O -Follow RFP/metabolic panel -Replete electrolytes as indicated GI -ADAT once patient passes swallow screen -Bowel regimen Endocrine -Resume home synthroid -POCT glucose as indicated -SSI if needed Heme -DVT US pending echo results -Trend CBC -SCDs ID -Trend temperature/WBC curve Disposition -Maintain in ICU for post-TNK period. Consider transfer out of ICU after that time if patient remains stable. Signature: Jose Mishra MD [facility] Date: 02/10/2024 Time: 8:28 AM SERVICE DATE: 02/10/2024 SERVICE TIME: 12: 05 AM NEUROLOGICAL INTENSIVE CARE UNIT HISTORY AND PHYSICAL (STROKE CARE PATH) REASON FOR STROKE EVALUATION: Left Sided Weakness REASON FOR NEUROLOGICAL ICU ADMISSION: ischemic stroke; post TNK monitoring Stroke Mechanism: METRICS: Initial NIHSS Score: 0 Beaumont Coma Scale Totals (Calculated): 15 Date Patient Last Known Well: 02/09/24 Time Patient Last Known Well: 1829 Date of Patient Arrival at THIS Facility: 02/09/24 Time of Patient Arrival at THIS Facility: 2306 Pre-admission: Was patient on antithrombotic agent prior to admission: Antiplatelet Antiplatelet: Aspirin Premorbid Modified Sasha Score: 0=0 - No symptoms at all Subjective HPI: 63 yo male with history of: HTN, HPL, hypothyroid. Transferred to [facility] from [facility]. LKW 02/08 @ 183. Was eating dinner with (a nurse) and she noted that he had left facial weakness and dysarthria. There was also arm>leg weakness. He did not noticed arm or leg weakness but on testing he was unable to squeeze hand and he stumbled when they attempted to walk him to ambulance. CTH> no acute finding. CTA H/N showed Occlusion of the proximal right M2 insular branch. Evaluated by tele stroke. Given TNK 02/08 @ 2101. There was some delay due to need to control BP prior to drug administration. He denies any dizziness, vision changes, DANIEL. He denies previous stroke or TIA. His mother has history of TIA and strokes but in advanced age. He has no personal clotting history and there is no family history. He denies Afib. He takes daily asa 81 mg. PAST MEDICAL HISTORY Diagnosis Date Hyperlipemia Hypertension Hypothyroidism PAST SURGICAL HISTORY Procedure Laterality Date INGUINAL HERNIA REPAIR HX FAMILY HISTORY Problem Relation Age of Onset Stroke Mother 80 - 89 (more content not included)... Normal [facility] MRI BRAIN WO IVCONon 02-09-2 024 MRI BRAIN WO IVCON * * *Final Report* * * DATE OF EXAM: Feb 10 2024 8:53AM [facility] 0294 - MRI BRAIN WO IVCON / PROCEDURE REASON: Stroke, follow up * * * * Physician Interpretation * * * * EXAMINATION: MRI BRAIN WO IVCON CLINICAL HISTORY: Stroke, follow up TECHNIQUE: Routine noncontrast MRI protocol including diffusion images. MQ: [id number] COMPARISON: CT head 02/09/2024 RESULT: Acute Change: Confluent cortical restricted diffusion with low ADC values in the right posterior insular cortex and parietal operculum, compatible with acute right MCA territory infarct Hemorrhage: Prior microhemorrhage in the right basal ganglia. Mass Lesion/ Mass Effect: No evidence of an intracranial mass or extra-axial fluid collection. No significant mass effect. Chronic Change: Scattered punctate foci of increased T2 and FLAIR signal are noted in the supratentorial white matter which is a nonspecific finding, but likely represents minimal chronic microvascular ischemia. Parenchyma: No significant volume loss for age. The brain parenchyma is otherwise within normal limits of signal intensity and morphology. Ventricles: Normal caliber and morphology. Skull Base: Hypothalamic and pituitary region are grossly normal. Craniocervical junction is normal. No significant marrow replacement process. Vasculature: Major intracranial arterial structures, and dural venous sinuses show typical flow void, suggesting patency by spin echo criteria. Other: The visualized paranasal sinuses and mastoid air cells are clear. The orbits and extracranial soft tissues are unremarkable. IMPRESSION: Small acute right MCA territory infarct. No hemorrhagic transformation. No significant mass effect. Pcb Design Engineer: [facility] Transcribe Date/Time: Feb 10 2024 9:06A Dictated by : AKANKSHA HACKETT MD This examination was interpreted and the report reviewed and electronically signed by: AKANKSHA HACKETT MD on Feb 10 2024 9:20AM EST [id number] N Normal [facility] Magnesium SerPl-mCncon 02-09 Magnesium [Mass/Vol] 2.2 mg/dL Normal 1.7-2.3 [facility] Comment on above: Order Comment: Speci men Type: BLOOD SPECIMENOrdering Facility: [facility] Address: [address] [place] [address] Performed By: #### 1 9123-9, 95025-7, 2777-1 ####[facility] [id number] [place] [address] [place] Phosphate SerPl-mCncon 02-09 Phosphate [Mass/Vol] 4.6 mg/dL Normal 2.7-4.8 [facility] Comment on above: Order Comment: Speci men Type: BLOOD SPECIMENOrdering Facility: [facility] Address: [facility] [place] [id number] Performed By: #### 1 9123-9, 20909-3, 2777-1 ####[facility]ORY[facility]IA [id number] [place] [address] [facility] THERAPY NTon 02-10-2024 THERAPY NT HNO ID: [id number] Author: RADHA KRAFT, PT Service: Physical Therapy Author Type: Physical Therapist Type: Therapy (PT/OT/Speech/Resp) Filed: 02/10/2024 08:29 Note Text: PHYSICAL THERAPY MISSED VISIT SERVICE DATE: 02/10/2024 SERVICE TIME: 825 ROOM: [place] [address] Patient not seen due to Clinical Appropriateness (TNK 02/08 @ 2100). Await 24 hours after TNK administration, will reattempt as able/appropriate. SIGNATURE: Radha Kraft, PT PATIENT NAME: Glenroy Thornton DATE: February 10, 2024 TIME: 8:27 AM Normal [facility] US DVT LOWER BILon US DVT LOWER GEORGE * * *Final Report* * * DATE OF EXAM: Feb 10 2024 7:01PM [place] 1005 - US DVT LOWER GEORGE / PROCEDURE REASON: Leg pain or tenderness * * * * Physician Interpretation * * * * EXAM: Bilateral lower extremity barth scale, color Doppler and spectral Doppler venous ultrasound. HISTORY: Leg pain or tenderness COMPARISON: None TECHNIQUE: Grayscale, color Doppler and spectral Doppler ultrasound of the bilateral lower extremity venous systems. Images were stored in a permanent archive. FINDINGS: RIGHT: Realtime grayscale, color and spectral Doppler sonography demonstrates no evidence of thrombus in the right external iliac, common femoral, femoral and popliteal veins. The studied veins below the knee are also patent and/or compressible. Augmentation of the spectral Doppler waveform suggests patency of the deep veins below the knee. LEFT: Realtime grayscale, color and spectral Doppler sonography demonstrates no evidence of thrombus in the left external iliac, common femoral, femoral and popliteal veins. The studied veins below the knee are also patent and/or compressible. Augmentation of the spectral Doppler waveform suggests patency of the deep veins below the knee. IMPRESSION: No sonographic evidence of deep venous thrombosis in either lower extremity. Pcb Design Engineer: DEN Transcribe Date/Time: Feb 11 2024 5:48A Dictated by : ZOLTAN INGRAM MD This examination was interpreted and the report reviewed and electronically signed by: ZOLTAN INGRAM MD on Feb 11 2024 5:50AM EST [id number] N Normal [facility] Basic metabolic 2000 panelon 02-09-2024 Anion gap [Moles/Vol] 7 mmol/L Normal 5-16 [facility] Comment on above: Order Comment: Speci men Type: BLOOD SPECIMEN [facility] Address: [address] [place] [address] Performed By: #### 2 4321-2, 23623-7, HSTROP #### [facility] CLIA [id number] [address] [place] [address] [place] Calcium [Mass/Vol] 10.2 mg/dL Normal 8.5-10.5 [facility] Comment on above: Order Comment: Speci men Type: BLOOD SPECIMEN [facility]: [facility] Address: [address] [place] [address] Performed By: #### 2 4321-2, 31578-9, HSTROP #### [facility] CLIA [id number] [address] [place] [address] [place] Chloride [Moles/Vol] 109 mmol/L High 98-107 [facility] Comment on above: Order Comment: Speci men Type: BLOOD SPECIMEN [facility] Address: [address] [place] [address] Performed By: #### 2 4321-2, 49888-9, HSTROP #### [facility] CLIA [id number] [address] [place] [address] [place] CO2 [Moles/Vol] 28 mmol/L Normal 21-32 [facility] Comment on above: Order Comment: Faye moss Type: BLOOD SPECIMEN [facility] Address: [address] [place] [address] Performed By: #### 2 4321-2, 13713-5, HSTROP #### [facility] CLIA [id number] [address] [place] [address] [place] Creatinine [Mass/Vol] 1.12 mg/dL Normal 0.50-1.40 [facility] Comment on above: Order Comment: Speci men Type: BLOOD SPECIMEN [facility] Address: [address] [place] [address] Result Comment: Viktoria ents receiving either N-Acetylcysteine (NAC) or Metamizole prior to venipuncture, may have falsely depressed results. Performed By: #### 2 4321-2, 82599-1, HSTROP #### [facility] CLIA [id number] [address] [place] [address] [place] Creatinine and Glomerular filtration rate.predicted panel (S/P/Bld) 73 mL/min/1.73m??? Normal >=60 [facility] Comment on above: Order Comment: Faye moss Type: BLOOD SPECIMEN [facility] Address: [address] [place] [address] Result Comment: Nya mated Glomerular Filtration Rate (eGFR) is calculated using the 2020 CKD-EPI creatinine equation. This equation utilizes serum creatinine, sex, and age as parameters. The creatinine assay has traceable calibration to isotope dilution-mass spectrometry. Refer to KDIGO guidelines for clinical interpretation. In patients with unstable renal function, e.g. those with acute kidney injury, the eGFR may not accurately reflect actual GFR. Performed By: #### 2 4321-2, 18131-7, HSTROP #### [facility] CLIA [id number] [address] [place], [place] [id number] [place] Glucose [Mass/Vol] 131 mg/dL High 70-100 [facility] Comment on above: Order Comment: Faye moss Type: BLOOD SPECIMEN [facility] Address: [address] [place] [address] Result Comment: The [place] Diabetes Association (ADA) provides guidance for cutoff values for fasting glucose and random glucose. The ADA defines fasting as no caloric intake for at least 8 hours. Fasting plasma glucose results between 100 to 125 mg/dL indicate increased risk for diabetes (prediabetes). Fasting plasma glucose results greater than or equal to 126 mg/dL meet the criteria for diagnosis of diabetes. In the absence of unequivocal hyperglycemia, results should be confirmed by repeat testing. In a patient with classic symptoms of hyperglycemia or hyperglycemic crisis, random plasma glucose results greater than or equal to 200 mg/dL meet the criteria for diagnosis of diabetes. Reference: Standards of Medical Care in Diabetes 2016, [place] Diabetes Association. Diabetes Care. 2016.39(Suppl 1). Results may be falsely elevated after the administration of Sulfapyridine. Results may be falsely depressed after the administration of Sulfasalazine. Performed By: #### 2 4321-2, 67118-8, HSTROP #### [facility] CLIA [id number] [address] [place] [address] [place] Potassium [Moles/Vol] 3.2 mmol/L Low 3.5-5.1 [facility] Comment on above: Order Comment: Speci men Type: BLOOD SPECIMEN [facility] Address: [address] [place] [address] Performed By: #### 2 4321-2, 37046-3, HSTROP #### [facility] CLIA [id number] [address] [place] [address] [place] Sodium [Moles/Vol] 144 mmol/L Normal 136-145 [facility] Comment on above: Order Comment: Speci men Type: BLOOD SPECIMEN [facility] Address: [address] [place] [address] Performed By: #### 2 4321-2, 56414-9, HSTROP #### [facility] CLIA [id number] [address] [place] [address] [place] Urea nitrogen [Mass/Vol] 22 mg/dL Normal 7-26 [facility] Comment on above: Order Comment: Speci men Type: BLOOD SPECIMEN [facility] Address: [facility] [place] [address] Performed By: #### 2 4321-2, 08053-5, HSTROP #### [facility] CLIA [id number] [address] [place] [address] [place] CBC W Auto Differential pane l (Bld)on 02-09-2024 Basophils (Bld) [#/Vol] 0.07 10*3/uL Normal <0.11 [facility] Comment on above: Order Comment: Speci men Type: BLOOD SPECIMEN [facility] Address: [address] [place] [address] Performed By: #### 5 7021-8 #### [facility] CLIA [id number] [address] [place] [address] [place] Basophils/100 WBC (Bld) 1.1 % Normal [facility] Comment on above: Order Comment: Speci men Type: BLOOD SPECIMEN [facility] Address: [address] [place] [address] Performed By: #### 5 7021-8 #### [facility] CLIA [id number] [address] [place] [address] [place] Differential cell count method Nom (Bld) Auto Normal [facility] Comment on above: Order Comment: Speci men Type: BLOOD SPECIMEN [facility] Address: [address] [place] [address] Performed By: #### 5 7021-8 #### [facility] CLIA [id number] [address] [place] [address] [place] Eosinophils (Bld) [#/Vol] 0.13 10*3/uL Normal <0.46 [facility] Comment on above: Order Comment: Speci men Type: BLOOD SPECIMEN [facility] Address: [address] [place] [address] Performed By: #### 5 7021-8 #### [facility] CLIA [id number] [address] [place] [address] [place] Eosinophils/100 WBC (Bld) 2.1 % Normal [facility] Comment on above: Order Comment: Speci men Type: BLOOD SPECIMEN [facility] Address: [address] [place] [address] Performed By: #### 5 7021-8 #### [facility] CLIA [id number] [address] [place] [address] [place] Erythrocyte distribution width (RBC) [Ratio] 11.9 % Normal 11.5-15.0 [facility] Comment on above: Order Comment: Speci men Type: BLOOD SPECIMEN [facility] Address: [address] [place] [address] Performed By: #### 5 7021-8 #### [facility] CLIA [id number] [address] [place] [address] [place] Hematocrit (Bld) [Volume fraction] 39.1 % Normal 39.0-51.0 [facility] Comment on above: Order Comment: Speci men Type: BLOOD SPECIMEN [facility] Address: [address] [place] [address] Performed By: #### 5 7021-8 #### [facility] CLIA [id number] [address] [place] [address] [place] Hemoglobin (Bld) [Mass/Vol] 13.1 g/dL Normal 13.0-17.0 [facility] Comment on above: Order Comment: Speci men Type: BLOOD SPECIMEN [facility] Address: [address] [place] [address] Performed By: #### 5 7021-8 #### [facility] CLIA [id number] [address] [place] [address] [place] Immature granulocytes (Bld) [#/Vol] 0.03 10*3/uL Normal <0.10 [facility] Comment on above: Order Comment: Speci men Type: BLOOD SPECIMEN Ordering Facility: [facility] Address: [address] [place] [address] Performed By: #### 5 7021-8 #### [facility] CLIA [id number] [address] [place] [address] [place] Immature granulocytes/100 WBC (Bld) 0.5 % Normal [facility] Comment on above: Order Comment: Speci men Type: BLOOD SPECIMEN Ordering Facility: [facility] Address: [address] [place] [address] Performed By: #### 5 7021-8 #### [facility] CLIA [id number] [address] [place] [address] [place] Lymphocytes (Bld) [#/Vol] 1.85 10*3/uL Normal 1.00-4.00 [facility] Comment on above: Order Comment: Speci men Type: BLOOD SPECIMEN Ordering Facility: [facility] Address: [address] [place] [address] Performed By: #### 5 7021-8 #### [facility] CLIA [id number] [address] [place] [address] [place] Lymphocytes/100 WBC (Bld) 29.3 % Normal [facility] Comment on above: Order Comment: Speci men Type: BLOOD SPECIMEN Ordering Facility: [facility] Address: [address] [place] [address] Performed By: #### 5 7021-8 #### [facility] CLIA [id number] [address] [place] [address] [place] MCH (RBC) [Entitic mass] 30.8 pg Normal 26.0-34.0 [facility] Comment on above: Order Comment: Speci men Type: BLOOD SPECIMEN Ordering Facility: [facility] Address: [address] [place] [address] Performed By: #### 5 7021-8 #### [facility] CLIA [id number] [address] [place] [address] [place] MCHC (RBC) [Mass/Vol] 33.5 g/dL Normal 30.5-36.0 [facility] Comment on above: Order Comment: Speci men Type: BLOOD SPECIMEN Ordering Facility: [facility] Address: [address] [place] [address] Performed By: #### 5 7021-8 #### [facility] CLIA [id number] [address] [place] [address] [place] MCV (RBC) [Entitic vol] 92.0 fL Normal 80.0-100.0 [facility] Comment on above: Order Comment: Speci men Type: BLOOD SPECIMEN Ordering Facility: [facility] Address: [address] [place] [address] Performed By: #### 5 7021-8 #### [facility] CLIA [id number] [address] [place] [address] [place] Monocytes (Bld) [#/Vol] 0.51 10*3/uL Normal <0.87 [facility] Comment on above: Order Comment: Speci men Type: BLOOD SPECIMEN Ordering Facility: [facility] Address: [address] [place] [address] Performed By: #### 5 7021-8 #### [facility] CLIA [id number] [address] [place] [address] [place] Monocytes/100 WBC (Bld) 8.1 % Normal [facility] Comment on above: Order Comment: Speci men Type: BLOOD SPECIMEN Ordering Facility: [facility] Address: [address] [place] [address] Performed By: #### 5 7021-8 #### [facility] CLIA [id number] [address] [place] [address] [place] Neutrophils (Bld) [#/Vol] 3.72 10*3/uL Normal 1.45-7.50 [facility] Comment on above: Order Comment: Speci men Type: BLOOD SPECIMEN Ordering Facility: [facility] Address: [address] [place] [address] Performed By: #### 5 7021-8 #### [facility] CLIA [id number] [address] [place] [address] [place] Neutrophils/100 WBC (Bld) 58.9 % Normal [facility] Comment on above: Order Comment: Speci men Type: BLOOD SPECIMEN Ordering Facility: [facility] Address: [address] [place] [address] Performed By: #### 5 7021-8 #### [facility] CLIA [id number] [address] [place] [address] [place] Nucleated RBC (Bld) [#/Vol] 10*3/uL Normal <0.01 [facility] Comment on above: Order Comment: Speci men Type: BLOOD SPECIMEN Ordering Facility: [facility] Address: [address] [place] [address] Performed By: #### 5 7021-8 #### [facility] CLIA [id number] [address] [place] [address] [place] Nucleated RBC/100 WBC (Bld) [Ratio] 0.0 /100 WBC Normal [facility] Comment on above: Order Comment: Speci men Type: BLOOD SPECIMEN Ordering Facility: [facility] Address: [address] [place], [place] [address] Performed By: #### 5 7021-8 #### [facility] CLIA [id number] [address] [place] [address] [place] Platelet mean volume (Bld) [Entitic vol] 9.8 fL Normal 9.0-12.7 [facility] Comment on above: Order Comment: Speci men Type: BLOOD SPECIMEN Ordering Facility: [facility] Address: [address] [place] [address] Performed By: #### 5 7021-8 #### [facility] CLIA [id number] [address] [place] [address] [place] Platelets (Bld) [#/Vol] 231 10*3/uL Normal 150-400 [facility] Comment on above: Order Comment: Speci men Type: BLOOD SPECIMEN Ordering Facility: [facility] Address: [address] [place] [address] Performed By: #### 5 7021-8 #### [facility] CLIA [id number] [address] [place] [address] [place] RBC (Bld) [#/Vol] 4.25 10*6/uL Normal 4.20-6.00 [facility] Comment on above: Order Comment: Speci men Type: BLOOD SPECIMEN Ordering Facility: [facility] Address: [address] [place] [address] Performed By: #### 5 7021-8 #### [facility] CLIA [id number] [address] [place] [address] [facility] WBC (Bld) [#/Vol] 6.31 10*3/uL Normal 3.70-11.00 [facility] Comment on above: Order Comment: Speci men Type: BLOOD SPECIMEN Ordering Facility: [facility] Address: [address] [place] [address] Performed By: #### 5 7021-8 #### [facility] CLIA [id number] [address] [place], [place] [id number] [facility] CT BRAIN WO IVCONon 02-09-20 CT BRAIN WO IVCON * * *Final Report* * * DATE OF EXAM: Feb 09 2024 8:27PM [facility] 0504 - CT BRAIN WO IVCON / PROCEDURE REASON: Transient left sided weakness * * * * Physician Interpretation * * * * EXAMINATION: CTA NECK W IVCON, CT BRAIN WO IVCON, CTA HEAD W IVCON HISTORY: Left-sided weakness TECHNIQUE: Routine CT of the brain without IV contrast. Next, high resolution axial images were obtained through the head, neck and superior mediastinum following bolus administration of intravenous contrast for CT angiography. 3D maximum intensity projection images were created, reviewed and archived . MQ: CTABNPlus_4 Contrast: 85 mL Omnipaque [address] Radiation dose: Integrated Dose-Length Product (DLP) for this visit = 1311.83 mGy*cm. CT Dose Reduction Employed: Automated exposure control(AEC) and iterative recon COMPARISON: None. RESULT: BRAIN: Acute change: No evidence of an acute territorial infarct. Hemorrhage: No evidence of acute intracranial hemorrhage. Mass Lesion / Mass Effect: There is no evidence of an intracranial mass or extra-axial fluid collection. No significant mass effect. Chronic change: Scattered patchy foci of low attenuation are present within white matter which is a nonspecific finding but likely represents mild microvascular ischemia. Parenchyma: There is no significant volume loss. Ventricles: The ventricles are within normal limits of size and configuration for age. Other: The visualized paranasal sinuses are grossly clear. The skull and visualized extracranial soft tissues are grossly normal. NECK: Soft tissues: Right thyroid nodule measures 16 mm in diameter. The soft tissue planes are maintained throughout. No evidence of a soft tissue mass in the neck or superior mediastinum. No significant lymphadenopathy is seen. Spine: Alignment is normal. Mild degenerative changes are present. Lung apices: The visualized lung apices are clear. CT ARTERIOGRAM: Extracranial Circulation: Aortic Arch: There is a normal branching pattern from the aortic arch. There is no significant stenosis in the proximal brachiocephalic vessels. Carotid Stenosis: Right Common: No significant stenosis. Right Internal Carotid Plaque: No significant plaque formation. Right Internal Carotid Stenosis (% by NASCET Criteria): 0% Left Common: No significant stenosis. Left Internal Carotid Plaque: No significant plaque formation. 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 Bilateral intracranial ICAs, proximal left MCA and bilateral ACAs are patent without high-grade grade stenosis or aneurysm. Vertebrobasilar Circulation: Bilateral intracranial vertebral arteries, basilar artery and proximal box annealer are patent without high-grade stenosis or aneurysm. 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 Dural venous sinuses are patent. Maintenance Inspector (topogram) images: No additional findings. 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 No acute intracranial hemorrhage. Remaining extracranial and intracranial vasculature is patent without high-grade stenosis or aneurysm. Arterial blood flow was measured to detect acute large vessel occlusion by computer aided detection software: Not Performed. Concordance between software and imaging review: Not Applicable. COMMUNICATION: Communicated with SREE HAYWOOD on 02/09/2024 8:40 PM via verbal communication. Right thyroid nodule. ACTIONABLE RESULT: FOLLOW-UP Acuity: Actionable Findings: Endocrine (thyroid) Routing Code: EMI_1 Recommendation: US THYROID/PARATHYROID Time Frame: At the discretion of the clinical team. COMMUNICATION: Results will be communicated with the ordering provider via [employer] staff message or phone message by [facility] within 2 business days of report finalization. --END OF FINDING-- Pcb Design Engineer: DEN Transcribe Date/Time: Feb 09 2024 8:28P Dictated by : MARTHA CANTU MD This examination was interpreted and the report reviewed and electronically signed by: HUSSEIN MALLORY MD on Feb 09 2024 8:43PM EST [id number] ACTIONABLE Invalid Interpretation Code [facility] CTA HEAD W IVCONon CTA HEAD W IVCON * * *Final Report* * * DATE OF EXAM: Feb 09 2024 8:27PM [facility] 0022 - CTA HEAD W IVCON / PROCEDURE REASON: Transient left sided weakness * * * * Physician Interpretation * * * * EXAMINATION: CTA NECK W IVCON, CT BRAIN WO IVCON, CTA HEAD W IVCON HISTORY: Left-sided weakness TECHNIQUE: Routine CT of the brain without IV contrast. Next, high resolution axial images were obtained through the head, neck and superior mediastinum following bolus administration of intravenous contrast for CT angiography. 3D maximum intensity projection images were created, reviewed and archived . MQ: CTABNPlus_4 Contrast: 85 mL Omnipaque [address] Radiation dose: Integrated Dose-Length Product (DLP) for this visit = 1311.83 mGy*cm. CT Dose Reduction Employed: Automated exposure control(AEC) and iterative recon COMPARISON: None. RESULT: BRAIN: Acute change: No evidence of an acute territorial infarct. Hemorrhage: No evidence of acute intracranial hemorrhage. Mass Lesion / Mass Effect: There is no evidence of an intracranial mass or extra-axial fluid collection. No significant mass effect. Chronic change: Scattered patchy foci of low attenuation are present within white matter which is a nonspecific finding but likely represents mild microvascular ischemia. Parenchyma: There is no significant volume loss. Ventricles: The ventricles are within normal limits of size and configuration for age. Other: The visualized paranasal sinuses are grossly clear. The skull and visualized extracranial soft tissues are grossly normal. NECK: Soft tissues: Right thyroid nodule measures 16 mm in diameter. The soft tissue planes are maintained throughout. No evidence of a soft tissue mass in the neck or superior mediastinum. No significant lymphadenopathy is seen. Spine: Alignment is normal. Mild degenerative changes are present. Lung apices: The visualized lung apices are clear. CT ARTERIOGRAM: Extracranial Circulation: Aortic Arch: There is a normal branching pattern from the aortic arch. There is no significant stenosis in the proximal brachiocephalic vessels. Carotid Stenosis: Right Common: No significant stenosis. Right Internal Carotid Plaque: No significant plaque formation. Right Internal Carotid Stenosis (% by NASCET Criteria): 0% Left Common: No significant stenosis. Left Internal Carotid Plaque: No significant plaque formation. 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 Bilateral intracranial ICAs, proximal left MCA and bilateral ACAs are patent without high-grade grade stenosis or aneurysm. Vertebrobasilar Circulation: Bilateral intracranial vertebral arteries, basilar artery and proximal box annealer are patent without high-grade stenosis or aneurysm. 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 Dural venous sinuses are patent. Maintenance Inspector (topogram) images: No additional findings. 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 No acute intracranial hemorrhage. Remaining extracranial and intracranial vasculature is patent without high-grade stenosis or aneurysm. Arterial blood flow was measured to detect acute large vessel occlusion by computer aided detection software: Not Performed. Concordance between software and imaging review: Not Applicable. COMMUNICATION: Communicated with SREE HAYWOOD on 02/09/2024 8:40 PM via verbal communication. Right thyroid nodule. ACTIONABLE RESULT: FOLLOW-UP Acuity: Actionable Findings: Endocrine (thyroid) Routing Code: EMI_1 Recommendation: US THYROID/PARATHYROID Time Frame: At the discretion of the clinical team. COMMUNICATION: Results will be communicated with the ordering provider via [employer] staff message or phone message by [facility] within 2 business days of report finalization. --END OF FINDING-- Pcb Design Engineer: DEN Transcribe Date/Time: Feb 09 2024 8:28P Dictated by : MARTHA CANTU MD This examination was interpreted and the report reviewed and electronically signed by: HUSSEIN MALLORY MD on Feb 09 2024 8:43PM EST [id number] ACTIONABLE Invalid Interpretation Code [facility] CTA NECK W IVCONon CTA NECK W IVCON * * *Final Report* * * DATE OF EXAM: Feb 09 2024 8:27PM [facility] 0024 - CTA NECK W IVCON / PROCEDURE REASON: Transient left sided weakness * * * * Physician Interpretation * * * * EXAMINATION: CTA NECK W IVCON, CT BRAIN WO IVCON, CTA HEAD W IVCON HISTORY: Left-sided weakness TECHNIQUE: Routine CT of the brain without IV contrast. Next, high resolution axial images were obtained through the head, neck and superior mediastinum following bolus administration of intravenous contrast for CT angiography. 3D maximum intensity projection images were created, reviewed and archived . MQ: CTABNPlus_4 Contrast: 85 mL Omnipaque [address] Radiation dose: Integrated Dose-Length Product (DLP) for this visit = 1311.83 mGy*cm. CT Dose Reduction Employed: Automated exposure control(AEC) and iterative recon COMPARISON: None. RESULT: BRAIN: Acute change: No evidence of an acute territorial infarct. Hemorrhage: No evidence of acute intracranial hemorrhage. Mass Lesion / Mass Effect: There is no evidence of an intracranial mass or extra-axial fluid collection. No significant mass effect. Chronic change: Scattered patchy foci of low attenuation are present within white matter which is a nonspecific finding but likely represents mild microvascular ischemia. Parenchyma: There is no significant volume loss. Ventricles: The ventricles are within normal limits of size and configuration for age. Other: The visualized paranasal sinuses are grossly clear. The skull and visualized extracranial soft tissues are grossly normal. NECK: Soft tissues: Right thyroid nodule measures 16 mm in diameter. The soft tissue planes are maintained throughout. No evidence of a soft tissue mass in the neck or superior mediastinum. No significant lymphadenopathy is seen. Spine: Alignment is normal. Mild degenerative changes are present. Lung apices: The visualized lung apices are clear. CT ARTERIOGRAM: Extracranial Circulation: Aortic Arch: There is a normal branching pattern from the aortic arch. There is no significant stenosis in the proximal brachiocephalic vessels. Carotid Stenosis: Right Common: No significant stenosis. Right Internal Carotid Plaque: No significant plaque formation. Right Internal Carotid Stenosis (% by NASCET Criteria): 0% Left Common: No significant stenosis. Left Internal Carotid Plaque: No significant plaque formation. 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 Bilateral intracranial ICAs, proximal left MCA and bilateral ACAs are patent without high-grade grade stenosis or aneurysm. Vertebrobasilar Circulation: Bilateral intracranial vertebral arteries, basilar artery and proximal box annealer are patent without high-grade stenosis or aneurysm. 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 Dural venous sinuses are patent. Maintenance Inspector (topogram) images: No additional findings. 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 No acute intracranial hemorrhage. Remaining extracranial and intracranial vasculature is patent without high-grade stenosis or aneurysm. Arterial blood flow was measured to detect acute large vessel occlusion by computer aided detection software: Not Performed. Concordance between software and imaging review: Not Applicable. COMMUNICATION: Communicated with SREE HAYWOOD on 02/09/2024 8:40 PM via verbal communication. Right thyroid nodule. ACTIONABLE RESULT: FOLLOW-UP Acuity: Actionable Findings: Endocrine (thyroid) Routing Code: EMI_1 Recommendation: US THYROID/PARATHYROID Time Frame: At the discretion of the clinical team. COMMUNICATION: Results will be communicated with the ordering provider via [employer] staff message or phone message by [facility] within 2 business days of report finalization. --END OF FINDING-- Pcb Design Engineer: DEN Transcribe Date/Time: Feb 09 2024 8:28P Dictated by : MARTHA CANTU MD This examination was interpreted and the report reviewed and electronically signed by: HUSSEIN MALLORY MD on Feb 09 2024 8:43PM EST [id number] ACTIONABLE Invalid Interpretation Code [facility] ECG COMPLETEon 02-09-2024 ECG COMPLETE Ventricular Rate : 9 4 BPM Atrial Rate : 94 BPM P-R Interval : 144 ms QRS Duration : 110 ms Q-T Interval : 364 ms QTC Calculation(Bazett) : 455 ms Calculated P Sula : 45 degrees Calculated R Sula : 55 degrees Calculated T Sula : -37 degrees Normal sinus rhythm Non-specific ST and T wave changes Abnormal ECG No previous ECGs available Confirmed by REINA SALAZAR MD ([id number]) on 02/10/2024 10:12:08 AM NAME : GLENROY THORNTON PID : [id number] : 1960 Gender : Male Race : ORD : [id number] Procedure Date : Feb 09 2024 19:35:55 Edit Date : Feb 10 2024 10:12:13 Diagnosis: Normal sinus rhythm Non-specific ST and T wave changes Abnormal ECG No previous ECGs available Confirmed by REINA SALAZAR MD ([id number]) on 02/10/2024 10:12:08 AM Test Reason : HCS Location : 0 : ED [id number] Overread By : REINA SALAZAR MD Edited By : REINA SALAZAR MD Referred By : , Acquired by : [id number], [facility] ED NOTEon 02-09-2024 ED NOTE HNO ID: [id number] Author: PELON YOST Tech Service: ? Author Type: Rougher Helper Type: ED Notes Filed: 02/09/2024 20:50 Note Text: Stroke care called at 2048 [facility] ED PROV NOTEon 02-09-2024 ED PROV NOTE HNO ID: [id number] Author: SREE HAYWOOD MD Service: Emergency Medicine Author Type: Physician Type: ED Provider Notes Filed: 02/09/2024 22:55 Note Text: ED Provider Note Patient Name: Glenroy Thornton : 1960 SERVICE DATE: 02/09/24 History Patient presents with: Potential Stroke Symptoms: Onset 1829, witnessed by left sided weakness, left arm droop, left leg droop, slurred speech. EMS sts noticed sx resolved 1913. Pts NIH is 0 on arrival to ED. Glenroy Thornton is a 63 year old male who presents with a chief complaint of left-sided weakness. The patient's past medical history is significant for hypothyroidism, hypertension, and hyperlipidemia. The patient has no reported significant surgical history. The patient's medications reviewed from the medication dispense history include atorvastatin, hydrochlorothiazide, levothyroxine, losartan, and metoprolol succinate. The patient's social history is significant for no tobacco, alcohol, or recreational drug use. The patient presents with reported left-sided weakness. The patient was at dinner with his when she noted that the patient is having trouble with speech as well as left-sided facial weakness. EMS reports that upon their assessment the patient had flaccid left-sided paralysis. The patient was transported to the hospital as a potential stroke alert. During transport EMS reports the patient's symptoms completely resolved. The patient denies any previous history of TIA or CVA. History provided by: Patient and medical records floor framer used: No PAST MEDICAL HISTORY Diagnosis Date Hyperlipemia Hypertension Hypothyroidism Thyroid disease History reviewed. No pertinent surgical history. No family history on file. Social History Tobacco Use Smoking status: Never Smokeless tobacco: Not on file Vaping Use Vaping status: Never Used Substance and Sexual Activity Alcohol use: Not Currently Drug use: Never Sexual activity: Not on file ALLERGIES No Known Allergies Review of Systems Review of Systems: Review of systems as per History of Present Illness. Physical Exam Vitals [02/09/24 1932] BP Pulse Temp Temp src Resp SpO2 Weight Height (!) 204/88 (!) 105 37.1 ?C (98.7 ?F) Oral 14 100 % 94.6 kg (208 lb 8.9 oz) 1.829 m (6') Physical Exam Physical Exam: Vital signs and nursing notes have been reviewed. General: The patient is well-developed, well-nourished, and in no acute distress. Head: The patient is normocephalic and atraumatic. Neck: The neck is supple with no JVD. There are no appreciable carotid bruits. Eyes: Ocular examination reveals the pupils to be equal, round, and reactive to light. Extraocular muscles are noted to be intact. Sclera are anicteric. Oropharynx: Examination of the oropharynx reveals mucous membranes to be moist with no erythema, exudates, or lesions. The uvula is midline. The airway is patent. Cardiovascular: Cardiovascular examination reveals a normal S1 and S2 with a regular rate and rhythm. There are no murmurs, gallops, or rubs. Pulmonary: Pulmonary examination reveals the breath sounds to be clear to auscultation bilaterally. There are no wheezes, rales, or rhonchi. Abdominal: Abdominal examination reveals the abdomen to be soft with positive bowel sounds. There is no guarding, rigidity, or rebound tenderness. This is a benign abdominal examination. Musculoskeletal: There is no cyanosis, clubbing, or edema of the extremities. There are no deformities of the extremities. Skin: The skin is warm and dry with no rashes or lesions. Neurologic: The patient is alert and oriented x3. Cranial nerves II through XII are grossly intact. There are no focal or lateralizing neurologic deficits appreciated. Diagnostic Testing ED Labs Ordered and Reviewed BASIC METABOLIC PANEL - Abnormal; Notable for the following components: Result Value Ref Range Glucose 131 (*) 70 - 100 mg/dL Potassium 3.2 (*) 3.5 - 5.1 mmol/L Chloride 109 (*) 98 - 107 mmol/L All other components within normal limits ACTIVATED PARTIAL THROMBOPLASTIN TIME - Normal Narrative: Unfractionated Heparin Therapeutic Ranges: Standard Heparin Nomogram: 53 to 78 seconds (anti-Xa level of 0.3 to 0.7 U/ml) Low Dose/ACS Nomogram: 49 to 67 seconds (anti-Xa level of 0.2 to 0.5 U/ml) Stroke Treatment Nomogram: 49 to 67 seconds (anti-Xa level of 0.2 to 0.5 U/ml) Note: The APTT therapeutic range has been determined for the current lot of laboratory APTT reagent in use throughout the [facility]. PROTHROMBIN TIME - Normal HEPATIC FUNCTION PNL - Normal HIGH SENSITIVITY TROPONIN I - Normal COMPLETE BLOOD COUNT AND DIFFERENTIAL GLUCOSE - ED(POC) 12-Lead EKG has been interpreted by myself and read as: Normal sinus rhythm Normal axis and intervals Diffuse nonspecific ST-T wave abnormalities EKG was compared to prior EKG: None available. Procedur (more content not included)... Normal [facility] HIGH SENSITIVITY TROPONIN Io n 02-09-2024 Tropinin I.cardiac panel High sensitivity method 2.8 pg/mL Normal 0.0-54.0 [facility] Comment on above: Order Comment: Ashvini isa Type: BLOOD SPECIMEN Ordering Facility: [facility] Address: [address] [place] [address] Performed By: #### 2 4321-2, 68634-7, HSTROP #### [facility] CLIA [id number] [address] [place] [address] [place] HbA1c (Bld)on 02-09-2024 Average glucose Estimated from glycated hemoglobin (Bld) [Mass/Vol] 108 mg/dL Normal [facility] Comment on above: Order Comment: Faye moss Type: BLOOD SPECIMENOrdering Facility: [facility] Address: [address] [place] [address] Result Comment: eAG: (Estimated average glucose) is a calculated value from HgbA1c and is pharmaceutical service representative of the average blood glucose level in the last 2-3 month period. Performed By: #### 5 5454-3 ####[facility] [id number] [place] [address] [place] HbA1c (Bld) [Mass fraction] 5.4 % Normal 4.3-5.6 [facility] Comment on above: Order Comment: Faye moss Type: BLOOD SPECIMENOrdering Facility: [facility] Address: [address] [place] [address] Result Comment: [facility] Diabetes Association guidelines indicate that patients with HgbA1c in the range 5.7-6.4% are at increased risk for development of diabetes, and intervention by lifestyle modification may be beneficial. HgbA1c greater or equal to 6.5% is considered diagnostic of diabetes. Performed By: #### 5 5454-3 ####[facility] [id number] [place] [address] [place] Hepatic function 2000 panelo n 02-09-2024 Albumin [Mass/Vol] 4.2 g/dL Normal 3.2-5.0 [facility] Comment on above: Order Comment: Faye moss Type: BLOOD SPECIMEN Ordering Facility: [facility] Address: [address] [place] [address] Performed By: #### 2 4321-2, 20443-5, HSTROP #### [facility] CLIA [id number] [address] [place] [address] [place] ALP [Catalytic activity/Vol] 68 U/L Normal 45-117 [facility] Comment on above: Order Comment: Faye moss Type: BLOOD SPECIMEN Ordering Facility: [facility] Address: [address] [place] [address] Performed By: #### 2 4321-2, 94199-6, HSTROP #### [facility] CLIA [id number] [address] [place] [address] [place] ALT [Catalytic activity/Vol] 32 U/L Normal 13-61 [facility] Comment on above: Order Comment: Faye moss Type: BLOOD SPECIMEN Ordering Facility: [facility] Address: [address] [place] [address] Result Comment: Resu lts may be falsely depressed after the administration of Sulfasalazine and/or Sulfapyridine. Performed By: #### 2 4321-2, 99281-9, HSTROP #### [facility] CLIA [id number] [address] [place] [address] [place] AST [Catalytic activity/Vol] 26 U/L Normal 8-34 [facility] Comment on above: Order Comment: Speci men Type: BLOOD SPECIMEN Ordering Facility: [facility] Address: [address] [place] [address] Result Comment: Resu lts may be falsely depressed after the administration of Sulfasalazine and/or Sulfapyridine. Performed By: #### 2 4321-2, 99168-3, HSTROP #### [facility] CLIA [id number] [address] [place] [address] [place] Bilirubin [Mass/Vol] 0.5 mg/dL Normal 0.2-1.0 [facility] Comment on above: Order Comment: Speci men Type: BLOOD SPECIMEN Ordering Facility: [facility] Address: [address] [place] [address] Performed By: #### 2 4321-2, 44566-4, HSTROP #### [facility] CLIA [id number] [address] [place] [address] [place] Bilirubin.conjugated [Mass/Vol] 0.1 mg/dL Normal 0.0-0.4 [facility] Comment on above: Order Comment: Speci men Type: BLOOD SPECIMEN Ordering Facility: [facility] Address: [address] [place] [address] Performed By: #### 2 4321-2, 10985-6, HSTROP #### [facility] CLIA [id number] [address] [place] [address] [place] Protein [Mass/Vol] 7.3 g/dL Normal 6.0-8.5 [facility] Comment on above: Order Comment: Speci men Type: BLOOD SPECIMEN Ordering Facility: [facility] Address: [address] [place] [address] Performed By: #### 2 4321-2, 55925-5, HSTROP #### [facility] CLIA [id number] [address] [place] [address] [place] [facility] [place] Lipid 1996 panelon 4 Cholesterol [Mass/Vol] 167 mg/dL Normal <200 [facility] Comment on above: Order Comment: Speci men Type: BLOOD SPECIMENOrdering Facility: [facility] Address: [address] [place] [address] Result Comment: <200 mg/dL, Desirable 200-239 mg/dL, Borderline high >239 mg/dL, High Performed By: #### 2 4331-1 ####[facility]IA [id number] [address] [place] Cholesterol in HDL [Mass/Vol] 47 mg/dL Normal >39 [facility] Comment on above: Order Comment: Speci men Type: BLOOD SPECIMENOrdering Facility: [facility] Address: [address] [place] [address] Result Comment: 40-5 9 mg/dL, Acceptable >59 mg/dL, High: Negative risk factor for coronary heart disease <40 mg/dL, Low: Positive risk factor for coronary heart disease Performed By: #### 2 4331-1 ####[facility]ORYCLIA [id number] [address] STATES [facility] Cholesterol in LDL [Mass/Vol] 70 mg/dL Normal <100 [facility] Comment on above: Order Comment: Speci men Type: BLOOD SPECIMENOrdering Facility: [facility] Address: [address] [place] [address] Result Comment: <100 mg/dL, Optimal 100-129 mg/dL, Near optimal/above optimal 130-159 mg/dL, Borderline high 160-189 mg/dL, High >189 mg/dL, Very high Secondary prevention optimal LDL Cholesterol levels are recommended to be < 70 mg/dL Performed By: #### 2 4331-1 ####[facility]ORYCLIA [id number] [place] [id number] [place] Cholesterol in LDL/Cholesterol in HDL [Mass ratio] 1.49 {ratio} Normal <2.54 [facility] Comment on above: Order Comment: Speci men Type: BLOOD SPECIMENOrdering Facility: [facility] Address: [address] [place] [address] Result Comment: John blank: 1. National Cholesterol Education Program ATP III Guideline At-A-Glance Quick Desk Reference: National Heart, Lung, and Blood [place]. National Institutes of Health. 2001: NIH Publication No. 01-3305. 2. An International Atherosclerosis Society position paper: global recommendations for the management of dyslipidemia: executive summary, Atherosclerosis. 2014: 232(2):410-413. Performed By: #### 2 4331-1 ####[facility]ORYCLIA [id number] [address] [place] Cholesterol in VLDL [Mass/Vol] 50 mg/dL High <30 [facility] Comment on above: Order Comment: Speci men Type: BLOOD SPECIMENOrdering Facility: [facility] Address: [address] [place] [address] Performed By: #### 2 4331-1 ####[facility]ORYCLIA [id number] [address] [place] Cholesterol non HDL [Mass/Vol] 120 mg/dL Normal <130 [facility] Comment on above: Order Comment: Ashvini men Type: BLOOD SPECIMENOrdering Facility: [facility] Address: [address] [place] [address] Result Comment: <130 mg/dL, Optimal 130-159 mg/dL, Near optimal/above optimal 160-189 mg/dL, Borderline high 190-219 mg/dL, High >219 mg/dL, Very high Secondary prevention optimal non HDL Cholesterol levels are recommended to be <100 mg/dL Performed By: #### 2 4331-1 ####[facility]ORYCLIA [id number] [address] [place] Cholesterol.total/Chol esterol in HDL [Mass ratio] 3.55 {ratio} Normal <5.10 [facility] Comment on above: Order Comment: Speci men Type: BLOOD SPECIMENOrdering Facility: [facility] Address: [address] [place] [address] Performed By: #### 2 4331-1 ####[facility]ORYCLIA [id number] [place] [id number] [place] [facility] FASTING TIME 4 hrs Normal [facility] Comment on above: Order Comment: Faye moss Type: BLOOD SPECIMENOrdering Facility: [facility] Address: [address] [place] [address] Performed By: #### 2 4331-1 ####[facility]ORYCLIA [id number] [place] [id number] [place] [facility] Triglyceride [Mass/Vol] 250 mg/dL High <150 [facility] Comment on above: Order Comment: Faye moss Type: BLOOD SPECIMENOrdering Facility: [facility] Address: [address] [place] [address] Result Comment: <150 mg/dL, Normal 150-199 mg/dL, Borderline high 200-499 mg/dL, High >499 mg/dL, Very high Performed By: #### 2 4331-1 ####[facility]ORYCLIA [id number] [address] [place] PT panel Coag (PPP)on 2023 INR Coag (PPP) [Relative time] 1.0 {INR} Normal 0.9-1.3 [facility] Comment on above: Order Comment: Faye moss Type: BLOOD SPECIMEN Ordering Facility: [facility] Address: [address] [place] [address] Result Comment: Melva min K Antagonist (VKA) Therapeutic Range: INR 2 to 3 (Target INR of 2.5) Note: For patients treated with VKA drugs, such as warfarin, the [place] [employer] 2012 Guideline recommends a therapeutic INR range of 2 to 3 (target INR of 2.5). This recommendation includes high-risk patients with antiphospholipid syndrome with previous arterial or venous thromboembolism, current-generation mechanical or bioprosthetic aortic heart valve replacement. Note: Patients with mechanical aortic valve replacement and additional risk factors for thromboembolic events (atrial fibrillation, previous thromboembolism, LV dysfunction, hypercoagulable conditions) or an older generation mechanical AVR (i.e., ball in-Cage) or any mechanical MVR should have a INR therapeutic range of 2.5 to 3.5 (target INR of 3). Nico GH, et al. Chest 2012, 141:7S-47S Lakeisha RA, et al. [facility] 2017, 70: 252-289 Performed By: #### 3 4528-0, 96981-7 #### [facility] CLIA [id number] [address] [place] [address] [place] PT Coag (PPP) [Time] 10.4 s Normal 9.7-13.0 [facility] Comment on above: Order Comment: Speci men Type: BLOOD SPECIMEN Ordering Facility: [facility] Address: [address] [place] [address] Performed By: #### 3 4528-0, 39156-7 #### [facility] CLIA [id number] [address] [place] [address] [place] [facility] STAPHYLOCOCCUS AUREUS AND MR SA SCREEN, PCR, NASALon 02-09-2024 S. aureus and MRSA panel RAGINI+probe (Nose) Not detected Normal Not Detected [facility] Comment on above: Order Comment: Speci men Type: SWABOrdering Facility: [facility] Address: [address] [place] [address] Performed By: #### S APCR ####[facility]ORYCLIA [id number] [place] [address] [place] [facility] aPTT PPPon 02-09-2024 aPTT Coag (PPP) [Time] 26.5 s Normal 23.0-32.4 [facility] Comment on above: Order Comment: Speci men Type: BLOOD SPECIMEN Order[facility] Facility[facility] Address: [address] [place] [address] Performed By: #### 3 4528-0, 14969-5 #### [facility] CLIA [id number] [address] [place], [place] [id number] [place] Basophil percentageOrdered B y: Gómez Yost on 07-18-2023 Basophil percentage 0 SEEN /hpf 0-5 [facility] Bilirubin Test strip Ql (U)O rdered By: Gómez Yost on 07-18-2023 Bilirubin Ql (U) Negative Negative [facility] Ketones Test strip Ql (U)Ord ered By: Gómez Yost on 07-18-2023 Ketones Ql (U) Negative Negative [facility] Mucus LM Ql (Urine sed)Order ed By: Gómez Yost on 07-18-2023 Mucus Ql (Urine sed) 0 SEEN /hpf [facility] Nitrite Test strip Ql (U)Ord ered By: Gómez Yost on 07-18-2023 Nitrite Ql (U) Negative Negative [facility] No Panel InformationOrdered By: Gómez Yost on 07-18-2023 Urine RBC 0 SEEN /hpf 0-5 [facility] Protein Test strip Ql (U)Ord ered By: Gómez Yost on 07-18-2023 Protein Ql (U) Negative Negative [facility] Serum or plasma thyroid stim ulating hormone (TSH) measurement (units/volume)Ordered By: Gómez Yost on 07-18-2023 TSH Qn 3.43 uIU/mL 0.358-3.74 [facility] Squamous epithelial cells de tection in urine sediment by light microscopyOrdered By: Gómez Yost on 07-18-2023 Epithelial cells.squamous LM Ql (Urine sed) 0 SEEN /hpf 0-5 [facility] Thyroid Stim Hormone (TSH)on 07-18-2023 TSH 3.43 uIU/mL Normal 0.358-3.74 [facility] Comment on above: Order Comment: UAC W ITH REFLEX TO URINE CULTURE Performed By: #### L 400.0001, L501.9520 #### [facility] [address] [place], [place], [id number] Urinalysis, Completeon 07-17 BACTERIA 0 SEEN Normal None Seen [facility] Comment on above: Order Comment: CLEAN CATCH Performed By: #### L 400.0001, L501.9520 #### [facility] [address] [place], [place], [id number] EPI,SQUAMOUS 0 SEEN Normal 0-5 [facility] Comment on above: Order Comment: CLEAN CATCH Performed By: #### L 400.0001, L501.9520 #### [facility] [address] [place], [address] Mucus Ql (Urine sed) 0 SEEN Normal [facility] Comment on above: Order Comment: CLEAN CATCH Performed By: #### L 400.0001, L501.9520 #### [facility] [address] [place], [address] RBC 0 SEEN Normal 0-5 [facility] Comment on above: Order Comment: CLEAN CATCH Performed By: #### L 400.0001, L501.9520 #### [facility] [address] [place], [address] WBC 0 SEEN Normal 0-5 [facility] Comment on above: Order Comment: CLEAN CATCH Performed By: #### L 400.0001, L501.9520 #### [facility] [address] [place], [address] Urine blood detectionOrdered By: Gómez Yost on 07-18-2023 RBC Ql (U) Negative Negative [facility] Urine clarityOrdered By: Andriy Yost on 07-18-2023 Clarity (U) Clear Clear [facility] Urine color determinationOrd ered By: Gómez Yost on 07-18-2023 Color (U) Yellow Yellow [facility] Urine glucose detectionOrder ed By: Gómez Yost on 07-18-2023 Glucose Ql (U) Normal mg/dl Normal [facility] Urine leukocyte esterase det ection by dipstickOrdered By: Gómez Yost on 07-18-2023 Leukocyte esterase Test strip Ql (U) Negative Negative [facility] Urine pHOrdered By: Gómez Yost on 07-18-2023 pH (U) 7.0 [pH] 5.0 - 8.0 [facility] Urine sediment bacteria coun t by microscopy (number/high power field)Ordered By: Gómez Yost on 07-18-2023 Bacteria LM.HPF (Urine sed) [#/Area] 0 /[HPF] None Seen [facility] Urine specific gravity measu rementOrdered By: Gómez Tripathiam on 07-18-2023 Specific gravity (U) [Rel density] 1.005 1.002-1.030 [facility] Urine urobilinogen measureme ntOrdered By: Gómez Priyank on 07-18-2023 Urobilinogen Ql (U) Normal mg/dl Normal [facility] Absolute lymphocyte countOrd ered By: Gómez Priyank on 04-23-2023 Lymphocytes Auto (Unsp spec) [#/Vol] 1.46 10*3/uL 0.83-4.51 [facility] Automated lymphocyte count a s percentage of total leukocytesOrdered By: Gómez Yost on 04-23-2023 Lymphocytes/100 WBC Auto (Unsp spec) 24.1 % 19-41 [facility] Basophil percentageOrdered B y: Gómez Priyank on 04-23-2023 Basophil percentage 0 SEEN /hpf 0-5 [facility] Basophils/100 WBC (Bld) 1.0 % 0-1 [facility] Bilirubin [Mass/Vol] 0.60 mg/dL 0.20-1.00 [facility] Comment on above: For patients on eltr ombopag therapy, use of Dimension [place] TBIL is not recommended. Chloride [Moles/Vol] 111 mmol/L 98-107 [facility] Cholesterol [Mass/Vol] 178 mg/dL <200 [facility] Comment on above: <200 mg/dL Desirable 200-240 mg/dL Borderline >240 mg/dL High Risk Eosinophils/100 WBC (Bld) 2.5 % 0-5 [facility] Glucose [Mass/Vol] 100 mg/dL 74-106 [facility] Comment on above: Fasting Glucose resu lt from 100 to 125 mg/dL suggests IMPAIRED HOMEOSTASIS per A.D.A. criteria. Hemoglobin (Bld) [Mass/Vol] 13.9 g/dL 13.0-16.5 [facility] Monocytes/100 WBC (Bld) 7.4 % 0-10 [facility] Neutrophils (Bld) [#/Vol] 3.9 10*3/uL 2.0-7.7 [facility] Neutrophils/100 WBC (Bld) 64.7 % 47-70 [facility] Potassium [Moles/Vol] 3.9 mmol/L 3.5-5.1 [facility] Protein [Mass/Vol] 7.3 g/dL 6.4-8.2 [facility] Sodium [Moles/Vol] 142 mmol/L 136-145 [facility] Triglyceride [Mass/Vol] 106 mg/dL <199 [facility] Comment on above: The drugs N-Acetylcy steine and Metamizole may falsely depress this assay.Serum Triglycerides Reference Interval Normal <150 mg/dL Borderline high 150 - 199 mg/dL High 200 - 499 mg/dL Very High > or = 500 mg/dL WBC (Bld) [#/Vol] 6.1 10*3/uL 4.4-11.0 [facility] Bilirubin Test strip Ql (U)O rdered By: Gómez Yost on 04-23-2023 Bilirubin Ql (U) Negative Negative [facility] Determination of erythrocyte mean corpuscular volume (MCV)Ordered By: Gómez Yost on 04-23-2023 MCV (RBC) [Entitic vol] 94.7 fL 80-94 [facility] Erythrocyte distribution wid th ratioOrdered By: Gómez Yost on 04-23-2023 Erythrocyte distribution width (RBC) [Ratio] 11.6 % 11.6-14.6 [facility] Erythrocyte distribution wid th standard deviationOrdered By: Gómez Yost on 04-23-2023 Erythrocyte distribution width (RBC) [Entitic vol] 40.1 fL 35.1-43.9 [facility] Hematocrit Auto (Bld) [Volum e fraction]Ordered By: Gómez Yost on 04-23-2023 Hematocrit (Bld) [Volume fraction] 43.0 % 40-54 [facility] Immature granulocytes/100 WB C Auto (Bld)Ordered By: Gómez Yost on 04-23-2023 Immature granulocytes/100 WBC (Bld) 0.300 % 0.0-0.9 [facility] Comment on above: IG% - Immature Granu locytes (promyelocytes, myelocytes and metamyelocytes) > 1% indicates that a LEFT SHIFT is Present. Ketones Test strip Ql (U)Ord ered By: Gómez Yost on 04-23-2023 Ketones Ql (U) 5 mg/dl Negative [facility] - Chemistry and C hemistry - challengeOrdered By: Gómez Yost on 04-23-2023 Albumin/Globulin [Mass ratio] 1.1 {ratio} 0.9-2.4 [facility] ALP [Catalytic activity/Vol] 52 U/L 45-117 [facility] ALT [Catalytic activity/Vol] 42 U/L 16-61 [facility] Cholesterol in HDL [Mass/Vol] 57 mg/dL >40 [facility] Comment on above: The drugs N-Acetylcy steine and Metamizole may falsely depress this assay. Reference Range HDL <40 mg/dL Low HDL Cholesterol HDL >or= 60 mg/dL High HDL Cholesterol Cholesterol in LDL [Mass/Vol] 100 mg/dL 0-130 [facility] CO2 [Moles/Vol] 26.0 mmol/L 21.0-32.0 [facility] Globulin (S) [Mass/Vol] 3.5 g/dL 2.2-4.2 [facility] Urea nitrogen/Creatinine [Mass ratio] 15.4 mg/mg 10-20 [facility] - Hematology and Cell countsOrdered By: Gómez Yost on 04-23-2023 MCH (RBC) [Entitic mass] 30.6 pg 27.0-32.0 [facility] MCHC (RBC) [Mass/Vol] 32.3 g/dL 32-36 [facility] Nucleated RBC/100 WBC (Bld) [Ratio] 0 % 0-5 [facility] Platelet mean volume (Bld) [Entitic vol] 10.0 fL 6.2-12.0 [facility] Platelets (Bld) [#/Vol] 247 10*3/uL 150-450 [facility] Mucus LM Ql (Urine sed)Order ed By: Gómez Yost on 04-23-2023 Mucus Ql (Urine sed) 0 SEEN /hpf [facility] Nitrite Test strip Ql (U)Ord ered By: Gómez Yost on 04-23-2023 Nitrite Ql (U) Negative Negative [facility] No Panel InformationOrdered By: Gómez Yost on 04-23-2023 Estimated GFR (MDRD) Amer 93 mL/min >60 [facility] Comment on above: GFR Calc Estimated GFR (MDRD) Non-Af Amer 77 mL/min >60 [facility] Comment on above: Non- GFR Calc Prostate Specific Antigen Screen 0.82 ng/mL 0.00-4.00 [facility] Comment on above: This test was perfor med using the TPSA assay method for the[employer] chemistry system. Values obtained with differentassay methods cannot be used interchangably.When changing PSA assays in the course of monitoring apatient, additional sequential testing should be carriedout to confirm baseline values. Urine Microalbumin/Creatinin e Ratio 5.1 mg/g CRE <30 [facility] Urine RBC 0 SEEN /hpf 0-5 [facility] Vitamin D 25-Hydroxy 55.1 ng/mL [facility] Comment on above: Vitamin D 25(OH) Sta tus Range Deficiency <20 ng/mL (50nmol/L) Insufficiency 20 - 30 ng/mL (50 - 75 nmol/L) Sufficiency 30 - 100 ng/mL (75 - 250 nmol/L) Toxicity >100 ng/mL (>250 nmol/L) VLDL Cholesterol 21 mg/dL 5-40 [facility] Protein Test strip Ql (U)Ord ered By: Gómez Yost on 04-23-2023 Protein Ql (U) 15 mg/dl Negative [facility] RBC Auto (Bld) [#/Vol]Ordere d By: Gómez Yost on 04-23-2023 RBC (Bld) [#/Vol] 4.54 10*6/uL 4.6-6.2 [facility] Serum or plasma calcium yfn urement (mass/volume)Ordered By: Gómez Yost on 04-23-2023 Calcium [Mass/Vol] 9.1 mg/dL 8.5-10.1 [facility] Serum or plasma creatinine m easurement (mass/volume)Ordered By: Gómez Yost on 04-23-2023 Creatinine [Mass/Vol] 1.04 mg/dL 0.70-1.30 [facility] Comment on above: The validity of the calculated GFR & GFRAA in patients over 70 years has not been determined. Clinical correlation is essential. Serum or plasma thyroid stim ulating hormone (TSH) measurement (units/volume)Ordered By: Gómez Yost on 04-23-2023 TSH Qn 6.80 uIU/mL 0.358-3.74 [facility] Serum or plasma urea nitroge n measurement (mass/volume)Ordered By: Gómez Yost on 04-23-2023 Urea nitrogen [Mass/Vol] 16 mg/dL 7-18 [facility] Squamous epithelial cells de tection in urine sediment by light microscopyOrdered By: Gómez Yost on 04-23-2023 Epithelial cells.squamous LM Ql (Urine sed) 0 SEEN /hpf 0-5 [facility] Thin prep Papanicolaou smear with manual screeningOrdered By: Gómez Yost on 04-23-2023 Thin prep Papanicolaou smear with manual screening 3.8 g/dL 3.2-5.0 [facility] Thin prep Papanicolaou smear with manual screening 20 U/L 15-37 [facility] Thin prep Papanicolaou smear with manual screening 5 5-15 [facility] Thin prep Papanicolaou smear with manual screening 14.4 mg/L NO RANGE EST. [facility] Thin prep Papanicolaou smear with manual screening 1.02 ng/dL 0.76-1.46 [facility] Urine blood detectionOrdered By: Gómez Yost on 04-23-2023 RBC Ql (U) 10 /ul Negative [facility] Urine clarityOrdered By: Andriy Yost on 04-23-2023 Clarity (U) Clear Clear [facility] Urine color determinationOrd ered By: Gómez Yost on 04-23-2023 Color (U) Yellow Yellow [facility] Urine creatinine measurement (mass/volume)Ordered By: Gómez Yost on 04-23-2023 Creatinine (U) [Mass/Vol] 281.00 mg/dL NO RANGE EST. [facility] Urine glucose detectionOrder ed By: Gómez Yost on 04-23-2023 Glucose Ql (U) Normal mg/dl Normal [facility] Urine leukocyte esterase det ection by dipstickOrdered By: Gómez Yost on 04-23-2023 Leukocyte esterase Test strip Ql (U) Negative Negative [facility] Urine pHOrdered By: Gómez Yost on 04-23-2023 pH (U) 6.0 [pH] 5.0 - 8.0 [facility] Urine sediment bacteria coun t by microscopy (number/high power field)Ordered By: Gómez Yost on 04-23-2023 Bacteria LM.HPF (Urine sed) [#/Area] 0 /[HPF] None Seen [facility] Urine specific gravity measu rementOrdered By: Gómez Yost on 04-23-2023 Specific gravity (U) [Rel density] 1.025 1.002-1.030 [facility] Urine urobilinogen measureme ntOrdered By: Gómez Yost on 04-23-2023 Urobilinogen Ql (U) Normal mg/dl Normal [facility] Basophil percentageon 2021 Chloride [Moles/Vol] 108 mmol/L 98-107 [facility] Work Phone: Glucose [Mass/Vol] 91 mg/dL 74-106 [facility] Work Phone: Potassium [Moles/Vol] 4.0 mmol/L 3.5-5.1 [facility] Work Phone: Sodium [Moles/Vol] 140 mmol/L 136-145 [facility] Work Phone: Bilirubin Test strip Ql (U)o n 02-19-2022 Bilirubin Ql (U) Negative Negative [facility] Work Phone: Ketones Test strip Ql (U)on 02-19-2022 Ketones Ql (U) Negative Negative [facility] Work Phone: Laboratory - Chemistry and C hemistry - challengeon 02-19-2022 CO2 [Moles/Vol] 28.0 mmol/L 21.0-32.0 [facility] Work Phone: Free T4 [Mass/Vol] 1.13 ng/dL 0.76-1.46 [facility] Work Phone: Urea nitrogen/Creatinine [Mass ratio] 13.8 mg/mg 10-20 [facility] Work Phone: Nitrite Test strip Ql (U)on 02-19-2022 Nitrite Ql (U) Negative Negative [facility] Work Phone: No Panel Informationon 02-19 Estimated GFR (MDRD) Amer 104 mL/min >60 [facility] Work Phone: Comment on above: GFR Calc Estimated GFR (MDRD) Non-Af Amer 86 mL/min >60 [facility] Work Phone: Comment on above: Non- GFR Calc Thyroid Stimulating Hormone (TSH) 3.88 uIU/mL 0.358-3.74 [facility] Work Phone: Urine Microalbumin/Creatinin e Ratio TNP [facility] Work Phone: Comment on above: Test not performed Protein Test strip Ql (U)on 02-19-2022 Protein Ql (U) Negative Negative [facility] Work Phone: Serum or plasma calcium yfn urement (mass/volume)on 02-19-2022 Calcium [Mass/Vol] 9.4 mg/dL 8.5-10.1 [facility] Work Phone: Serum or plasma creatinine m easurement (mass/volume)on 02-19-2022 Creatinine [Mass/Vol] 0.94 mg/dL 0.70-1.30 [facility] Work Phone: Comment on above: The validity of the calculated GFR & GFRAA in patients over 70 years has not been determined. Clinical correlation is essential. Serum or plasma urea nitroge n measurement (mass/volume)on 02-19-2022 Urea nitrogen [Mass/Vol] 13 mg/dL 7-18 [facility] Work Phone: Thin prep Papanicolaou smear with manual screeningon 02-19-2022 Thin prep Papanicolaou smear with manual screening 4 5-15 [facility] Work Phone: Thin prep Papanicolaou smear with manual screening < 5.0 mg/L NO RANGE EST. [facility] Work Phone: Urine blood detectionon RBC Ql (U) Negative Negative [facility] Work Phone: Urine clarityon 02-19-2022 Clarity (U) Clear Clear [facility] Work Phone: Urine color determinationon 02-19-2022 Color (U) Straw Yellow [facility] Work Phone: Urine creatinine measurement (mass/volume)on 02-19-2022 Creatinine (U) [Mass/Vol] 13.80 mg/dL NO RANGE EST. [facility] Work Phone: Urine glucose detectionon Glucose Ql (U) Normal mg/dl Normal [facility] Work Phone: Urine leukocyte esterase det ection by dipstickon 02-19-2022 Leukocyte esterase Test strip Ql (U) Negative Negative [facility] Work Phone: Urine pHon 02-19-2022 pH (U) 7.0 [pH] 5.0 - 8.0 [facility] Work Phone: Urine specific gravity measu rementon 02-19-2022 Specific gravity (U) [Rel density] 1.005 1.002-1.030 [facility] Work Phone: Urobilinogen Auto test strip Ql (U)on 02-19-2022 Urobilinogen Ql (U) Normal mg/dl Normal [facility] Work Phone: HgA1C , Office ([id number])Ordere d By: Ivette Francis on 12-20-2021 HbA1c (Bld) [Mass fraction] 5.2 % Normal 4.6 - 7.1 [facility] Work Phone: URINALYSIS, W/ MICRO ([id number]) Ordered By: Finished Cloth Checker on 12-20-2021 Appearance (U) Clear Normal [facility]; [facility] Work Phone: Comment on above: PATIENT NOT FASTINGP ERFORMED BY: [facility] [id number] [facility] [id number] Bilirubin Ql (U) Negative Normal Comprehe ns[facility]; [facility] Work Phone: Comment on above: PATIENT NOT FASTINGP ERFORMED BY: CB [facility] [id number] [place] [id number] Color (U) Yellow Normal [facility]; [facility] Work Phone: Comment on above: PATIENT NOT FASTINGP ERFORMED BY: SILVIA [facility] [id number] [address]Dublin [place] [id number] Glucose Ql (U) Negative Normal [facility]; [facility] Work Phone: Comment on above: PATIENT NOT FASTINGP ERFORMED BY: SILVIA [facility] [id number] [address]Dublin [place] [id number] Hemoglobin Ql (U) Negative Normal Compreh [facility]; [facility] Work Phone: Comment on above: PATIENT NOT FASTINGP ERFORMED BY: SILVIA [facility] [id number] [address] [place] [id number] Ketones Ql (U) Negative Normal [facility]; [facility] Work Phone: Comment on above: PATIENT NOT FASTINGP ERFORMED BY: SILVIA [facility] [id number] [address]Dublin [place] [id number] Leukocyte esterase Test strip Ql (U) Negative Normal [facility]; [facility] Work Phone: Comment on above: PATIENT NOT FASTINGP ERFORMED BY: SILVIA [facility] [id number] [address]Dublin [place] [id number] Microscopic observation LM Nom (Urine sed) MICRON Normal [facility]; [facility] Work Phone: Comment on above: Microscopic follows if indicated. PATIENT NOT FASTINGP ERFORMED BY: CB [facility] [id number] [address]Dublin [place] [id number] Microscopic observation LM Nom (Urine sed) See below: Normal [facility]; [facility] Work Phone: Comment on above: Microscopic was rashid cated and was performed. PATIENT NOT FASTINGP ERFORMED BY: CB [facility] [id number] [address]Dublin [place] [id number] Nitrite Ql (U) Negative Normal [facility]; [facility] Work Phone: Comment on above: PATIENT NOT FASTINGP ERFORMED BY: SILVIA [id number] [facility] [id number] pH (U) 6.0 [pH] Normal 5.0-7.5 [facility]; [facility] Work Phone: Comment on above: PATIENT NOT FASTINGP ERFORMED BY: SILVIA [place] [id number] [facility] [id number] Protein Ql (U) Trace Normal [facility]; [facility] Work Phone: Comment on above: PATIENT NOT FASTINGP ERFORMED BY: SILVIA [place] [id number] [facility] [id number] Specific gravity (U) [Rel density] 1.024 1 Normal 1.005-1.030 [facility]; [facility] Work Phone: Comment on above: PATIENT NOT FASTINGP ERFORMED BY: SILVIA [place] [id number] [facility] [id number] Urobilinogen (U) [Mass/Vol] 0.2 mg/dL Normal 0.2-1.0 [facility]; [facility] Work Phone: Comment on above: PATIENT NOT FASTINGP ERFORMED BY: SILVIA [place] [id number] [facility] [id number] Absolute lymphocyte counton 12-14-2021 Lymphocytes Auto (Unsp spec) [#/Vol] 1.59 10*3/uL 0.83-4.51 [facility] Work Phone: Basophil percentageon 2021 Basophils/100 WBC (Bld) 0.9 % 0-1 [facility] Work Phone: Bilirubin [Mass/Vol] 0.70 mg/dL 0.20-1.00 [facility] Work Phone: Comment on above: For patients on eltr ombopag therapy, use of Dimension [place] TBIL is not recommended. Chloride [Moles/Vol] 107 mmol/L 98-107 [facility] Work Phone: Cholesterol [Mass/Vol] 171 mg/dL <200 [facility] Work Phone: Comment on above: <200 mg/dL Desirable 200-240 mg/dL Borderline >240 mg/dL High Risk Eosinophils/100 WBC (Bld) 2.3 % 0-5 [facility] Work Phone: Glucose [Mass/Vol] 110 mg/dL 74-106 [facility] Work Phone: Comment on above: Fasting Glucose resu lt from 100 to 125 mg/dL suggests IMPAIRED HOMEOSTASIS per A.D.A. criteria. Neutrophils (Bld) [#/Vol] 3.5 10*3/uL 2.0-7.7 [facility] Work Phone: Neutrophils/100 WBC (Bld) 61.3 % 47-70 [facility] Work Phone: Potassium [Moles/Vol] 3.9 mmol/L 3.5-5.1 [facility] Work Phone: Protein [Mass/Vol] 7.5 g/dL 6.4-8.2 [facility] Work Phone: Sodium [Moles/Vol] 142 mmol/L 136-145 [facility] Work Phone: Triglyceride [Mass/Vol] 124 mg/dL <199 [facility] Work Phone: Comment on above: The drugs N-Acetylcy steine and Metamizole may falsely depress this assay.Serum Triglycerides Reference Interval Normal <150 mg/dL Borderline high 150 - 199 mg/dL High 200 - 499 mg/dL Very High > or = 500 mg/dL WBC (Bld) [#/Vol] 5.8 10*3/uL 4.4-11.0 [facility] Work Phone: Bilirubin Test strip Ql (U)o n 12-14-2021 Bilirubin Ql (U) Negative Negative [facility] Work Phone: Blood erythrocytes count (nu mber/volume)on 12-14-2021 RBC (Bld) [#/Vol] 4.54 10*6/uL 4.6-6.2 [facility] Work Phone: Blood hemoglobin measurement (mass/volume)on 12-14-2021 Hemoglobin (Bld) [Mass/Vol] 14.1 g/dL 13.0-16.5 [facility] Work Phone: Blood lymphocytes/100 leukoc yteson 12-14-2021 Lymphocytes/100 WBC (Bld) 27.6 % 19-41 [facility] Work Phone: Blood monocytes/100 leukocyt eson 12-14-2021 Monocytes/100 WBC (Bld) 7.6 % 0-10 [facility] Work Phone: Blood platelet mean volumeon 12-14-2021 Platelet mean volume (Bld) [Entitic vol] 10.2 fL 6.2-12.0 [facility] Work Phone: Determination of erythrocyte mean corpuscular volume (MCV)on 12-14-2021 MCV (RBC) [Entitic vol] 93.2 fL 80-94 [facility] Work Phone: Hematocrit Auto (Bld) [Volum e fraction]on 12-14-2021 Hematocrit (Bld) [Volume fraction] 42.3 % 40-54 [facility] Work Phone: Ketones Test strip Ql (U)on 12-14-2021 Ketones Ql (U) 5 mg/dl Negative [facility] Work Phone: Laboratory - Chemistry and C hemistry - challengeon 12-14-2021 ALP [Catalytic activity/Vol] 82 U/L 45-117 [facility] Work Phone: ALT [Catalytic activity/Vol] 37 U/L 16-61 [facility] Work Phone: CO2 [Moles/Vol] 26.0 mmol/L 21.0-32.0 [facility] Work Phone: Free T4 [Mass/Vol] 1.09 ng/dL 0.76-1.46 [facility] Work Phone: Globulin (S) [Mass/Vol] 3.6 g/dL 2.2-4.2 [facility] Work Phone: Urea nitrogen/Creatinine [Mass ratio] 9.6 mg/mg 10-20 [facility] Work Phone: Laboratory - Hematology and Cell countson 12-14-2021 Erythrocyte distribution width (RBC) [Entitic vol] 39.5 fL 35.1-43.9 [facility] Work Phone: Erythrocyte distribution width (RBC) [Ratio] 11.7 % 11.6-14.6 [facility] Work Phone: Immature granulocytes/100 WBC (Bld) 0.300 % 0.0-0.9 [facility] Work Phone: Comment on above: IG% - Immature Granu locytes (promyelocytes, myelocytes and metamyelocytes) > 1% indicates that a LEFT SHIFT is Present. MCH (RBC) [Entitic mass] 31.1 pg 27.0-32.0 [facility] Work Phone: Nucleated RBC/100 WBC (Bld) [Ratio] 0 % 0-5 [facility] Work Phone: MCHC Auto (RBC) [Mass/Vol]on 12-14-2021 MCHC (RBC) [Mass/Vol] 33.3 g/dL 32-36 [facility] Work Phone: Nitrite Test strip Ql (U)on 12-14-2021 Nitrite Ql (U) Negative Negative [facility] Work Phone: No Panel Informationon 12-14 Estimated GFR (MDRD) Amer 84 mL/min >60 [facility] Work Phone: Comment on above: GFR Calc Estimated GFR (MDRD) Non-Af Amer 69 mL/min >60 [facility] Work Phone: Comment on above: Non- GFR Calc Free Triiodothyronine (T3) pg/dL 2.6 pg/mL 2.18-3.98 [facility] Work Phone: Prostate Specific Antigen Screen 0.68 ng/mL 0.00-4.00 [facility] Work Phone: Comment on above: This test was perfor med using the TPSA assay method for [employer] chemistry system. Values obtained with differentassay methods cannot be used interchangably.When changing PSA assays in the course of monitoring apatient, additional sequential testing should be carriedout to confirm baseline values. Thyroid Stimulating Hormone (TSH) 8.32 uIU/mL 0.358-3.74 [facility] Work Phone: Platelets bldon 12-14-2021 Platelets (Bld) [#/Vol] 290 10*3/uL 150-450 [facility] Work Phone: Protein Test strip Ql (U)on 12-14-2021 Protein Ql (U) 15 mg/dl Negative [facility] Work Phone: Serum or plasma albumin yfn urement (mass/volume)on 12-14-2021 Albumin [Mass/Vol] 3.9 g/dL 3.2-5.0 [facility] Work Phone: Serum or plasma albumin/glob ulin mass ratioon 12-14-2021 Albumin/Globulin [Mass ratio] 1.1 {ratio} 0.9-2.4 [facility] Work Phone: Serum or plasma calcium yfn urement (mass/volume)on 12-14-2021 Calcium [Mass/Vol] 9.1 mg/dL 8.5-10.1 [facility] Work Phone: Serum or plasma cholesterol in HDL measurement (mass/volume)on 12-14-2021 Cholesterol in HDL [Mass/Vol] 54 mg/dL >40 [facility] Work Phone: Comment on above: The drugs N-Acetylcy steine and Metamizole may falsely depress this assay. Reference Range HDL <40 mg/dL Low HDL Cholesterol HDL >or= 60 mg/dL High HDL Cholesterol Serum or plasma cholesterol in VLDL measurement (mass/volume)on 12-14-2021 Cholesterol in VLDL [Mass/Vol] 25 mg/dL 5-40 [facility] Work Phone: Serum or plasma creatinine m easurement (mass/volume)on 12-14-2021 Creatinine [Mass/Vol] 1.14 mg/dL 0.70-1.30 [facility] Work Phone: Comment on above: The validity of the calculated GFR & GFRAA in patients over 70 years has not been determined. Clinical correlation is essential. Serum or plasma low density lipoprotein (LDL) cholesterol measurement (mass/volume)on 12-14-2021 Cholesterol in LDL [Mass/Vol] 92 mg/dL 0-130 [facility] Work Phone: Serum or plasma urea nitroge n measurement (mass/volume)on 12-14-2021 Urea nitrogen [Mass/Vol] 11 mg/dL 7-18 [facility] Work Phone: Thin prep Papanicolaou smear with manual screeningon 12-14-2021 Thin prep Papanicolaou smear with manual screening 21 U/L 15-37 [facility] Work Phone: Thin prep Papanicolaou smear with manual screening 9 5-15 [facility] Work Phone: Urine blood detectionon 11-17 RBC Ql (U) 10 /ul Negative [facility] Work Phone: Urine clarityon 12-14-2021 Clarity (U) Sl. Cloudy Clear [facility] Work Phone: Urine color determinationon 12-14-2021 Color (U) Yellow Yellow [facility] Work Phone: Urine glucose detectionon Glucose Ql (U) Normal mg/dl Normal [facility] Work Phone: Urine leukocyte esterase det ection by dipstickon 12-14-2021 Leukocyte esterase Test strip Ql (U) 25 /ul Negative [facility] Work Phone: Urine pHon 12-14-2021 pH (U) 5.0 [pH] 5.0 - 8.0 [facility] Work Phone: Urine specific gravity measu rementon 12-14-2021 Specific gravity (U) [Rel density] 1.020 1.002-1.030 [facility] Work Phone: Urobilinogen Auto test strip Ql (U)on 12-14-2021 Urobilinogen Ql (U) Normal mg/dl Normal [facility] Work Phone: TSH (THYROID STIMULATING HOR SAIGE) ([id number])Ordered By: Finished Cloth Checker on 08-22-2021 TSH Qn 4.550 {uIU/mL} Abnormal 0.450-4.500 [facility]; [facility] Work Phone: Comment on above: PATIENT NOT FASTINGP ERFORMED BY: SIL[facility]IA [facility] [id number] TSH ([id number])Ordered By: Syste m Neurology Stroke Physician on 07-05-2021 TSH Qn 6.320 {uIU/mL} Abnormal 0.450-4.500 [facility]; [facility] Work Phone: Comment on above: PATIENT NOT FASTINGP ERFORMED BY: [facility]IL[facility]IA [facility] [id number] TSH (THYROID STIMULATING HOR SAIGE) ([id number])Ordered By: Finished Cloth Checker on 05-17-2021 TSH Qn 6.850 {uIU/mL} Abnormal 0.450-4.500 Comprehen [facility]; [facility] Work Phone: Comment on above: MAY 12, 2021; PATIEN T NOT FASTINGPERFORMED BY: SILVIA [facility] [id number] THROAT CULTURE ([id number])Ordere d By: Finished Cloth Checker on 01-23-2019 Bacteria identified Respiratory culture Nom (Unsp spec) RRF Normal [facility] Work Phone: Comment on above: Routine respiratory peña PATIENT NOT FASTINGP ERFORMED BY: SILVIA [facility] [id number] [facility] [id number] Information: SRC:TH Bacteria identified Respiratory culture Nom (Unsp spec) Final report Normal [facility] Work Phone: Comment on above: PATIENT NOT FASTINGP ERFORMED BY: [facility] [id number] [facility] [id number] Information: SRC:TH Blood Glucose , Office ([phone])Ordered By: Ev Zeng on 05-19-2012 Glucose Glucometer (BldC) [Moles/Vol] 113 1 Normal [facility] Work Phone: Comment on above: just had OJ. HgA1C , Office ([id number])Ordere d By: Seema Escalante on 05-14-2011 HbA1c (Bld) [Mass fraction] 5.7 % Normal 4.6 - 7.1 [facility] Work Phone: Vital Signs Date Time Vital Sign Value Performing Clinician Facility 07-13-2024 14:53-0400 Blood Pressure Cuff Size PETE SUNGSOHAIL DO [facility] 07-13-2024 14:53-0400 Blood Pressure Location PETE ALMARAZSOHAIL DO [facility] 07-13-2024 14:53-0400 Blood Pressure Method PETE ALMARAZSOHAIL DO [facility] 07-13-2024 14:53-0400 Body height 182.9 cm PETE SUNGSOHAIL DO [facility] 07-13-2024 14:53-0400 Body temperature 98.42 [degF] PETE ALMARAZSOHAIL DO [facility] 07-13-2024 14:53-0400 Body weight 84.1 kg PETE SUNGSOHAIL DO [facility] 07-13-2024 14:53-0400 Diastolic Blood Pressure Non-Invasive 89 mm[Hg] PETE ALMARAZKA DO [facility] 07-13-2024 14:53-0400 Heart rate 75 /min PETE ALMARAZKA DO [facility] 07-13-2024 14:53-0400 Respiratory rate 16 /min PETE COBB DO [facility] 07-13-2024 14:53-0400 Systolic Blood Pressure Non-Invasive 175 mm[Hg] PETE COBB DO [facility] 05-27-2024 13:20-0400 Body height 182.9 cm Rosamaria Hollaender LICENSED OCCUPATIONAL THERAPIST.SPORTS SPECIALIST Work Phone: [facility] 05-27-2024 13:20-0400 Body mass index (BMI) [Ratio] 26.31 kg/m2 Rosamaria Hollaender LICENSED OCCUPATIONAL THERAPIST.SPORTS SPECIALIST Work Phone: [facility] 05-27-2024 13:20-0400 Body weight 88 kg Rosamaria Hollaender LICENSED OCCUPATIONAL THERAPIST.SPORTS SPECIALIST Work Phone: [facility] 05-27-2024 13:20-0400 Diastolic blood pressure 72 mm[Hg] Rosamaria Hollaender LICENSED OCCUPATIONAL THERAPIST.SPORTS SPECIALIST Work Phone: [facility] 05-27-2024 13:20-0400 Heart rate 82 /min Rosamaria Hollaender LICENSED OCCUPATIONAL THERAPIST.SPORTS SPECIALIST Work Phone: [facility] 05-27-2024 13:20-0400 Systolic blood pressure 154 mm[Hg] Rosamaria Hollaender LICENSED OCCUPATIONAL THERAPIST.SPORTS SPECIALIST Work Phone: [facility] 05-20-2024 13:29-0500 Body mass index (BMI) [Ratio] 26.37 kg/m2 Delvin Gamez MD Work Phone: [facility] 05-20-2024 13:29-0500 Body weight 88.18 kg Delvin Gamez MD Work Phone: [facility] 05-20-2024 13:29-0500 Diastolic blood pressure 79 mm[Hg] Delvni Gamez MD Work Phone: [facility] 05-20-2024 13:29-0500 Heart rate 72 /min Delvin Gamez MD Work Phone: [facility] 05-20-2024 13:29-0500 SaO2% (BldA) [Mass fraction] 96 % Delvin Gamez MD Work Phone: [facility] 05-20-2024 13:29-0500 Systolic blood pressure 148 mm[Hg] Delvin Gamez MD Work Phone: [facility] 04-09-2024 13:00-0500 Diastolic blood pressure 81 mm[Hg] Delvin Gamez MD Work Phone: [facility] 04-09-2024 13:00-0500 Heart rate 65 /min Delvin Gamez MD Work Phone: [facility] 04-09-2024 13:00-0500 Respiratory rate 13 /min Delvin Gamez MD Work Phone: [facility] 04-09-2024 13:00-0500 SaO2% (BldA) [Mass fraction] 100 % Delvin Gamez MD Work Phone: [facility] 04-09-2024 13:00-0500 Systolic blood pressure 123 mm[Hg] Delvin Gamez MD Work Phone: [facility] 04-01-2024 12:57-0500 Body height 182.9 cm Delvin Gamez MD Work Phone: [facility] 04-01-2024 12:57-0500 Body mass index (BMI) [Ratio] 26.04 kg/m2 Delvin Gamez MD Work Phone: [facility] 04-01-2024 12:57-0500 Body weight 87.09 kg Delvin Gamez MD Work Phone: [facility] 04-01-2024 12:57-0500 Diastolic blood pressure 78 mm[Hg] Delvin Gamez MD Work Phone: [facility] 04-01-2024 12:57-0500 Heart rate 86 /min Delvin Gamez MD Work Phone: [facility] 04-01-2024 12:57-0500 Respiratory rate 18 /min Delvin Gamez MD Work Phone: [facility] 04-01-2024 12:57-0500 SaO2% (BldA) [Mass fraction] 99 % Delvin Gamez MD Work Phone: [facility] 04-01-2024 12:57-0500 Systolic blood pressure 148 mm[Hg] Delvin Gamez MD Work Phone: [facility] 02-24-2024 10:45-0500 Body mass index (BMI) [Ratio] 25.77 kg/m2 Rosamaria Hollaender LICENSED OCCUPATIONAL THERAPIST.SPORTS SPECIALIST Work Phone: [facility] 02-24-2024 10:45-0500 Body weight 86.18 kg Rosamaria Hollaender LICENSED OCCUPATIONAL THERAPIST.SPORTS SPECIALIST Work Phone: [facility] 02-24-2024 10:45-0500 Diastolic blood pressure 90 mm[Hg] Rosamaria Hollaender LICENSED OCCUPATIONAL THERAPIST.SPORTS SPECIALIST Work Phone: [facility] 02-24-2024 10:45-0500 Heart rate 57 /min Rosamaria Hollaender LICENSED OCCUPATIONAL THERAPIST.SPORTS SPECIALIST Work Phone: [facility] 02-24-2024 10:45-0500 Systolic blood pressure 146 mm[Hg] Rosamaria Hollaender LICENSED OCCUPATIONAL THERAPIST.SPORTS SPECIALIST Work Phone: [facility] 04-10-2022 08:16-0500 Body height 182.88 cm Ivette Francis LPN [facility] Work Phone: 04-10-2022 08:16-0500 Body mass index (BMI) [Ratio] 26.85 kg/m2 Ivette Francis CORPORATE STRATEGIST [facility] Work Phone: 04-10-2022 08:16-0500 Body surface area Derived from formula 2.12 m2 Ivette Alinerb CORPORATE STRATEGIST [facility] Work Phone: 04-10-2022 08:16-0500 Body temperature 97.8 [degF] Ivette Mirelesrb CORPORATE STRATEGIST [facility] Work Phone: Comment on above: Method: Temporal 04-10-2022 08:16-0500 Body weight 89.81 kg Ivette Alinerb CORPORATE STRATEGIST [facility] Work Phone: 04-10-2022 08:16-0500 Diastolic blood pressure 82 mm[Hg] Ivette Alinerb CORPORATE STRATEGIST [facility] Work Phone: Comment on above: Patient Position: Sitting; Cuff Location : Left Arm; Cuff Size: Standard 04-10-2022 08:16-0500 Heart rate 64 /min Ivette Alinerb CORPORATE STRATEGIST [facility] Work Phone: Comment on above: Pattern: Regular 04-10-2022 08:16-0500 Respiratory rate 15 /min Ivette Alinerb CORPORATE STRATEGIST [facility] Work Phone: Comment on above: Pattern: Unlabored 04-10-2022 08:16-0500 SaO2% (BldA) [Mass fraction] 99 % Ivette Slarb CORPORATE STRATEGIST [facility] Work Phone: Comment on above: Room air 04-10-2022 08:16-0500 Systolic blood pressure 120 mm[Hg] Ivette Slarb CORPORATE STRATEGIST [facility] Work Phone: Comment on above: Patient Position: Sitting; Cuff Location : Left Arm; Cuff Size: Standard 12-20-2021 08:50-0400 Body height 182.88 cm Ivette Slarb CORPORATE STRATEGIST [facility] Work Phone: 12-20-2021 08:50-0400 Body mass index (BMI) [Ratio] 26.85 kg/m2 Ivette Slarb CORPORATE STRATEGIST [facility] Work Phone: 12-20-2021 08:50-0400 Body surface area Derived from formula 2.12 m2 Ivette Slarb CORPORATE STRATEGIST [facility] Work Phone: 12-20-2021 08:50-0400 Body temperature 98.1 [degF] Ivette Slarb CORPORATE STRATEGIST [facility] Work Phone: 12-20-2021 08:50-0400 Body weight 89.81 kg Ivette Slarb CORPORATE STRATEGIST [facility] Work Phone: 12-20-2021 08:50-0400 Diastolic blood pressure 82 mm[Hg] Ivette Slarb CORPORATE STRATEGIST [facility] Work Phone: Comment on above: Patient Position: Sitting; Cuff Location : Left Arm; Cuff Size: Standard 12-20-2021 08:50-0400 Heart rate 64 /min Ivette Slarb CORPORATE STRATEGIST [facility] Work Phone: Comment on above: Pattern: Regular 12-20-2021 08:50-0400 Respiratory rate 15 /min Ivette Slarb CORPORATE STRATEGIST [facility] Work Phone: Comment on above: Pattern: Unlabored 12-20-2021 08:50-0400 SaO2% (BldA) [Mass fraction] 99 % Ivette Slarb CORPORATE STRATEGIST [facility] Work Phone: Comment on above: Room air 12-20-2021 08:50-0400 Systolic blood pressure 142 mm[Hg] Ivette Slarb CORPORATE STRATEGIST [facility] Work Phone: Comment on above: Patient Position: Sitting; Cuff Location : Left Arm; Cuff Size: Standard 03-29-2021 12:12-0500 Body height 182.88 cm Marcy Callahan CNP Work Phone: [facility] Work Phone: Comment on above: was checking at homebp range of 159-185/ 89-100 03-29-2021 12:12-0500 Body mass index (BMI) [Ratio] 27.33 kg/m2 Marcy Callahan CNP Work Phone: [facility] Work Phone: Comment on above: was checking at homebp range of 159-185/ 89-100 03-29-2021 12:12-0500 Body surface area Derived from formula 2.14 m2 Marcy Callahan CNP Work Phone: [facility] Work Phone: Comment on above: was checking at homebp range of 159-185/ 89-100 03-29-2021 12:12-0500 Body weight 91.4 kg Marcy Callahan CNP Work Phone: [facility] Work Phone: Comment on above: was checking at homebp range of 159-185/ 89-100 03-29-2021 12:12-0500 Diastolic blood pressure 89 mm[Hg] Marcy Callahan CNP Work Phone: [facility] Work Phone: Comment on above: Patient Position: Supine; Cuff Location: Right Arm; Cuff Size: Standard was checking at home bp range of 159-185/89-100 03-29-2021 12:12-0500 Systolic blood pressure 159 mm[Hg] Marcy Callahan CNP Work Phone: [facility]; [facility] Work Phone: Comment on above: Patient Position: Supine; Cuff Location: Right Arm; Cuff Size: Standard was checking at home bp range of 159-185/89-100 08-30-2020 14:04-0400 Body height 182.88 cm True Gonzales LPN [facility]; [facility] Work Phone: 08-30-2020 14:04-0400 Body mass index (BMI) [Ratio] 27.33 kg/m2 True Gonzales LPN [facility]; [facility] Work Phone: 08-30-2020 14:04-0400 Body surface area Derived from formula 2.14 m2 True Gonzales CORPORATE STRATEGIST [facility] Work Phone: 08-30-2020 14:04-0400 Body weight 91.4 kg True Gonzales CORPORATE STRATEGIST [facility] Work Phone: 01-27-2019 14:49-0500 BMI (Body Mass Index) 27.33 kg/m2 Ivette Slarb CORPORATE STRATEGIST [facility] Work Phone: 01-27-2019 14:49-0500 Body Temperature 97.8 [degF] Ivette Slarb CORPORATE STRATEGIST [facility] Work Phone: 01-27-2019 14:49-0500 Body weight 91.4 kg Ivette Mirelesrb CORPORATE STRATEGIST [facility] Work Phone: 01-27-2019 14:49-0500 BP Diastolic 88 mm[Hg] Ivette Slarb CORPORATE STRATEGIST [facility] Work Phone: Comment on above: Patient Position: Sitting; Cuff Location : Left Arm; Cuff Size: Standard 01-27-2019 14:49-0500 BP Systolic 146 mm[Hg] Ivette Slarb CORPORATE STRATEGIST [facility] Work Phone: Comment on above: Patient Position: Sitting; Cuff Location : Left Arm; Cuff Size: Standard 01-27-2019 14:49-0500 BSA (Body Surface Area) 2.14 m2 Ivette Slarb CORPORATE STRATEGIST [facility] Work Phone: 01-27-2019 14:49-0500 Height 182.88 cm Ivette Slarb CORPORATE STRATEGIST [facility] Work Phone: 01-27-2019 14:49-0500 Pulse (Heart Rate) 90 /min Ivette Slarb CORPORATE STRATEGIST [facility] Work Phone: Comment on above: Pattern: Regular 01-27-2019 14:49-0500 Pulse Oximetry 99 % Marcy Callahan [facility] Work Phone: Comment on above: Room air 01-27-2019 14:49-0500 Respiratory Rate 16 /min Ivette Penny ROGERS [facility] Work Phone: Comment on above: Pattern: Unlabored 01-27-2019 14:49-0500 SaO2% (BldA) [Mass fraction] 99 % Ivette Penny ROGERS [facility] Work Phone: Comment on above: Room air 01-23-2019 07:27-0500 BMI (Body Mass Index) 27.27 kg/m2 True Gonzales LPN [facility] Work Phone: 01-23-2019 07:27-0500 Body Temperature 97.8 [degF] True Gonzales LPN [facility] Work Phone: Comment on above: Method: Temporal 01-23-2019 07:27-0500 Body weight 91.19 kg True Gonzales LPN [facility] Work Phone: 01-23-2019 07:27-0500 BP Diastolic 72 mm[Hg] True Gonzales LPN [facility] Work Phone: Comment on above: Patient Position: Sitting; Cuff Location : Left Arm; Cuff Size: Standard 01-23-2019 07:27-0500 BP Systolic 122 mm[Hg] True Gonzales LPN [facility] Work Phone: Comment on above: Patient Position: Sitting; Cuff Location : Left Arm; Cuff Size: Standard 01-23-2019 07:27-0500 BSA (Body Surface Area) 2.14 m2 True Gonzales LPN [facility] Work Phone: 01-23-2019 07:27-0500 Height 182.88 cm True Gonzales LPN [facility] Work Phone: 01-23-2019 07:27-0500 Pulse (Heart Rate) 84 /min True Gonzales LPN [facility] Work Phone: Comment on above: Pattern: Regular 01-23-2019 07:27-0500 Pulse Oximetry 99 % Marcy Callahan [facility] Work Phone: Comment on above: Room air 01-23-2019 07:27-0500 Respiratory Rate 16 /min True Gonzales LPN [facility] Work Phone: Comment on above: Pattern: Unlabored 01-23-2019 07:27-0500 SaO2% (BldA) [Mass fraction] 99 % True Gonzales LPN [facility]; [facility] Work Phone: Comment on above: Room air 01-20-2019 14:10-0500 BMI (Body Mass Index) 27.54 kg/m2 True Gonzales LPN [facility] Work Phone: 01-20-2019 14:10-0500 Body Temperature 98.2 [degF] True Gonzales LPN [facility] Work Phone: Comment on above: Method: Temporal 01-20-2019 14:10-0500 Body weight 92.1 kg True Gonzales LPN [facility] Work Phone: 01-20-2019 14:10-0500 BP Diastolic 78 mm[Hg] True Gonzales LPN [facility] Work Phone: Comment on above: Patient Position: Sitting; Cuff Location : Left Arm; Cuff Size: Standard 01-20-2019 14:10-0500 BP Systolic 140 mm[Hg] True Gonzales LPN [facility] Work Phone: Comment on above: Patient Position: Sitting; Cuff Location : Left Arm; Cuff Size: Standard 01-20-2019 14:10-0500 BSA (Body Surface Area) 2.14 m2 True Gonzales LPN [facility] Work Phone: 01-20-2019 14:10-0500 Height 182.88 cm True Gonzales LPN [facility] Work Phone: 01-20-2019 14:10-0500 Pulse (Heart Rate) 85 /min True Gonzales LPN [facility] Work Phone: Comment on above: Pattern: Regular 01-20-2019 14:10-0500 Pulse Oximetry 97 % Marcy Callahan [facility] Work Phone: Comment on above: Room air 01-20-2019 14:10-0500 Respiratory Rate 16 /min True Gonzales [facility] Work Phone: Comment on above: Pattern: Unlabored 01-20-2019 14:10-0500 SaO2% (BldA) [Mass fraction] 97 % True Gonzales [facility]; [facility] Work Phone: Comment on above: Room air 11-25-2017 14:25-0400 BMI (Body Mass Index) 27.46 kg/m2 Celia Chamorro [facility] Work Phone: 11-25-2017 14:25-0400 Body Temperature 96.8 [degF] Celia Chamorro [facility] Work Phone: Comment on above: Method: Temporal 11-25-2017 14:25-0400 Body weight 91.85 kg Celia Chamorro [facility] Work Phone: 11-25-2017 14:25-0400 BP Diastolic 82 mm[Hg] Celia Chamorro [facility] Work Phone: Comment on above: Patient Position: Sitting; Cuff Location : Left Arm; Cuff Size: Standard 11-25-2017 14:25-0400 BP Systolic 138 mm[Hg] Celia Chamorro [facility] Work Phone: Comment on above: Patient Position: Sitting; Cuff Location : Left Arm; Cuff Size: Standard 11-25-2017 14:25-0400 BSA (Body Surface Area) 2.14 m2 Celia Chamorro [facility] Work Phone: 11-25-2017 14:25-0400 Height 182.88 cm Celia Chamorro [facility] Work Phone: 11-25-2017 14:25-0400 Pulse (Heart Rate) 78 /min Celia Chamorro [facility] Work Phone: Comment on above: Pattern: Regular 11-25-2017 14:25-0400 Pulse Oximetry 98 % Marcy Callahan [facility] Work Phone: Comment on above: Room air 11-25-2017 14:25-0400 Respiratory Rate 16 /min Celia Chamorro [facility] Work Phone: Comment on above: Pattern: Unlabored 11-25-2017 14:25-0400 SaO2% (BldA) [Mass fraction] 98 % Celia Chamorro [facility] Work Phone: Comment on above: Room air 10-01-2016 10:37-0400 BMI (Body Mass Index) 27.97 kg/m2 Ivette Slarb CORPORATE STRATEGIST [facility] Work Phone: 10-01-2016 10:37-0400 Body Temperature 97.6 [degF] Ivette Slarb CORPORATE STRATEGIST [facility] Work Phone: 10-01-2016 10:37-0400 Body weight 93.56 kg Ivette Slarb CORPORATE STRATEGIST [facility] Work Phone: 10-01-2016 10:37-0400 BP Diastolic 82 mm[Hg] Ivette Slarb CORPORATE STRATEGIST [facility] Work Phone: Comment on above: Patient Position: Sitting; Cuff Location : Left Arm; Cuff Size: Standard 10-01-2016 10:37-0400 BP Systolic 126 mm[Hg] Ivette Mirelesrb CORPORATE STRATEGIST [facility] Work Phone: Comment on above: Patient Position: Sitting; Cuff Location : Left Arm; Cuff Size: Standard 10-01-2016 10:37-0400 BSA (Body Surface Area) 2.16 m2 Ivette Alinerb CORPORATE STRATEGIST [facility] Work Phone: 10-01-2016 10:37-0400 Height 182.88 cm Ivette Slarb CORPORATE STRATEGIST [facility] Work Phone: 10-01-2016 10:37-0400 Pulse (Heart Rate) 84 /min Ivette Slarb CORPORATE STRATEGIST [facility] Work Phone: Comment on above: Pattern: Regular 10-01-2016 10:37-0400 Pulse Oximetry 97 % Marcy Callahan [facility] Work Phone: Comment on above: Room air 10-01-2016 10:37-0400 Respiratory Rate 18 /min Ivette Slarb CORPORATE STRATEGIST [facility] Work Phone: Comment on above: Pattern: Unlabored 10-01-2016 10:37-0400 SaO2% (BldA) [Mass fraction] 97 % Ivette Mirelessolomon CORPORATE STRATEGIST [facility]; [facility] Work Phone: Comment on above: Room air 08-12-2015 11:28-0400 BMI (Body Mass Index) 27.94 kg/m2 NAHED Alcala CORPORATE STRATEGIST [facility] Work Phone: 08-12-2015 11:28-0400 Body Temperature 97.6 [degF] NAHED Alcala [facility] Work Phone: Comment on above: Method: Temporal 08-12-2015 [id number]:[id number] Body weight 93.44 kg NAHED Alcala [facility] Work Phone: 08-12-2015 11:28-0400 BP Diastolic 90 mm[Hg] NAHED Alcala [facility] Work Phone: Comment on above: Patient Position: Sitting; Cuff Location : Left Arm; Cuff Size: Standard 08-12-2015 11:28-0400 BP Systolic 140 mm[Hg] NAHED Alcala [facility] Work Phone: Comment on above: Patient Position: Sitting; Cuff Location : Left Arm; Cuff Size: Standard 08-12-2015 [id number]:[id number] BSA (Body Surface Area) 2.16 m2 NAHED Alcala CORPORATE STRATEGIST [facility] Work Phone: 08-12-2015 [id number] Height 182.88 cm NAHED Alcala [facility] Work Phone: 08-12-2015 11:28-0400 Pulse (Heart Rate) 74 /min NAHED Alcala [facility] Work Phone: Comment on above: Pattern: Regular 08-12-2015 11:28-0400 Pulse Oximetry 97 % Marcy Callahan [facility] Work Phone: Comment on above: Room air 08-12-2015 11:28-0400 Respiratory Rate 18 /min NAHED Alcala [facility] Work Phone: Comment on above: Pattern: Unlabored 08-12-2015 11:28-0400 SaO2% (BldA) [Mass fraction] 97 % NAHED Alcala KEN [facility] Work Phone: Comment on above: Room air 02-15-2015 08:15-0500 BMI (Body Mass Index) 27.16 kg/m2 Ivette Francis LPN [facility] Work Phone: 02-15-2015 08:15-0500 Body Temperature 97.6 [degF] Ivette Francis CORPORATE STRATEGIST [facility] Work Phone: 02-15-2015 08:15-0500 Body weight 90.83 kg Ivette Francis CORPORATE STRATEGIST [facility] Work Phone: 02-15-2015 08:15-0500 BP Diastolic 84 mm[Hg] Ivette Francis CORPORATE STRATEGIST [facility] Work Phone: Comment on above: Patient Position: Sitting; Cuff Location : Left Arm; Cuff Size: Standard 02-15-2015 08:15-0500 BP Systolic 132 mm[Hg] Ivette Francis LPN [facility] Work Phone: Comment on above: Patient Position: Sitting; Cuff Location : Left Arm; Cuff Size: Standard 02-15-2015 08:15-0500 BSA (Body Surface Area) 2.13 m2 Ivette Francis LPN [facility] Work Phone: 02-15-2015 08:15-0500 Height 182.88 cm Ivette Francis CORPORATE STRATEGIST [facility] Work Phone: 02-15-2015 08:15-0500 Pulse (Heart Rate) 86 /min Ivette Francis LPN [facility] Work Phone: Comment on above: Pattern: Regular 02-15-2015 08:15-0500 Pulse Oximetry 98 % Marcy Callahan [facility] Work Phone: Comment on above: Room air 02-15-2015 08:15-0500 Respiratory Rate 17 /min Ivette Francis CORPORATE STRATEGIST [facility] Work Phone: Comment on above: Pattern: Unlabored 02-15-2015 08:15-0500 SaO2% (BldA) [Mass fraction] 98 % Ivette Mirelessolomon [facility] Work Phone: Comment on above: Room air 10-18-2014 08:28-0400 BMI (Body Mass Index) 27.12 kg/m2 NAHED Alcala CORPORATE STRATEGIST [facility] Work Phone: 10-18-2014 08:28-0400 Body Temperature 97.9 [degF] NAHED Alcala [facility] Work Phone: Comment on above: Method: Temporal 10-18-2014 08:28-0400 Body weight 90.72 kg NAHED Alcala CORPORATE STRATEGIST [facility] Work Phone: 10-18-2014 08:28-0400 BP Diastolic 90 mm[Hg] NAHED Alcala [facility] Work Phone: Comment on above: Patient Position: Sitting; Cuff Location : Left Arm; Cuff Size: Standard 10-18-2014 08:28-0400 BP Systolic 150 mm[Hg] NAHED Alcala [facility] Work Phone: Comment on above: Patient Position: Sitting; Cuff Location : Left Arm; Cuff Size: Standard 10-18-2014 08:28-0400 BSA (Body Surface Area) 2.13 m2 NAHED Alcala CORPORATE STRATEGIST [facility] Work Phone: 10-18-2014 08:28-0400 Height 182.88 cm NAHED Alcala [facility] Work Phone: 10-18-2014 08:28-0400 Pulse (Heart Rate) 80 /min NAHED Alcala [facility] Work Phone: Comment on above: Pattern: Regular 10-18-2014 08:28-0400 Pulse Oximetry 98 % Marcy Callahan [facility] Work Phone: Comment on above: Room air 10-18-2014 08:28-0400 Respiratory Rate 18 /min NAHED Alcala [facility] Work Phone: Comment on above: Pattern: Unlabored 10-18-2014 08:28-0400 SaO2% (BldA) [Mass fraction] 98 % NAHED Alcala LPN [facility]; [facility] Work Phone: Comment on above: Room air 09-07-2013 08:03-0400 BMI (Body Mass Index) 27.12 kg/m2 Marcy Callahan [facility] Work Phone: 09-07-2013 08:03-0400 Body Temperature 97.3 [degF] [facility] Work Phone: Comment on above: Method: Oral 09-07-2013 08:03-0400 Body weight 90.72 kg [facility] Work Phone: 09-07-2013 08:03-0400 BP Diastolic 80 mm[Hg] [facility] Work Phone: Comment on above: Patient Position: Sitting; Cuff Location : Left Arm; Cuff Size: Standard 09-07-2013 08:03-0400 BP Systolic 132 mm[Hg] [facility] Work Phone: Comment on above: Patient Position: Sitting; Cuff Location : Left Arm; Cuff Size: Standard 09-07-2013 08:03-0400 BSA (Body Surface Area) 2.13 m2 [facility] Work Phone: 09-07-2013 08:03-0400 Height 182.88 cm [facility] Work Phone: 09-07-2013 08:03-0400 Pulse (Heart Rate) 80 /min [facility] Work Phone: Comment on above: Pattern: Regular 09-07-2013 08:03-0400 Pulse Oximetry 99 % [facility] Work Phone: Comment on above: Room air 09-07-2013 08:03-0400 Respiratory Rate 17 /min [facility] Work Phone: 09-07-2013 08:03-0400 SaO2% (BldA) [Mass fraction] 99 % [facility]; [facility] Work Phone: Comment on above: Room air 08-24-2013 08:33-0400 BMI (Body Mass Index) 27.12 kg/m2 NAHED Alcala LPN [facility] Internal Medicine Work Phone: 08-24-2013 08:33-0400 Body Temperature 98.4 [degF] NAHED Alcala [facility] Internal Medicine Work Phone: Comment on above: Method: Oral 08-24-2013 08:33-0400 Body weight 90.72 kg NAHED Alcala LPN [facility] Internal Medicine Work Phone: 08-24-2013 08:33-0400 BP Diastolic 90 mm[Hg] NAHED Alcala [facility] Internal Medicine Work Phone: Comment on above: Patient Position: Sitting; Cuff Location : Left Arm; Cuff Size: Standard 08-24-2013 08:33-0400 BP Systolic 144 mm[Hg] [facility] Work Phone: Comment on above: Patient Position: Sitting; Cuff Location : Left Arm; Cuff Size: Standard 08-24-2013 08:33-0400 BSA (Body Surface Area) 2.13 m2 NAHED Alcala LPN [facility] Internal Medicine Work Phone: 08-24-2013 08:33-0400 Height 182.88 cm NAHED Alcala [facility] Internal Medicine Work Phone: 08-24-2013 08:33-0400 Pulse (Heart Rate) 74 /min NAHED Alcala [facility] Internal Medicine Work Phone: Comment on above: Pattern: Regular 08-24-2013 08:33-0400 Respiratory Rate 20 /min NAHED Alcala [facility] Internal Medicine Work Phone: Comment on above: Pattern: Unlabored 06-29-2013 15:01-0400 BMI (Body Mass Index) 26.85 kg/m2 NAHED Alcala [facility] Internal Medicine Work Phone: 06-29-2013 15:01-0400 Body Temperature 97.7 [degF] NAHED Alcala [facility] Internal Medicine Work Phone: Comment on above: Method: Oral 06-29-2013 15:01-0400 Body weight 89.81 kg NAHED Alcala LPN [facility] Internal Medicine Work Phone: 06-29-2013 15:01-0400 BP Diastolic 90 mm[Hg] NAHED Alcala LPN [facility] Internal Medicine Work Phone: Comment on above: Patient Position: Sitting; Cuff Location : Left Arm; Cuff Size: Standard 06-29-2013 15:01-0400 BP Systolic 140 mm[Hg] NAHED Alcala LPN [facility] Internal Medicine Work Phone: Comment on above: Patient Position: Sitting; Cuff Location : Left Arm; Cuff Size: Standard 06-29-2013 15:-0400 BSA (Body Surface Area) 2.12 m2 NAHED Alcala LPN [facility] Internal Medicine Work Phone: 06-29-2013 15:-0400 Height 182.88 cm [facility] Work Phone: 06-29-2013 15:01-0400 Pulse (Heart Rate) 70 /min NAHED Alcala [facility] Internal Medicine Work Phone: Comment on above: Pattern: Regular 06-29-2013 15:01-0400 Respiratory Rate 18 /min NAHED Alcala LPN [facility] Internal Medicine Work Phone: Comment on above: Pattern: Unlabored 05-19-2012 09:10-0500 BMI (Body Mass Index) 26.92 kg/m2 Katarzyna Manriquez RN [facility] Internal Medicine Work Phone: 05-19-2012 09:10-0500 Body Temperature 97.1 [degF] Katarzyna Manriquez RN [facility] Internal Medicine Work Phone: Comment on above: Method: Temporal 05-19-2012 09:10-0500 Body weight 90.04 kg Katarzyna Manriquez RN [facility] Internal Medicine Work Phone: 05-19-2012 09:10-0500 BP Diastolic 72 mm[Hg] Katarzyna Manriquez RN [facility] Internal Medicine Work Phone: Comment on above: Patient Position: Sitting; Cuff Location : Left Arm; Cuff Size: Standard 05-19-2012 09:10-0500 BP Systolic 130 mm[Hg] Katarzyna Manriquez RN [facility] Work Phone: Comment on above: Patient Position: Sitting; Cuff Location : Left Arm; Cuff Size: Standard 05-19-2012 09:10-0500 BSA (Body Surface Area) 2.12 m2 Katarzyna Manriquez RN [facility] Work Phone: 05-19-2012 09:10-0500 Height 182.88 cm Katarzyna Manriquez RN [facility] Work Phone: 05-19-2012 09:10-0500 Pulse (Heart Rate) 72 /min Katarzyna Manriquez RN [facility] Work Phone: Comment on above: Pattern: Regular 05-19-2012 09:10-0500 Pulse Oximetry 99 % Marcy Callahan [facility] Internal Medicine Work Phone: Comment on above: Room air 05-19-2012 09:10-0500 Respiratory Rate 16 /min Katarzyna Manriquez RN [facility] Work Phone: Comment on above: Pattern: Unlabored 05-19-2012 09:10-0500 SaO2% (BldA) [Mass fraction] 99 % Katarzyna Manriquez RN [facility]; [facility] Work Phone: Comment on above: Room air 09-24-2011 16:45-0400 BMI (Body Mass Index) 26.45 kg/m2 [facility] Work Phone: 09-24-2011 16:45-0400 Body Temperature 98.2 [degF] Marcy Deniaevelinenick [facility] Internal Medicine Work Phone: Comment on above: Method: Oral 09-24-2011 16:45-0400 Body weight 88.45 kg Marcy Lozachel [facility] Internal Medicine Work Phone: 09-24-2011 16:45-0400 BP Diastolic 84 mm[Hg] Marcy Callahan [facility] Internal Medicine Work Phone: Comment on above: Patient Position: Sitting; Cuff Location : Left Arm; Cuff Size: Standard 09-24-2011 16:45-0400 BP Systolic 148 mm[Hg] Marcy Callahan [facility] Internal Medicine Work Phone: Comment on above: Patient Position: Sitting; Cuff Location : Left Arm; Cuff Size: Standard 09-24-2011 16:45-0400 BSA (Body Surface Area) 2.11 m2 Marcy Callahan [facility] Internal Medicine Work Phone: 09-24-2011 16:45-0400 Height 182.88 cm Marcy Lozanick [facility] Internal Medicine Work Phone: 09-24-2011 16:45-0400 Pulse (Heart Rate) 80 /min Marcy Lozanick [facility] Internal Medicine Work Phone: Comment on above: Pattern: Regular 09-24-2011 16:45-0400 Respiratory Rate 17 /min Marcy Callahan [facility] Internal Medicine Work Phone: Comment on above: Pattern: Unlabored 05-14-2011 14:34-0500 BMI (Body Mass Index) 26.45 kg/m2 NAHED Alcala [facility] Internal Medicine Work Phone: 05-14-2011 14:34-0500 Body Temperature 97.8 [degF] NAHED Alcala [facility] Internal Medicine Work Phone: Comment on above: Method: Oral 05-14-2011 14:34-0500 Body weight 88.45 kg NAHED Alcala [facility] Internal Medicine Work Phone: 05-14-2011 14:34-0500 BP Diastolic 84 mm[Hg] NAHED Alcala [facility] Internal Medicine Work Phone: Comment on above: Patient Position: Sitting; Cuff Location : Left Arm; Cuff Size: Standard 05-14-2011 14:34-0500 BP Systolic 144 mm[Hg] NAHED Alcala [facility] Internal Medicine Work Phone: Comment on above: Patient Position: Sitting; Cuff Location : Left Arm; Cuff Size: Standard 05-14-2011 14:34-0500 BSA (Body Surface Area) 2.11 m2 NAHED Alcala [facility] Internal Medicine Work Phone: 05-14-2011 14:34-0500 Height 182.88 cm NAHED Alcala KEN [facility] Work Phone: 05-14-2011 14:34-0500 Pulse (Heart Rate) 74 /min NAHED Alcala KEN [facility] Work Phone: Comment on above: Pattern: Regular 05-14-2011 14:34-0500 Respiratory Rate 18 /min NAHED Alcala KEN [facility] Internal Medicine Work Phone: Comment on above: Pattern: Unlabored 2010 09:42-0400 BMI (Body Mass Index) 26.99 kg/m2 Seema Escalante RN [facility] Internal Medicine Work Phone: 2010 09:42-0400 Body Temperature 98.2 [degF] Seema Escalante RN [facility] Work Phone: Comment on above: Method: Oral 2010 09:42-0400 Body weight 90.27 kg Seema Escalante RN [facility] Work Phone: 2010 09:42-0400 BP Diastolic 80 mm[Hg] Seema Escalante RN [facility] Work Phone: Comment on above: Patient Position: Sitting; Cuff Location : Left Arm; Cuff Size: Large 2010 09:42-0400 BP Systolic 130 mm[Hg] Seema Escalante RN [facility] Work Phone: Comment on above: Patient Position: Sitting; Cuff Location : Left Arm; Cuff Size: Large 2010 09:42-0400 BSA (Body Surface Area) 2.13 m2 Seema Escalante RN [facility] Work Phone: 2010 09:42-0400 Height 182.88 cm Seema Escalante RN [facility] Work Phone: 2010 09:42-0400 Pulse (Heart Rate) 80 /min Seema Escalante RN [facility] Work Phone: Comment on above: Pattern: Regular 2010 09:42-0400 Respiratory Rate 20 /min Seema Escalante RN [facility] Work Phone: Comment on above: Pattern: Unlabored 02-27-2010 09:00-0500 Body Temperature 98 [degF] Anita Renee [facility] Internal Medicine Work Phone: Comment on above: Method: Oral 02-27-2010 09:00-0500 Body weight 92.76 kg Anita Renee [facility] Internal Medicine Work Phone: 02-27-2010 09:00-0500 BP Diastolic 100 mm[Hg] Anita Renee [facility] Internal Medicine Work Phone: Comment on above: Patient Position: Sitting; Cuff Location : Left Arm; Cuff Size: Standard 02-27-2010 09:00-0500 BP Systolic 158 mm[Hg] Anita Renee [facility] Internal Medicine Work Phone: Comment on above: Patient Position: Sitting; Cuff Location : Left Arm; Cuff Size: Standard 02-27-2010 09:00-0500 Pulse (Heart Rate) 68 /min Anita Renee [facility] Internal Medicine Work Phone: Comment on above: Pattern: Regular 02-27-2010 09:00-0500 Respiratory Rate 16 /min Anita Renee [facility] Internal Medicine Work Phone: Comment on above: Pattern: Unlabored 08-29-2009 09:03-0400 Body weight 92.99 kg NAHED Alcala [facility] Internal Medicine Work Phone: 08-29-2009 09:03-0400 BP Diastolic 90 mm[Hg] NAHED Alcala [facility] Internal Medicine Work Phone: Comment on above: Patient Position: Sitting; Cuff Location : Left Arm; Cuff Size: Standard 08-29-2009 09:03-0400 BP Systolic 160 mm[Hg] NAEHD Alcala [facility] Internal Medicine Work Phone: Comment on above: Patient Position: Sitting; Cuff Location : Left Arm; Cuff Size: Standard 08-29-2009 09:03-0400 Pulse (Heart Rate) 70 /min NAHED Alcala [facility] Internal Medicine Work Phone: Comment on above: Pattern: Regular 08-29-2009 09:03-0400 Respiratory Rate 18 /min NAHED Alcala LPN [facility] Work Phone: Comment on above: Pattern: Unlabored 02-21-2009 09:17-0500 Body weight 93.9 kg NAHED Alcala LPN [facility] Work Phone: 02-21-2009 09:17-0500 BP Diastolic 90 mm[Hg] NAHED Alcala LPN [facility] Work Phone: Comment on above: Patient Position: Sitting; Cuff Location : Left Arm; Cuff Size: Standard 02-21-2009 09:17-0500 BP Systolic 144 mm[Hg] NAHED Alcala LPN [facility] Work Phone: Comment on above: Patient Position: Sitting; Cuff Location : Left Arm; Cuff Size: Standard 02-21-2009 09:17-0500 Head Circum[facility] Work Phone: 02-21-2009 09:17-0500 Head Occipital-frontal circumference 0 cm NAHED Alcala LPN [facility]; [facility] Work Phone: 02-21-2009 09:17-0500 Height 0 cm NAHED Alcala LPN [facility] Work Phone: 02-21-2009 09:17-0500 Pulse (Heart Rate) 74 /min NAHED Alcala LPN [facility] Work Phone: Comment on above: Pattern: Regular 02-21-2009 09:17-0500 Respiratory Rate 16 /min NAHED Alcala LPN [facility] Work Phone: Comment on above: Pattern: Unlabored 08-23-2008 14:23-0400 Body weight 92.53 kg NAHED Alcala LPN [facility] Work Phone: 08-23-2008 14:23-0400 BP Diastolic 84 mm[Hg] NAHED Alcala LPN [facility] Work Phone: Comment on above: Patient Position: Sitting; Cuff Location : Left Arm; Cuff Size: Standard 08-23-2008 14:23-0400 BP Systolic 162 mm[Hg] NAHED Alcala LPN [facility] Work Phone: Comment on above: Patient Position: Sitting; Cuff Location : Left Arm; Cuff Size: Standard 08-23-2008 14:23-0400 Head Circumference 0 cm Marcy Callahan [facility] Internal Medicine Work Phone: 08-23-2008 14:23-0400 Head Occipital-frontal circumference 0 cm NAHED Alcala [employer]PORATE STRATEGIST [facility]; [facility] Work Phone: 08-23-2008 14:23-0400 Height 0 cm NAHED Alcala [employer]PORATE STRATEGIST [facility] Work Phone: 08-23-2008 14:23-0400 Pulse (Heart Rate) 68 /min NAHED Alcala LPN [facility] Work Phone: Comment on above: Pattern: Regular 08-23-2008 14:23-0400 Respiratory Rate 16 /min NAHED Alcala [employer]PORATE STRATEGIST [facility] Work Phone: Comment on above: Pattern: Unlabored 04-12-2008 14:21-0500 Body weight 91.63 kg NAHED Alcala [employer]PORATE STRATEGIST [facility] Work Phone: 04-12-2008 14:21-0500 BP Diastolic 90 mm[Hg] NAHED Alcala LPN [facility] Work Phone: Comment on above: Patient Position: Sitting; Cuff Location : Left Arm; Cuff Size: Large 04-12-2008 14:21-0500 BP Systolic 168 mm[Hg] NAHED Alcala [employer]PORATE STRATEGIST [facility] Work Phone: Comment on above: Patient Position: Sitting; Cuff Location : Left Arm; Cuff Size: Large 04-12-2008 14:21-0500 Head Circumference 0 cm Marcy Callahan [facility] Internal Medicine Work Phone: 04-12-2008 14:21-0500 Head Occipital-frontal circumference 0 cm NAHED Alcala [employer]PORATE STRATEGIST [facility]; [facility] Work Phone: 04-12-2008 14:21-0500 Height 0 cm NAHED Alcala [facility] Work Phone: 04-12-2008 14:21-0500 Pulse (Heart Rate) 84 /min NAHED Alcala LPN [facility] Work Phone: Comment on above: Pattern: Regular 04-12-2008 14:21-0500 Respiratory Rate 16 /min NAHED Alcala LPN [facility] Work Phone: Comment on above: Pattern: Unlabored 11-14-2007 12:54-0400 Body Temperature 97.5 [degF] Seema Escalante RN [facility] Work Phone: Comment on above: Method: Oral 11-14-2007 12:54-0400 Body weight 85.73 kg Seema Escalante RN [facility] Work Phone: 11-14-2007 12:54-0400 BP Diastolic 82 mm[Hg] Seema Escalante RN [facility] Work Phone: Comment on above: Patient Position: Sitting; Cuff Location : Right Arm; Cuff Size: Large 11-14-2007 12:54-0400 BP Systolic 160 mm[Hg] Seema Escalante RN [facility] Work Phone: Comment on above: Patient Position: Sitting; Cuff Location : Right Arm; Cuff Size: Large 11-14-2007 12:54-0400 Head Circumference 0 cm Marcy Crooka [facility] Work Phone: 11-14-2007 12:54-0400 Head Occipital-frontal circumference 0 cm Seema Escalante RN [facility]; [facility] Work Phone: 11-14-2007 12:54-0400 Height 0 cm Seema Escalante RN [facility] Work Phone: 11-14-2007 12:54-0400 Pulse (Heart Rate) 64 /min Seema Escalante RN [facility] Work Phone: Comment on above: Pattern: Regular 11-14-2007 12:54-0400 Respiratory Rate 16 /min Seema Escalante RN [facility] Work Phone: Comment on above: Pattern: Unlabored 05-02-2007 14:39-0500 Body Temperature 98.4 [degF] NAHED Alcala LPN [facility] Work Phone: Comment on above: Method: Oral 05-02-2007 14:39-0500 Body weight 0 kg NAHED Alcala LPN [facility] Work Phone: 05-02-2007 14:39-0500 BP Diastolic 94 mm[Hg] NAHED Alcala LPN [facility] Work Phone: Comment on above: Patient Position: Sitting; Cuff Location : Left Arm; Cuff Size: Standard 05-02-2007 14:39-0500 BP Systolic 160 mm[Hg] NAHED Alcala LPN [facility] Work Phone: Comment on above: Patient Position: Sitting; Cuff Location : Left Arm; Cuff Size: Standard 05-02-2007 14:39-0500 Head Circumference 0 cm Marcy Callahan [facility] Work Phone: 05-02-2007 14:39-0500 Head Occipital-frontal circumference 0 cm NAHED Alcala LPN [facility] Internal Medicine; [facility] Work Phone: 05-02-2007 14:39-0500 Height 0 cm NAHED Alcala LPN [facility] Work Phone: 05-02-2007 14:39-0500 Pulse (Heart Rate) 72 /min NAHED Alcala LPN [facility] Work Phone: Comment on above: Pattern: Regular 05-02-2007 14:39-0500 Respiratory Rate 18 /min NAHED Alcala LPN [facility] Work Phone: Comment on above: Pattern: Unlabored 04-11-2007 13:37-0500 BMI (Body Mass Index) 27.76 kg/m2 NAHED Alcala LPN [facility] Work Phone: 04-11-2007 13:37-0500 Body Temperature 98.4 [degF] NAHED Alcala LPN [facility] Work Phone: Comment on above: Method: Oral 04-11-2007 13:37-0500 Body weight 90.28 kg NAHED Alcala LPN [facility] Work Phone: 04-11-2007 13:37-0500 BP Diastolic 110 mm[Hg] NAHED Alcala LPN [facility] Work Phone: Comment on above: Patient Position: Sitting; Cuff Location : Left Arm; Cuff Size: Standard 04-11-2007 13:37-0500 BP Systolic 160 mm[Hg] NAHED Alcala LPN [facility] Work Phone: Comment on above: Patient Position: Sitting; Cuff Location : Left Arm; Cuff Size: Standard 04-11-2007 13:37-0500 BSA (Body Surface Area) 2.1 m2 NAHED Alcala [employer]ATE STR[employer]GIST [facility] Work Phone: 04-11-2007 13:37-0500 Head Circumference 0 cm Marcy Callahan [facility] Work Phone: 04-11-2007 13:37-0500 Head Occipital-frontal circumference 0 cm NAHED Alcala [employer]PORATE STRATEGIST [facility]; [facility] Work Phone: 04-11-2007 13:37-0500 Height 180.34 cm NAHED Alcala KEN [facility] Work Phone: 04-11-2007 13:37-0500 Pulse (Heart Rate) 74 /min NAHED Alcala LPN [facility] Work Phone: Comment on above: Pattern: Regular 04-11-2007 13:37-0500 Respiratory Rate 18 /min NAHED Alcala LPN [facility] Work Phone: Comment on above: Pattern: Unlabored Encounters Encounter Date Encounter Type Care Provider Facility Start: 07-24-2024 End: 07-30-2024 ambulatory Delvin Gamez MD Work Phone: [facility] Comment on above: dental work followin g PFO closure Start: 07-13-2024 End: 07-13-2024 Emergency department patient visit PETE REZA DO [facility] Start: 07-07-2024 End: 07-07-2024 ambulatory Gómez NAPIER Work Phone: [facility] Work Phone: Start: 07-07-2024 End: 07-07-2024 Patient encounter procedure Gómez Priyank COLLATOR-C -Laboratory Work Phone: Start: 07-07-2024 End: 07-07-2024 ambulatory Gómez Yost Facility:[facility] Start: 06-30-2024 End: 06-30-2024 ambulatory Gómez Yost COLLATOR-C Work Phone: [facility] Work Phone: Start: 06-30-2024 End: 06-30-2024 Patient encounter procedure Gómez Yost COLLATOR-C -Laboratory Work Phone: Start: 06-30-2024 End: 06-30-2024 ambulatory Gómez Yost Facility:[facility] Start: 06-25-2024 End: 06-25-2024 ambulatory GÓMEZRICHARD YOST LICENSED OCCUPATIONAL THERAPIST-SPORTS SPECIALIST Facility:[facility] Start: 05-28-2024 End: 05-28-2024 Orders Only Rosamaria Hedrick LICENSED OCCUPATIONAL THERAPIST.SPORTS SPECIALIST Work Phone: Cerebrovascular Comment on above: Elevated factor VIII level (Primary Dx) Start: 05-27-2024 End: 05-27-2024 Patient encounter procedure Rosamaria Hedrick LICENSED OCCUPATIONAL THERAPIST.SPORTS SPECIALIST Work Phone: Cerebrovascular Comment on above: Encounter for follow -up examination after completed treatment for conditions other than malignant neoplasm (Primary Dx); Personal history of transient ischemic attack (TIA), and cerebral infarction without residual deficits; Elevated factor VIII level; Primary hypertension; Mixed hyperlipidemia Start: 05-27-2024 End: 05-27-2024 ambulatory ROSAMARIA HEDRICK Facility:[facility] Start: 05-27-2024 End: 05-27-2024 ambulatory SHANIA HONEYCUTT MD Facility:[facility] Start: 05-20-2024 End: 05-20-2024 Patient encounter procedure Delvin Gamez MD Work Phone: [facility] Cardiology [facility] Comment on above: PFO (patent foramen ovale) (Primary Dx); Coronary artery disease involving [place] coronary artery of [place] heart without angina pectoris; Essential hypertension Start: 05-20-2024 End: 05-20-2024 ambulatory DELVIN GAMEZ Facility:[facility] Start: 05-06-2024 End: 05-06-2024 ambulatory GÓMEZ YOST Facility:[facility] Start: 05-06-2024 End: 05-06-2024 Subsequent hospital visit by physician [facility] Work Phone: Radiology Start: 04-30-2024 End: 04-30-2024 ambulatory Ole Lowery Work Phone: Pulmonary Medicine Start: 04-28-2024 End: 04-28-2024 ambulatory Ale Lyon [facility] Pulmonary Medicine Start: 04-21-2024 End: 04-21-2024 ambulatory Ale Lyon [facility] Pulmonary Medicine Start: 04-14-2024 End: 04-14-2024 ambulatory Kari Kramer LICENSED OCCUPATIONAL THERAPIST.SPORTS SPECIALIST Work Phone: Pulmonary Medicine Start: 04-13-2024 End: 04-13-2024 Telephone encounter Richard Reynolds APRN.SPORTS SPECIALIST Work Phone: [facility] Cardiology David Comment on above: Results Start: 04-09-2024 End: 04-09-2024 Orders Only Richard Reynolds LICENSED OCCUPATIONAL THERAPIST.SPORTS SPECIALIST Work Phone: [facility] Cardiology David Comment on above: PFO (patent foramen ovale) [Q21.12] Start: 04-02-2024 End: 04-02-2024 ambulatory DELVIN GAMEZ Facility:[facility] Start: 04-01-2024 End: 04-01-2024 Patient encounter procedure Delvin Gamez MD Work Phone: [facility] Cardiology [facility] Comment on above: PFO (patent foramen ovale) (Primary Dx) Start: 04-01-2024 End: 04-01-2024 ambulatory DELVIN GAMEZ Facility:[facility] Start: 03-26-2024 End: 03-26-2024 Telephone encounter Katarzyna [facility] Start: 03-09-2024 End: 03-09-2024 ambulatory Gary Paz Facility:[facility] Start: 03-09-2024 End: 03-09-[address] Gary Paz MD [facility] Start: 03-02-2024 End: 03-02-2024 Telephone encounter Rosamaria Hedrick APRN.SPORTS SPECIALIST Work Phone: Neurology Comment on above: Results Start: 02-26-2024 End: 02-27-2024 Telephone encounter Rosamaria Hedrick APRN.SPORTS SPECIALIST Work Phone: [facility] Comment on above: MEDICATION REQUEST Start: 02-24-2024 End: 02-24-2024 ambulatory ROSAMARIA HEDRICK Facility:[facility] Start: 02-24-2024 End: 02-24-2024 Patient encounter procedure Rosamaria Hedrick LICENSED OCCUPATIONAL THERAPIST.SPORTS SPECIALIST Work Phone: Neurology Comment on above: Encounter for follow -up examination after completed treatment for conditions other than malignant neoplasm (Primary Dx); Personal history of transient ischemic attack (TIA), and cerebral infarction without residual deficits; PFO (patent foramen ovale); Primary hypertension; Mixed hyperlipidemia; Thyroid nodule Start: 02-24-2024 End: 02-24-2024 ambulatory ROSAMARIA HEDRICK Facility:[facility] Start: 02-20-2024 End: 02-21-2024 Telephone encounter Rosamaria Hedrick LICENSED OCCUPATIONAL THERAPIST.SPORTS SPECIALIST Work Phone: NEUROLOGY Comment on above: Called Back; Care Co ordinator - Other Start: 02-18-2024 End: 02-18-2024 Telephone encounter Reina Henning MD Work Phone: PA PROVIDER ADULT Comment on above: Stroke discharge stephon anne Start: 02-14-2024 End: 02-14-2024 Telephone encounter Britney Ochoa [employer] Operator [employer] [facility] Start: 02-12-2024 End: 02-17-2024 Telephone encounter Richard Reynolds LICENSED OCCUPATIONAL THERAPIST.SPORTS SPECIALIST Work Phone: [facility] Comment on above: Patient Question Start: 02-09-2024 Evaluation and management of inpatient JULIANE CADENA Facility:[facility] Start: 02-09-2024 End: 02-09-2024 Emergency department patient visit SREE HAYWOOD Facility:[id number] Start: 02-09-2024 End: 02-09-2024 Admission to same day surgery center Bhavya Rodriguez MD Work Phone: Neurosurgery Comment on above: Acute ischemic right MCA stroke (HCC) (Primary Dx) Start: 02-09-2024 End: 02-09-2024 Telemedicine consultation with patient Bhavya Rodriguez MD Work Phone: Neurosurgery Start: 07-18-2023 End: 07-18-2023 ambulatory [facility] Work Phone: Start: 07-18-2023 End: 07-18-2023 Patient encounter procedure [facility] Work Phone: Start: 07-18-2023 End: 07-18-2023 ambulatory Gómez Priyank Facility:[facility] Start: 04-23-2023 End: 04-23-2023 ambulatory [facility] Work Phone: Start: 04-23-2023 End: 04-23-2023 Patient encounter procedure [facility] Work Phone: Start: 04-18-2022 ambulatory Gómez Yost CNP [facility] Start: 04-10-2022 End: 04-10-2022 Office outpatient visit 15 minutes Gómez Yost CNP Work Phone: [facility] Start: 02-19-2022 End: 02-19-2022 [facility] Work Phone: Start: 02-19-2022 End: 02-19-2022 Patient encounter procedure [facility] Start: 01-09-2022 End: 01-09-2022 Lab Order Gómez Yost CNP Work Phone: [facility] Start: 01-09-2022 End: 01-09-2022 Annotation/Addendum Gómez Yost CNP Work Phone: [facility] Start: 12-20-2021 End: 12-29-2021 Office outpatient visit 15 minutes Gómez Yost CNP Work Phone: [facility] Start: 12-14-2021 End: 12-14-2021 ambulatory [facility] Work Phone: Start: 12-14-2021 End: 12-14-2021 Patient encounter procedure [facility] Start: 11-24-2021 End: 11-24-2021 Lab Order Gómez Yost SPORTS SPECIALIST Work Phone: [facility] Start: 08-23-2021 End: 08-23-2021 Phone Encounter Marcy aCllahan Work Phone: [facility] Start: 07-06-2021 End: 07-06-2021 Lab Order Marcy Callahan Work Phone: [facility] Start: 05-18-2021 End: 05-18-2021 Lab Order Marcy Callahan SPORTS SPECIALIST Work Phone: [facility] Start: 05-18-2021 End: 05-18-2021 Annotation/Addendum Marcy Callahan SPORTS SPECIALIST Work Phone: [facility] Start: 03-29-2021 End: 03-29-2021 Office outpatient visit 15 minutes Marcy Callahan SPORTS SPECIALIST Work Phone: [facility] Start: 08-30-2020 End: 08-30-2020 Office outpatient visit 15 minutes Marcy Callahan SPORTS SPECIALIST Work Phone: [facility] Start: 05-31-2020 End: 05-31-2020 Patient encounter procedure AMOS CAMERON [facility] Start: 11-17-2019 End: 11-17-2019 Lab Order Marcy Crooknick [facility] Start: 07-03-2019 End: 07-03-2019 Phone Encounter Marcy Callahan [facility] Start: 06-15-2019 End: 06-15-2019 Office outpatient visit 5 minutes Marcy Callahan [facility] Start: 06-12-2019 End: 06-12-2019 Lab Order Marcy Crooka [facility] Start: 05-22-2019 End: 05-22-2019 Annotation/Addendum Marcy Ambreena [facility] Start: 04-16-2019 End: 04-16-2019 Office outpatient visit 5 minutes Marcy Clalahan [facility] Start: 03-27-2019 End: 03-27-2019 Phone Encounter Marcy Callahan [facility] Start: 02-17-2019 End: 02-17-2019 Annotation/Addendum Marcy Callahan [facility] Start: 02-17-2019 End: 02-17-2019 Lab Order Marcy Callahan [facility] Start: 01-27-2019 End: 01-27-2019 Office outpatient visit 15 minutes [facility]cy Callahan [facility] Start: 01-23-2019 End: 01-23-2019 Office outpatient visit 15 minutes Marcy Callahan [facility] Start: 01-21-2019 End: 01-21-2019 Lab Order Marcy Madison [facility] Start: 01-20-2019 End: 01-20-2019 Office outpatient visit 25 minutes Marcy Callahan [facility] Start: 01-20-2019 Review Marcy Callahan [facility] Start: 12-10-2018 End: 12-10-2018 Lab Order Marcy Callahan [facility] Start: 11-12-2018 End: 11-12-2018 Annotation/Addendum Marcy Callahan [facility] Start: 11-25-2017 End: 11-25-2017 Office outpatient visit 25 minutes Marcy Callahan [facility] Start: 11-20-2017 End: 11-20-2017 Lab Order Marcy Callahan [facility] Start: 11-20-2017 End: 11-20-2017 Physical examination Gómez Yost CNP Work Phone: [facility] Start: 10-01-2016 End: 10-01-2016 Office outpatient visit 25 minutes Marcy Callahan [facility] Start: 08-12-2015 End: 08-12-2015 Office outpatient visit 25 minutes Marcy Callahan [facility] Start: 08-12-2015 End: 08-12-2015 Physical examination Gómez Yost CNP Work Phone: [facility] Start: 02-15-2015 End: 02-15-2015 Office outpatient visit 15 minutes Marcy Callahan [facility] Start: 10-18-2014 End: 10-18-2014 Patient encounter status Gómez Yost CNP Work Phone: [facility] Start: 10-18-2014 End: 10-18-2014 Periodic preventive med est patient 18-39 yrs Marcy Crooka [facility] Start: 09-16-2014 End: 09-16-2014 Lab Order Marcy Callahan [facility] Start: 09-07-2013 End: 09-07-2013 Office outpatient visit 15 minutes Marcy Callahan [facility] Start: 08-24-2013 End: 08-24-2013 Patient encounter procedure Marcy Callahan [facility] Start: 08-24-2013 End: 08-24-2013 Patient encounter status Gómez Yost CNP Work Phone: [facility] Start: 07-06-2013 End: 07-06-2013 Lab Order Marcy Callahan [facility] Start: 06-29-2013 End: 06-29-2013 Patient encounter procedure Marcy Callahan [facility] Start: 05-19-2012 End: 05-19-2012 Patient encounter procedure Marcy Callahan [facility] Start: 05-19-2012 End: 05-19-2012 Patient encounter status Gómez Yost CNP Work Phone: [facility] Start: 03-28-2012 End: 03-28-2012 Phone Encounter Marcy Callahan [facility] Start: 03-25-2012 End: 03-25-2012 Patient encounter status Gómez Yost CNP Work Phone: [facility] Start: 03-25-2012 End: 03-25-2012 Phone Encounter Marcy Callahan [facility] Start: 09-24-2011 End: 09-24-2011 Office outpatient visit 10 minutes Marcy Callahan [facility] Start: 05-14-2011 End: 05-14-2011 Patient encounter procedure Marcy Callahan [facility] Start: 05-14-2011 End: 05-14-2011 Patient encounter status Gómez Yost CNP Work Phone: [facility] Start: 2010 End: 2010 Patient encounter procedure Marcy Crooka [facility] Start: 2010 End: 2010 Patient encounter status Gómez Yost CNP Work Phone: [facility] Start: 02-27-2010 End: 02-27-2010 Patient encounter procedure Marcy Crooknick [facility] Start: 02-27-2010 End: 02-27-2010 Patient encounter status Gómez Yost CNP Work Phone: [facility] Start: 02-21-2010 End: 02-21-2010 Phone Encounter Marcy Callahan [facility] Start: 08-29-2009 End: 08-29-2009 Patient encounter procedure Marcy Callahan [facility] Start: 08-29-2009 End: 08-29-2009 Patient encounter status Gómez Yost SPORTS SPECIALIST Work Phone: [facility] Start: 02-21-2009 End: 02-21-2009 Patient encounter procedure Marcy Callahan [facility] Start: 08-23-2008 End: 08-23-2008 Patient encounter procedure Marcy Callahan [facility] Start: 08-23-2008 End: 08-23-2008 Patient encounter status Gómez Yost SPORTS SPECIALIST Work Phone: [facility] Start: 04-12-2008 [...] [facility] Physical examination [facility]; [facility] Work Phone: Comment on above: rectal/psa 8-15. nev er got scope recommended Physical examination True [facility]; [facility] Work Phone: Comment on above: rectal/psa 8-15. nev er got scope recommended End: 12-19-2021 Physical examination Ivette Francis [facility]; [facility] Work Phone: Comment on above: rectal/psa 8-15. nev er got scope recommended Procedures Date Procedure Procedure Detail Performing Clinician Start: 05-27-2024 Follow-up visit Follow Up SUE HEDRICK Start: 05-06-2024 Ct thorax w/contrast material Mary Kay (Handbook Writer) (Hist) [place] Start: 04-09-2024 Echo transthorac r-t 2d w/wo m-mode rec comp Richard Reynolds APRN.SPORTS SPECIALIST Work Phone: Start: 04-09-2024 LVEF ECHO LIMITED Laci Alberts APRN.SPORTS SPECIALIST Work Phone: Start: 04-09-2024 Coagulation time activated Delvin Gamez MD Work Phone: Start: 03-18-2024 Closure of patent fo ramen ovale PETE SUNGSOHAIL DO Start: 03-09-2024 X-ray of chest, PA a nd lateral views Gómez Yost COLLATOR-C Work Phone: Start: 02-09-2024 Lipid 1996 panel - S te or Plasma Bhavya Rodriguez MD Work Phone: Start: 02-16-2019 Colonoscopy PETE KING SKA DO History of tonsillectomy AYLA ON DURES DO Inguinal hernia surg mamadou left 1979 Celia Ashtyn Inguinal hernia surg mamadou left 1979 True Cardoso Inguinal hernia surg mamadou left 1979 Ivette Slarb Inguinal hernia surg mamadou left 1979 True Cardoso Inguinal hernia surg mamadou left 1979 True Christian CORPORATE STRATEGIST Inguinal hernia surg mamadou left 1979 True Christian CORPORATE STRATEGIST Inguinal hernia surg mamadou left 1979 Ivette Slarb CORPORATE STRATEGIST Inguinal hernia surg mamadou left 1979 Ivette Slarb CORPORATE STRATEGIST Repair of left direc t inguinal hernia PETE REZA DO Plan of Treatment Date Care Activity Detail Author Start: 10-29-2034 RSV Vaccine (1 - 1-dose 75+ series) RSV Vaccine (1 - 1-dose 75+ series) [facility] Start: 02-08-2029 Lipid panel Lipid Screening [facility] Start: 04-02-2027 Diabetes Screening Diabetes Screening [facility] Start: 02-11-2027 Diabetes Screening Diabetes Screening [facility] Start: 02-08-2027 Diabetes Screening Diabetes Screening [facility] Start: 07-05-2025 End: 07-05-2025 Patient encounter procedure 07/05/2025 1:00 PM EDT Appointment Radiology [address] [place] [address] Thyroid US to be faxed from [facility] Comment on above: Thyroid US to be faxed from [facility] Start: 02-08-2025 Hepatitis B surface antibody level LDL Cholesterol [facility] Start: 11-16-2024 Influenza vaccination Influenza Vaccine (Season Ended) [facility] Start: 08-28-2024 End: 11-27-2024 Coagulation factor VIII activity actual/normal in Platelet poor plasma by Coagulation assay FACTOR VIII:C ASSAY Lab Routine Elevated factor VIII level Expected: 08/28/2024, Expires: 11/27/2024 [facility] Work Phone: Comment on above: Expected: 08/28/2024, Expires: Start: 05-27-2024 End: 05-27-2024 Patient encounter procedure 05/27/2024 1:30 PM EDT Office Visit Cerebrovascular [address] [place], [place] [id number] Rosamaria Hedrick APRN.SPORTS SPECIALIST [address] [address] 3 month follow up Cerebrovascular Comment on above: 3 month follow up Start: 05-25-2024 End: 08-30-2024 Coagulation factor VIII activity actual/normal in Platelet poor plasma by Coagulation assay FACTOR VIII:C ASSAY Lab Routine Elevated factor VIII level Expected: 05/25/2024, Expires: 08/30/2024 [facility] Work Phone: Comment on above: Expected: 05/25/2024, Expires: 5 Start: 05-20-2024 End: 05-20-2024 Patient encounter procedure [facility] Comment on above: Return in about 1 month Return in about 1 mo nth /sab Start: 05-06-2024 End: 05-06-2024 Patient encounter procedure Radiology Comment on above: Thyroid nodule (E04.1) Lung nodule (R91.1) Start: 04-24-2024 End: 04-24-2024 Patient encounter procedure 04/24/2024 8:00 AM EST Office Visit [facility] [address] 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 [place] [employer] Comment on above: PERCUTANEOUS TRANSCATHETER CLOSURE OF CO NGENITAL INTERATRIAL COMMUNICATION W/O IMPLANT Start: 04-09-2024 Subsequent hospital visit by physician 04/09/2024 10:00 AM EST Hospital Encounter [place] [employer] [address] [place] [address] Delvin Gamez MD [address] [place] [id number] PFO (patent foramen ovale) [Q21.12] [place] [employer] Comment on above: PFO (patent foramen ovale) [Q21.12] Start: 04-09-2024 End: 04-09-2024 Intracard echocard w/ther/dx ivntj incl img s&i [place] [employer] Start: 04-09-2024 End: 04-09-2024 Prq tcat clsr cgen intratrl comunicaj w/implt [place] [employer] Start: 04-01-2024 End: 04-01-2024 Patient encounter procedure [facility] Comment on above: new; eval of PFO closure new; eval of PFO mendez sure /sab Start: 02-24-2024 End: 05-25-2024 BETA 2 GLYCOPROTEIN 1, IGA [facility] Comment on above: Expected: 02/24/2024, Expires: Start: 02-24-2024 End: 05-25-2024 BETA 2 GLYCOPROTEIN, IGG [facility] Comment on above: Expected: 02/24/2024, Expires: Start: 02-24-2024 End: 05-25-2024 BETA 2 GLYCOPROTEIN, IGM [facility] Comment on above: Expected: 02/24/2024, Expires: Start: 02-24-2024 End: 05-25-2024 HYPERCOAG DIAG PNL [facility] Work Phone: Comment on above: Expected: 02/24/2024, Expires: Start: 02-24-2024 End: 02-24-2024 Patient encounter procedure 02/24/2024 11:00 AM EST Office Visit Neurology [address] [place] [address] Rosamaria Hedrick APRN.SPORTS SPECIALIST [address] [place], [place] [id number] Order [id number] Neurology Comment on above: Order [id number] Start: 02-12-2024 End: 02-12-2024 Echo transesophag montr cardiac pump functj ECHOCARDIOGRAM TRANSESOPHOGEAL Cerebrovascular accident (CVA), unspecified mechanism (HCC) 02/12/2024 11:57 AM EST [facility] Start: 11-17-2023 Covid-19 Vaccine ( season) Covid-19 Vaccine ( season) [facility] Start: 11-17-2023 Influenza vaccination Influenza Vaccine (#1) [facility] Start: 04-10-2022 Procedure Education Eprescribed prescriptions (G8553) [facility]; [facility] Work Phone: Start: 01-09-2022 Assay of free thyroxine T4, FREE (THYROXINE) (36838) [facility]; [facility] Work Phone: Comment on above: Feb 2022 Start: 01-09-2022 Assay of thyroid stimulating hormone tsh TSH (THYROID STIMULATING HORMONE) (35968) [facility]; [facility] Work Phone: Comment on above: February 2022 Start: 01-09-2022 Basic metabolic panel calcium total METABOLIC PANEL, BASIC (00057) [facility]; [facility] Work Phone: Comment on above: February 2022 Start: 01-09-2022 Urinalysis qual/semiquant except immunoassays URINALYSIS (20152) [facility]; [facility] Work Phone: Comment on above: February 2022 Start: 01-09-2022 Urine albumin quantitative MICROALBUMIN: CREATININE RATIO (46748) AND (06352) [facility]; [facility] Work Phone: Comment on above: February 2022 Start: 12-20-2021 Procedure Education Eprescribed prescriptions (G8553) [facility]; [facility] Work Phone: Start: 12-20-2021 Provider Instructions for Treatment Follow up in 1 year or as needed [facility]; [facility] Work Phone: Start: 11-24-2021 Urinalysis qual/semiquant except immunoassays URINALYSIS (14464) [facility]; [facility] Work Phone: Start: 11-24-2021 Comprehensive metabolic panel METABOLIC PANEL, COMPREHENSIVE (80990) [facility]; [facility] Work Phone: Start: 11-24-2021 Blood count complete auto&auto difrntl wbc CBC, PLATELETS & AUT DIFF (91417) [facility]; [facility] Work Phone: Start: 11-24-2021 Assay of prostate specific antigen total PSA (PROSTATE SPECIFIC ANTIGEN) (41080) [facility]; [facility] Work Phone: Start: 11-24-2021 Lipid panel LIPID PANEL (69766) [facility]; [facility] Work Phone: Start: 11-24-2021 Assay of free thyroxine T4, FREE (THYROXINE) (33817) [facility]; [facility] Work Phone: Start: 11-24-2021 Assay of thyroid stimulating hormone tsh TSH (THYROID STIMULATING HORMONE) (93799) [facility]; [facility] Work Phone: Start: 11-24-2021 Assay of triiodothyronine t3 free FREE TRIIDOTHYRONINE (T3) (67876) [facility]; [facility] Work Phone: Start: 08-23-2021 Procedure Education Eprescribed prescriptions (G8553) [facility]; [facility] Work Phone: Start: 08-23-2021 Assay of free thyroxine T4, FREE (THYROXINE) (97085) [facility]; [facility] Work Phone: Start: 08-23-2021 Assay of thyroid stimulating hormone tsh TSH (THYROID STIMULATING HORMONE) (94570) [facility]; [facility] Work Phone: Start: 07-06-2021 Assay of thyroid stimulating hormone tsh TSH (THYROID STIMULATING HORMONE) (64573) [facility]; [facility] Work Phone: Start: 05-18-2021 Assay of thyroid stimulating hormone tsh TSH (77527) [facility]; [facility] Work Phone: Start: 03-29-2021 Procedure Education Eprescribed prescriptions (G8553) [facility]; [facility] Work Phone: Start: 03-29-2021 Provider Instructions for Treatment Follow up in 6 months help desk engineer to make follow up apt [facility]; [facility] Work Phone: Start: 03-29-2021 Assay of thyroid stimulating hormone tsh TSH (THYROID STIMULATING HORMONE) (61304) [facility]; [facility] Work Phone: Comment on above: MAY 12, 2021 Start: 03-21-2021 Assay of thyroid stimulating hormone tsh TSH (THYROID STIMULATING HORMONE) (17370) [facility]; [facility] Work Phone: Start: 03-21-2021 Comprehensive metabolic panel Metabolic Panel, Comprehensive (19082) [facility]; [facility] Work Phone: Start: 03-21-2021 Lipid panel LIPID PANEL (16980) [facility]; [facility] Work Phone: Start: 08-30-2020 Procedure Education Eprescribed prescriptions (G8553) [facility]; [facility] Work Phone: Start: 08-30-2020 Provider Instructions for Treatment Follow up in 6 months desk director to call and schedule and fax labs for Mar 21 2021 to [facility]; [facility] Work Phone: Start: 11-17-2019 25 hydroxy includes fractions if performed CALCIFEDIOL (28592) [facility] Work Phone: Start: 11-17-2019 Assay of prostate specific antigen total PSA (PROSTATE SPECIFIC ANTIGEN) (56574) [facility] Work Phone: Start: 11-17-2019 Urinalysis qual/semiquant except immunoassays URINALYSIS (29465) [facility] Work Phone: Start: 11-17-2019 Blood count complete automated CBC & PLATELETS (AUTO) (50642) [facility] Work Phone: Start: 11-17-2019 Comprehensive metabolic panel METABOLIC PANEL, COMPREHENSIVE (92027) [facility] Work Phone: Start: 11-17-2019 Lipid panel LIPID PANEL (35970) [facility] Work Phone: Start: 11-17-2019 Assay of thyroid stimulating hormone tsh TSH (THYROID STIMULATING HORMONE) (69083) [facility]; [facility] Work Phone: Start: 11-17-2019 TSH Qn TSH (THYROID STIMULATING HORMONE) (59469) [facility] Work Phone: Start: 07-03-2019 Assay of thyroid stimulating hormone tsh TSH (THYROID STIMULATING HORMONE) (35698) [facility]; [facility] Work Phone: Start: 07-03-2019 TSH Qn TSH (THYROID STIMULATING HORMONE) (34569) [facility] Work Phone: Start: 06-12-2019 Assay of thyroid stimulating hormone tsh TSH (THYROID STIMULATING HORMONE) (37811) [facility]; [facility] Work Phone: Start: 06-12-2019 TSH Qn TSH (THYROID STIMULATING HORMONE) (43855) [facility] Work Phone: Start: 03-27-2019 Assay of thyroxine total TT4 (THYROXINE TOTAL) (87360) [facility]; [facility] Work Phone: Start: 03-27-2019 T4 [Mass/Vol] TT4 (THYROXINE TOTAL) (90345) [facility] Work Phone: Start: 03-27-2019 Assay of triiodothyronine t3 free FREE TRIIDOTHYRONINE (T3) (55601) [facility] Work Phone: Start: 03-27-2019 Assay of thyroid stimulating hormone tsh TSH (THYROID STIMULATING HORMONE) (34355) [facility]; [facility] Work Phone: Start: 03-27-2019 TSH Qn TSH (THYROID STIMULATING HORMONE) (74341) [facility] Work Phone: Start: 03-25-2019 Assay of thyroid stimulating hormone tsh TSH (THYROID STIMULATING HORMONE) (85625) [facility]; [facility] Work Phone: Start: 03-25-2019 TSH Qn TSH (THYROID STIMULATING HORMONE) (29489) [facility] Work Phone: Start: 02-17-2019 Assay of thyroid stimulating hormone tsh TSH (THYROID STIMULATING HORMONE) (58910) [facility]; [facility] Work Phone: Start: 02-17-2019 TSH Qn TSH (THYROID STIMULATING HORMONE) (26121) [facility] Work Phone: Start: 01-27-2019 Procedure Education Eprescribed prescriptions (G8553) [facility] Work Phone: Start: 01-27-2019 Provider Instructions for Treatment [facility] Work Phone: Start: 01-23-2019 Procedure Education Eprescribed prescriptions (G8553) [facility] Work Phone: Start: 01-23-2019 Throat culture THROAT CULTURE (47829) [facility] Work Phone: Start: 01-23-2019 [place] streptococcus group a Rapid Strep Test, Office (77595) [facility]; [facility] Work Phone: Start: 01-23-2019 S. pyogenes Ag IA Ql (Unsp spec) Rapid Strep Test, Office (10638) [facility] Work Phone: Start: 01-23-2019 [place] influenza Rapid Flu (56459 x 2) [facility] Work Phone: Start: 01-21-2019 Assay of thyroid stimulating hormone tsh TSH (THYROID STIMULATING HORMONE) (19076) [facility]; [facility] Work Phone: Start: 01-21-2019 TSH Qn TSH (THYROID STIMULATING HORMONE) (89686) [facility] Work Phone: Start: 01-20-2019 Assay of free thyroxine T4, FREE (THYROXINE) (63101) [facility]; [facility] Work Phone: Start: 01-20-2019 Free T4 [Mass/Vol] T4, FREE (THYROXINE) (05947) [facility] Work Phone: Start: 01-20-2019 Assay of triiodothyronine t3 free T3, FREE (TRIDOTHYRONINE) (35036) [facility]; [facility] Work Phone: Start: 01-20-2019 Free T3 [Mass/Vol] T3, FREE (TRIDOTHYRONINE) (93236) [facility] Work Phone: Start: 01-20-2019 Assay of thyroid stimulating hormone tsh TSH (THYROID STIMULATING HORMONE) (41459) [facility]; [facility] Work Phone: Start: 01-20-2019 TSH Qn TSH (THYROID STIMULATING HORMONE) (29958) [facility] Work Phone: Start: 01-20-2019 Procedure Education Eprescribed prescriptions (G8553) [facility] Work Phone: Start: 01-20-2019 Provider Instructions for Treatment [facility] Work Phone: Start: 12-10-2018 Assay of prostate specific antigen total PSA (PROSTATE SPECIFIC ANTIGEN) (46860) [facility] Work Phone: Start: 12-10-2018 25 hydroxy includes fractions if performed CALCIFEDIOL (28957) [facility] Work Phone: Start: 12-10-2018 Urinalysis qual/semiquant except immunoassays URINALYSIS (81333) [facility] Work Phone: Start: 12-10-2018 Assay of thyroid stimulating hormone tsh TSH (THYROID STIMULATING HORMONE) (23097) [facility]; [facility] Work Phone: Start: 12-10-2018 TSH Qn TSH (THYROID STIMULATING HORMONE) (52256) [facility] Work Phone: Start: 12-10-2018 Comprehensive metabolic panel METABOLIC PANEL, COMPREHENSIVE (29865) [facility] Work Phone: Start: 12-10-2018 Blood count complete automated CBC & PLATELETS (AUTO) (94550) [facility] Work Phone: Start: 12-10-2018 Lipid panel LIPID PANEL (50915) [facility] Work Phone: Start: 11-25-2017 Procedure Education Eprescribed prescriptions (G8553) [facility] Work Phone: Start: 11-25-2017 Provider Instructions for Treatment [facility] Work Phone: Start: 11-20-2017 Assay of prostate specific antigen total PSA (PROSTATE SPECIFIC ANTIGEN) (81382) [facility] Work Phone: Start: 11-20-2017 Specific gravity except urine UA - SPECIFIC GRAVITY (83594) [facility] Work Phone: Start: 11-20-2017 25 hydroxy includes fractions if performed CALCIFEDIOL (09578) [facility] Work Phone: Start: 11-20-2017 Lipid panel LIPID PANEL (85269) [facility] Work Phone: Start: 11-20-2017 Blood count complete automated CBC & PLATELETS (AUTO) (24434) [facility] Work Phone: Start: 11-20-2017 Comprehensive metabolic panel METABOLIC PANEL, COMPREHENSIVE (67213) [facility] Work Phone: Start: 10-01-2016 Provider Instructions for Treatment [facility] Work Phone: Start: 10-01-2016 Bilirubin [Mass/Vol] Bilirubin, total (00726) [facility] Work Phone: Start: 10-01-2016 Bilirubin total Bilirubin, total (01081) [facility] Work Phone: Start: 10-01-2016 Bilirubin direct Bilirubin, Direct (71266) [facility]; [facility] Work Phone: Start: 10-01-2016 Bilirubin.direct [Mass/Vol] Bilirubin, Direct (33720) [facility] Work Phone: Start: 10-01-2016 Blood occult peroxidase actv qual feces 1 deter OCCULT BLOOD FECES SCREEN - card done in office (81323) [facility] Work Phone: Start: 08-12-2015 Procedure Education Eprescribed prescriptions (G8553) [facility] Work Phone: Start: 08-12-2015 Assay of prostate specific antigen total PSA (PROSTATE SPECIFIC ANTIGEN) (V76.44) [facility] Work Phone: Start: 08-12-2015 Urine albumin quantitative MICROALBUMIN: CREATININE RATIO (58424) AND (48697) [facility] Work Phone: Start: 08-12-2015 Comprehensive metabolic panel METABOLIC PANEL, COMPREHENSIVE (05340) [facility] Work Phone: Start: 08-12-2015 Lipid panel LIPID PANEL (06747) [facility] Work Phone: Start: 08-12-2015 Blood count manual cell count each CBC with auto diff (23297) [facility] Work Phone: Start: 02-15-2015 Patient Education Cough Medicines, Nonprescription: cough [facility] Work Phone: Start: 02-15-2015 Provider Instructions for Treatment Follow up if no improvement or if symptoms worsen [facility] Work Phone: Start: 10-29-2014 Prostate specific antigen measurement Prostate Cancer Screening Discussion [facility] Start: 10-18-2014 Procedure Education Eprescribed prescriptions (G8553) [facility] Work Phone: Start: 10-18-2014 Urnls dip stick/tablet reagent auto microscopy URINALYSIS, W/ MICRO (73950) [facility] Work Phone: Start: 10-18-2014 Comprehensive metabolic panel METABOLIC PANEL, COMPREHENSIVE (24486) [facility] Work Phone: Start: 10-18-2014 Lipid panel LIPID PANEL (12831) [facility] Work Phone: Start: 10-18-2014 Blood count manual cell count each CBC with auto diff (14136) [facility] Work Phone: Start: 09-16-2014 Assay of prostate specific antigen total PSA (PROSTATE SPECIFIC ANTIGEN) (V76.44) [facility] Work Phone: Start: 09-16-2014 Comprehensive metabolic panel METABOLIC PANEL, COMPREHENSIVE (37063) [facility] Work Phone: Start: 09-16-2014 CBC, PLATELETS & MANUAL DIFF (11121) CBC, PLATELETS & MANUAL DIFF (67799) [facility] Work Phone: Start: 09-16-2014 Lipid panel LIPID PANEL (72062) [facility] Work Phone: Start: 09-07-2013 Provider Instructions for Treatment [facility] Work Phone: Start: 08-24-2013 Procedure Education Eprescribed prescriptions (G8553) [facility] Work Phone: Start: 08-24-2013 Assay of prostate specific antigen total PSA (PROSTATE SPECIFIC ANTIGEN) (V76.44) [facility] Work Phone: Start: 08-24-2013 Comprehensive metabolic panel METABOLIC PANEL, COMPREHENSIVE (50719) [facility] Work Phone: Start: 08-24-2013 Lipid panel LIPID PANEL (37223) [facility] Work Phone: Start: 08-24-2013 Urnls dip stick/tablet reagent auto microscopy URINALYSIS, W/ MICRO (24398) [facility] Work Phone: Start: 08-24-2013 Blood count manual cell count each CBC WITH MANUAL DIFF (00875) [facility] Work Phone: Start: 07-06-2013 Assay of prostate specific antigen total PSA (Prostate Specific Antigen), Screening (66425) [facility] Work Phone: Start: 07-06-2013 Blood count manual cell count each CBC with manual diff (27350) [facility] Work Phone: Start: 07-06-2013 Comprehensive metabolic panel Metabolic Panel, Comprehensive (08547) [facility] Work Phone: Start: 07-06-2013 Lipid panel Lipid Panel (68505) [facility] Work Phone: Start: 05-19-2012 HbA1c (Bld) [Mass fraction] HgA1C , Office (00156) [facility] Work Phone: Start: 05-19-2012 Hemoglobin glycosylated a1c HgA1C , Office (45112) [facility]; [facility] Work Phone: Start: 03-25-2012 Assay of prostate specific antigen total PSA (PROSTATE SPECIFIC ANTIGEN) (V76.44) [facility] Work Phone: Start: 03-25-2012 Comprehensive metabolic panel METABOLIC PANEL, COMPREHENSIVE (19942) [facility] Work Phone: Start: 03-25-2012 Lipid panel LIPID PANEL (97086) [facility] Work Phone: Start: 03-25-2012 Urnls dip stick/tablet reagent auto microscopy URINALYSIS, W/ MICRO (05707) [facility] Work Phone: Start: 03-25-2012 Blood count manual cell count each CBC WITH MANUAL DIFF (67490) [facility] Work Phone: Start: 2010 Comprehensive metabolic panel METABOLIC PANEL, COMPREHENSIVE (98224) [facility] Work Phone: Start: 2010 Lipid panel LIPID PANEL (68401) [facility] Work Phone: Start: 2010 Urnls dip stick/tablet reagent auto microscopy URINALYSIS, W/ MICRO (45517) [facility] Work Phone: Start: 2010 Blood count manual cell count each CBC WITH MANUAL DIFF (31298) [facility] Work Phone: Start: 02-21-2010 Comprehensive metabolic panel Metabolic Panel, Comprehensive (85957) [facility] Work Phone: Start: 02-21-2010 Lipid panel Lipid Panel (04171) [facility] Work Phone: Start: 10-29-2009 Pneumococcal Vaccine: 50+ (1 of 1 - PCV) Pneumococcal Vaccine: 50+ (1 of 1 - PCV) [facility] Start: 10-29-2009 Shingrix Vaccine (1 of 2) Shingrix Vaccine (1 of 2) [facility] Start: 08-29-2009 Provider Instructions for Treatment *Colon Cancer Screening [facility] Work Phone: Start: 02-21-2009 Assay of prostate specific antigen total PSA (PROSTATE SPECIFIC ANTIGEN) (V76.44) [facility] Work Phone: Start: 02-21-2009 Blood count complete automated CBC (Auto) (38197) [facility] Work Phone: Start: 02-21-2009 Comprehensive metabolic panel Metabolic Panel, Comprehensive (40109) [facility] Work Phone: Start: 02-21-2009 Lipid panel Lipid Panel (84825) [facility] Work Phone: Start: 02-21-2009 HbA1c (Bld) [Mass fraction] Hemoglobin Glyclated (HGB A1C) (20040) [facility] Work Phone: Start: 02-21-2009 Hemoglobin glycosylated a1c Hemoglobin Glyclated (HGB A1C) (66071) [facility]; [facility] Work Phone: Start: 08-23-2008 Basic metabolic panel calcium total Metabolic Panel, Basic (00064) [facility] Work Phone: Start: 08-23-2008 Lipid panel Lipid Panel (09814) [facility] Work Phone: Start: 08-23-2008 Hepatic function panel HEPATIC FUNCTION PANEL (08571) [facility] Work Phone: Comment on above: in six months (approximately) Start: 04-12-2008 Assay of prostate specific antigen total PSA (PROSTATE SPECIFIC ANTIGEN) (V76.44) [facility] Work Phone: Start: 04-12-2008 Urnls dip stick/tablet rgnt auto w/o microscopy URINALYSIS W/O MICRO (75325) [facility] Work Phone: Start: 04-12-2008 Blood count manual cell count each CBC WITH MANUAL DIFF (75255) [facility] Work Phone: Start: 04-12-2008 Comprehensive metabolic panel METABOLIC PANEL, COMPREHENSIVE (20737) [facility] Work Phone: Start: 04-12-2008 Lipid panel LIPID PANEL (15891) [facility] Work Phone: Start: 11-25-2007 Assay of creatine Creatine (92029) [facility]; [facility] Work Phone: Start: 11-25-2007 Creatinine [Mass/Vol] Creatine (93514) [facility] Work Phone: Start: 11-14-2007 Provider Instructions for Treatment Cholesterol - Medication Side Effects [facility] Work Phone: Start: 11-14-2007 Lipoprotein blood cj numbers & subclasses LIPOPROTEIN, BLD, BY NMR (69069) [facility]; [facility] Work Phone: Comment on above: lipoprotien a Start: 11-14-2007 Protein [Mass/Vol] LIPOPROTEIN, BLD, BY NMR (33369) [facility] Work Phone: Comment on above: lipoprotien a Start: 11-14-2007 Creatine kinase total Creatine Kinase Total (02168) [facility] Work Phone: Start: 11-14-2007 Hepatic function panel HEPATIC FUNCTION PANEL (83935) [facility] Work Phone: Start: 11-14-2007 Lipid panel Lipid Panel (06111) [facility] Work Phone: Start: 05-02-2007 Hepatic function panel HEPATIC FUNCTION PANEL (80990) [facility] Work Phone: Start: 05-02-2007 Lipid panel LIPID PANEL (49854) [facility] Work Phone: Start: 05-02-2007 Provider Instructions for Treatment Cholesterol - Nonprescription Treatment [facility] Work Phone: Start: 04-11-2007 Sedimentation rate rbc non-automated Sed Rate Erythrocyte (33367) [facility] Work Phone: Start: 04-11-2007 Blood count complete automated CBC (Auto) (13301) [facility] Work Phone: Start: 04-11-2007 Creatine kinase total Creatine Kinase Total (86748) [facility] Work Phone: Comment on above: cardiac enzymes complete Start: 04-11-2007 Comprehensive metabolic panel Metabolic Panel, Comprehensive (22805) [facility] Work Phone: Start: 04-11-2007 Lipid panel Lipid Panel (67810) [facility] Work Phone: Start: 04-11-2007 Provider Instructions for Treatment FOLLOW UP IN 2 WEEKS [facility] Work Phone: Start: 10-29-2004 Prostate specific antigen measurement Prostate Cancer Screening Discussion [facility] Start: 10-29-2004 Screening for malignant neoplasm of colon [facility] Start: 10-29-1978 Urine microalbumin profile DTaP,Tdap,Td Vaccine (1 - Tdap) [facility] Start: 10-29-1977 Annual PCP Team Chronic Disease Visit Annual PCP Team Chronic Disease Visit [facility] Start: 10-29-1977 Anxiety Screening Anxiety Screening [facility] Start: 10-29-1977 BP Controlled (<130/80) BP Controlled (<130/80) [facility] Start: 10-29-1977 Depression Screening Depression Screening [facility] Start: 10-29-1977 Hepatitis C screening Hepatitis C Screening [facility] Start: 10-29-1977 HIV screening HIV Screening [facility] ECG B/O W INTERP (ME D OFFICE) ECG B/O W INTERP (MED OFFICE) ECG Routine PFO (patent foramen ovale) Ordered: 04/01/2024 [facility] Work Phone: Comment on above: Ordered: 04/01/2024 End: 04-09-2024 ELECTROPHYSIOLOGY US ELECTROPHYSIOLOGY US BIC Routine One Time for 1 Occurrences starting 04/09/2024 until 04/09/2024 [facility] Work Phone: Comment on above: One Time for 1 Occurrences starting 03/19 until 04/09/2024 End: 04-09-2024 RIGHT HEART CATHETERIZATION RIGHT HEART CATHETERIZATION BIC Routine One Time for 1 Occurrences starting 04/09/2024 until 04/09/2024 [facility] Comment on above: One Time for 1 Occurrences starting 03/19 until 04/09/2024 End: 04-09-2024 XR Chest Single view [facility] Work Phone: Comment on above: One Time for 1 Occurrences starting 03/19 until 04/09/2024 [facility] Work Phone: [facility] Work Phone: [facility] Work Phone: [facility] Work Phone: [facility] Work Phone: [facility] Work Phone: [facility] Work Phone: [facility] Work Phone: [facility] Work Phone: [facility] Work Phone: [facility] Work Phone: [facility] Work Phone: [facility] Work Phone[facility] Work Phone: [facility] Work Phone: [facility] Work Phone: [facility] Work Phone: [facility] Work Phone: [facility] Work Phone: Immunizations Immunization Date Immunization Notes Care Provider [facility] 07-13-2024 tetanus toxoid, reduced diphtheria toxoid, and acellular pertussis vaccine, adsorbed PETE DUREVELINEKA DO [facility] 02-06-2021 COVID-19 original vaccine, full dose, monovalent (MODERNA) Rosamaria Hedrick LICENSED OCCUPATIONAL THERAPIST.SPORTS SPECIALIST Work Phone: [facility] 05-31-2020 COVID-19 vaccine (ISAAC) Rosamariazachary Ramosnder LICENSED OCCUPATIONAL THERAPIST.SPORTS SPECIALIST Work Phone: [facility] 06-15-2019 zoster vaccine, live Marcy Callahan [facility] Work Phone: Comment on above: Site: Left Deltoid 06-15-2019 zoster vaccine recombinant Marcy Callahan [facility] Work Phone: Comment on above: lot [id number] RECONSTITU HELEN WITH [id number] MLLEFT DLTDIMEÑO, CORPORATE STRATEGIST 10-03-2012 hepatitis A vaccine, adult dosage Rosamaria Rachelnder LICENSED OCCUPATIONAL THERAPIST.SPORTS SPECIALIST Work Phone: [facility] 02-20-2012 hepatitis A vaccine, adult dosage Rosamaria Rachelnder LICENSED OCCUPATIONAL THERAPIST.SPORTS SPECIALIST Work Phone: [facility] 02-20-2012 measles, mumps and rubella virus vaccine Rosamaria Hollaender LICENSED OCCUPATIONAL THERAPIST.SPORTS SPECIALIST Work Phone: [facility] Payers Date Payer Category Payer Self-pay [id number] 2019 [place] [employer] [facility] BLUE CARD PPO OOS Member Subscriber Plan / Payer (Effective 2019-Present) Name: Glenroy Thornton Relation to Subscriber: Self Name: Glenroy Thornton Payer ID: [id number] (NAIC) Type: PPO Address: [place] [id number] [place] [id number] 2019 Unknown 2019 Unknown [id number] 2019 Unknown [id number] 2006 Unknown [id number] 1959 Unknown [id number] 1959 Unknown [id number] 1959 Unknown [id number] 1959 Unknown [id number] 1959 Unknown [id number] Unknown [id number] Unknown [id number] Unknown [id number] Unknown 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 Start: 02-09-2024 End: 04-01-2024 Tobacco smoking status NHIS Never smoked tobacco [facility] Start: 02-09-2024 End: 05-27-2024 Alcoholic beverage intake Ex-drinker (finding) [facility] Start: 02-09-2024 End: 02-10-2024 Tobacco use panel [facility] Work Phone: Start: 1960 Sex assigned at Not on file [facility] Has the [employer], or [employer] threatened to shut off services in your home in past 12Mo No [facility] Work Phone: (I/We) worried wheth er (my/our) food would run out before (I/we) got money to buy more. Never true [facility] In the past 12 month s, has lack of transportation kept you from medical appointments or from getting medications? No [facility] Start: 04-01-2024 Tobacco use and exposure Smoke less tobacco non-user [facility] Tobacco smoking stat us NHIS Unknown if ever smoked [facility] Work Phone: Start: 04-26-2005 End: 07-02-2024 Sex Male (finding) [facility] Start: 02-16-2019 Tobacco smoking status Ex-smoker (fi nding) [facility] Sexual Orientation [facility] ospital Goals Date Patient Goal Desired Activity /State Personal health goal Functional Status Date Assessment Result Facility 07-13-2024 Functional Status Independent [facility] 02-12-2024 Are you deaf, or do you have serious difficulty hearing No 02/12/2024 4:59 PM Christine Lynch RN No [facility] 02-12-2024 Are you blind, or do you have serious difficulty seeing, even when wearing glasses No 02/12/2024 4:59 PM Christine Lynch RN No [facility] 02-12-2024 Do you have serious difficulty walking or climbing stairs No 02/12/2024 4:59 PM Christine Lynch RN No [facility] 02-12-2024 Do you have difficul ty dressing or bathing No 02/12/2024 4:59 PM Christine Lynch RN [facility] 02-12-2024 Because of a physica l, mental, or emotional condition, do you have difficulty doing errands alone such as visiting a physician's office or shopping No 02/12/2024 4:59 PM Christine Lynch RN No [facility] Mental Status Date Assessment Result Facility 07-13-2024 Mental Status Orientation Oriented x 4 [facility] 02-12-2024 Because of a physica l, mental, or emotional condition, do you have serious difficulty concentrating, remembering, or making decisions No 02/12/2024 4:59 PM Christine Lynch RN [facility] Clinical Notes 02-09-2024 to 07-13-2024 Patient InstructionsRosamaria Hedrick APRN.MIGUEL - 05/27/2024 1:30 PM Delvin Donis MD - 05/20/2024 1:42 PM Anita Fonseca RDMS - 05/06/2024 1:00 PM ESTPatient Instructions Note Date & Type Note Facility 07-13-2024 Hospital Discharge instructions Patient Education 07/13/2024 15:25:49 Laceration, Chin, Suture or Tape Laceration, Chin, Suture Or Tape A laceration is a cut through the skin. If it is deep, it may need stitches. Minor cuts may be treated with surgical tape, skin glue, or other basic dressings. Home care These guidelines will help as your laceration heals: If a bandage was applied and it becomes wet or dirty, replace it. Otherwise, leave it in place for the first 24 hours, then change it once a day or as directed. If sutures were used, clean the wound daily: oWash the area with soap and water. Use water on a cotton swab to loosen and remove any blood or crust that forms. oAfter cleaning, keep the wound clean and dry. Talk with your doctor before applying any antibiotic ointment to the wound. oYou may shower as usual after the first 24 hours. But don't soak the area in water until the sutures are removed. This means no tub baths or swimming. If surgical tape was used, keep the area clean and dry. If it becomes wet, blot it dry with a towel. Your doctor may prescribe or recommend an antibiotic cream or ointment to prevent infection. Don't stop taking this medicine until you have finished the prescribed course or your doctor tells you to stop. Your doctor may also prescribe medicines for pain. Follow the doctor s instructions for taking these medicines. You may use [id number] pain medicine if no other pain medicine was prescribed. Talk with your doctor before using these medicines if you have chronic liver or kidney disease. Also talk with your doctor if you have ever had a stomach ulcer or gastrointestinal bleeding. Certain types of skin glues can't be used if you have an allergy to latex or formaldehyde. Tell your doctor right away about any allergies. Follow-up care Follow up with your healthcare provider, or as advised. Most chin lacerations heal within 5 to 7 days. But your wound may become infected even with proper treatment. You should check the wound daily for signs of infection listed below. Stitches should be removed from the chin within 5 days. If tape closures were used, remove them yourself if they have not fallen off after 5 days. When to seek medical advice Call your healthcare provider right away if any of these occur: Pain in the wound that gets worse Redness, swelling, or pus coming from the wound Fever of 100.4 F (38 C) or higher, or as directed by your healthcare provider Bleeding not controlled by direct pressure Wound edges reopen Sutures come apart or surgical tape falls off before 5 days 2011-2867 [employer]. [address] [place] [address]. All rights reserved. This information is not intended as a substitute for professional medical care. Always follow your healthcare professional's instructions. Follow Up Care 07/13/2024 14:48:26 With:Follow up with primary care provider Address: When:5 to 7 days Comments:[facility] Note Discharge Instructions Thank you for allowing [facility] to assist you with your healthcare needs. The following is important discharge information regarding your hospital visit. Diagnosis from Today's Visit Chin laceration What to Do Next Instructions from Your Care Team No qualifying data available. Post Acute Orders No qualifying data available. You Need to Schedule the Following Appointments Follow Up with Follow up with primary care provider When:Within 5 to 7 days Additional Information: For suture removal Allergies NKA Immunizations This Visit Given Vaccine Datetetanus/diphth/pertuss (Tdap) adult/adol 07/13/2024 Medications Please ask your primary doctor or pharmacist before taking any other medication not listed, including over the counter drugs, herbal medications, vitamins and or supplements as they may interact with your home medications. What How Much When Instructions Last Dose Unchanged aspirin (aspirin 81 mg oral delayed release tablet) 1 tab(s) by mouth Once a day Unchanged atorvastatin (atorvastatin 40 mg oral tablet) 1 tab(s) by mouth Every day Unchanged clopidogrel (clopidogrel 75 mg oral tablet) 1 tab(s) by mouth Once a day Unchanged ergocalciferol (Vitamin D2 2000 intl units oral capsule) 1 cap by mouth Once a day with food Unchanged hydroCHLOROthiazide (hydroCHLOROthiazide 25 mg oral tablet) 1 tab(s) by mouth Once a day Unchanged levothyroxine (levothyroxine 75 mcg (0.075 mg) oral tablet) 1 tab(s) by mouth Once a day 2 on Sat/ Sun Unchanged losartan (losartan 100 mg oral tablet) 1 tab(s) by mouth Every day Unchanged Misc Medication (METOPROLOL SUCC ER 100 MG TAB) Unchanged multivitamin with minerals (Multi-Day Plus Minerals) by mouth Once a day Please take this list to your next doctor s visit. Bring all medications you take, including over the counter medications, herbals and other supplements with you to your doctor s visit. Patients and families are reminded to discard old lists and to update any records with all medication providers or retail pharmacies. Education Materials Laceration, Chin, Suture Or Tape A laceration is a cut through the skin. If it is deep, it may need stitches. Minor cuts may be treated with surgical tape, skin glue, or other basic dressings. Home care These guidelines will help as your laceration heals: If a bandage was applied and it becomes wet or dirty, replace it. Otherwise, leave it in place for the first 24 hours, then change it once a day or as directed. If sutures were used, clean the wound daily: oWash the area with soap and water. Use water on a cotton swab to loosen and remove any blood or crust that forms. oAfter cleaning, keep the wound clean and dry. Talk with your doctor before applying any antibiotic ointment to the wound. oYou may shower as usual after the first 24 hours. But don't soak the area in water until the sutures are removed. This means no tub baths or swimming. If surgical tape was used, keep the area clean and dry. If it becomes wet, blot it dry with a towel. Your doctor may prescribe or recommend an antibiotic cream or ointment to prevent infection. Don't stop taking this medicine until you have finished the prescribed course or your doctor tells you to stop. Your doctor may also prescribe medicines for pain. Follow the doctor s instructions for taking these medicines. You may use qqtk-[id number]-osylnoz pain medicine if no other pain medicine was prescribed. Talk with your doctor before using these medicines if you have chronic liver or kidney disease. Also talk with your doctor if you have ever had a stomach ulcer or gastrointestinal bleeding. Certain types of skin glues can't be used if you have an allergy to latex or formaldehyde. Tell your doctor right away about any allergies. Follow-up care Follow up with your healthcare provider, or as advised. Most chin lacerations heal within 5 to 7 days. But your wound may become infected even with proper treatment. You should check the wound daily for signs of infection listed below. Stitches should be removed from the chin within 5 days. If tape closures were used, remove them yourself if they have not fallen off after 5 days. When to seek medical advice Call your healthcare provider right away if any of these occur: Pain in the wound that gets worse Redness, swelling, or pus coming from the wound Fever of 100.4 F (38 C) or higher, or as directed by your healthcare provider Bleeding not controlled by direct pressure Wound edges reopen Sutures come apart or surgical tape falls off before 5 days [id number] [employer]. [address] [place] [address], [place] [address]. All rights reserved. This information is not intended as a substitute for professional medical care. Always follow your healthcare professional's instructions. Additional Information VACCINATE! IT SAVES LIVES! Members of the community who have not yet received the COVID-19 vaccine and would like to receive it can visit one of [facility] vaccine clinics. There are many vaccine clinic locations within the [facility]. For locations and available times, please visit [email or web address] [email or web address] It is important to note that some COVID mobile vaccine clinics are held outdoors and may be canceled in rainy or stormy conditions. To learn more about pediatric vaccinations (ages 5-11), we invite you to visit the [facility] webpage. https://www.[facility].org/pag es/6966-Rdhbr-Djztfohfwde-Frequent hu-Wwkjx-Bksoafcxi.html To learn more about the COVID-19 vaccine, we invite you to visit the CDC website for a list of frequently asked questions. https://www.cdc.gov/coronavirus/20 19-ncov/vaccines/faq.html [facility] Patient Portal Access Instructions: Stay connected with your healthcare team and access your personal medical information anytime with the [facility] Patient Portal. If you would like a full copy of your medical records please contact the [facility] Medical Records Department Saturday through Saturday between 8a.m. and 4:30p.m. Please follow the directions below to access the portal: 1.Access the email account you provided upon registration to the hospital.2.Look for an invitation email from [facility].3.Open the email and access the invitation link: Accept Invitation to [facility]4.Fill in the required chou to create your account. Sign into [email or web address] with your username and password that you created in the above steps to stay up to date. You can then view a summary of results, a summary of your visits, and the ability to download your summaries to your computer or send the information securely to a physician. Remember that your healthcare information is confidential, so carefully consider who you will allow to register on the [facility] Patient Portal for access to your information. You can also access the [facility] Patient Portal on the [employer] juan. Simply click on "Health Records" under "Health Data" and then click on the [employer] logo. HOW TO SAFELY DISPOSE OF PRESCRIPTION MEDICATIONS Please use one of the following methods to safely dispose of your unused medications. 1.Use a drug disposal kit: the drug disposal pouch allows you to safely discard your old and unused drugs. Ask your nurse to give you one when you are discharged.2.Visit a local take-back location: Many local pharmacies and police departments have programs that collect old and unwanted prescription drugs. Call your local pharmacy or go to http://KUNFOOD.com/6I2Bl2n to find one close to you.3.Make use of household items: Use cat litter or old coffee grounds to dispose medications if other options are not available. Mix your drugs with these household products, seal them in an airtight container and throw it into the garbage. Call [facility]: [phone] to be sure your drugs can be disposed of in this way. Some medicines may require a different approach.4.Never flush your medications down the toilet. IF YOU HAVE BEEN PRESCRIBED AN OPIOIDS FOR PAIN If you have been prescribed an opioid (such as hydrocodone, oxycodone or morphine), it is critical to understand the possible side effects and risks of opioid pain medications. Even when taken as directed, opioids can have several side effects including: Tolerance, meaning you might need to take more of a medication for the same pain relief. Nausea, vomiting and/or constipation. Sleepiness, dizziness, dry mouth, confusion, depression or itching. Physical dependence, meaning you have withdrawal symptoms when a medication is stopped ? this can develop within a few days. KNOW YOUR RESPONSIBILITIES It is important to know exactly how much and how often to take the opioid pain medications you are prescribed. Never take opioids in higher amounts or more often than prescribed. Do not combine opioids with alcohol or other drugs that cause drowsiness, such as benzodiazepines, also known as benzos, including diazepam and alprazolam, muscle relaxants or sleep aids. Never sell or share prescription opioids. This is illegal. Store opioids in a secure place and out of reach of others (including children, family, friends and visitors). The last page(s) of this document has been signed and retained as a CHART COPY Signatures Patient Education Materials Laceration, Chin, Suture or Tape Medication Leaflets My discharge plan and instructions have been reviewed and explained to me and IIRVIN CARL L understand my current condition and have read and understand these discharge instructions. I have received a written copy of the plan/instructions. If I have questions, I am aware that I should contact my doctor. 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 Outside report was reviewed. HISTORY: ORDERING SYSTEM PROVIDED HISTORY: Reason for Exam: Right thyroid Nodule TECHNIQUE: Informed consent was obtained after the procedure was discussed in detail including the risk, benefits, and alternatives. Shafter protocol was followed. The neck was prepped and draped in sterile fashion and local anesthesia was achieved with lidocaine. 25 gauge needle was advanced under ultrasound guidance into a right thyroid nodule and fine-needle aspiration was performed. 4 passes were performed and the patient tolerated the procedure well. IMPRESSION: Successful ultrasound-guided fine-needle aspiration of the thyroid Interpreted by: Maday Can MD Preliminary Report By: Maday Can MD Electronically signed By Maday Can MD Dictated Date: 06/25/2024 1:09:23 PM Prelim Date: 06/25/2024 3:04:01 PM Sign Date: 06/25/2024 3:04:01 PM Ordering Provider: [facility]AN[facility] 05-27-2024 Instructions Rosamaria Hedrick APRN.MIGUEL - 05/27/2024 1:34 PM EDT Images from the original note were not included. Regarding your visit with Nurse Practitioner Rosamaria Hedrick today at the [facility] we discussed the following: Impression: R MCA territory infarct with M2 branch occlusion s/p TNK 02/09/24. No evidence of afib or hypercoagulable state. Embolic stroke likely related to large PFO, which has been closed PFO - RoPE score 5, 34% chance stroke caused by PFO Hypertension Mixed hyperlipidemia - LDL 70 Thyroid nodule - incidental Recommendations: Repeat factor VIII today. Will mychart message you with results Continue aspirin 81mg daily for secondary stroke prevention Continue atorvastatin for secondary stroke prevention and LDL goal below 70. Continue monitoring blood pressure for goal below 130/80. Follow up as needed -Regular follow up with primary care doctor for health maintenance -Assist ensuring blood pressure and cholesterol are at goal -Screen and manage diabetes -Lifestyle modification -- Establish goals -Diet -Regular Exercise as discussed -Establish weight goals with primary care doctor -Additional stroke reduction measures and stroke warning signs are listed below. Please do not hesitate to call if you have any questions Rosamaria Hedrick CNP Cerebrovascular [place] Nurse Practitioner [place], [place] [address] Office: [phone] Appointments: [phone] Stroke Signs and Symptoms: *Stroke is a medical emergency. Know the warning signs of stroke: Sudden numbness or weakness of the face, arm or leg, especially on one side of the body Sudden confusion, trouble speaking, or understanding Sudden trouble seeing in one eye, or both eyes Sudden trouble walking, dizziness, loss of balance, or coordination Sudden severe headache with no known cause *If you, or someone with you, has one or more of these signs, don't delay! Immediately call 911, or the emergency medical services (EMS) number so an ambulance can be sent for you. Also, check the time so that you will know when the symptoms first appeared. It is very important to take immediate action, every second counts. Medical treatment may be available if action is taken early enough. ~~~~~~~~~~~~~~~~~~~~~~~~~~~~~~~~~~ ~~~~~~~~~~~~~~~~~~~~~~~~~~~~~~~~~~ ~~~~ General Guidelines to Help Reduce Risk of Recurrent Stroke Blood Pressure Management: Blood Pressure reduction is recommended for both prevention of recurrent stroke and prevention of other vascular events in persons who have had an ischemic stroke or TIA and are beyond the first 24 hours. Several lifestyle modifications have been associated with BP reduction and are a reasonable part of a comprehensive antihypertensive therapy. These modifications include: - salt restriction (less than 2 grams per day) - weight loss - consumption of a diet rich in fruits, vegetables, and low-fat dairy products - regular aerobic physical activity - limited alcohol consumption Goal: Prehypertension (BP less than 130/80 mm Hg): - Perform annual BP screening and lifestyle modifications Hypertension: (BP greater than or equal to 130/80 mm Hg) - Combine medications with above lifestyle modifications to reach your goal blood pressure as defined above. - Monitor your blood pressure at home regularly to ensure you are reaching your goals Diabetes Mellitus: - the goal for glycemic control should be individualized based on the risk for adverse events, patient characteristics and preferences, and, for most patients with diabetes, achieving a goal of HbA1c <=7% is recommended to reduce risk for microvascular complications. - treatment of diabetes should include glucose-lowering medications with proven cardiovascular benefit to reduce the risk for future major adverse cardiovascular events (eg, stroke, heart attack) Cholesterol and Lipid Management - Statin (rosuvastatin or atorvastatin) therapy with intensive lipid-lowering effects is recommended to reduce risk of stroke and cardiovascular events among patients with ischemic stroke or TIA who have LDL cholesterol > 100 mg/dL, or evidence of atherosclerosis. - A goal of LDL cholesterol < 70 mg/dL for stroke or TIA patients on lipid lowering therapy is recommended. - Ezetimibe in combination with statin therapy to lower the LDL cholesterol < 70 mg/DL is recommended, if statin therapy alone is insufficient to attain this treatment target. - For patients with ischemic stroke at very high risk, already taking maximally tolerated statin and ezetimibe and still have an LDL cholesterol > 70 mg/dL, it is reasonable to treat with a proprotein convertase subtilisin/kexin type 9 (PCSK9) inhibitor to prevent atherosclerotic cardiovascular or cerebrovascular events. - In patients with ischemic stroke or TIA, with fasting triglycerides 135 to 499 mg/dL and LDL cholesterol of 41 to 100 mg/dL, on moderate- or high-intensity statin therapy, with HbA1c <10%, and with no history of pancreatitis, atrial fibrillation, or severe heart failure, treatment with icosapent ethyl (IPE) 2 g twice a day is reasonable to reduce risk of recurrent stroke Diet: - Reduced sodium and increased potassium intake; DASH-style diet rich in fruits and vegetables (https://www.nhlbi.nih.gov/educati on/fgei-cyvnor-ouze) - Consider Mediterranean diet supplemented with nuts Smoking and Tobacco Use: - Strongly recommend smoking and tobacco use cessation to reduce risk of stroke. - Counseling, nicotine products, and oral smoking cessation medications are effective for helping smokers quit and can be provided if needed. Alcohol Consumption: - Patients with ischemic stroke or TIA who drink greater than or equal to 2 alcoholic drinks a day, should eliminate alcohol use or reduce their consumption of alcohol to less than equal to 1 alcohol drink per day to reduce stroke risk Exercise - In patients with stroke or TIA who are capable of physical activity, engaging in at least moderate-intensity aerobic activity for a minimum of 10 minutes 4 times a week or vigorous-intensity aerobic activity for a minimum of 20 minutes twice a week is indicated to lower the risk of recurrent stroke - In patients with deficits after stroke that impair their ability to exercise, supervision of an exercise program by a health rn homecare such as a physical therapist or cardiac rehabilitation professional, in addition to routine rehabilitation, can be beneficial for secondary stroke prevention - In individuals with stroke or TIA who sit for long periods of uninterrupted time during the day, it may be reasonable to recommend breaking up sedentary time with intervals as short as 3 minutes of standing or light exercise every 30 minutes for their cardiovascular health Adapted from the [place] [employer]/[place] St[employer] Association: 202 Guideline for the Prevention of Stroke in Patients With Stroke and Transient Ischemic Attack documented in this encounter [facility] 05-27-2024 History of Present illness Narrative Images from the original note were not included. [facility] Established Visit Consultation is requested by: [facility] [id number] PCP: Ev Zeng (Kory) [address] [place] [id number] CEREBROVASCULAR HISTORY Glenroy Thornton is a 63 year old male presenting for hospital discharge follow up. Admitted to [facility] 02/08-02/12/24. From discharge summary Mr Glenroy Stokes is a 63 yo gentleman with HTN, HLD, and hypothyroidism who presented for left sided facial droop and dysarthria while having dinner. He did not noticed arm or leg weakness stumbled when they attempted to walk him to ambulance. He was brought to the ER where he was worked up for a stroke. CT head obtained on admission without any acute abnormality. CT angiogram of head and neck with right M2 insular branch occlusion. His imaging was evaliated following which he received tpa as he was within the window. He was taken to the neuro ICU for monitoring post tpa.Symptoms reported to have completely resolved the following morning. MRI brain obtained showed small acute right MCA territory infarct He underwent stroke work up including an transthoracic echocardiogram which revealed the presence of an intracardiac shunt. He then underwent a Transesophageal echocardiogram which revealed no thrombus but did show Large PFO with strongly positive bubble study visualized. Patient seen by neurology team who recommended continuing aspirin and clopidogrel for 21 days and continuing statin therapy. Seen by PT who cleared for home. For further work up of Patent foramen Ovale, patient will need to follow with Cardiology after DC to evaluate for closure of PFO. Will also need an event monitor on discharge. Reason for Visit: ischemic stroke Date of Last Event: 02/09/2024 Antiplatelets/Anticoagulants: Aspirin and Clopidogrel Statins: Atorvastatin Residual Deficits: No residual deficits Current PT/OT/ST: None Current Living Situation: Home with spouse Current use of a mobility aid for walking/getting around: None Office Visit 02/24/24 -presents for hospital discharge follow up with his , Marcy who is a nurse -denies any new symptoms or clinical events -feels fatigued, but denies focal deficits or therapy needs -Cardiology for PFO evaluation - scheduled for 04/01/24 -event monitor placed a few days ago, recommended 30 days -aspirin 81mg + plavix 75mg x 21 days recommended -they are worried about stopping plavix because he was on aspirin when he had his stroke -no bleeding or bruising on DAPT -lipitor 40mg -BP 146/90 - at home generally 110-120s, occasional reading 130s, single reading in 150s, HR 50-70s -never smoker -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, 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 Office Visit 05/27/24 -presents for follow up -denies any new stroke-like symptoms -will be getting needle biopsy for thyroid nodule -s/p PFO closure on 04/09/24 -aspirin 81mg + plavix x 3 months post PFO, then single antiplatelet -lipitor 40mg -BP 154/72 PAST MEDICAL HISTORY Diagnosis Date Hyperlipemia Hypertension Hypothyroidism PFO (patent foramen ovale) Closure 04/09/24 Stroke (HCC) 01/2024 PAST SURGICAL HISTORY Procedure Laterality Date INGUINAL HERNIA REPAIR HX PFO CLOSURE 04/09/2024 FAMILY HISTORY Problem Relation Age of Onset Stroke Mother 80 - 89 in 90s other (tia) Mother Heart disease Father Heart disease Brother Social History Tobacco Use Smoking status: Never Smokeless tobacco: Never Vaping Use Vaping status: Never Used Substance Use Topics Alcohol use: Not Currently Drug use: Never MEDICATIONS Current Outpatient Medications Medication Sig clopidogrel (PLAVIX) 75 mg tablet Take 1 tablet by mouth once daily. clopidogrel (PLAVIX) 75 mg tablet Take 1 tablet by mouth once daily. levothyroxine (SYNTHROID) 75 mcg tablet Take 75-150 mcg by mouth daily before breakfast. Taking 75 mg Saturday - Saturday Taking 150 mg Saturday and Saturday metoprolol succinate ER (TOPROL XL) 100 mg Take 100 mg by mouth once daily. atorvastatin (LIPITOR) 40 mg tablet Take 40 mg by mouth once daily. losartan (COZAAR) 100 mg tablet Take 100 mg by mouth once daily. hydroCHLOROthiazide 25 mg tablet Take 25 mg by mouth once daily. aspirin (ASPIRIN CHILDRENS) 81 mg chewable tablet Take 81 mg by mouth once daily. cholecalciferol (VITAMIN D-3) 50 mcg (2,000 unit) tablet Take 2,000 Units by mouth once daily. No current facility-administered medications for this visit. ALLERGIES ALLERGIES No Known Allergies PHYSICAL EXAMINATION BP 154/72 Pulse 82 Ht 182.9 cm (6') Wt 88 kg (194 lb) BMI 26.31 kg/m General: Well-developed, well-nourished, in no acute distress. HEENT: Normocephalic, atraumatic. Sclerae anicteric. Oropharynx clear. Neck: No JVD Heart: Skin well-perfused. Lungs: Breathing comfortably on room air. Extremities: No edema, cyanosis, or clubbing. Skin: No rash or ecchymoses. Neurological: Awake, alert, oriented to person, place, and time. Speech fluent, no dysarthria. Recall, comprehension intact. Good attention and insight into illness. Cranial Nerves: Extraocular movements intact without nystagmus. Visual chou full. Facial movements normal and symmetric. Motor: Normal bulk and tone. No pronator drift or tremor. Gait: Narrow-based, normal spaced and stable without assistance. LABS Cholesterol: Cholesterol, Total (mg/dL) Date Value 02/09/2024 167 LDL Cholesterol (mg/dL) Date Value 02/09/2024 70 HDL Cholesterol (mg/dL) Date Value 02/09/2024 47 Triglyceride (mg/dL) Date Value 02/09/2024 250 Diabetes: Hemoglobin A1C (%) Date Value 02/09/[address] brain, CTA head and neck 02/09/24 IMPRESSION: Occlusion of the proximal right M2 insular branch. No acute intracranial hemorrhage. Remaining extracranial and intracranial vasculature is patent without high-grade stenosis or aneurysm. MRI brain 02/10/24 IMPRESSION: Small acute right MCA territory infarct. No hemorrhagic transformation. No significant mass effect. Echo 02/10/24 CONCLUSIONS: - Exam indication: Stroke - The left ventricle is normal in size. There is no left ventricular hypertrophy. Left ventricular systolic function is normal. EF = 69 5% (2D biplane) Indeterminate left ventricular diastolic function due to inconsistent or technically suboptimal data. - The right ventricle is normal in size. Right ventricular systolic function is normal. - There are no significant valvular abnormalities. - The visualized aorta is borderline dilated with a maximal dimension of 4.0 cm. - Agitated saline was administered to rule out shunt. There is evidence of intracardiac shunting as detected by agitated saline contrast. - The patient has not had a prior CC echocardiographic exam for comparison. MYRNA 02/12/24 CONCLUSIONS: - Exam indication: Stroke - Agitated saline was administered to rule out shunt. There is evidence of intracardiac shunting as detected by Doppler and agitated saline contrast. - Left ventricular systolic function is normal. EF = 60 5% (visual est.) - The right ventricle is normal in size. Right ventricular systolic function is normal. - There are no significant valvular abnormalities. - There is no left atrial appendage thrombus. - No atheroma in desceding aorta and aortic arch - Large PFO (width: 7 mm) with large right to left shunt with bubble study (>20 microbubbles) each beats. - Exam was compared with the prior CC echocardiographic exam performed on 02/10/2024. no significant change Patient Entered Questionnaires PROMIS/NeuroQoL Score Percentiles Percentiles provide an indication of how a patient's score ranks in relation to the [place] general population. > 31st percentile is within normal limits or better * < 31st percentile is at least SD worse than population, which may be clinically relevant < 16th percentile is at least 1 SD worse than population and warrants attention Depression Screening: PHQ-9 Scores: PHQ-9 Self-Harm (Item 9) Response: 0 - 9 No to Mild depression 0 - Not at all 10 - 14 Moderate depression 1 - Several Days > 15 Severe depression 2 - More than half the days 3 - Nearly every day 02/23/2024 Sleep Apnea Probability Score Probability (%) 51 (Recommend sleep study) Stroke Mechanism and Scales Ischemic or TIA: Ischemic Stroke TOAST Mechanism (CCF-MODIFIED): Cardioembolism Cardioembolism: PFO (uncertain significance) Modified Flagler Score: Score: 0 NIH Stroke Scale: LOC: 0 LOC Questions: 0 LOC Commands: 0 LOC Normal Gaze: 0 Visual Chou: 0 Facial Palsy: 0 Motor Left Arm: 0 Motor Right Arm: 0 Motor Left Le Motor Right Le Limb Ataxia: 0 Sensory: 0 Language: 0 Dysarthria: 0 Extinction/Neglect: 0 Total Daily NIHSS: 0 02/09/2024 Stroke Mechanism Ischemic Stroke or TIA Ischemic Stroke TOAST Mechanism (CCF-MODIFIED) Cryptogenic Embolism IMPRESSION R MCA territory infarct with M2 branch occlusion s/p TNK 02/09/24. No evidence of afib or hypercoagulable state. Embolic stroke likely related to large PFO, which has been closed Hypertension Mixed hyperlipidemia - LDL 70 PLAN Repeat factor VIII today Continue aspirin 81mg + plavix daily (for 3 months post PFO closure per Cardiology), followed by aspirin monotherapy lifelong for secondary stroke prevention Continue atorvastatin for secondary stroke prevention and LDL goal below 70. Continue monitoring blood pressure for goal below 130/80. Follow up as needed Medical Decision Making: Medical Decision Making Level: 1 - N/A I spent a total of 36 minutes on the date of service which included preparing to see the patient, [id number] patient care, completing clinical documentation, obtaining and/or reviewing separately obtained history, performing a medically appropriate examination, counseling and educating the patient/family/caregiver, and care coordination (not separately reported) SIGNATURE Rosamaria Hedrick APRN.CNP [facility] [place] [address] [facility] [id number] Ev Zeng (April) [address] [place] [id number] documented in this encounter [facility] 05-27-2024 Note HNO ID: [id number] Author: ROSAMARIA HEDRICK APRN.CNP Service: ? Author Type: Nurse Practitioner Type: Progress Notes Filed: 05/27/2024 15:05 Note Text: [facility] Established Visit Consultation is requested by: Lyn Fernandez [facility] [address] [facility] [id number] PCP: Ev Zeng (April) [id number] [facility] [address] [place] [address] CEREBROVASCULAR HISTORY Glenroy Thornton is a 63 year old male presenting for hospital discharge follow up. Admitted to [facility] 02/08-02/12/24. From discharge summary Mr Glenroy Stokes is a 63 yo gentleman with HTN, HLD, and hypothyroidism who presented for left sided facial droop and dysarthria while having dinner. He did not noticed arm or leg weakness stumbled when they attempted to walk him to ambulance. He was brought to the ER where he was worked up for a stroke. CT head obtained on admission without any acute abnormality. CT angiogram of head and neck with right M2 insular branch occlusion. His imaging was evaliated following which he received tpa as he was within the window. He was taken to the neuro ICU for monitoring post tpa.Symptoms reported to have completely resolved the following morning. MRI brain obtained showed small acute right MCA territory infarct He underwent stroke work up including an transthoracic echocardiogram which revealed the presence of an intracardiac shunt. He then underwent a Transesophageal echocardiogram which revealed no thrombus but did show Large PFO with strongly positive bubble study visualized. Patient seen by neurology team who recommended continuing aspirin and clopidogrel for 21 days and continuing statin therapy. Seen by PT who cleared for home. For further work up of Patent foramen [place], patient will need to follow with Cardiology after DC to evaluate for closure of PFO. Will also need an event monitor on discharge. Reason for Visit: ischemic stroke Date of Last Event: 02/09/2024 Antiplatelets/Anticoagulants: Aspirin and Clopidogrel Statins: Atorvastatin Residual Deficits: No residual deficits Current PT/OT/ST: None Current Living Situation: Home with spouse Current use of a mobility aid for walking/getting around: None Office Visit 02/24/24 -presents for hospital discharge follow up with his , Marcy who is a nurse -denies any new symptoms or clinical events -feels fatigued, but denies focal deficits or therapy needs -Cardiology for PFO evaluation - scheduled for 04/01/24 -event monitor placed a few days ago, recommended 30 days -aspirin 81mg + plavix 75mg x 21 days recommended -they are worried about stopping plavix because he was on aspirin when he had his stroke -no bleeding or bruising on DAPT -lipitor 40mg -BP 146/90 - at home generally 110-120s, occasional reading 130s, single reading in 150s, HR 50-70s -never smoker -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, 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 Office Visit 05/27/24 -presents for follow up -denies any new stroke-like symptoms -will be getting needle biopsy for thyroid nodule -s/p PFO closure on 04/09/24 -aspirin 81mg + plavix x 3 months post PFO, then single antiplatelet -lipitor 40mg -BP 154/72 PAST MEDICAL HISTORY Diagnosis Date Hyperlipemia Hypertension Hypothyroidism PFO (patent foramen ovale) Closure 04/09/24 Stroke (HCC) 01/2024 PAST SURGICAL HISTORY Procedure Laterality Date INGUINAL HERNIA REPAIR HX PFO CLOSURE 04/09/2024 FAMILY HISTORY Problem Relation Age of Onset Stroke Mother 80 - 89 in 90s other (tia) Mother Heart disease Father Heart disease Brother Social History Tobacco Use Smoking status: Never Smokeless tobacco: Never Vaping Use Vaping status: Never Used Substance Use Topics Alcohol use: Not Currently Drug use: Never MEDICATIONS Current Outpatient Medications Medication Sig clopidogrel (PLAVIX) 75 mg tablet Take 1 tablet by mouth once daily. clopidogrel (PLAVIX) 75 mg tablet Take 1 tablet by mouth once daily. levothyroxine (SYNTHROID) 75 mcg tablet Take 75-150 mcg by mouth daily before breakfast. Taking 75 mg Saturday - Saturday Taking 150 mg Saturday and Saturday metoprolol succinate ER (TOPROL XL) 100 mg Take 100 mg by mouth once daily. atorvastatin (LIPITOR) 40 mg tablet Take 40 mg by mouth once daily. losartan (COZAAR) 100 mg tablet Take 100 mg by mouth once daily. hydroCHLOROthiazide 25 mg tablet Take 25 mg by mouth once daily. aspirin (ASPIRIN CHILDRENS) 81 mg chewable tablet Take 81 mg by mouth once daily. cholecalciferol (VITAMIN D-3) 50 mcg (2,000 unit) tablet Take 2,000 Units by mouth once daily. No current facility-administered medications for this visit. ALLERGIES ALLERGIES No Known Allergies PHYSICAL EXAMINATION BP 154/72 Pulse 82 Ht 182.9 cm (6') Wt 88 kg (194 lb) BMI 26.31 kg/m? General: Well-developed, well-nourished, in no acute distress. HEENT: Normocephalic, atraumatic. Sclerae anicteric. O (more content not included)... [facility] 05-20-2024 Note HNO ID: [id number] Author: DELVIN GAMEZ MD Service: ? Author Type: Physician Type: Progress Notes Filed: 05/20/2024 14:22 Note Text: Chief Complaint: Patient presents with: CARD Follow Up 1 Month: PFO (patent foramen ovale) Glenroy Thornton is a 63 year old male with a known past medical history of hypertension, hyperlipidemia who presented to the hospital with left-sided facial droop and dysarthria while having dinner on 02/05/2024. A CT scan was done in the emergency room which revealed no acute abnormalities, but CT angiogram of the head and neck showed a right M2 insular branch occlusion. He received tPA with complete resolution of his symptoms. He had a 30 day monitor which ruled out afib. He remians on ASA/Plavix at this time with no issues with bleeding. He is status post PFO closure with a 30 mm [place] cardio form septal occluder device with good result. The patient denies any complaints of chest pain or pressure. He denies any dyspnea, orthopnea, paroxysmal nocturnal dyspnea, syncope or presyncope denies any palpitations or leg swelling. PAST MEDICAL HISTORY Diagnosis Date Hyperlipemia Hypertension Hypothyroidism PFO (patent foramen ovale) Closure 04/09/24 Stroke (HCC) 01/2024 PAST SURGICAL HISTORY Procedure Laterality Date INGUINAL HERNIA REPAIR HX PFO CLOSURE 04/09/2024 FAMILY HISTORY Problem Relation Age of Onset Stroke Mother 80 - 89 in 90s other (tia) Mother Heart disease Father Heart disease Brother Social History Tobacco Use Smoking status: Never Smokeless tobacco: Never Vaping Use Vaping status: Never Used Substance Use Topics Alcohol use: Not Currently Drug use: Never Current Outpatient Medications Medication Sig clopidogrel (PLAVIX) 75 mg tablet Take 1 tablet by mouth once daily. levothyroxine (SYNTHROID) 75 mcg tablet Take 75-150 mcg by mouth daily before breakfast. Taking 75 mg Saturday - Saturday Taking 150 mg Saturday and Saturday metoprolol succinate ER (TOPROL XL) 100 mg Take 100 mg by mouth once daily. atorvastatin (LIPITOR) 40 mg tablet Take 40 mg by mouth once daily. losartan (COZAAR) 100 mg tablet Take 100 mg by mouth once daily. hydroCHLOROthiazide 25 mg tablet Take 25 mg by mouth once daily. aspirin (ASPIRIN CHILDRENS) 81 mg chewable tablet Take 81 mg by mouth once daily. cholecalciferol (VITAMIN D-3) 50 mcg (2,000 unit) tablet Take 2,000 Units by mouth once daily. No current facility-administered medications for this visit. ALLERGIES No Known Allergies Cardiac Testing TTE 04/09/2024: Impression CONCLUSIONS: - Technically difficult exam due to suboptimal positioning and post op. - Exam indication: Re-evaluation to guide therapy in known adult CHD - The left ventricle is normal in size. There is no left ventricular hypertrophy. Left ventricular systolic function is normal. EF = 63 ? 5% (2D biplane) - Agitated saline study performed on clips# (22-23). No obvious shunt seen. - Exam was compared with the prior echocardiographic exam performed on 02/09/2024. (MYRNA) No obvious shunt seen, otherwise there is no significant change. CT brain 02/06/2025: IMPRESSION: Evolving acute right MCA territory infarct. No acute intracranial hemorrhage or significant mass effect. MRI brain 02/09/2025: IMPRESSION: Small acute right MCA territory infarct. No hemorrhagic transformation. No significant mass effect. 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 No acute intracranial hemorrhage. Remaining extracranial and intracranial vasculature is patent without high-grade stenosis or aneurysm. Arterial blood flow was measured to detect acute large vessel occlusion by computer aided detection software: Not Performed. Concordance between software and imaging review: Not Applicable. COMMUNICATION: Communicated with SREE HAYWOOD on 02/09/2024 8:40 PM via verbal communication. Right thyroid nodule. Event monitor 02/11/2024: Review of Systems: See HPI Physical Examination:: BP 148/79 Pulse 72 Wt 194 lb 6.4 oz (88.2kg) SpO2 96% General Appearance: Well appearing, alert, in no acute distress, well-hydrated, well nourished.. Skin: Skin color, texture, turgor normal, no suspicious rashes or lesions. Head: Normocephalic, no masses, lesions, tenderness or abnormalities. Eyes: Anicteric sclera. Pupils are equally round. Extraocular movements are intact. Neck: Supple, no adenopathy; thyroid symmetric, normal size, no bruits. Lungs: Lungs clear to auscultation. No wheezing, rhonchi, rales.. Heart: regular rate and rhythm, no murmur, gallop or rub, normal, S1, S2, physiologic split Peripheral Pulses: Normal. ASSESSMENT/PLAN: 1. PFO (patent foramen ovale) - ICD9: 745.5, ICD10: Q21.12 (primary diagnosis) He has done well after PFO closure and has no complaints. Continue ASA/Plavix for now. Would discontinue Plavix after completion of 3 months (more content not included)... [facility] 05-20-2024 History of Present illness Narrative Images from the original note were not included. Chief Complaint: Patient presents with: CARD Follow Up 1 Month: PFO (patent foramen ovale) Glenroy Thornton is a 63 year old male with a known past medical history of hypertension, hyperlipidemia who presented to the hospital with left-sided facial droop and dysarthria while having dinner on 02/05/2024. A CT scan was done in the emergency room which revealed no acute abnormalities, but CT angiogram of the head and neck showed a right M2 insular branch occlusion. He received tPA with complete resolution of his symptoms. He had a 30 day monitor which ruled out afib. He remians on ASA/Plavix at this time with no issues with bleeding. He is status post PFO closure with a 30 mm [place] cardio form septal occluder device with good result. The patient denies any complaints of chest pain or pressure. He denies any dyspnea, orthopnea, paroxysmal nocturnal dyspnea, syncope or presyncope denies any palpitations or leg swelling. PAST MEDICAL HISTORY Diagnosis Date Hyperlipemia Hypertension Hypothyroidism PFO (patent foramen ovale) Closure 04/09/24 Stroke (HCC) 01/2024 PAST SURGICAL HISTORY Procedure Laterality Date INGUINAL HERNIA REPAIR HX PFO CLOSURE 04/09/2024 FAMILY HISTORY Problem Relation Age of Onset Stroke Mother 80 - 89 in 90s other (tia) Mother Heart disease Father Heart disease Brother Social History Tobacco Use Smoking status: Never Smokeless tobacco: Never Vaping Use Vaping status: Never Used Substance Use Topics Alcohol use: Not Currently Drug use: Never Current Outpatient Medications Medication Sig clopidogrel (PLAVIX) 75 mg tablet Take 1 tablet by mouth once daily. levothyroxine (SYNTHROID) 75 mcg tablet Take 75-150 mcg by mouth daily before breakfast. Taking 75 mg Saturday - Saturday Taking 150 mg Saturday and Saturday metoprolol succinate ER (TOPROL XL) 100 mg Take 100 mg by mouth once daily. atorvastatin (LIPITOR) 40 mg tablet Take 40 mg by mouth once daily. losartan (COZAAR) 100 mg tablet Take 100 mg by mouth once daily. hydroCHLOROthiazide 25 mg tablet Take 25 mg by mouth once daily. aspirin (ASPIRIN CHILDRENS) 81 mg chewable tablet Take 81 mg by mouth once daily. cholecalciferol (VITAMIN D-3) 50 mcg (2,000 unit) tablet Take 2,000 Units by mouth once daily. No current facility-administered medications for this visit. ALLERGIES No Known Allergies Cardiac Testing TTE 04/09/2024: Impression CONCLUSIONS: - Technically difficult exam due to suboptimal positioning and post op. - Exam indication: Re-evaluation to guide therapy in known adult CHD - The left ventricle is normal in size. There is no left ventricular hypertrophy. Left ventricular systolic function is normal. EF = 63 5% (2D biplane) - Agitated saline study performed on clips# (22-23). No obvious shunt seen. - Exam was compared with the prior echocardiographic exam performed on 02/09/2024. (MYRNA) No obvious shunt seen, otherwise there is no significant change. CT brain 02/06/2025: IMPRESSION: Evolving acute right MCA territory infarct. No acute intracranial hemorrhage or significant mass effect. MRI brain 02/09/2025: IMPRESSION: Small acute right MCA territory infarct. No hemorrhagic transformation. No significant mass effect. 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 No acute intracranial hemorrhage. Remaining extracranial and intracranial vasculature is patent without high-grade stenosis or aneurysm. Arterial blood flow was measured to detect acute large vessel occlusion by computer aided detection software: Not Performed. Concordance between software and imaging review: Not Applicable. COMMUNICATION: Communicated with SREE HAYWOOD on 02/09/2024 8:40 PM via verbal communication. Right thyroid nodule. Event monitor 02/11/2024: Review of Systems: See HPI Physical Examination:: BP 148/79 Pulse 72 Wt 194 lb 6.4 oz (88.2kg) SpO2 96% General Appearance: Well appearing, alert, in no acute distress, well-hydrated, well nourished.. Skin: Skin color, texture, turgor normal, no suspicious rashes or lesions. Head: Normocephalic, no masses, lesions, tenderness or abnormalities. Eyes: Anicteric sclera. Pupils are equally round. Extraocular movements are intact. Neck: Supple, no adenopathy; thyroid symmetric, normal size, no bruits. Lungs: Lungs clear to auscultation. No wheezing, rhonchi, rales.. Heart: regular rate and rhythm, no murmur, gallop or rub, normal, S1, S2, physiologic split Peripheral Pulses: Normal. ASSESSMENT/PLAN: 1. PFO (patent foramen ovale) - ICD9: 745.5, ICD10: Q21.12 (primary diagnosis) He has done well after PFO closure and has no complaints. Continue ASA/Plavix for now. Would discontinue Plavix after completion of 3 months postprocedure. - CLOPIDOGREL 75 MG TABLET 2. Coronary artery disease involving [place] coronary artery of [place] heart without angina pectoris - ICD9: 414.01, ICD10: I25.[address] scan and he is asymptomatic. Continue ASA, high intensity statin 3. Essential hypertension - ICD9: 401.9, ICD10: I10 - Uncontrolled. He brings a log from home and his average BP is less than 130/90mmHg - Continue current medications - Recommend home blood pressure monitoring, to bring results to next visit - Encouraged sodium restriction, DASH or Mediterranean diet - Recommend regular aerobic exercise F/U as needed Delvin Ge MD [employer] Convert[employer] Operator of Internal Medicine [facility] Section of Interventional Cardiology Dope Weigh Operator of Structural Heart Disease [address], [address] [place] [address] Facsimile: [phone] Email: documented in this encounter [facility] 05-06-2024 History of Present illness Narrative Radiology Service Progress Note PATIENT NAME: Glenroy Thornton DATE OF SERVICE: May 06, 2024 TIME: 1:27 PM PATIENT IDENTITY VERIFICATION COMPLETED USING TWO (2) IDENTIFIERS: Name and Date of confirmed by patient verbally. FALL SCREENING: Has the patient had 2 falls in the last year or 1 fall with injury or currently using an Ambulatory Assistive Device (Walker, Cane, Wheelchair, Crutches, etc.)? No PATIENT GENDER DATA: Assigned male at PATIENT RELEVANT IMPLANT DATA REVIEWED: Not Applicable PATIENT PRESENTS WITH AN IMPLANTABLE OR ATTACHED SHEET FOLDER: No RADIOLOGY DEPARTMENT: Ultrasound PERIPHERAL IV DATA: Not applicable SIGNED BY: Anita Alonso RDMS May 06, 2024 1:27 PM documented in this encounter [facility] 05-06-2024 Note HNO ID: [id number] Author: ANITA ALONSO RDMS Service: ? Author Type: Rougher Helper Type: Progress Notes Filed: 05/06/2024 13:28 Note Text: Radiology Service Progress Note PATIENT NAME: Glenroy Thornton DATE OF SERVICE: May 06, 2024 TIME: 1:27 PM PATIENT IDENTITY VERIFICATION COMPLETED USING TWO (2) IDENTIFIERS: Name and Date of confirmed by patient verbally. FALL SCREENING: Has the patient had 2 falls in the last year or 1 fall with injury or currently using an Ambulatory Assistive Device (Walker, Cane, Wheelchair, Crutches, etc.)? No PATIENT GENDER DATA: Assigned male at PATIENT RELEVANT IMPLANT DATA REVIEWED: Not Applicable PATIENT PRESENTS WITH AN IMPLANTABLE OR ATTACHED SHEET FOLDER: No RADIOLOGY DEPARTMENT: Ultrasound PERIPHERAL IV DATA: Not applicable SIGNED BY: Anita Alonso RDMS May 06, 2024 1:27 PM [facility] 04-30-2024 Note HNO ID: [id number] Author: OLE LOWERY, ? Service: ? Author Type: Nurse Practitioner Type: Progress Notes Filed: 04/30/2024 12:26 Note Text: This outreach encounter was initiated for incidental lung nodule(s) which populated on actionable findings list. Lung nodule(s) were noted: 04/09/24 CXR Patient is already aware and following with PCP with upcoming CT chest Incidental Lung Nodule Enrollment Outreach attempt: 3rd Attempt Outreach status: Complete Enrolled in Lung Nodule program: No Declined reason: Patient already followed by another non-[facility] provider for incidental lung nodule(s). Lung Nodule outreach: No outreach - PCP Lung Nodule Program Location: [facility] [place] 04-30-2024 History of Present illness Narrative This outreach encounter was initiated for incidental lung nodule(s) which populated on actionable findings list. Lung nodule(s) were noted: 04/09/24 CXR Patient is already aware and following with PCP with upcoming CT chest Incidental Lung Nodule Enrollment Outreach attempt: 3rd Attempt Outreach status: Complete Enrolled in Lung Nodule program: No Declined reason: Patient already followed by another non-[facility] provider for incidental lung nodule(s). Lung Nodule outreach: No outreach - PCP Lung Nodule Program Location: [place] documented in this encounter [facility] 04-30-2024 Note Patient Outreach (PU LMMN) GLENROY THORNTON ([id number]) 1960 M Date Time Provider Department 04/30/24 OLE LOWERY During your visit today, we recorded the following information about you: Ole Lowery 04/30/2024 12:26 PM Signed This outreach encounter was initiated for incidental lung nodule(s) which populated on actionable findings list. Lung nodule(s) were noted: 04/09/24 CXR Patient is already aware and following with PCP with upcoming CT chest Incidental Lung Nodule Enrollment Outreach attempt: 3rd Attempt Outreach status: Complete Enrolled in Lung Nodule program: No Declined reason: Patient already followed by another non-[facility] provider for incidental lung nodule(s). Lung Nodule outreach: No outreach - PCP Lung Nodule Program Location: [place] Allergies As of Date: 04/30/2024 (No Known Allergies) Date Reviewed: 04/09/2024 Reviewed by: Cady Aviles, RN - Fully Assessed Prescriptions as of 04/30/2024 - clopidogrel (PLAVIX) 75 mg tablet Take 1 tablet by mouth once daily. - levothyroxine (SYNTHROID) 75 mcg tablet Take 75-150 mcg by mouth daily before breakfast. Taking 75 mg Saturday - Saturday Taking 150 mg Saturday and Saturday - metoprolol succinate ER (TOPROL XL) 100 mg Take 100 mg by mouth once daily. - atorvastatin (LIPITOR) 40 mg tablet Take 40 mg by mouth once daily. - losartan (COZAAR) 100 mg tablet Take 100 mg by mouth once daily. - hydroCHLOROthiazide 25 mg tablet Take 25 mg by mouth once daily. - aspirin (ASPIRIN CHILDRENS) 81 mg chewable tablet Take 81 mg by mouth once daily. - cholecalciferol (VITAMIN D-3) 50 mcg (2,000 unit) tablet Take 2,000 Units by mouth once daily. Problem List As Of Date 04/30/2024 Noted Resolved Ischemic stroke (HCC) [I63.9] 02/09/2024 Hypokalemia [E87.6] 02/09/2024 02/12/2024 Cerebral infarction due to embolism of right mi*02/09/2024 04/20/2024 Primary hypertension [I10] 02/09/2024 Hypertensive urgency [I16.0] 02/09/2024 02/12/2024 Received tissue plasminogen activator (t-PA) le*02/10/2024 02/12/2024 PFO (patent foramen ovale) [Q21.12] 04/09/2024 Encounter Status:Closed by OLE LOWERY on 04/30/24 [facility] 04-28-2024 Note HNO ID: [id number] Author: ALE SAN HUC Service: ? Author Type: Disability Case Manager Type: Progress Notes Filed: 04/28/2024 09:30 Note Text: Incidental Lung Nodule Enrollment Outreach attempt: 2nd Attempt Outreach status: Complete Enrolled in Lung Nodule program: Referred Lung Nodule outreach: Needs outreach Lung Nodule Program Location: [place] 04/28/24 to JUAN list for final phone call prior to discharge. [facility] 04-28-2024 History of Present illness Narrative Incidental Lung Nodule Enrollment Outreach attempt: 2nd Attempt Outreach status: Complete Enrolled in Lung Nodule program: Referred Lung Nodule outreach: Needs outreach Lung Nodule Program Location: [place] 04/28/24 to JUAN list for final phone call prior to discharge. documented in this encounter [facility] 04-28-2024 Note Patient Outreach (PU LMMN) GLENROY THORNTON ([id number]) 1960 M Date Time Provider Department 04/28/24 ALE SAN During your visit today, we recorded the following information about you: Ale San HUC 04/28/2024 9:30 AM Signed Incidental Lung Nodule Enrollment Outreach attempt: 2nd Attempt Outreach status: Complete Enrolled in Lung Nodule program: Referred Lung Nodule outreach: Needs outreach Lung Nodule Program Location: [place] 04/28/24 to JUAN list for final phone call prior to discharge. Allergies As of Date: 04/28/2024 (No Known Allergies) Date Reviewed: 04/09/2024 Reviewed by: Cady Aviles, RN - Fully Assessed Prescriptions as of 04/28/2024 - clopidogrel (PLAVIX) 75 mg tablet Take 1 tablet by mouth once daily. - levothyroxine (SYNTHROID) 75 mcg tablet Take 75-150 mcg by mouth daily before breakfast. Taking 75 mg Saturday - Saturday Taking 150 mg Saturday and Saturday - metoprolol succinate ER (TOPROL XL) 100 mg Take 100 mg by mouth once daily. - atorvastatin (LIPITOR) 40 mg tablet Take 40 mg by mouth once daily. - losartan (COZAAR) 100 mg tablet Take 100 mg by mouth once daily. - hydroCHLOROthiazide 25 mg tablet Take 25 mg by mouth once daily. - aspirin (ASPIRIN CHILDRENS) 81 mg chewable tablet Take 81 mg by mouth once daily. - cholecalciferol (VITAMIN D-3) 50 mcg (2,000 unit) tablet Take 2,000 Units by mouth once daily. Problem List As Of Date 04/28/2024 Noted Resolved Ischemic stroke (HCC) [I63.9] 02/09/2024 Hypokalemia [E87.6] 02/09/2024 02/12/2024 Cerebral infarction due to embolism of right mi*02/09/2024 04/20/2024 Primary hypertension [I10] 02/09/2024 Hypertensive urgency [I16.0] 02/09/2024 02/12/2024 Received tissue plasminogen activator (t-PA) le*02/10/2024 02/12/2024 PFO (patent foramen ovale) [Q21.12] 04/09/2024 Encounter Status:Closed by ALE SAN on 04/28/24 [facility] 04-21-2024 Note HNO ID: [id number] Author: ALE SAN HUC Service: ? Author Type: Disability Case Manager Type: Progress Notes Filed: 04/21/2024 10:54 Note Text: Incidental Lung Nodule Enrollment Outreach attempt: 2nd Attempt Outreach status: Complete Enrolled in Lung Nodule program: Referred Lung Nodule outreach: Needs outreach Lung Nodule Program Location: [place] 2nd attempt [facility] 04-21-2024 History of Present illness Narrative Incidental Lung Nodule Enrollment Outreach attempt: 2nd Attempt Outreach status: Complete Enrolled in Lung Nodule program: Referred Lung Nodule outreach: Needs outreach Lung Nodule Program Location: [place] 2nd attempt documented in this encounter [facility] 04-21-2024 Note Patient Outreach (PU LMMN) GLENROY THORNTON ([id number]) 1960 M Date Time Provider Department 04/21/24 ALE SAN During your visit today, we recorded the following information about you: Ale San HUC 04/21/2024 10:54 AM Signed Incidental Lung Nodule Enrollment Outreach attempt: 2nd Attempt Outreach status: Complete Enrolled in Lung Nodule program: Referred Lung Nodule outreach: Needs outreach Lung Nodule Program Location: [place] 2nd attempt Allergies As of Date: 04/21/2024 (No Known Allergies) Date Reviewed: 04/09/2024 Reviewed by: Cady Aviles, SILVIO - Fully Assessed Prescriptions as of 04/21/2024 - clopidogrel (PLAVIX) 75 mg tablet Take 1 tablet by mouth once daily. - levothyroxine (SYNTHROID) 75 mcg tablet Take 75-150 mcg by mouth daily before breakfast. Taking 75 mg Saturday - Saturday Taking 150 mg Saturday and Saturday - metoprolol succinate ER (TOPROL XL) 100 mg Take 100 mg by mouth once daily. - atorvastatin (LIPITOR) 40 mg tablet Take 40 mg by mouth once daily. - losartan (COZAAR) 100 mg tablet Take 100 mg by mouth once daily. - hydroCHLOROthiazide 25 mg tablet Take 25 mg by mouth once daily. - aspirin (ASPIRIN CHILDRENS) 81 mg chewable tablet Take 81 mg by mouth once daily. - cholecalciferol (VITAMIN D-3) 50 mcg (2,000 unit) tablet Take 2,000 Units by mouth once daily. Problem List As Of Date 04/21/2024 Noted Resolved Ischemic stroke (HCC) [I63.9] 02/09/2024 Hypokalemia [E87.6] 02/09/2024 02/12/2024 Cerebral infarction due to embolism of right mi*02/09/2024 04/20/2024 Primary hypertension [I10] 02/09/2024 Hypertensive urgency [I16.0] 02/09/2024 02/12/2024 Received tissue plasminogen activator (t-PA) le*02/10/2024 02/12/2024 PFO (patent foramen ovale) [Q21.12] 04/09/2024 Letter Text Letter Text Encounter Status:Closed by ALE SAN on 04/21/24 [facility] 04-14-2024 Note HNO ID: [id number] Author: KARI KRAMER APRN.SPORTS SPECIALIST Service: ? Author Type: Nurse Practitioner Type: Progress Notes Filed: 04/14/2024 13:41 Note Text: Incidental Lung Nodule Enrollment Outreach attempt: 1st Attempt Outreach status: Left message Enrolled in Lung Nodule program: Referred Lung Nodule outreach: Needs outreach Lung Nodule Program Location: [place] [facility] Big Nodule Letter [facility] 04-14-2024 History of Present illness Narrative Incidental Lung Nodule Enrollment Outreach attempt: 1st Attempt Outreach status: Left message Enrolled in Lung Nodule program: Referred Lung Nodule outreach: Needs outreach Lung Nodule Program Location: [place] [facility] Big Nodule Letter documented in this encounter [facility] 04-14-2024 Note Patient Outreach (PM M211) GLENROY THORNTON ([id number]) 1960 M Date Time Provider Department 04/14/24 KARI KRAMER [id number] During your visit today, we recorded the following information about you: Kari Kramer APRN.SPORTS SPECIALIST 04/14/2024 1:41 PM Signed Incidental Lung Nodule Enrollment Outreach attempt: 1st Attempt Outreach status: Left message Enrolled in Lung Nodule program: Referred Lung Nodule outreach: Needs outreach Lung Nodule Program Location: [place] [facility] Big Nodule Letter Allergies As of Date: 04/14/2024 (No Known Allergies) Date Reviewed: 04/09/2024 Reviewed by: Cady Aviles, SILVIO - Fully Assessed Prescriptions as of 04/14/2024 - cephALEXin (KEFLEX) 500 mg capsule Take 1 capsule by mouth two times a day for 7 days. - clopidogrel (PLAVIX) 75 mg tablet Take 1 tablet by mouth once daily. - levothyroxine (SYNTHROID) 75 mcg tablet Take 75-150 mcg by mouth daily before breakfast. Taking 75 mg Saturday - Saturday Taking 150 mg Saturday and Saturday - metoprolol succinate ER (TOPROL XL) 100 mg Take 100 mg by mouth once daily. - atorvastatin (LIPITOR) 40 mg tablet Take 40 mg by mouth once daily. - losartan (COZAAR) 100 mg tablet Take 100 mg by mouth once daily. - hydroCHLOROthiazide 25 mg tablet Take 25 mg by mouth once daily. - aspirin (ASPIRIN CHILDRENS) 81 mg chewable tablet Take 81 mg by mouth once daily. - cholecalciferol (VITAMIN D-3) 50 mcg (2,000 unit) tablet Take 2,000 Units by mouth once daily. Problem List As Of Date 04/14/2024 Noted Resolved Ischemic stroke (HCC) [I63.9] 02/09/2024 Hypokalemia [E87.6] 02/09/2024 02/12/2024 Cerebral infarction due to embolism of right mi*02/09/2024 Primary hypertension [I10] 02/09/2024 Hypertensive urgency [I16.0] 02/09/2024 02/12/2024 Received tissue plasminogen activator (t-PA) le*02/10/2024 02/12/2024 PFO (patent foramen ovale) [Q21.12] 04/09/2024 Letter Text Letter Text Encounter Status:Closed by KARI KRAMER on 04/14/24 [facility] 04-13-2024 Telephone encounter Note Glenroy Thornton returned call. Relayed Richard's message and recommendation to follow up with PCP. He verbalized understanding and is agreeable to call PCP for further evaluation. Nohemi Cummins RN [facility] 04-13-2024 Miscellaneous Notes Glenroy Thornton returned call. Relayed Richard's message and recommendation to follow up with PCP. He verbalized understanding and is agreeable to call PCP for further evaluation. Nohemi Cummins, SILVIO Left message for Mr. Thornton to call [facility] for test results. [facility] phone number provided. Celia Apodaca LPN ----- Message from Richard Reynolds APRN.CNP sent at 04/13/2024 12:53 PM EST ----- Please call the patient and report CXR results have an incidental finding of nodular opacity in his left midlung. Further evaluation recommended with dedicated CT Scan. We do not follow these incidental findings. Please required patient follow up with PCP for further monitoring/evaluation. Richard Reynolds APRN.MIGUEL documented in this encounter [facility] 04-13-2024 Telephone encounter Note Left message for Mr. Thornton to call [facility] for test results. [facility] phone number provided. Celia Apodaca LPN [facility] 04-13-2024 Telephone encounter Note ----- Message from Richard Reyonlds APRN.CNP sent at 04/13/2024 12:53 PM EST ----- Please call the patient and report CXR results have an incidental finding of nodular opacity in his left midlung. Further evaluation recommended with dedicated CT Scan. We do not follow these incidental findings. Please required patient follow up with PCP for further monitoring/evaluation. Richard Reynolds APRN.SPORTS SPECIALIST [facility] 04-09-2024 Surgery Surgical operation note PROCEDURE: Intracardiac Echocardiography PFO Closure with a 30mm [place] Cardioform septal occluder Name: Glenroy Thornton Date: April 09, 2024 STAFF PHYSICIAN: Dr. Delvin Ge MD ACCESS: 11F RFV superior access, 11F RFV inferior Access DEVICE: 30mm [place] Cardioform septal occluder device DETAILS OF PROCEDURE: After yielding full informed consent including discussion of risks, benefits, and alternatives to this procedure, the patient was brought to the Cardiac Catheterization Lab. The patient was dressed and draped in the usual sterile fashion and 1% lidocaine used for local anesthesia for sheath placement. An 11 Fr long sheath was placed in the right femoral vein after preclosure with perclose x1 and an 11 Fr short sheath was placed in the right femoral vein after preclosure with perclose x1. Through the 11 Fr Long sheath, the AcuNAV ICE probe was advanced to the RA. Images were taken which showing positive PFO. Agitated saline demonstrated quick and brisk crossing into the left atrium. We administered full dose intravenous heparin for anticoagulation to an ACT > 250 sec. The atrial septum was crossed using a J wire and a 6 Fr MPA catheter. We exchanged for an Amplatz Extra stiff J-tip wire. Images were taken which showing +PFO with long tunnel. A 30mm device was selected and deployed it in the PFO. ICE was used to confirm placement; this did not show any residual leak across the interatrial septum. We confirmed no new pericardial effusion present after device with ICE. Fluoroscopic evaluation of the chest demonstrated no new pleural effusions. We then removed all equipment and closed the femoral vein access with a perclose proglide .The patient tolerated the procedure well. COMPLICATIONS: None HEMOSTASIS: Perclose IMPRESSION: Successful PFO closure PLAN: 1) Three months aspirin 81mg and Plavix 75mg daily 2) Five days Keflex antibiotic prophylaxis 3) TTE w/ bubble and CXR (PA / lateral) today 4) Follow-up one month with TTE w/ bubble and ECG prior 5) Dispo: tentative same-day discharge after echo if no issues with ambulation Delvin Ge MD [employer] Convert[employer] Operator of Internal Medicine [facility] Section of Interventional Cardiology Dope Weigh Operator of Structural Heart Disease [facility] [address], [address] [place], [place] [address] Facsimile: [phone] Email: [facility] 04-09-2024 Surgical operation note PROCEDURE: Intracardiac Echocardiography PFO Closure with a 30mm [place] Cardioform septal occluder Name: Glenroy Thornton Date: April 09, 2024 STAFF PHYSICIAN: Dr. Delvin Ge MD ACCESS: 11F RFV superior access, 11F RFV inferior Access DEVICE: 30mm [place] Cardioform septal occluder device DETAILS OF PROCEDURE: After yielding full informed consent including discussion of risks, benefits, and alternatives to this procedure, the patient was brought to the Cardiac Catheterization Lab. The patient was dressed and draped in the usual sterile fashion and 1% lidocaine used for local anesthesia for sheath placement. An 11 Fr long sheath was placed in the right femoral vein after preclosure with perclose x1 and an 11 Fr short sheath was placed in the right femoral vein after preclosure with perclose x1. Through the 11 Fr Long sheath, the AcuNAV ICE probe was advanced to the RA. Images were taken which showing positive PFO. Agitated saline demonstrated quick and brisk crossing into the left atrium. We administered full dose intravenous heparin for anticoagulation to an ACT > 250 sec. The atrial septum was crossed using a J wire and a 6 Fr MPA catheter. We exchanged for an Amplatz Extra stiff J-tip wire. Images were taken which showing +PFO with long tunnel. A 30mm device was selected and deployed it in the PFO. ICE was used to confirm placement; this did not show any residual leak across the interatrial septum. We confirmed no new pericardial effusion present after device with ICE. Fluoroscopic evaluation of the chest demonstrated no new pleural effusions. We then removed all equipment and closed the femoral vein access with a perclose proglide .The patient tolerated the procedure well. COMPLICATIONS: None HEMOSTASIS: Perclose IMPRESSION: Successful PFO closure PLAN: 1) Three months aspirin 81mg and Plavix 75mg daily 2) Five days Keflex antibiotic prophylaxis 3) TTE w/ bubble and CXR (PA / lateral) today 4) Follow-up one month with TTE w/ bubble and ECG prior 5) Dispo: tentative same-day discharge after echo if no issues with ambulation Delvin Ge MD [employer] Convert[employer] Operator of Internal Medicine [facility] Section of Interventional Cardiology Dope Weigh Operator of Structural Heart Disease [address], [address] [place], [place] [address] Facsimile: [phone] Email: documented in this encounter [facility] 04-01-2024 Note HNO ID: [id number] Author: DELVIN GAMEZ MD Service: ? Author Type: Physician Type: Progress Notes Filed: 04/01/2024 15:05 Note Text: Chief Complaint: Patient presents with: CARD New Patient Consult: COLLATOR REF FOR PFO Glenroy Thornton is a 63 year old male with a known past medical history of hypertension, hyperlipidemia who presented to the hospital with left-sided facial droop and dysarthria while having dinner on 02/05/2024. A CT scan was done in the emergency room which revealed no acute abnormalities, but CT angiogram of the head and neck showed a right M2 insular branch occlusion. He received tPA with complete resolution of his symptoms. The patient denies any complaints of chest pain or pressure. He denies any dyspnea, orthopnea, paroxysmal nocturnal dyspnea, syncope or presyncope denies any palpitations or leg swelling. He had a 30 day monitor which ruled out afib. He remians on ASA/Plavix at this time with no issues with bleeding. PAST MEDICAL HISTORY Diagnosis Date Hyperlipemia Hypertension Hypothyroidism PFO (patent foramen ovale) Stroke (HCC) 01/2024 PAST SURGICAL HISTORY Procedure Laterality Date INGUINAL HERNIA REPAIR HX FAMILY HISTORY Problem Relation Age of Onset Stroke Mother 80 - 89 in 90s other (tia) Mother Heart disease Father Heart disease Brother Social History Tobacco Use Smoking status: Never Smokeless tobacco: Never Vaping Use Vaping status: Never Used Substance Use Topics Alcohol use: Not Currently Drug use: Never Current Outpatient Medications Medication Sig clopidogrel (PLAVIX) 75 mg tablet Take 1 tablet by mouth once daily. levothyroxine (SYNTHROID) 75 mcg tablet Take 75-150 mcg by mouth daily before breakfast. Taking 75 mg Saturday - Saturday Taking 150 mg Saturday and Saturday metoprolol succinate ER (TOPROL XL) 100 mg Take 100 mg by mouth once daily. atorvastatin (LIPITOR) 40 mg tablet Take 40 mg by mouth once daily. losartan (COZAAR) 100 mg tablet Take 100 mg by mouth once daily. hydroCHLOROthiazide 25 mg tablet Take 25 mg by mouth once daily. aspirin (ASPIRIN CHILDRENS) 81 mg chewable tablet Take 81 mg by mouth once daily. cholecalciferol (VITAMIN D-3) 50 mcg (2,000 unit) tablet Take 2,000 Units by mouth once daily. No current facility-administered medications for this visit. ALLERGIES No Known Allergies Cardiac Testing CT brain 02/06/2025: IMPRESSION: Evolving acute right MCA territory infarct. No acute intracranial hemorrhage or significant mass effect. MRI brain 02/09/2025: IMPRESSION: Small acute right MCA territory infarct. No hemorrhagic transformation. No significant mass effect. 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 No acute intracranial hemorrhage. Remaining extracranial and intracranial vasculature is patent without high-grade stenosis or aneurysm. Arterial blood flow was measured to detect acute large vessel occlusion by computer aided detection software: Not Performed. Concordance between software and imaging review: Not Applicable. COMMUNICATION: Communicated with SREE HAYWOOD on 02/09/2024 8:40 PM via verbal communication. Right thyroid nodule. Event monitor 02/11/2024: Review of Systems: See HPI Physical Examination:: BP 148/78 Pulse 86 Resp 18 Ht 6' 0" (1.83m) Wt 192 lb (87.1kg) SpO2 99% BMI 26.03 kg/(m2). General Appearance: Well appearing, alert, in no acute distress, well-hydrated, well nourished.. Skin: Skin color, texture, turgor normal, no suspicious rashes or lesions. Head: Normocephalic, no masses, lesions, tenderness or abnormalities. Eyes: Anicteric sclera. Pupils are equally round. Extraocular movements are intact. Neck: Supple, no adenopathy; thyroid symmetric, normal size, no bruits. Lungs: Lungs clear to auscultation. No wheezing, rhonchi, rales.. Heart: regular rate and rhythm, no murmur, gallop or rub, normal, S1, S2, physiologic split Peripheral Pulses: Normal. ASSESSMENT/PLAN: 1. PFO (patent foramen ovale) - ICD9: 745.5, ICD10: Q21.12 He has a large PFO and after full evaluation his stroke is deemed cryptogenic. He meets indication for PFO closure at this time Continue ASA/Plavix for now. We will schedule him at the next available appointment. F/U in one month Delvin Ge MD [employer] Convert[employer] Operator of Internal Medicine [facility] Section of Interventional Cardiology Dope Weigh Operator of Structural Heart Disease [address], [address] [place] [address] Facsimile: [phone] Email: [email or web address] [facility] 04-01-2024 History of Present illness Narrative Images from the original note were not included. Chief Complaint: Patient presents with: CARD New Patient Consult: COLLATOR REF FOR PFO Glenroy Thornton is a 63 year old male with a known past medical history of hypertension, hyperlipidemia who presented to the hospital with left-sided facial droop and dysarthria while having dinner on 02/05/2024. A CT scan was done in the emergency room which revealed no acute abnormalities, but CT angiogram of the head and neck showed a right M2 insular branch occlusion. He received tPA with complete resolution of his symptoms. The patient denies any complaints of chest pain or pressure. He denies any dyspnea, orthopnea, paroxysmal nocturnal dyspnea, syncope or presyncope denies any palpitations or leg swelling. He had a 30 day monitor which ruled out afib. He remians on ASA/Plavix at this time with no issues with bleeding. PAST MEDICAL HISTORY Diagnosis Date Hyperlipemia Hypertension Hypothyroidism PFO (patent foramen ovale) Stroke (HCC) 01/2024 PAST SURGICAL HISTORY Procedure Laterality Date INGUINAL HERNIA REPAIR HX FAMILY HISTORY Problem Relation Age of Onset Stroke Mother 80 - 89 in 90s other (tia) Mother Heart disease Father Heart disease Brother Social History Tobacco Use Smoking status: Never Smokeless tobacco: Never Vaping Use Vaping status: Never Used Substance Use Topics Alcohol use: Not Currently Drug use: Never Current Outpatient Medications Medication Sig clopidogrel (PLAVIX) 75 mg tablet Take 1 tablet by mouth once daily. levothyroxine (SYNTHROID) 75 mcg tablet Take 75-150 mcg by mouth daily before breakfast. Taking 75 mg Saturday - Saturday Taking 150 mg Saturday and Saturday metoprolol succinate ER (TOPROL XL) 100 mg Take 100 mg by mouth once daily. atorvastatin (LIPITOR) 40 mg tablet Take 40 mg by mouth once daily. losartan (COZAAR) 100 mg tablet Take 100 mg by mouth once daily. hydroCHLOROthiazide 25 mg tablet Take 25 mg by mouth once daily. aspirin (ASPIRIN CHILDRENS) 81 mg chewable tablet Take 81 mg by mouth once daily. cholecalciferol (VITAMIN D-3) 50 mcg (2,000 unit) tablet Take 2,000 Units by mouth once daily. No current facility-administered medications for this visit. ALLERGIES No Known Allergies Cardiac Testing CT brain 02/06/2025: IMPRESSION: Evolving acute right MCA territory infarct. No acute intracranial hemorrhage or significant mass effect. MRI brain 02/09/2025: IMPRESSION: Small acute right MCA territory infarct. No hemorrhagic transformation. No significant mass effect. 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 No acute intracranial hemorrhage. Remaining extracranial and intracranial vasculature is patent without high-grade stenosis or aneurysm. Arterial blood flow was measured to detect acute large vessel occlusion by computer aided detection software: Not Performed. Concordance between software and imaging review: Not Applicable. COMMUNICATION: Communicated with SREE HAYWOOD on 02/09/2024 8:40 PM via verbal communication. Right thyroid nodule. Event monitor 02/11/2024: Review of Systems: See HPI Physical Examination:: BP 148/78 Pulse 86 Resp 18 Ht 6' 0" (1.83m) Wt 192 lb (87.1kg) SpO2 99% BMI 26.03 kg/(m^2). General Appearance: Well appearing, alert, in no acute distress, well-hydrated, well nourished.. Skin: Skin color, texture, turgor normal, no suspicious rashes or lesions. Head: Normocephalic, no masses, lesions, tenderness or abnormalities. Eyes: Anicteric sclera. Pupils are equally round. Extraocular movements are intact. Neck: Supple, no adenopathy; thyroid symmetric, normal size, no bruits. Lungs: Lungs clear to auscultation. No wheezing, rhonchi, rales.. Heart: regular rate and rhythm, no murmur, gallop or rub, normal, S1, S2, physiologic split Peripheral Pulses: Normal. ASSESSMENT/PLAN: 1. PFO (patent foramen ovale) - ICD9: 745.5, ICD10: Q21.12 He has a large PFO and after full evaluation his stroke is deemed cryptogenic. He meets indication for PFO closure at this time Continue ASA/Plavix for now. We will schedule him at the next available appointment. F/U in one month Delvin Ge MD [employer] Convertor Operator of Internal Medicine [facility] of Interventional Cardiology Dope Weigh Operator of Structural Heart Disease [address], [address] [place] [address] Facsimile: [phone] Email: [email or web address] Patient denies any cardiac issues or symptoms. documented in this encounter [facility] 04-01-2024 Note HNO ID: [id number] Author: GAIL MALDONADO MA Service: ? Author Type: Boiler/Chiller Technician Type: Progress Notes Filed: 04/01/2024 15:05 Note Text: Patient denies any cardiac issues or symptoms. [facility] 03-02-2024 Note Addended by: ROSAMARIA DEL VALLE on: 03/02/2024 04:30 PM Modules accepted: Orders [facility] 03-02-2024 Miscellaneous Notes Addended by: ROSAMARIA HEDRICK on: 03/02/2024 04:30 PM Modules accepted: Orders Called pt home and cell, no answer, left VM to call back [phone]. Called patient , Marcy, and relayed Rosamaria's message to her. Advised, per Rosamaria's message, that: "Lupus anticoagulant panel did not show blood clotting disorder. He had some mild elevations in factor VIII and fibrinogen. These can be falsely elevated in setting of recent stroke/hospitalization. The fibrinogen elevation is not significant. I recommend we just repeat the factor VIII in 3 months to make sure its trending down. Even if truly abnormal, it isn't necessarily a risk factor for stroke." asked if they could have blood draw in [place] same day of upcoming 05/27/2024. This RN advised that would be acceptable and that I would request Rosamaria adjust lab "Expected By" date to 05/27/2024 to coincide with appointment that same day ("Expected By" date is currently 05/31/2024). This RN stated I would also send this information via [employer] as shopping at time of call. verbalized understanding and denied further questions. Roel Morin, RN Simon Sheldon - would you mind calling the patient regarding the below lab results? Lupus anticoagulant panel did not show blood clotting disorder. He had some mild elevations in factor VIII and fibrinogen. These can be falsely elevated in setting of recent stroke/hospitalization. The fibrinogen elevation is not significant. I recommend we just repeat the factor VIII in 3 months to make sure its trending down. Even if truly abnormal, it isn't necessarily a risk factor for stroke. Thank you! documented in this encounter [facility] 03-02-2024 Telephone encounter Note Called pt home and cell, no answer, left VM to call back [phone]. Called patient , Marcy, and relayed Rosamaria's message to her. Advised, per Rosamaria's message, that: "Lupus anticoagulant panel did not show blood clotting disorder. He had some mild elevations in factor VIII and fibrinogen. These can be falsely elevated in setting of recent stroke/hospitalization. The fibrinogen elevation is not significant. I recommend we just repeat the factor VIII in 3 months to make sure its trending down. Even if truly abnormal, it isn't necessarily a risk factor for stroke." asked if they could have blood draw in [place] same day of upcoming 05/27/2024. This RN advised that would be acceptable and that I would request Rosamaria adjust lab "Expected By" date to 05/27/2024 to coincide with appointment that same day ("Expected By" date is currently 05/31/2024). This RN stated I would also send this information via [employer] as shopping at time of call. verbalized understanding and denied further questions. Roel Morin RN [facility] 03-02-2024 Telephone encounter Note Simon Sheldon - would you mind calling the patient regarding the below lab results? Lupus anticoagulant panel did not show blood clotting disorder. He had some mild elevations in factor VIII and fibrinogen. These can be falsely elevated in setting of recent stroke/hospitalization. The fibrinogen elevation is not significant. I recommend we just repeat the factor VIII in 3 months to make sure its trending down. Even if truly abnormal, it isn't necessarily a risk factor for stroke. Thank you! [facility] 02-27-2024 Telephone encounter Note This RN called patient and notified him that Plavix prescription was sent to [facility] on [address]. Pt verbalized understanding and denied further questions. Roel Morin RN [facility] 02-27-2024 Miscellaneous Notes This RN called patient and notified him that Plavix prescription was sent to [facility] on [address] Pt verbalized understanding and denied further questions. Roel Morin RN Pt requesting script for Plavix. Originally prescribed by Dr. Lomeli on 02/13/24. Per last OV note dated 02/24/24: Discussed risks and benefits of continuing both Aspirin + plavix at least until seeing Cardiology, which is reasonable given sizeable PFO. Monitor for bleeding. Cardiology appt 04/01/24. If plan remains appropriate, please sign script. Please note, script updated to 30 day fill with one refill. CV PHONE Name of caller : Glenroy Relationship to patient : Self If not self Will need patient permission to release results or disclose health information with called documented in fyi. Patient identified by Name and Date of . ( Glenroy Thornton, 1960). Yes Number to return call [phone] Reason for Call: Patient Question/Update: Patient calling regarding the Plavix medication refill that was discussed during his latest office visit. Patient states that COLLATOR was to send in refill to preferred pharmacy until his upcoming Cardiology appt. Thank you calling [facility]. You will receive a return call within 48 hours ( or 2 business days if close to the weekend). If you feel that this is an urgent issue and needs immediate attention, it is recommended that you contact your primary care provider office or proceed to your nearest Urgent Care Center of Emergency Room ED for evaluation/treatment. documented in this encounter [facility] 02-26-2024 Telephone encounter Note Pt requesting script for Plavix. Originally prescribed by Dr. Lomeli on 02/13/24. Per last OV note dated 02/24/24: Discussed risks and benefits of continuing both Aspirin + plavix at least until seeing Cardiology, which is reasonable given sizeable PFO. Monitor for bleeding. Cardiology appt 04/01/24. If plan remains appropriate, please sign script. Please note, script updated to 30 day fill with one refill. [facility] 02-26-2024 Telephone encounter Note CV PHONE Name of caller : Glenroy Relationship to patient : Self If not self Will need patient permission to release results or disclose health information with called documented in fyi. Patient identified by Name and Date of . ( Glenroy Thornton, 1960). Yes Number to return call [phone] Reason for Call: Patient Question/Update: Patient calling regarding the Plavix medication refill that was discussed during his latest office visit. Patient states that COLLATOR was to send in refill to preferred pharmacy until his upcoming Cardiology appt. Thank you calling [facility]. You will receive a return call within 48 hours ( or 2 business days if close to the weekend). If you feel that this is an urgent issue and needs immediate attention, it is recommended that you contact your primary care provider office or proceed to your nearest Urgent Care Center of Emergency Room ED for evaluation/treatment. [facility] 02-24-2024 Instructions Rosamaria Hedrick APRN.[facility] - 02/24/2024 11:31 AM EST Images from the original note were not included. Regarding your visit with Nurse Practitioner Rosamaria Hedrick today at the [facility] [place] [facility] we discussed the following: Impression: R MCA territory infarct with M2 branch occlusion s/p TNK 02/09/24. MYRNA with large PFO, however uncertain significance given age. Need to rule out hypercoagulable state and occult afib PFO - RoPE score 5, 34% chance stroke caused by PFO Hypertension Mixed hyperlipidemia - LDL 70 Recommendations: Blood work: Hypercoagulable panel, B2 glycoproteins Follow up heart monitor results Recommend follow up with PCP for thyroid ultrasound Continue Aspirin + plavix until seeing Cardiology, will update him as well Continue atorvastatin for secondary stroke prevention and LDL goal below 70. Continue monitoring blood pressure for goal below 130/80. Follow up in 3 months in [facility] [facility] - 3rd floor, [address] Physician Office building [address] [place] [address] -Regular follow up with primary care doctor for health maintenance -Assist ensuring blood pressure and cholesterol are at goal -Screen and manage diabetes -Lifestyle modification -- Establish goals -Diet -Regular Exercise as discussed -Establish weight goals with primary care doctor -Additional stroke reduction measures and stroke warning signs are listed below. Please do not hesitate to call if you have any questions Rosamaria Hedrick CNP Cerebrovascular [place] Nurse Practitioner [place], [place] [address] Office: [phone] Appointments: [phone] Stroke Signs and Symptoms: *Stroke is a medical emergency. Know the warning signs of stroke: Sudden numbness or weakness of the face, arm or leg, especially on one side of the body Sudden confusion, trouble speaking, or understanding Sudden trouble seeing in one eye, or both eyes Sudden trouble walking, dizziness, loss of balance, or coordination Sudden severe headache with no known cause *If you, or someone with you, has one or more of these signs, don't delay! Immediately call 911, or the emergency medical services (EMS) number so an ambulance can be sent for you. Also, check the time so that you will know when the symptoms first appeared. It is very important to take immediate action, every second counts. Medical treatment may be available if action is taken early enough. ~~~~~~~~~~~~~~~~~~~~~~~~~~~~~~~~~~ ~~~~~~~~~~~~~~~~~~~~~~~~~~~~~~~~~~ ~~~~ General Guidelines to Help Reduce Risk of Recurrent Stroke Blood Pressure Management: Blood Pressure reduction is recommended for both prevention of recurrent stroke and prevention of other vascular events in persons who have had an ischemic stroke or TIA and are beyond the first 24 hours. Several lifestyle modifications have been associated with BP reduction and are a reasonable part of a comprehensive antihypertensive therapy. These modifications include: - salt restriction (less than 2 grams per day) - weight loss - consumption of a diet rich in fruits, vegetables, and low-fat dairy products - regular aerobic physical activity - limited alcohol consumption Goal: Prehypertension (BP less than 130/80 mm Hg): - Perform annual BP screening and lifestyle modifications Hypertension: (BP greater than or equal to 130/80 mm Hg) - Combine medications with above lifestyle modifications to reach your goal blood pressure as defined above. - Monitor your blood pressure at home regularly to ensure you are reaching your goals Diabetes Mellitus: - the goal for glycemic control should be individualized based on the risk for adverse events, patient characteristics and preferences, and, for most patients with diabetes, achieving a goal of HbA1c <=7% is recommended to reduce risk for microvascular complications. - treatment of diabetes should include glucose-lowering medications with proven cardiovascular benefit to reduce the risk for future major adverse cardiovascular events (eg, stroke, heart attack) Cholesterol and Lipid Management - Statin (rosuvastatin or atorvastatin) therapy with intensive lipid-lowering effects is recommended to reduce risk of stroke and cardiovascular events among patients with ischemic stroke or TIA who have LDL cholesterol > 100 mg/dL, or evidence of atherosclerosis. - A goal of LDL cholesterol < 70 mg/dL for stroke or TIA patients on lipid lowering therapy is recommended. - Ezetimibe in combination with statin therapy to lower the LDL cholesterol < 70 mg/DL is recommended, if statin therapy alone is insufficient to attain this treatment target. - For patients with ischemic stroke at very high risk, already taking maximally tolerated statin and ezetimibe and still have an LDL cholesterol > 70 mg/dL, it is reasonable to treat with a proprotein convertase subtilisin/kexin type 9 (PCSK9) inhibitor to prevent atherosclerotic cardiovascular or cerebrovascular events. - In patients with ischemic stroke or TIA, with fasting triglycerides 135 to 499 mg/dL and LDL cholesterol of 41 to 100 mg/dL, on moderate- or high-intensity statin therapy, with HbA1c <10%, and with no history of pancreatitis, atrial fibrillation, or severe heart failure, treatment with icosapent ethyl (IPE) 2 g twice a day is reasonable to reduce risk of recurrent stroke Diet: - Reduced sodium and increased potassium intake; DASH-style diet rich in fruits and vegetables (https://www.nhlbi.nih.gov/educati on/wmsw-etxzhw-mdov) - Consider Mediterranean diet supplemented with nuts Smoking and Tobacco Use: - Strongly recommend smoking and tobacco use cessation to reduce risk of stroke. - Counseling, nicotine products, and oral smoking cessation medications are effective for helping smokers quit and can be provided if needed. Alcohol Consumption: - Patients with ischemic stroke or TIA who drink greater than or equal to 2 alcoholic drinks a day, should eliminate alcohol use or reduce their consumption of alcohol to less than equal to 1 alcohol drink per day to reduce stroke risk Exercise - In patients with stroke or TIA who are capable of physical activity, engaging in at least moderate-intensity aerobic activity for a minimum of 10 minutes 4 times a week or vigorous-intensity aerobic activity for a minimum of 20 minutes twice a week is indicated to lower the risk of recurrent stroke - In patients with deficits after stroke that impair their ability to exercise, supervision of an exercise program by a health rn homecare such as a physical therapist or cardiac rehabilitation professional, in addition to routine rehabilitation, can be beneficial for secondary stroke prevention - In individuals with stroke or TIA who sit for long periods of uninterrupted time during the day, it may be reasonable to recommend breaking up sedentary time with intervals as short as 3 minutes of standing or light exercise every 30 minutes for their cardiovascular health Adapted from the [place] [employer]/[place] [employer] Association: 2021 Guideline for the Prevention of Stroke in Patients With Stroke and Transient Ischemic Attack documented in this encounter [facility] 02-24-2024 History of Present illness Narrative Images from the original note were not included. [facility] Established Visit Consultation is requested by: Lyn Lindo [address] [facility] [address] PCP: Ev Zeng (April) [address] [address] CEREBROVASCULAR HISTORY Glenroy Thornton is a 63 year old male presenting for hospital discharge follow up. Admitted to [facility] 02/08-02/12/24. From discharge summary Mr Glenroy Stokes is a 63 yo gentleman with HTN, HLD, and hypothyroidism who presented for left sided facial droop and dysarthria while having dinner. He did not noticed arm or leg weakness stumbled when they attempted to walk him to ambulance. He was brought to the ER where he was worked up for a stroke. CT head obtained on admission without any acute abnormality. CT angiogram of head and neck with right M2 insular branch occlusion. His imaging was evaliated following which he received tpa as he was within the window. He was taken to the neuro ICU for monitoring post tpa.Symptoms reported to have completely resolved the following morning. MRI brain obtained showed small acute right MCA territory infarct He underwent stroke work up including an transthoracic echocardiogram which revealed the presence of an intracardiac shunt. He then underwent a Transesophageal echocardiogram which revealed no thrombus but did show Large PFO with strongly positive bubble study visualized. Patient seen by neurology team who recommended continuing aspirin and clopidogrel for 21 days and continuing statin therapy. Seen by PT who cleared for home. For further work up of Patent foramen Ovale, patient will need to follow with Cardiology after DC to evaluate for closure of PFO. Will also need an event monitor on discharge. Reason for Visit: ischemic stroke Date of Last Event: 02/09/2024 Antiplatelets/Anticoagulants: Aspirin and Clopidogrel Statins: Atorvastatin Residual Deficits: No residual deficits Current PT/OT/ST: None Current Living Situation: Home with spouse Current use of a mobility aid for walking/getting around: None Office Visit 02/24/24 -presents for hospital discharge follow up with his , Marcy who is a nurse -denies any new symptoms or clinical events -feels fatigued, but denies focal deficits or therapy needs -Cardiology for PFO evaluation - scheduled for 04/01/24 -event monitor placed a few days ago, recommended 30 days -aspirin 81mg + plavix 75mg x 21 days recommended -they are worried about stopping plavix because he was on aspirin when he had his stroke -no bleeding or bruising on DAPT -lipitor 40mg -BP 146/90 - at home generally 110-120s, occasional reading 130s, single reading in 150s, HR 50-70s -never smoker -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 levothyroxine (SYNTHROID) 75 mcg tablet Take 75-150 mcg by mouth daily before breakfast. Taking 75 mg Saturday - Saturday Taking 150 mg Saturday and Klaus metoprolol succinate ER (TOPROL XL) 100 mg Take 100 mg by mouth once daily. atorvastatin (LIPITOR) 40 mg tablet Take 40 mg by mouth once daily. losartan (COZAAR) 100 mg tablet Take 100 mg by mouth once daily. hydroCHLOROthiazide 25 mg tablet Take 25 mg by mouth once daily. aspirin (ASPIRIN CHILDRENS) 81 mg chewable tablet Take 81 mg by mouth once daily. cholecalciferol (VITAMIN D-3) 50 mcg (2,000 unit) tablet Take 2,000 Units by mouth once daily. No current facility-administered medications for this visit. ALLERGIES ALLERGIES No Known Allergies PHYSICAL EXAMINATION BP 146/90 Pulse (!) 57 Wt 86.2 kg (190 lb) BMI 25.77 kg/m General: Well-developed, well-nourished, in no acute distress. HEENT: Normocephalic, atraumatic. Sclerae anicteric. Oropharynx clear. Neck: No JVD Heart: Skin well-perfused. Lungs: Breathing comfortably on room air. Extremities: No edema, cyanosis, or clubbing. Skin: No rash or ecchymoses. Neurological: Awake, alert, oriented to person, place, and time. Speech fluent, no dysarthria. Recall, comprehension intact. Good attention and insight into illness. Cranial Nerves: Extraocular movements intact without nystagmus. Visual chou full. Facial movements normal and symmetric. Motor: Normal bulk and tone. Strength 5/5 throughout. No pronator drift or tremor. Sensation: Intact light touch. Coordination: Rapid alternating movements symmetric bilaterally. [id number]-[id number] without dysmetria bilaterally. Gait: Narrow-based, normal spaced and stable without assistance. LABS Cholesterol: Cholesterol, Total (mg/dL) Date Value 02/09/2024 167 LDL Cholesterol (mg/dL) Date Value 02/09/2024 70 HDL Cholesterol (mg/dL) Date Value 02/09/2024 47 Triglyceride (mg/dL) Date Value 02/09/2024 250 Diabetes: Hemoglobin A1C (%) Date Value 02/09/[address] brain, CTA head and neck 02/09/24 IMPRESSION: Occlusion of the proximal right M2 insular branch. No acute intracranial hemorrhage. Remaining extracranial and intracranial vasculature is patent without high-grade stenosis or aneurysm. MRI brain 02/10/24 IMPRESSION: Small acute right MCA territory infarct. No hemorrhagic transformation. No significant mass effect. Echo 02/10/24 CONCLUSIONS: - Exam indication: Stroke - The left ventricle is normal in size. There is no left ventricular hypertrophy. Left ventricular systolic function is normal. EF = 69 5% (2D biplane) Indeterminate left ventricular diastolic function due to inconsistent or technically suboptimal data. - The right ventricle is normal in size. Right ventricular systolic function is normal. - There are no significant valvular abnormalities. - The visualized aorta is borderline dilated with a maximal dimension of 4.0 cm. - Agitated saline was administered to rule out shunt. There is evidence of intracardiac shunting as detected by agitated saline contrast. - The patient has not had a prior CC echocardiographic exam for comparison. MYRNA 02/12/24 CONCLUSIONS: - Exam indication: Stroke - Agitated saline was administered to rule out shunt. There is evidence of intracardiac shunting as detected by Doppler and agitated saline contrast. - Left ventricular systolic function is normal. EF = 60 5% (visual est.) - The right ventricle is normal in size. Right ventricular systolic function is normal. - There are no significant valvular abnormalities. - There is no left atrial appendage thrombus. - No atheroma in desceding aorta and aortic arch - Large PFO (width: 7 mm) with large right to left shunt with bubble study (>20 microbubbles) each beats. - Exam was compared with the prior CC echocardiographic exam performed on 02/10/2024. no significant change Patient Entered Questionnaires PROMIS/NeuroQoL Score Percentiles Percentiles provide an indication of how a patient's score ranks in relation to the [place] general population. > 31st percentile is within normal limits or better * < 31st percentile is at least SD worse than population, which may be clinically relevant < 16th percentile is at least 1 SD worse than population and warrants attention Depression Screening: PHQ-9 Scores: PHQ-9 Self-Harm (Item 9) Response: 0 - 9 No to Mild depression 0 - Not at all 10 - 14 Moderate depression 1 - Several Days > 15 Severe depression 2 - More than half the days 3 - Nearly every day 02/23/2024 Sleep Apnea Probability Snores loudly: No Tired, fatigued or sleepy in daytime: Yes Stops breathing or choking/gasping during sleep: No High blood pressure: Yes Sleep Apnea Probability Score: 51 (Recommend sleep study) 02/23/2024 Sleep Apnea Probability Score Probability (%) 51 (Recommend sleep study) Stroke Mechanism and Scales Ischemic or TIA: Ischemic Stroke TOAST Mechanism (CCF-MODIFIED): Stroke of Undetermined Etiology Stroke of Undetermined etiology: Incomplete Evaluation Modified Flagler Score: Score: 1 NIH Stroke Scale: LOC: 0 LOC Questions: 0 LOC Commands: 0 LOC Normal Gaze: 0 Visual Chou: 0 Facial Palsy: 0 Motor Left Arm: 0 Motor Right Arm: 0 Motor Left Le Motor Right Le Limb Ataxia: 0 Sensory: 0 Language: 0 Dysarthria: 0 Extinction/Neglect: 0 Total Daily NIHSS: 0 02/10/2024 Stroke Mechanism Ischemic Stroke or TIA Ischemic Stroke TOAST Mechanism (CCF-MODIFIED) Cryptogenic Embolism IMPRESSION R MCA territory infarct with M2 branch occlusion s/p TNK 02/09/24. MYRNA with large PFO, however uncertain significance given age. Need to rule out hypercoagulable state and occult afib PFO - RoPE score 5, 34% chance stroke caused by PFO Hypertension Mixed hyperlipidemia - LDL 70 Thyroid nodule - incidental PLAN Hypercoagulable panel, B2 glycoproteins Follow up heart monitor results Recommend follow up with PCP for thyroid ultrasound Discussed risks and benefits of continuing both Aspirin + plavix at least until seeing Cardiology, which is reasonable given sizeable PFO. Monitor for bleeding. Continue atorvastatin for secondary stroke prevention and LDL goal below 70. Continue monitoring blood pressure for goal below 130/80. Follow up in 3 months, or sooner if needed Medical Decision Making: Medical Decision Making Level: 1 - N/A I spent a total of 43 minutes on the date of service which included preparing to see the patient, [id number] patient care, completing clinical documentation, obtaining and/or reviewing separately obtained history, performing a medically appropriate examination, counseling and educating the patient/family/caregiver, ordering medications, tests, or procedures, communicating with other HCPs (not separately reported), independently interpreting results (not separately reported), communicating results to the patient/family/caregiver, and care coordination (not separately reported) SIGNATURE Rosamaria Hedrick APRN.SPORTS SPECIALIST [facility] [address] [place] [address] Ev Zeng (Kory) [address] [facility] [address] [place] [address] documented in this encounter [facility] 02-24-2024 Note HNO ID: [id number] Author: ROSAMARIA HEDRICK APRN.MIGUEL Service: ? Author Type: Nurse Practitioner Type: Progress Notes Filed: 02/24/2024 15:28 Note Text: [facility] Established Visit Consultation is requested by: Lyn Lindo [address] [facility] [address] PCP: Ev Zeng (Kory) [address] [facility] [address] [place] [address] CEREBROVASCULAR HISTORY Glenroy Thornton is a 63 year old male presenting for hospital discharge follow up. Admitted to [facility] 02/08-02/12/24. From discharge summary Mr Glenroy Stokes is a 63 yo gentleman with HTN, HLD, and hypothyroidism who presented for left sided facial droop and dysarthria while having dinner. He did not noticed arm or leg weakness stumbled when they attempted to walk him to ambulance. He was brought to the ER where he was worked up for a stroke. CT head obtained on admission without any acute abnormality. CT angiogram of head and neck with right M2 insular branch occlusion. His imaging was evaliated following which he received tpa as he was within the window. He was taken to the neuro ICU for monitoring post tpa.Symptoms reported to have completely resolved the following morning. MRI brain obtained showed small acute right MCA territory infarct He underwent stroke work up including an transthoracic echocardiogram which revealed the presence of an intracardiac shunt. He then underwent a Transesophageal echocardiogram which revealed no thrombus but did show Large PFO with strongly positive bubble study visualized. Patient seen by neurology team who recommended continuing aspirin and clopidogrel for 21 days and continuing statin therapy. Seen by PT who cleared for home. For further work up of Patent foramen Ovale, patient will need to follow with Cardiology after DC to evaluate for closure of PFO. Will also need an event monitor on discharge. Reason for Visit: ischemic stroke Date of Last Event: 02/09/2024 Antiplatelets/Anticoagulants: Aspirin and Clopidogrel Statins: Atorvastatin Residual Deficits: No residual deficits Current PT/OT/ST: None Current Living Situation: Home with spouse Current use of a mobility aid for walking/getting around: None Office Visit 02/24/24 -presents for hospital discharge follow up with his , Marcy who is a nurse -denies any new symptoms or clinical events -feels fatigued, but denies focal deficits or therapy needs -Cardiology for PFO evaluation - scheduled for 04/01/24 -event monitor placed a few days ago, recommended 30 days -aspirin 81mg + plavix 75mg x 21 days recommended -they are worried about stopping plavix because he was on aspirin when he had his stroke -no bleeding or bruising on DAPT -lipitor 40mg -BP 146/90 - at home generally 110-120s, occasional reading 130s, single reading in 150s, HR 50-70s -never smoker -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 levothyroxine (SYNTHROID) 75 mcg tablet Take 75-150 mcg by mouth daily before breakfast. Taking 75 mg Saturday - Saturday Taking 150 mg Saturday and Saturday metoprolol succinate ER (TOPROL XL) 100 mg Take 100 mg by mouth once daily. atorvastatin (LIPITOR) 40 mg tablet Take 40 mg by mouth once daily. losartan (COZAAR) 100 mg tablet Take 100 mg by mouth once daily. hydroCHLOROthiazide 25 mg tablet Take 25 mg by mouth once daily. aspirin (ASPIRIN CHILDRENS) 81 mg chewable tablet Take 81 mg by mouth once daily. cholecalciferol (VITAMIN D-3) 50 mcg (2,000 unit) tablet Take 2,000 Units by mouth once daily. No current facility-administered medications for this visit. ALLERGIES ALLERGIES No Known Allergies PHYSICAL EXAMINATION BP 146/90 Pulse (!) 57 Wt 86.2 kg (190 lb) BMI 25.77 kg/m? General: Well-developed, well-nourished, in no acute distress. HEENT: Normocephalic, atraumatic. Sclerae anicteric. Oropharynx clear. Neck: No JVD Heart: Skin well-perfused. Lungs: Breathing comfortably on room air. Extremities: No edema, cyanosis, or clubbing. Skin: No rash or ecchymoses. Neurological: Awake, alert, oriented to person, place, and time. Speech fluent, no dysarthria. Recall, comprehension intact. Good attention and insight into illness. Cranial Nerves: Extraocular movements intact without nystagmus. Visual chou full. Facial movements nor (more content not included)... [facility] 02-21-2024 Telephone encounter Note Images from the original note were not included. 1528 Called [employer] at [phone]. On hold until 1630. Spoke with Elvie Hare who was unable to assist (Stated she did not see anything in their system regarding a 02/24/24 date of service). This RN asked if another department may be able to help at which time this RN was transferred back to [facility]. 1553 Called [phone] - This RN ended call since on hold in same que as first call. 1621 Sent Discharge Summary via RightFax to [phone], Cover sheet provided answers to inquiry. 1649 Addended to Add: Roel Morin RN [facility] 02-21-2024 Miscellaneous Notes Images from the original note were not included. 1528 Called [employer] at [phone]. On hold until 163. Spoke with Elvie Hare who was unable to assist (Stated she did not see anything in their system regarding a 02/24/24 date of service). This RN asked if another department may be able to help at which time this RN was transferred back to [facility]. 1553 Called [phone] - This RN ended call since on hold in same que as first call. 1621 Sent Discharge Summary via RightFax to [phone], Cover sheet provided answers to inquiry. 1649 Addended to Add: Roel Schudel, RN Patient has a upcoming appointment on 02/24/24 Patient's insurance [employer] requesting a call back for clinical reason the patient is being and dx and procedure [phone] or [phone] documented in this encounter [facility] 02-20-2024 Telephone encounter Note Patient has a upcoming appointment on 02/24/24 Patient's insurance [employer] requesting a call back for clinical reason the patient is being and dx and procedure [phone] or [phone] [facility] 02-18-2024 Telephone encounter Note STROKE POST-DISCHARGE CALLBACK Telephone Visit Patient Name: Glenroy Thornton Today's date: February 18, 2024 Date of discharge: February 12, 2024 Person giving information: Glenroy Thornton. Relationship to patient: self. Contact information: [phone] Contact attempt: #1 Patient discharge location: home I spoke with Mr. Thornton regarding his recent hospitalization for stroke. I reviewed the following areas of education: 1.Risk factors. I asked patient if he had been taught about stroke and his risk factors. He said that he had but could not list them. I discussed the pathophysiology of ischemic stroke and how it is related to PFO, high blood pressure or high cholesterol. I emphasized the risk for another stroke and the need to be sure these risk factors are controlled as much as possible. 2.Signs and symptoms of stroke. I asked if the patient remembered being taught the symptoms of stroke. He said that he did. I encouraged him to call 911 if any symptoms occur. 3.Medications. Patient states that he has picked up the Plavix. Was already on aspirin and Lipitor. I talked with him about the actions of the dual antiplatelets for stroke prevention. 4.Follow ups. Glenroy states he has his follow up with neurology next week and with structural cardiology in March. Signature: Abhishek Hernandez RN February 18, 2024 1:34 PM [facility] 02-18-2024 Miscellaneous Notes STROKE POST-DISCHARGE CALLBACK Telephone Visit Patient Name: Glenroy Thornton Today's date: February 18, 2024 Date of discharge: February 12, 2024 Person giving information: Glenroy Thornton. Relationship to patient: self. Contact information: [phone] Contact attempt: #1 Patient discharge location: home I spoke with Mr. Thornton regarding his recent hospitalization for stroke. I reviewed the following areas of education: 1.Risk factors. I asked patient if he had been taught about stroke and his risk factors. He said that he had but could not list them. I discussed the pathophysiology of ischemic stroke and how it is related to PFO, high blood pressure or high cholesterol. I emphasized the risk for another stroke and the need to be sure these risk factors are controlled as much as possible. 2.Signs and symptoms of stroke. I asked if the patient remembered being taught the symptoms of stroke. He said that he did. I encouraged him to call 911 if any symptoms occur. 3.Medications. Patient states that he has picked up the Plavix. Was already on aspirin and Lipitor. I talked with him about the actions of the dual antiplatelets for stroke prevention. 4.Follow ups. Glenroy states he has his follow up with neurology next week and with structural cardiology in March. Signature: Abhishek Hernandez RN February 18, 2024 1:34 PM documented in this encounter [facility] 02-17-2024 Telephone encounter Note Spoke with pt and scheduled him for a sooner new pt appt on 04/01/2024 at 1pm. Pt was very thankful and agreeable to date and time. Thank you, Tamie Sanchez [facility] 02-17-2024 Miscellaneous Notes Spoke with pt and scheduled him for a sooner new pt appt on 04/01/2024 at 1pm. Pt was very thankful and agreeable to date and time. Thank you, Tamie Sanchez Spoke with pt. He is agreeable to sooner OV if available. He reports he will be out of town 04/24/24 - 04/28/24. Pt requests a return call with sooner OV. Magalis Hilario RN Images from the original note were not included. Delvin Gamez MD You4 days ago He has a large PFO. Can he be seen sooner, and prior to his travel? Delvin Pt had MYRNA today. He is scheduled for OV 04/24/23 to discuss PFO closure. Pt will be out of town and asks if it would be ok from a cardiac standpoint to be seen later in Apr.? Magalis Hilario RN documented in this encounter [facility] 02-17-2024 Telephone encounter Note Spoke with pt. He is agreeable to sooner OV if available. He reports he will be out of town 04/24/24 - 04/28/24. Pt requests a return call with sooner OV. Magalis Hilario RN [facility] 02-17-2024 Telephone encounter Note Images from the original note were not included. Delvin Gamez MD You4 days ago He has a large PFO. Can he be seen sooner, and prior to his travel? Delvin [facility] 02-14-2024 Telephone encounter Note Pt agreeable to have event monitor sent to home. Blair contacted to send monitor to pt. [facility] 02-14-2024 Miscellaneous Notes Pt agreeable to have event monitor sent to home. [facility] contacted to send monitor to pt. documented in this encounter [facility] 02-12-2024 Telephone encounter Note Pt had MYRNA today. He is scheduled for OV 04/24/23 to discuss PFO closure. Pt will be out of town and asks if it would be ok from a cardiac standpoint to be seen later in Apr.? Magalis Hilario RN [facility] 02-12-2024 Note HNO ID: [id number] Author: OSCAR AVILEZ RN Service: Care Management Author Type: Registered Nurse Type: Care Mgt Progress Note Filed: 02/12/2024 14:37 Note Text: CARE MANAGEMENT PROGRESS NOTE SERVICE DATE: 02/12/2024 SERVICE TIME: 2:36 PM LOS: 3 days Needs Prior to Discharge: To Be Determined;Discharge Transportation Chart reviewed, spoke with the patient at the bedside, no DC needs currently CM continue to follow for any needs SIGNATURE: Oscar Avilez RN PATIENT NAME: Glenroy Thornton DATE: February 12, 2024 TIME: 2:36 PM PAGER/CONTACT #: [phone] [facility] 02-12-2024 Miscellaneous Notes Pt scheduled for 04/24/24; left VM and sent letter. Dank Motley Please schedule patient for office visit with Dr. Ge for evaluation of PFO closure. Thank you, Richard Reynolds APRN.MIGUEL documented in this encounter [facility] 02-12-2024 Telephone encounter Note Pt scheduled for 04/24/24; left VM and sent letter. Dank Motley [facility] 02-12-2024 Telephone encounter Note Please schedule patient for office visit with Dr. Ge for evaluation of PFO closure. Thank you, Richard Reynolds APRN.CNP [facility] Work Phone: 02-11-2024 Note HNO ID: [id number] Author: DENISE RIVERO MD Service: Cardiovascular Medicine Author Type: Physician Type: Plan of Care Filed: 02/11/2024 09:16 Note Text: Pre-MYRNA review Indication: acute CVA Patient is not NPO today. He ate breakfast this AM Discussed with pt and family regarding MYRNA, we will plan to perform MYRNA tomorrow morning at MYRNA lab if pt goes to regular floor or at bedside if patient stays in [facility] 02-11-2024 Note HNO ID: [id number] Author: JOSE MISHRA MD Service: Neurology ICU Author Type: Resident Type: Progress Notes Filed: 02/11/2024 09:41 Note Text: Attestation signed by Jose Mishra MD at 02/11/2024 9:41 AM ICU Progress Note (Staff Attestation) In brief, Glenroy Thornton is a 63 year old male with history of HTN, HLD, hypothyroidism who presented to the [facility] ED on 02/08. The patient was reportedly having dinner with his , and was noted to exhibit a left facial droop and dysarthria. He was also noted to exhibit arm weakness. He was noted to stumble when he attempted to ambulate to the ambulance, however, no trauma or fall was reported. On arrival to OSH, NIHSS documented at 0. CTH demonstrated no acute process. CTA head/neck demonstrated occlusion of R M2 insular branch. He was administered TNK at 2101 on 02/08. No EVT performed given NIHSS. He was transferred to [facility] for further management. Interval Events: No acute events overnight. 24-hour post-TNK CTH without evidence of hemorrhage. Patient denies acute complaints this AM. I have personally performed a face to face assessment of the patient and have reviewed the PA/COMPOUNDING ASSISTANT/Resident/Medical Student note. Plan of care discussed with: Provider, RN, consultants, and patient. 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 No acute intracranial hemorrhage. Remaining extracranial and intracranial vasculature is patent without high-grade stenosis or aneurysm. -MRI brain (02/09) IMPRESSION Small acute right MCA territory infarct. No hemorrhagic transformation. No significant mass effect. -CTH (02/09) IMPRESSION Evolving acute right MCA territory infarct. No acute intracranial hemorrhage or significant mass effect. -High intensity statin -HbA1c 5.4, lipid panel LDL 70 -DAPT per stroke neurology input -PT/OT as indicated -Serial/close neurological monitoring CV -TTE (02/08) CONCLUSIONS - Exam indication: Stroke - The left ventricle is normal in size. There is no left ventricular hypertrophy. Left ventricular systolic function is normal. EF = 69 ? 5% (2D biplane) Indeterminate left ventricular diastolic function due to inconsistent or technically suboptimal data. - The right ventricle is normal in size. Right ventricular systolic function is normal. - There are no significant valvular abnormalities. - The visualized aorta is borderline dilated with a maximal dimension of 4.0 cm. - Agitated saline was administered to rule out shunt. There is evidence of intracardiac shunting as detected by agitated saline contrast. -MYRNA ordered per stroke input -Follow-up further evaluation/management of possible shunt per stroke -Resume home antihypertensives as able (per chart review, previously ordered Toprol XL, losartan, and HCTZ) - SBP in 120s this AM -If no arrhythmia on telemetry, Zio patch per stroke -Continuous telemetry and BP monitoring Pulmonary -SpO2 monitoring -Supplemental oxygen as indicated Renal -Sodium downtrending, but asymptomatic -Repeat metabolic panel, follow I/O, consider urine studies if indicated pending repeat labs -Trend I/O -Follow RFP/metabolic panel -Replete electrolytes as indicated GI -Continue diet as tolerated -Bowel regimen Endocrine -Continue home synthroid -POCT glucose as indicated -SSI if needed Heme -DVT US (02/10) negative for DVT -Trend CBC -SCDs, Lovenox for DVT ppx ID -Trend temperature/WBC curve Disposition -Transfer out of ICU if patient remains stable ==== The patient currently has the following hospital problems: Principal Problem: Ischemic stroke (HCC) Active Problems: Hypokalemia Cerebral infarction due to embolism of right middle cerebral artery (HCC) Primary hypertension Hypertensive urgency Received tissue plasminogen activator (t-PA) less than 24 hours prior to arrival Resolved Problems: * No resolved hospital problems. * Time spent providing care services: 35 minutes excluding procedures. Signature: Jose Mishra MD [facility] Date: 02/11/2024 Time: 8:24 AM SERVICE DATE: 02/11/2024 SERVICE TIME: 8:42 AM NEURO ICU PROGRESS NOTE DATE OF ADMISSION: 02/09/2024 Subjective Hospital Course: No notes on file Events Since Last Note: No acute events overnight. Objective BP 128/81 Pulse 62 Temp 36.7 ?C (98.1 ?F) (Temporal) Resp 14 Ht 182.9 cm (6') Wt 86.5 kg (190 lb 11.2 oz) SpO2 96% BMI 25.86 kg/m? Weight change: Neuro: GCS: Eyes: 4. Spontaneous Verbal: 5: Oriented Motor: 6: Obeys Motor commands Total: 15 CRANIAL (more content not included)... [facility] 02-10-2024 Note HNO ID: [id number] Author: LYN LINDO PA-C Service: Neurology ICU Author Type: Physician Sheet Combining Operator Type: Plan of Care Filed: 02/10/2024 23:14 Note Text: Post TNK CT images and radiology read reviewed: Evolving R MCA territory infarct. No evidence of hemorrhage. As per Stroke neuro recs, will start DAPT and SQ DVT. Stable for transfer to [facility] Lyn Lindo PA-C #[id number] [facility] 02-10-2024 Note HNO ID: [id number] Author: YAA PALACIOS APRN.CNP Service: Neurology ICU Author Type: Nurse Practitioner Type: Plan of Care Filed: 02/10/2024 15:25 Note Text: Family ( and dtr) at bedside, update requested. Test results and POC reviewed at length. MRI imaging reviewed with pt and family. All questions addressed to their satisfaction. This patient has a high probability of sudden, clinically significant deterioration, which requires the highest level of provider preparedness to intervene urgently. I managed/supervised life or organ supporting interventions that required frequent provider assessment. I devoted my full attention to the direct care of this patient for the amount of time indicated below. Time I spent with family or surrogate(s) is included only if the patient was incapable of providing the necessary information or participating in medical decision making. Time devoted to teaching and to any procedures I billed separately is not included. Critical Care Documentation: The patient has the following organ/system impairment(s): Complex life-threatening medical problem(s), Respiratory failure (Acute and/or Chronic), acute neurologic event and/or Severe electrolyte imbalance. Part of my note may have been copied from previous documentation. It has been reviewed and is accurate. Critical care time spent with patient: 30 mins [facility] 02-10-2024 Note HNO ID: [id number] Author: BOZENA MAC LSW Service: Care Management Author Type: Service Correspondent Type: Care Mgt Progress Note Filed: 02/10/2024 14:40 Note Text: CARE MANAGEMENT PROGRESS NOTE SERVICE DATE: 02/10/2024 SERVICE TIME: 2:37 PM LOS: 1 day SW Consult GERIATRIC DEPRESSION SCREEN 1. Are you basically satisfied with your life? Yes 2. Have you dropped many of your activities and interests? No 3. Do you feel that your life is empty? No 4. Do you often get bored? No 5. Are you in good spirits most of the time? Yes 6. Are you afraid that something bad is going to happen to you? No 7 Do you feel happy most of the time? Yes 8 Do you often feel helpless? No 9. Do you prefer to stay home, rather than going out and doing new things? No 10. Do you feel that you have more problems with memory than most? No 11. Do you think it is wonderful to be alive now? Yes 12. Do you feel worthless the way you are now? No 13. Do you feel full of energy? Yes 14. Do you feel that your situation is hopeless? No 15. Do you think that most people are better off than you are? No Total Score: 0 Scores greater than 5 indicate probably depression Score Result 0-4 No Depression 5-10 Suggestive of Mild Depression 11+ Suggestive of Severe Depression SW met with pt at bedside to complete stroke screen. Pt scored a 0. SW educated pt on post stroke emotions and provided stroke handout. SIGNATURE: AAMIR Westbrook PATIENT NAME: Glenroy Thornton DATE: February 10, 2024 TIME: 2:37 PM PAGER/CONTACT #: [phone] [facility] 02-10-2024 Note HNO ID: [id number] Author: BOZENA MAC LSW Service: Care Management Author Type: Service Correspondent Type: Care Mgt Initial Assessment Filed: 02/10/2024 14:37 Note Text: CARE MANAGEMENT: ASSESSMENT AND DISCHARGE PLAN SERVICE DATE: February 10, 2024 SERVICE TIME: 2:34 PM PCP: Ev Zeng MD Primary Contact: Extended Emergency Contact Information Primary Emergency Contact: Marcy Thornton Address: [id number] [place] [address] Relation: None Admission Status: Inpatient Insurance Provider: BLUE CARD PPO OOS Discharge Planning requested by: Per Department Practice Potential Transition Plans Home;To Be Determined Advance Directives Current Advance Directive: None Development Administrator Attempted to Assist with AD Completion: Yes Action: Education Provided Current Living Arrangements and Support Lives with: Spouse/significant other Type of Residence: Private Residence (House) Support: Spouse/significant other, [employer]/[place] community, Family members How do you manage to accomplish the following: Independent: Ambulation;Bathe/Shower;Dress;Meal s/Meal Prep;Going to the bathroom;Medication Management;Transportation to [facility]/community Current Services/Equipment Current Post-Acute Service(s): None Discharge Planning Patient Goal(s): General wellness, Be able to go home [place] of Choice Explained: [place] of Choice Given: No Reason Not Given: Unable to complete with this assessment - revisit Are you interested in bedside delivery of your medications? No Discharge Planning Participant(s): Patient Patient/Family Comments: Caregiver Assessment: Caregiver is ready, willing and able to meet the patient's needs as recommended by the inter-professional team: No Caregiver needed Transport at Discharge: Transportation Arrangements: Car Needs Prior to Discharge: Needs Prior to Discharge: To Be Determined;OT/PT Evaluation Post-Acute Discharge Plan: SW met with pt at bedside to complete initial assessment. Pt from home where he lives with his . Pt independent and working. Pt will need PT/OT evals once able to participate. +PCP, +rx at [facility]. Pt's to transport home. SIGNATURE: AAMIR Westbrook PATIENT NAME: Glenroy Thornton DATE: February 10, 2024 TIME: 2:34 PM CONTACT #: [phone] [facility] 02-10-2024 Note HNO ID: [id number] Author: MAGALY MCKINNEY RPh Service: Pharmacy Author Type: Pharmacist Type: Plan of Care Filed: 02/12/2024 10:32 Note Text: PHARMACY MEDICATION REVIEW Patient Name: Glenroy Thornton : 1960 The following medications were updated within the ERP TECHNICAL LEAD medication list: Medications ADDED to ERP TECHNICAL LEAD medication list cholecalciferol (VITAMIN D-3) 50 mcg (2,000 unit) tablet Take 2,000 Units by mouth once daily. Medications CHANGED on ERP TECHNICAL LEAD medication list levothyroxine (SYNTHROID) 75 mcg tablet Medications REMOVED from ERP TECHNICAL LEAD medication list Additional comments: Verified medication information with e-scripts/dispense report and chart review. Confirmed medications with patient. Patient stated taking levothyroxine is 75 mg 5 days and 150 mg 2 day - corrected SIG to Take 75-150 mcg by mouth daily before breakfast. Taking 75 mg Saturday - Saturday and Taking 150 mg Saturday and Saturday. Patient stated taking Vit D - added to med list. Required follow up actions for nursing: None The below information represents the best possible medication history: Yes Medication history completed by: Rougher Helper: Ramila Dallas (Customs Entry Writer) Source of history: Patient: Reliability of source: Appears reliable, clearly identified: Medication name, Medication dose, Medication route, and Medication frequency, Pharmacy records: e-scripts/dispense report, and [facility] records Medication nonadherence identified: No barriers noted Reconciliation completed: Yes Completed by: Magaly Mckinney, PharmD, [facility] Based Pharmacist Ext: [phone] All ERP TECHNICAL LEAD medications addressed by RUBI and Discussed with LIP, plans to modify levothyroxine dose to 75mg daily - and 150mg on Saturday and Saturday based on updated medication history Patient interested in Bedside Delivery Services or using OP Pharmacy at discharge? Unable to assess Preferred outpatient pharmacy: [facility] [place] [address] [address] [facility] [phone] [id number] Allergies: No Known Allergies Prior to Admission Medications Prescriptions Last Dose Informant Patient Reported? Taking? aspirin (ASPIRIN CHILDRENS) 81 mg chewable tablet Yes Yes Sig: Take 81 mg by mouth once daily. atorvastatin (LIPITOR) 40 mg tablet Yes Yes Sig: Take 40 mg by mouth once daily. cholecalciferol (VITAMIN D-3) 50 mcg (2,000 unit) tablet Yes Yes Sig: Take 2,000 Units by mouth once daily. hydroCHLOROthiazide 25 mg tablet Yes Yes Sig: Take 25 mg by mouth once daily. levothyroxine (SYNTHROID) 75 mcg tablet Yes Yes Sig: Take 75-150 mcg by mouth daily before breakfast. Taking 75 mg Saturday - Saturday Taking 150 mg Saturday and Saturday losartan (COZAAR) 100 mg tablet Yes Yes Sig: Take 100 mg by mouth once daily. metoprolol succinate ER (TOPROL XL) 100 mg Yes Yes Sig: Take 100 mg by mouth once daily. Facility-Administered Medications: None Ramila Dallas (Customs Entry Writer)[id number] 02/10/2024 [facility] 02-09-2024 Note HNO ID: [id number] Author: BHAVYA MORROW MD Service: ? Author Type: Physician Type: Progress Notes Filed: 02/09/2024 22:00 Note Text: TELESTROKE DOCUMENTATION Name: Glenroy Thornton : 1960 Referring Site: [facility] Referring Provider: Dr. Sree Haywood Last Known Well (Date/Time): 02/09/241829 Neurologist Callback (Date/Time): 02/09/242041 Chief Complaint: Left sided weakness HPI: 63 year old male,who developed sudden onset left sided weakness. Patient was at his baseline until 6:30 PM when he developed left facial weakness and then this was followed by left arm and leg weakness with the arm being weaker than the leg. He was unable to stand when EMS arrived. EMS reported flaccid left side. He started to improve as he was being transported to the ER. On arrival, he was back to baseline. CT angio showed a proximal M2 occlusion. Stroke Risk Factors Hypertension Current Anticoagulant Not Applicable BP: 177/86 NIHSS Telestroke Type - Patient location (ED or Inpatient): ED - Video Neurologist Performed Total Score: 1 Arrival Date Telestroke Site: 02/09/24 Arrival Time Telestroke Site: 1919 NIHSS Performed Date: 02/09/24 NIHSS Performed Time: 2049 LOC: 0 LOC Questions: 0 LOC Commands: 0 Best Gaze: 0 Visual chou: 0 Facial Palsy: 0 Motor Left Arm: 0 Motor Right Arm: 0 Motor Left Le Motor Right Le Limb Ataxia: 0 Sensory: 0 Best Language: 0 Dysarthria: 1 Extinction and Inattention: [address] Imaging reviewed, NO acute infarct/hemorrhage seen CTA Imaging reviewed, POSITIVE large vessel occlusion or severe stenosis seen Summary Suspected ACUTE ischemic stroke IV Thrombolysis Candidate Window: Last Known Well between 0-4.5 hours IV Thrombolysis Exclusion Criteria: Negative for ALL Exclusion Criteria IV Thrombolysis Additional Exclusion Criteria: Negative for ALL Additional Exclusion Criteria IV Thrombolysis Recommended: Yes, I have explained the reason(s) why I believe the patient is having an acute stroke that would benefit from IV Thrombolysis. I have explained the risks, benefits, and alternatives with the patient and/or the family members. All questions answered. Agreement to proceed with IV Thrombolysis treatment given by: Patient, Family/Significant Other IV Thrombolysis Medication Given: Tenecteplase IV Thrombolysis Bolus (Date) 02/09/24 IV Thrombolysis Bolus (Time) 2100 LKW to IV Thrombolysis (minutes) 151 DOOR to IV Thrombolysis (minutes) 101 Neuro Callback to IV Thrombolysis (minutes) 19 NIHSS performed to IV Thrombolysis (minutes) 11 Factors impacting time of IV Thrombolysis administration (Select all that apply): Care-team unable to determine eligibility, Hypertension requiring aggressive control with IV medications List reason(s) unable to determine eligibility: non-specific symtpoms. Potential Candidate for Endovascular Therapy: Uncertain - NIHSS less than 6, further imaging needed (Patient back to baseline. We will monitor in the NSICU and will take to angio if there is a change.) Disposition/Billing (Physician is not in the same physical location as the patient) The patient will remain at the referring institution for further evaluation and management I personally completed this evaluation as a staff physician: Yes Video: Minutes spent directly evaluating the patient via teleconferencing, reviewing pertinent diagnostic data, and coordinating care : 70 More than 50 percent of the encounter was spent on coordinating care of the patient during a telestroke. Thank you for contacting the [facility] Telestroke [facility]. I appreciate the opportunity for allowing me to participate in Glenroy Thornton's care. Please feel free to contact me and/or the [facility] Telestroke Network at any time if you have any further questions or need additional assistance. Bhavya Rodriguez MD February 09, 2024 9:32 PM [facility] 02-09-2024 History of Present illness Narrative TELESTROKE DOCUMENTATION Name: Glenroy Thornton : 1960 Referring Site: [facility] Referring Provider: Dr. Sree Haywood Last Known Well (Date/Time): 02/09/241829 Neurologist Callback (Date/Time): 02/09/242041 Chief Complaint: Left sided weakness HPI: 63 year old male,who developed sudden onset left sided weakness. Patient was at his baseline until 6:30 PM when he developed left facial weakness and then this was followed by left arm and leg weakness with the arm being weaker than the leg. He was unable to stand when EMS arrived. EMS reported flaccid left side. He started to improve as he was being transported to the ER. On arrival, he was back to baseline. CT angio showed a proximal M2 occlusion. Stroke Risk Factors Hypertension Current Anticoagulant Not Applicable BP: 177/86 NIHSS Telestroke Type - Patient location (ED or Inpatient): ED - Video Neurologist Performed Total Score: 1 Arrival Date Telestroke Site: 02/09/24 Arrival Time Telestroke Site: 1919 NIHSS Performed Date: 02/09/24 NIHSS Performed Time: 2049 LOC: 0 LOC Questions: 0 LOC Commands: 0 Best Gaze: 0 Visual chou: 0 Facial Palsy: 0 Motor Left Arm: 0 Motor Right Arm: 0 Motor Left Le Motor Right Le Limb Ataxia: 0 Sensory: 0 Best Language: 0 Dysarthria: 1 Extinction and Inattention: [address] Imaging reviewed, NO acute infarct/hemorrhage seen CTA Imaging reviewed, POSITIVE large vessel occlusion or severe stenosis seen Summary Suspected ACUTE ischemic stroke IV Thrombolysis Candidate Window: Last Known Well between 0-4.5 hours IV Thrombolysis Exclusion Criteria: Negative for ALL Exclusion Criteria IV Thrombolysis Additional Exclusion Criteria: Negative for ALL Additional Exclusion Criteria IV Thrombolysis Recommended: Yes, I have explained the reason(s) why I believe the patient is having an acute stroke that would benefit from IV Thrombolysis. I have explained the risks, benefits, and alternatives with the patient and/or the family members. All questions answered. Agreement to proceed with IV Thrombolysis treatment given by: Patient, Family/Significant Other IV Thrombolysis Medication Given: Tenecteplase IV Thrombolysis Bolus (Date) 02/09/24 IV Thrombolysis Bolus (Time) 2100 LKW to IV Thrombolysis (minutes) 151 DOOR to IV Thrombolysis (minutes) 101 Neuro Callback to IV Thrombolysis (minutes) 19 NIHSS performed to IV Thrombolysis (minutes) 11 Factors impacting time of IV Thrombolysis administration (Select all that apply): Care-team unable to determine eligibility, Hypertension requiring aggressive control with IV medications List reason(s) unable to determine eligibility: non-specific symtpoms. Potential Candidate for Endovascular Therapy: Uncertain - NIHSS less than 6, further imaging needed (Patient back to baseline. We will monitor in the NSICU and will take to angio if there is a change.) Disposition/Billing (Physician is not in the same physical location as the patient) The patient will remain at the referring institution for further evaluation and management I personally completed this evaluation as a staff physician: Yes Video: Minutes spent directly evaluating the patient via teleconferencing, reviewing pertinent diagnostic data, and coordinating care : 70 More than 50 percent of the encounter was spent on coordinating care of the patient during a telestroke. Thank you for contacting the [facility] Telestroke [facility]. I appreciate the opportunity for allowing me to participate in Glenroy Thornton's care. Please feel free to contact me and/or the [facility] Telestroke Network at any time if you have any further questions or need additional assistance. Bhavya Rodriguez MD February 09, 2024 9:32 PM documented in this encounter [facility] Evaluation + Plan note Future Appointments Appointment Date:07/14/2024 11:15:00 AM Scheduled Provider:SHANIA HONEYCUTT MD Location:[facility] Appointment Type:END[facility] Evaluation note No assessment inform ation available [facility] Work Phone: Evaluation note Diagnosis Acute ischemic right MCA stroke (HCC)- Primary Unspecified cerebral artery occlusion with cerebral infarction Acute right MCA stroke (HCC) Unspecified cerebral artery occlusion with cerebral infarction documented in this encounter [facility] Diagnosis Ischemic stroke (HCC)- Primary Acute right MCA stroke (HCC) Unspecified cerebral artery occlusion with cerebral infarction Hypokalemia Hypopotassemia Cerebral infarction due to embolism of right middle cerebral artery (HCC) Cerebral embolism with cerebral infarction Primary hypertension Unspecified essential hypertension Hypertensive urgency Unspecified essential hypertension Received tissue plasminogen activator (t-PA) less than 24 hours prior to arrival Encounter for follow-up examination after completed treatment for conditions other than malignant neoplasm- Primary Personal history of transient ischemic attack (TIA), and cerebral infarction without residual deficits PFO (patent foramen ovale) Ostium secundum type atrial septal defect Primary hypertension Unspecified essential hypertension Mixed hyperlipidemia Thyroid nodule Nontoxic uninodular goiter documented in this encounter [facility] Diagnosis Ischemic stroke (HCC)- Primary Acute right MCA stroke (HCC) Unspecified cerebral artery occlusion with cerebral infarction Hypokalemia Hypopotassemia Cerebral infarction due to embolism of right middle cerebral artery (HCC) Cerebral embolism with cerebral infarction Primary hypertension Unspecified essential hypertension Hypertensive urgency Unspecified essential hypertension Received tissue plasminogen activator (t-PA) less than 24 hours prior to arrival Elevated factor VIII level- Primary documented in this encounter [facility] note* Diagnosis Ischemic stroke (HCC)- Primary Acute right MCA stroke (HCC) Unspecified cerebral artery occlusion with cerebral infarction Hypokalemia Hypopotassemia Cerebral infarction due to embolism of right middle cerebral artery (HCC) Cerebral embolism with cerebral infarction Primary hypertension Unspecified essential hypertension Hypertensive urgency Unspecified essential hypertension Received tissue plasminogen activator (t-PA) less than 24 hours prior to arrival PFO (patent foramen ovale)- Primary Ostium secundum type atrial septal defect PFO (patent foramen ovale) Ostium secundum type atrial septal defect documented in this encounter [facility] note* Diagnosis Ischemic stroke (HCC)- Primary Acute right MCA stroke (HCC) Unspecified cerebral artery occlusion with cerebral infarction Hypokalemia Hypopotassemia Cerebral infarction due to embolism of right middle cerebral artery (HCC) Cerebral embolism with cerebral infarction Primary hypertension Unspecified essential hypertension Hypertensive urgency Unspecified essential hypertension Received tissue plasminogen activator (t-PA) less than 24 hours prior to arrival PFO (patent foramen ovale) Ostium secundum type atrial septal defect documented in this encounter [facility] note* Diagnosis Ischemic stroke (HCC)- Primary Acute right MCA stroke (HCC) Unspecified cerebral artery occlusion with cerebral infarction Hypokalemia Hypopotassemia Hypertensive urgency Unspecified essential hypertension Received tissue plasminogen activator (t-PA) less than 24 hours prior to arrival PFO (patent foramen ovale)- Primary Ostium secundum type atrial septal defect Coronary artery disease involving [place] coronary artery of [place] heart without angina pectoris Essential hypertension Unspecified essential hypertension documented in this encounter [facility] note* Diagnosis Ischemic stroke (HCC)- Primary Acute right MCA stroke (HCC) Unspecified cerebral artery occlusion with cerebral infarction Hypokalemia Hypopotassemia Hypertensive urgency Unspecified essential hypertension Received tissue plasminogen activator (t-PA) less than 24 hours prior to arrival Encounter for follow-up examination after completed treatment for conditions other than malignant neoplasm- Primary Personal history of transient ischemic attack (TIA), and cerebral infarction without residual deficits Elevated factor VIII level Primary hypertension Unspecified essential hypertension Mixed hyperlipidemia [facility] in this [facility] Diagnosis Ischemic stroke (HCC)- Primary Acute right MCA stroke (HCC) Unspecified cerebral artery occlusion with cerebral infarction Hypokalemia Hypopotassemia Hypertensive urgency Unspecified essential hypertension Received tissue plasminogen activator (t-PA) less than 24 hours prior to arrival Elevated factor VIII level- Primary documented in this encounter [facility] course Narrative No data available for this section [facility] Instructions* Name Dates Details Patient Instructions Indication:Current nonsmoker (Renamed from Current non-smoker) Start:30-Aug-2020 Instruction Type:Provider Instructions for Treatment How to Access Health Informa tion Online using Patient Portal and [employer] Apps Indication:Current nonsmoker (Renamed from Current non-smoker) [...] Informa tion Online using Patient Portal and [employer] Apps Indication:Current nonsmoker (Renamed from Current non-smoker) [...] tion Online using Patient Portal and [employer] Apps Indication:Current nonsmoker (Renamed from Current non-smoker) Start:29-Mar-2021 Instruction Type:Patient Education Patient Instructions Indication:Current nonsmoker (Renamed from Current non-smoker) Start:30-Aug-2020 Instruction Type:Provider Instructions for Treatment How to Access Health Informa tion Online using Patient Portal and [employer] Apps Indication:Current nonsmoker (Renamed from Current non-smoker) [...] Informa tion Online using Patient Portal and [employer] Indication:Current nonsmoker (Renamed from Current non-smoker) Start:29-Mar-2021 Instruction Type:Patient Education Patient Instructions Indication:Current nonsmoker (Renamed from Current non-smoker) Start:30-Aug-2020 Instruction Type:Provider Instructions for Treatment How to Access Health Informa tion Online using Patient Portal and [employer] Apps Indication:Current nonsmoker (Renamed from Current non-smoker) [...] tion Online using Patient Portal and [employer] Apps Indication:Current nonsmoker (Renamed from Current non-smoker) Start:29-Mar-2021 Instruction Type:Patient Education Patient Instructions Indication:Current nonsmoker (Renamed from Current non-smoker) Start:30-Aug-2020 Instruction Type:Provider Instructions for Treatment How to Access Health Informa tion Online using Patient Portal and [employer] Apps Indication:Current nonsmoker (Renamed from Current non-smoker) [...] Informa tion Online using Patient Portal and [employer] Indication:Current nonsmoker (Renamed from Current non-smoker) Start:29-Mar-2021 Instruction Type:Patient Education Patient Instructions Indication:Current nonsmoker (Renamed from Current non-smoker) Start:30-Aug-2020 Instruction Type:Provider Instructions for Treatment How to Access Health Informa tion Online using Patient Portal and [employer] Apps Indication:Current nonsmoker (Renamed from Current non-smoker) [...] tion Online using Patient Portal and [employer] Apps Indication:Current nonsmoker (Renamed from Current non-smoker) Start:29-Mar-2021 Instruction Type:Patient Education Patient Instructions Indication:Current nonsmoker (Renamed from Current non-smoker) Start:30-Aug-2020 Instruction Type:Provider Instructions for Treatment How to Access Health Informa tion Online using Patient Portal and [employer] Apps Indication:Current nonsmoker (Renamed from Current non-smoker) [...] Informa tion Online using Patient Portal and [employer] Indication:Current nonsmoker (Renamed from Current non-smoker) Start:29-Mar-2021 Instruction Type:Patient Education Patient Instructions Indication:Current nonsmoker (Renamed from Current non-smoker) Start:30-Aug-2020 Instruction Type:Provider Instructions for Treatment How to Access Health Informa tion Online using Patient Portal and [employer] Indication:Current nonsmoker (Renamed from Current non-smoker) [...] tion Online using Patient Portal and 3rd [employer] Indication:Hypothyroid Start:23-Aug-2021 Instruction Type:Patient Education Patient Instructions Indication:Current nonsmoker (Renamed from Current non-smoker) Start:29-Mar-2021 Instruction Type:Provider Instructions for Treatment How to Access Health Informa tion Online using Patient Portal and 3rd [employer] Indication:Current nonsmoker (Renamed from Current non-smoker) Start:29-Mar-2021 Instruction Type:Patient Education Patient Instructions Indication:Current nonsmoker (Renamed from Current non-smoker) Start:30-Aug-2020 Instruction Type:Provider Instructions for Treatment How to Access Health Informa tion Online using Patient Portal and [employer]rd [employer] Indication:Current nonsmoker (Renamed from Current non-smoker) [...] Informa tion Online using Patient Portal and [employer] Indication:Hypothyroid Start:23-Aug-2021 Instruction Type:Patient Education Patient Instructions Indication:Current nonsmoker (Renamed from Current non-smoker) Start:29-Mar-2021 Instruction Type:Provider Instructions for Treatment How to Access Health Informa tion Online using Patient Portal and [employer] Indication:Current nonsmoker (Renamed from Current non-smoker) Start:29-Mar-2021 Instruction Type:Patient Education Patient Instructions Indication:Current nonsmoker (Renamed from Current non-smoker) Start:30-Aug-2020 Instruction Type:Provider Instructions for Treatment How to Access Health Informa tion Online using Patient Portal and [employer] Indication:Current nonsmoker (Renamed from Current non-smoker) [...] tion Online using Patient Portal and [employer]rd [employer] Indication:Hypothyroid Start:23-Aug-2021 Instruction Type:Patient Education Patient Instructions Start:29-Mar-2021 Instruction Type:Provider Instructions for Treatment How to Access Health Informa tion Online using Patient Portal and [employer]rd [employer] Start:29-Mar-2021 Instruction Type:Patient Education Patient Instructions Start:30-Aug-2020 Instruction Type:Provider Instructions for Treatment How to Access Health Informa tion Online using Patient Portal and [employer]rd [employer] Start:30-Aug-2020 Instruction Type:Patient Education How to [...] Informa tion Online using Patient Portal and [employer] Indication:Current nonsmoker (Renamed from Current non-smoker) Start:20-Dec-2021 Instruction Type:Patient Education Patient Instructions Indication:Current nonsmoker (Renamed from Current non-smoker) Start:20-Dec-2021 Instruction Type:Provider Instructions for Treatment Patient Instructions Indication:Hypothyroid Start:23-Aug-2021 Instruction Type:Provider Instructions for Treatment How to Access Health Informa tion Online using Patient Portal and [employer] Indication:Hypothyroid Start:23-Aug-2021 Instruction Type:Patient Education Patient Instructions Indication:Current nonsmoker (Renamed from Current non-smoker) Start:29-Mar-2021 Instruction Type:Provider Instructions for Treatment How to Access Health Informa tion Online using Patient Portal and [employer] Indication:Current nonsmoker (Renamed from Current non-smoker) Start:29-Mar-2021 Instruction Type:Patient Education Patient Instructions Indication:Current nonsmoker (Renamed from Current non-smoker) Start:30-Aug-2020 Instruction Type:Provider Instructions for Treatment How to Access Health Informa tion Online using Patient Portal and [employer]rd [employer] Indication:Current nonsmoker (Renamed from Current non-smoker) [...] Informa tion Online using Patient Portal and [employer] Indication:Current nonsmoker (Renamed from Current non-smoker) Start:20-Dec-2021 Instruction Type:Patient Education Patient Instructions Indication:Current nonsmoker (Renamed from Current non-smoker) Start:20-Dec-2021 Instruction Type:Provider Instructions for Treatment Patient Instructions Indication:Hypothyroid Start:23-Aug-2021 Instruction Type:Provider Instructions for Treatment How to Access Health Informa tion Online using Patient Portal and [employer] Indication:Hypothyroid Start:23-Aug-2021 Instruction Type:Patient Education Patient Instructions Indication:Current nonsmoker (Renamed from Current non-smoker) Start:29-Mar-2021 Instruction Type:Provider Instructions for Treatment How to Access Health Informa tion Online using Patient Portal and [employer] Indication:Current nonsmoker (Renamed from Current non-smoker) Start:29-Mar-2021 Instruction Type:Patient Education Patient Instructions Indication:Current nonsmoker (Renamed from Current non-smoker) Start:30-Aug-2020 Instruction Type:Provider Instructions for Treatment How to Access Health Informa tion Online using Patient Portal and [employer] Indication:Current nonsmoker (Renamed from Current non-smoker) [...] Informa tion Online using Patient Portal and [employer] Indication:Current nonsmoker (Renamed from Current non-smoker) Start:20-Dec-2021 Instruction Type:Patient Education Patient Instructions Indication:Current nonsmoker (Renamed from Current non-smoker) Start:20-Dec-2021 Instruction Type:Provider Instructions for Treatment Patient Instructions Indication:Hypothyroid Start:23-Aug-2021 Instruction Type:Provider Instructions for Treatment How to Access Health Informa tion Online using Patient Portal and [employer] Indication:Hypothyroid Start:23-Aug-2021 Instruction Type:Patient Education Patient Instructions Indication:Current nonsmoker (Renamed from Current non-smoker) Start:29-Mar-2021 Instruction Type:Provider Instructions for Treatment How to Access Health Informa tion Online using Patient Portal and [employer] Indication:Current nonsmoker (Renamed from Current non-smoker) Start:29-Mar-2021 Instruction Type:Patient Education Patient Instructions Indication:Current nonsmoker (Renamed from Current non-smoker) Start:30-Aug-2020 Instruction Type:Provider Instructions for Treatment How to Access Health Informa tion Online using Patient Portal and [employer] Indication:Current nonsmoker (Renamed from Current non-smoker) [...] for Treatment How to access health informa [place] online Indication:Current nonsmoker (Renamed from Current non-smoker) [...] for Treatment How to access health informa [place] online Indication:Hypercholesteremia Start:12-Aug-2015 Instruction Type:Patient Education How [...] Name Dates Details How to Access Health [facility] [place] Online using Patient Portal and [employer] Indication:Current nonsmoker (Renamed from Current non-smoker) Start:20-Dec-2021 Instruction Type:Patient Education Patient Instructions Indication:Current nonsmoker (Renamed from Current non-smoker) Start:20-Dec-2021 Instruction Type:Provider Instructions for Treatment Patient Instructions Indication:Hypothyroid Start:23-Aug-2021 Instruction Type:Provider Instructions for Treatment How to Access Health Informa tion Online using Patient Portal and [employer] Indication:Hypothyroid Start:23-Aug-2021 Instruction Type:Patient Education Patient Instructions Indication:Current nonsmoker (Renamed from Current non-smoker) Start:29-Mar-2021 Instruction Type:Provider Instructions for Treatment How to Access Health Informa tion Online using Patient Portal and [employer] Indication:Current nonsmoker (Renamed from Current non-smoker) Start:29-Mar-2021 Instruction Type:Patient Education Patient Instructions Indication:Current nonsmoker (Renamed from Current non-smoker) Start:30-Aug-2020 Instruction Type:Provider Instructions for Treatment How to Access Health Informa tion Online using Patient Portal and [employer] Indication:Current nonsmoker (Renamed from Current non-smoker) [...] Informa tion Online using Patient Portal and [employer] Indication:Current nonsmoker (Renamed from Current non-smoker) Start:20-Dec-2021 Instruction Type:Patient Education Patient Instructions Indication:Current nonsmoker (Renamed from Current non-smoker) Start:20-Dec-2021 Instruction Type:Provider Instructions for Treatment Patient Instructions Indication:Hypothyroid Start:23-Aug-2021 Instruction Type:Provider Instructions for Treatment How to Access Health Informa tion Online using Patient Portal and [employer] Indication:Hypothyroid Start:23-Aug-2021 Instruction Type:Patient Education Patient Instructions Indication:Current nonsmoker (Renamed from Current non-smoker) Start:29-Mar-2021 Instruction Type:Provider Instructions for Treatment How to Access Health Informa tion Online using Patient Portal and [employer] Indication:Current nonsmoker (Renamed from Current non-smoker) Start:29-Mar-2021 Instruction Type:Patient Education Patient Instructions Indication:Current nonsmoker (Renamed from Current non-smoker) Start:30-Aug-2020 Instruction Type:Provider Instructions for Treatment How to Access Health Informa tion Online using Patient Portal and [employer] Indication:Current nonsmoker (Renamed from Current non-smoker) [...] Informa tion Online using Patient Portal and [employer] Indication:Current nonsmoker (Renamed from Current non-smoker) Start:10-Apr-2022 Instruction Type:Patient Education How to Access Health Informa tion Online using Patient Portal and [employer] Indication:Current nonsmoker (Renamed from Current non-smoker) Start:20-Dec-2021 Instruction Type:Patient Education Patient Instructions Indication:Current nonsmoker (Renamed from Current non-smoker) Start:20-Dec-2021 Instruction Type:Provider Instructions for Treatment Patient Instructions Indication:Hypothyroid Start:23-Aug-2021 Instruction Type:Provider Instructions for Treatment How to Access Health Informa tion Online using Patient Portal and [employer] Indication:Hypothyroid Start:23-Aug-2021 Instruction Type:Patient Education Patient Instructions Indication:Current nonsmoker (Renamed from Current non-smoker) Start:29-Mar-2021 Instruction Type:Provider Instructions for Treatment How to Access Health Informa tion Online using Patient Portal and [employer] Indication:Current nonsmoker (Renamed from Current non-smoker) Start:29-Mar-2021 Instruction Type:Patient Education Patient Instructions Indication:Current nonsmoker (Renamed from Current non-smoker) Start:30-Aug-2020 Instruction Type:Provider Instructions for Treatment How to Access Health Informa tion Online using Patient Portal and [employer] Indication:Current nonsmoker (Renamed from Current non-smoker) [...] Informa tion Online using Patient Portal and [employer] Indication:Current nonsmoker (Renamed from Current non-smoker) Start:10-Apr-2022 Instruction Type:Patient Education How to Access Health Informa tion Online using Patient Portal and [employer] Indication:Current nonsmoker (Renamed from Current non-smoker) Start:20-Dec-2021 Instruction Type:Patient Education Patient Instructions Indication:Current nonsmoker (Renamed from Current non-smoker) Start:20-Dec-2021 Instruction Type:Provider Instructions for Treatment Patient Instructions Indication:Hypothyroid Start:23-Aug-2021 Instruction Type:Provider Instructions for Treatment How to Access Health Informa tion Online using Patient Portal and [employer] Indication:Hypothyroid Start:23-Aug-2021 Instruction Type:Patient Education Patient Instructions Indication:Current nonsmoker (Renamed from Current non-smoker) Start:29-Mar-2021 Instruction Type:Provider Instructions for Treatment How to Access Health Informa tion Online using Patient Portal and [employer] Indication:Current nonsmoker (Renamed from Current non-smoker) Start:29-Mar-2021 Instruction Type:Patient Education Patient Instructions Indication:Current nonsmoker (Renamed from Current non-smoker) Start:30-Aug-2020 Instruction Type:Provider Instructions for Treatment How to Access Health Informa tion Online using Patient Portal and [employer] Indication:Current nonsmoker (Renamed from Current non-smoker) Start:30-Aug-2020 [...] tion Online using Patient Portal and [employer] Indication:Current nonsmoker (Renamed from Current non-smoker) Start:10-Apr-2022 Instruction Type:Patient Education How to Access Health Informa tion Online using Patient Portal and [employer] Indication:Current nonsmoker (Renamed from Current non-smoker) Start:20-Dec-2021 Instruction Type:Patient Education Patient Instructions Indication:Current nonsmoker (Renamed from Current non-smoker) Start:20-Dec-2021 Instruction Type:Provider Instructions for Treatment Patient Instructions Indication:Hypothyroid Start:23-Aug-2021 Instruction Type:Provider Instructions for Treatment How to Access Health Informa tion Online using Patient Portal and [employer] Indication:Hypothyroid Start:23-Aug-2021 Instruction Type:Patient Education Patient Instructions Indication:Current nonsmoker (Renamed from Current non-smoker) Start:29-Mar-2021 Instruction Type:Provider Instructions for Treatment How to Access Health Informa tion Online using Patient Portal and [employer] Indication:Current nonsmoker (Renamed from Current non-smoker) Start:29-Mar-2021 Instruction Type:Patient Education Patient Instructions Indication:Current nonsmoker (Renamed from Current non-smoker) Start:30-Aug-2020 Instruction Type:Provider Instructions for Treatment How to Access Health Informa tion Online using Patient Portal and [employer] Indication:Current nonsmoker (Renamed from Current non-smoker) [...] Internal Medicine; [facility] Work Phone: reason for referral (narrative)No reason for referral information available[facility]: Reason for visit Narrative* Diagnostic Procedure Only (Routine) - Closed Specialty Diagnoses / Procedures Referred By Franco t Referred To Contact Radiology / RADIO [facility] Diagnoses Solitary pulmonary nodule Lung nodule (R91.1) Procedures DIAGNOSTIC COMPUTED TOMOGRAPHY THORAX W/CONTRAST CT [facility]WO [address] Priyank, Gómez, SPORTS SPECIALIST [address] [place] [address] Phone: tel: fax: Cat Scan [address] [place] [address] Phone: tel: fax: Referral ID Status Reason Start Date Expiration Date Visits Re quested Visits Authorized [id number] Closed 04/29/2024 10/26/2024 1 1 [facility] Family History No Family History Records FoundUnknown Family Member Name Dates Details Brother 1 Comments:VT @ age 50, hx ang ioplasty (5 years older) Status:Active Brother 2 Comments:Prolapsed mitral va lve, heart damage (3years older) Status:Active Heart disease Comments:[facility], Status:Active Mother Comments:hx "light" stroke @ age 77, hx HTN Status:Active Sister 1 Comments:Prolapsed mitral va lve Status:Active Sister 2 Comments:prolapsed mitral va lve Status:Active Unknown Family Member Name Dates Details Brother 1 Comments:VT @ age 50, hx ang ioplasty (5 years older) Status:Active Brother 2 Comments:Prolapsed mitral va lve, heart damage (3years older) Status:Active Heart disease Comments:Father. tino [facility] in October, Status:Active Mother Comments:hx "light" stroke @ age 77, hx HTN Status:Active Sister 1 Comments:Prolapsed mitral va lve Status:Active Sister 2 Comments:prolapsed mitral va lve Status:Active Unknown Family Member Name Dates Details Brother 1 Comments:VT @ age 50, hx ang ioplasty (5 years older) Status:Active Brother 2 Comments:Prolapsed mitral va lve, heart damage (3years older) Status:Active Heart disease Comments:Father. tino diane musa in October, Status:Active Mother Comments:hx "light" stroke @ age 77, hx HTN Status:Active Sister 1 Comments:Prolapsed mitral va lve Status:Active Sister 2 Comments:prolapsed mitral va lve Status:Active Unknown Family Member Name Dates Details Brother 1 Comments:VT @ age 50, hx ang ioplasty (5 years older) Status:Active Brother 2 Comments:Prolapsed mitral va lve, heart damage (3years older) Status:Active Heart disease Comments:Father. tino diane musa in October, Status:Active Mother Comments:hx "light" stroke @ age 77, hx HTN Status:Active Sister 1 Comments:Prolapsed mitral va lve Status:Active Sister 2 Comments:prolapsed mitral va lve Status:Active Unknown Family Member Name Dates Details Brother 1 Comments:VT @ age 50, hx ang ioplasty (5 years older) Status:Active Brother 2 Comments:Prolapsed mitral va lve, heart damage (3years older) Status:Active Heart disease Comments:Father. tino diane musa in October, Status:Active Mother Comments:hx "light" stroke @ age 77, hx HTN Status:Active Sister 1 Comments:Prolapsed mitral va lve Status:Active Sister 2 Comments:prolapsed mitral va lve Status:Active Unknown Family Member Name Dates Details Brother 1 Comments:VT @ age 50, hx ang ioplasty (5 years older) Status:Active Brother 2 Comments:Prolapsed mitral va lve, heart damage (3years older) Status:Active Heart disease Comments:Father. tino diane in October, Status:Active Mother Comments:hx "light" stroke @ age 77, hx HTN Status:Active Sister 1 Comments:Prolapsed mitral va lve Status:Active Sister 2 Comments:prolapsed mitral va lve Status:Active Unknown Family Member Name Dates Details Brother 1 Comments:VT @ age 50, hx ang ioplasty (5 years older) Status:Active Brother 2 Comments:Prolapsed mitral va lve, heart damage (3years older) Status:Active Heart disease Comments:Father. tino diane in October, Status:Active Mother Comments:hx "light" stroke @ age 77, hx HTN Status:Active Sister 1 Comments:Prolapsed mitral va lve Status:Active Sister 2 Comments:prolapsed mitral va lve Status:Active Unknown Family Member Name Dates Details Brother 1 Comments:VT @ age 50, hx ang ioplasty (5 years older) Status:Active Brother 2 Comments:Prolapsed mitral va lve, heart damage (3years older) Status:Active Heart disease Comments:Father. tino musa in October, Status:Active Mother Comments:hx "light" stroke @ age 77, hx HTN Status:Active Sister 1 Comments:Prolapsed mitral va lve Status:Active Sister 2 Comments:prolapsed mitral va lve Status:Active Unknown Family Member Name Dates Details Brother 1 Comments:VT @ age 50, hx ang ioplasty (5 years older) Status:Active Brother 2 Comments:Prolapsed mitral va lve, heart damage (3years older) Status:Active Heart disease Comments:Father. tino musa in October, Status:Active Mother Comments:hx "light" stroke @ age 77, hx HTN Status:Active Sister 1 Comments:Prolapsed mitral va lve Status:Active Sister 2 Comments:prolapsed mitral va lve Status:Active Unknown Family Member Name Dates Details Brother 1 Comments:VT @ age 50, hx ang ioplasty (5 years older) Status:Active Brother 2 Comments:Prolapsed mitral va lve, heart damage (3years older) Status:Active Heart disease Comments:Father. tino musa in October, Status:Active Mother Comments:hx "light" stroke @ age 77, hx HTN Status:Active Sister 1 Comments:Prolapsed mitral va lve Status:Active Sister 2 Comments:prolapsed mitral va lve Status:Active Unknown Family Member Name Dates Details Brother 1 Comments:VT @ age 50, hx ang ioplasty (5 years older) Status:Active Brother 2 Comments:Prolapsed mitral va lve, heart damage (3years older) Status:Active Heart disease Comments:Father. tino musa in October, Status:Active Mother Comments:hx "light" stroke @ age 77, hx HTN Status:Active Sister 1 Comments:Prolapsed mitral va lve Status:Active Sister 2 Comments:prolapsed mitral va lve Status:Active Unknown Family Member Name Dates Details Brother 1 Comments:VT @ age 50, hx ang ioplasty (5 years older) Status:Active Brother 2 Comments:Prolapsed mitral va lve, heart damage (3years older) Status:Active Heart disease Comments:Father. tino musa in October, Status:Active Mother Comments:hx "light" stroke @ age 77, hx HTN Status:Active Sister 1 Comments:Prolapsed mitral va lve Status:Active Sister 2 Comments:prolapsed mitral va lve Status:Active Unknown Family Member Name Dates Details Brother 1 Comments:VT @ age 50, hx ang ioplasty (5 years older) Status:Active Brother 2 Comments:Prolapsed mitral va lve, heart damage (3years older) Status:Active Heart disease Comments:Father. tino musa in October, Status:Active Mother Comments:hx "light" stroke @ age 77, hx HTN Status:Active Sister 1 Comments:Prolapsed mitral va lve Status:Active Sister 2 Comments:prolapsed mitral va lve Status:Active Unknown Family Member Name Dates Details Brother 1 Comments:VT @ age 50, hx ang ioplasty (5 years older) Status:Active Brother 2 Comments:Prolapsed mitral va lve, heart damage (3years older) Status:Active Heart disease Comments:Father. tino musa in October, Status:Active Mother Comments:hx "light" stroke @ age 77, hx HTN Status:Active Sister 1 Comments:Prolapsed mitral va lve Status:Active Sister 2 Comments:prolapsed mitral va lve Status:Active Unknown Family Member Name Dates Details Brother 1 Comments:VT @ age 50, hx ang ioplasty (5 years older) Status:Active Brother 2 Comments:Prolapsed mitral va lve, heart damage (3years older) Status:Active Heart disease Comments:Father. tino musa in October, Status:Active Mother Comments:hx "light" stroke @ age 77, hx HTN Status:Active Sister 1 Comments:Prolapsed mitral va lve Status:Active Sister 2 Comments:prolapsed mitral va lve Status:Active Unknown Family Member Name Dates Details Brother 1 Comments:VT @ age 50, hx ang ioplasty (5 years older) Status:Active Brother 2 Comments:Prolapsed mitral va lve, heart damage (3years older) Status:Active Heart disease Comments:Father. tino musa in October, Status:Active Mother Comments:hx "light" stroke @ age 77, hx HTN Status:Active Sister 1 Comments:Prolapsed mitral va lve Status:Active Sister 2 Comments:prolapsed mitral va lve Status:Active Unknown Family Member Name Dates Details Brother 1 Comments:VT @ age 50, hx ang ioplasty (5 years older) Status:Active Brother 2 Comments:Prolapsed mitral va lve, heart damage (3years older) Status:Active Heart disease Comments:Father. tino musa in October, Status:Active Mother Comments:hx "light" stroke @ age 77, hx HTN Status:Active Sister 1 Comments:Prolapsed mitral va lve Status:Active Sister 2 Comments:prolapsed mitral va lve Status:Active Unknown Family Member Name Dates Details Brother 1 Comments:VT @ age 50, hx ang ioplasty (5 years older) Status:Active Brother 2 Comments:Prolapsed mitral va lve, heart damage (3years older) Status:Active Heart disease Comments:Father. tino musa in October, Status:Active Mother Comments:hx "light" stroke @ age 77, hx HTN Status:Active Sister 1 Comments:Prolapsed mitral va lve Status:Active Sister 2 Comments:prolapsed mitral va lve Status:Active Unknown Family Member Name Dates Details Brother 1 Comments:VT @ age 50, hx ang ioplasty (5 years older) Status:Active Brother 2 Comments:Prolapsed mitral va lve, heart damage (3years older) Status:Active Heart disease Comments:Father. tino umsa in October, Status:Active Mother Comments:hx "light" stroke @ age 77, hx HTN Status:Active Sister 1 Comments:Prolapsed mitral va lve Status:Active Sister 2 Comments:prolapsed mitral va lve Status:Active Unknown Family Member Name Dates Details Brother 1 Comments:VT @ age 50, hx ang ioplasty (5 years older) Status:Active Brother 2 Comments:Prolapsed mitral va lve, heart damage (3years older) Status:Active Heart disease Comments:Father. tino musa in October, Status:Active Mother Comments:hx "light" stroke @ age 77, hx HTN Status:Active Sister 1 Comments:Prolapsed mitral va lve Status:Active Sister 2 Comments:prolapsed mitral va lve Status:Active Unknown Family Member Name Dates Details Brother 1 Comments:VT @ age 50, hx ang ioplasty (5 years older) Status:Active Brother 2 Comments:Prolapsed mitral va lve, heart damage (3years older) Status:Active Heart disease Comments:Father. tino idane musa in October, Status:Active Mother Comments:hx "light" stroke @ age 77, hx HTN Status:Active Sister 1 Comments:Prolapsed mitral va lve Status:Active Sister 2 Comments:prolapsed mitral va lve Status:Active Unknown Family Member Name Dates Details Brother 1 Comments:VT @ age 50, hx ang ioplasty (5 years older) Status:Active Brother 2 Comments:Prolapsed mitral va lve, heart damage (3years older) Status:Active Heart disease Comments:Father. tino musa in October, Status:Active Mother Comments:hx "light" stroke @ age 77, hx HTN Status:Active Sister 1 Comments:Prolapsed mitral va lve Status:Active Sister 2 Comments:prolapsed mitral va lve Status:Active Unknown Family Member Name Dates Details Brother 1 Comments:VT @ age 50, hx ang ioplasty (5 years older) Status:Active Brother 2 Comments:Prolapsed mitral va lve, heart damage (3years older) Status:Active Heart disease Comments:Father. tino musa in October, Status:Active Mother Comments:hx "light" stroke @ age 77, hx HTN Status:Active Sister 1 Comments:Prolapsed mitral va lve Status:Active Sister 2 Comments:prolapsed mitral va lve Status:Active Unknown Family Member Name Dates Details Brother 1 Comments:VT @ age 50, hx ang ioplasty (5 years older) Status:Active Brother 2 Comments:Prolapsed mitral va lve, heart damage (3years older) Status:Active Heart disease Comments:Father. tino diane musa in October, Status:Active Mother Comments:hx "light" stroke @ age 77, hx HTN Status:Active Sister 1 Comments:Prolapsed mitral va lve Status:Active Sister 2 Comments:prolapsed mitral va lve Status:Active Unknown Family Member Name Dates Details Brother 1 Comments:VT @ age 50, hx ang ioplasty (5 years older) Status:Active Brother 2 Comments:Prolapsed mitral va lve, heart damage (3years older) Status:Active Heart disease Comments:Father. tino contreras ss in October, Status:Active Mother Comments:hx "light" stroke @ age 77, hx HTN Status:Active Sister 1 Comments:Prolapsed mitral va lve Status:Active Sister 2 Comments:prolapsed mitral va lve Status:Active Unknown Family Member Name Dates Details Brother 1 Comments:VT @ age 50, hx ang ioplasty (5 years older) Status:Active Brother 2 Comments:Prolapsed mitral va lve, heart damage (3years older) Status:Active Heart disease Comments:Father. tino diane musa in October, Status:Active Mother Comments:hx "light" stroke @ age 77, hx HTN Status:Active Sister 1 Comments:Prolapsed mitral va lve Status:Active Sister 2 Comments:prolapsed mitral va lve Status:Active Unknown Family Member Name Dates Details Brother 1 Comments:VT @ age 50, hx ang ioplasty (5 years older) Status:Active Brother 2 Comments:Prolapsed mitral va lve, heart damage (3years older) Status:Active Heart disease Comments:Father. tino diane musa in October, Status:Active Mother Comments:hx "light" stroke @ age 77, hx HTN Status:Active Sister 1 Comments:Prolapsed mitral va lve Status:Active Sister 2 Comments:prolapsed mitral va lve Status:Active Unknown Family Member Name Dates Details Brother 1 Comments:VT @ age 50, hx ang ioplasty (5 years older) Status:Active Brother 2 Comments:Prolapsed mitral va lve, heart damage (3years older) Status:Active Heart disease Comments:Father. tino diane musa in October, Status:Active Mother Comments:hx "light" stroke @ age 77, hx HTN Status:Active Sister 1 Comments:Prolapsed mitral va lve Status:Active Sister 2 Comments:prolapsed mitral va lve Status:Active Unknown Family Member Name Dates Details Brother 1 Comments:VT @ age 50, hx ang ioplasty (5 years older) Status:Active Brother 2 Comments:Prolapsed mitral va lve, heart damage (3years older) Status:Active Heart disease Comments:Father. tino diane musa in October, Status:Active Mother Comments:hx "light" stroke @ age 77, hx HTN Status:Active Sister 1 Comments:Prolapsed mitral va lve Status:Active Sister 2 Comments:prolapsed mitral va lve Status:Active Instructions Name Dates Details How to access health [...] for Treatment How to access health informa [facility] online Indication:Hypercholesteremia Start:12-Aug-2015 Instruction Type:Patient Education How [...] Instruction Type:Provider Instructions for Treatment Advance Directives No Advanced Directives Records Found Date Activated Date Inactivated Comments 02/09/2024 11:12 PM 02/12/2024 9:32 PM Question Answer Comments Full Code Order Discussed With: Discussion Not M edically Appropriate Name Dates Details Immunization Registry [place] - Effective on 06/15/2019. Expiration date unspecified Effective:15-Jun-2019 Name Dates Details Immunization [facility] [place] - Effective on 06/15/2019. Expiration date unspecified Effective:15-Jun-2019 Name Dates Details Immunization [facility] [place] - Effective on 06/15/2019. Expiration date unspecified Effective:15-Jun-2019 Name Dates Details Immunization [facility] [place] - Effective on 06/15/2019. Expiration date unspecified Effective:15-Jun-2019 Name Dates Details Immunization [facility] [place] - Effective on 06/15/2019. Expiration date unspecified Effective:15-Jun-2019 Name Dates Details Immunization [facility] [place] - Effective on 06/15/2019. Expiration date unspecified Effective:15-Jun-2019 Name Dates Details Immunization [facility] [place] - Effective on 06/15/2019. Expiration date unspecified Effective:15-Jun-2019 Name Dates Details Immunization [facility] [place] - Effective on 06/15/2019. Expiration date unspecified Effective:15-Jun-2019 Name Dates Details Immunization [facility] [place] - Effective on 06/15/2019. Expiration date unspecified Effective:15-Jun-2019 Name Dates Details Immunization [facility] [place] - Effective on 06/15/2019. Expiration date unspecified Effective:15-Jun-2019 Name Dates Details Immunization [facility] [place] - Effective on 06/15/2019. Expiration date unspecified Effective:15-Jun-2019 Name Dates Details Immunization [facility] [place] - Effective on 06/15/2019. Expiration date unspecified Effective:15-Jun-2019 Name Dates Details Immunization [facility] [place] - Effective on 06/15/2019. Expiration date unspecified Effective:15-Jun-2019 Name Dates Details Immunization [facility] [place] - Effective on 06/15/2019. Expiration date unspecified Effective:15-Jun-2019 Name Dates Details Immunization [facility] [place] - Effective on 06/15/2019. Expiration date unspecified Effective:15-Jun-2019 Name Dates Details Immunization [facility] [place] - Effective on 06/15/2019. Expiration date unspecified Effective:15-Jun-2019 Name Dates Details Immunization [facility] [place] - Effective on 06/15/2019. Expiration date unspecified Effective:15-Jun-2019 Name Dates Details Immunization [facility] [place] - Effective on 06/15/2019. Expiration date unspecified Effective:15-Jun-2019 Name Dates Details Immunization [facility] [place] - Effective on 06/15/2019. Expiration date unspecified Effective:15-Jun-2019 Name Dates Details Immunization [facility] [place] - Effective on 06/15/2019. Expiration date unspecified Effective:15-Jun-2019 Name Dates Details Immunization [facility] [place] - Effective on 06/15/2019. Expiration date unspecified Effective:15-Jun-2019 Name Dates Details Immunization [facility] [place] - Effective on 06/15/2019. Expiration date unspecified Effective:15-Jun-2019 Date Activated Date Inactivated Comments 02/09/2024 11:12 PM Date Activated Date Inactivated Comments 02/09/2024 11:12 PM 02/12/2024 9:32 PM Question Answer Comments Full Code Order Discussed With: Discussion Not M edically Appropriate Summary Purpose Chief Complaint and Reason for Visit Chief Complaint Admit Date XRAY March 09, 2024 2:19pm Additional Source Comments (unrecognized sect ion and content) No Status Records FoundNo Status Records FoundNo Status Records FoundNo Status Records FoundNo Status Records FoundNo Status Records FoundNo Status Records FoundNo Status Records FoundNo Status Records Found INFORMATION SOURCE (unrecogn ized section and content) DATE CREATED AUTHOR 06/13/2020 Andres Zuniga [facility] DATE CREATED AUTHOR AUTHOR'S ORGANIZ ATION 04/19/2022 [facility] DATE CREATED AUTHOR AUTHOR'S ORGANIZ ATION 02/11/2024 [facility] DATE CREATED AUTHOR AUTHOR'S ORGANIZ ATION 04/16/2024 [facility] DATE CREATED AUTHOR AUTHOR'S ORGANIZ ATION 05/10/2024 [facility] DATE CREATED AUTHOR AUTHOR'S ORGANIZ ATION 05/29/2024 [facility] DATE CREATED AUTHOR AUTHOR'S ORGANIZ ATION 05/30/2024 [facility] DATE CREATED AUTHOR AUTHOR'S ORGANIZ ATION 07/13/2024 [facility] DATE CREATED AUTHOR AUTHOR'S ORGANIZ ATION 11/07/2024 [facility] Goals (unrecognized section and content) Goals may be documented in a n alternate sectionGoals may be documented in an alternate sectionGoals may be documented in an alternate sectionGoals may be documented in an alternate sectionGoals may be documented in an alternate sectionGoals may be documented in an alternate section No data available for this section Care Teams (unrecognized sec tion and content) Team Status: Active Member Role Status Dates Marcy Callahan NP, COLLATOR-C Family Provider Active Gómez Priyank , COLLATOR-C Primary Care Provider Active Team Status: Inactive Member Role Status Dates Gómez Yost , COLLATOR-C Primary Care Provi chai, Attending Provider, Referring Provider Active Crm Developer Relationship Specialty Start Date End Date Ev Zeng MD [address] [place] [address] 2 [place] [address] PCP - General Internal Medicine 02/09/24 Crm Developer Relationship Specialty Start Date End Date Ev Zeng MD [address] [place] [address] 2 [place] [address] PCP - General Internal Medicine 02/09/24 Crm Developer Relationship Specialty Start Date End Date Ev Zeng MD [address] [place] [address] 2 [place] [address] PCP - General Internal Medicine 02/09/24 Crm Developer Relationship Specialty Start Date End Date Ev Zeng MD [address] [place] [address] 2 [place] [address] PCP - General Internal Medicine 02/09/24 Crm Developer Relationship Specialty Start Date End Date Ev Zeng MD [address] [place] [address] 2 [place] [address] PCP - General Internal Medicine 02/09/24 Crm Developer Relationship Specialty Start Date End Date Ev Zeng MD [address] [place] [address] 2 [place] [address] PCP - General Internal Medicine 02/09/24 Crm Developer Relationship Specialty Start Date End Date Ev Zeng MD [address] [place] [address] 2 [place] [address] PCP - General Internal Medicine 02/09/24 Crm Developer Relationship Specialty Start Date End Date Ev Zeng MD [address] [place] [address] 2 [place] [address] PCP - General Internal Medicine 02/09/24 Crm Developer Relationship Specialty Start Date End Date Ev Zeng MD [address] [facility] [address] [place] [address] PCP - General Internal Medicine 02/09/24 Crm Developer Relationship Specialty Start Date End Date Ev Zeng MD [address] [facility] [address] [place] [address] PCP - General Internal Medicine 02/09/24 Crm Developer Relationship Specialty Start Date End Date Ev Zeng MD [facility] [address] [place] [address] PCP - General Internal Medicine 02/09/24 Crm Developer Relationship Specialty Start Date End Date Ev Zeng MD [facility] [address] [place] [address] PCP - General Internal Medicine 02/09/24 Crm Developer Relationship Specialty Start Date End Date Ev Zeng MD [address] [place] [address] 2 [place] [address] PCP - General Internal Medicine 02/09/24 Crm Developer Relationship Specialty Start Date End Date Ev Zeng MD [facility] [address] [place] [address] PCP - General Internal Medicine 02/09/24 Crm Developer Relationship Specialty Start Date End Date Ev Zeng MD [address] [place] [address] 2 [place] [address] PCP - General Internal Medicine 02/09/24 Crm Developer Relationship Specialty Start Date End Date Ev Zeng MD [facility] [address] [place] [address] PCP - General Internal Medicine 02/09/24 Team Status: Inactive Member Role Status Dates Gómez Yost NP-C Primary Care Provider Active Start: March 09, 2024 End: March 09, 2024 Dr. Gary Paz MD Attending Provider Active S tart: March 09, 2024 End: March 09, 2024 Team Status: Inactive Member Role Status Dates QUYEN Griffith Primary Care Provider Active Start: June 30, 2024 End: June 30, 2024 QUYEN Griffith Attending Provider Active Start: June 30, 2024 End: June 30, 2024 QUYEN Griffith Referring Provider Active Start: June 30, 2024 End: June 30, 2024 Team Status: Inactive Member Role Status Dates QUYEN Griffith Primary Care Provider Active Start: July 07, 2024 End: July 07, 2024 QUYEN Griffith Attending Provider Active Start: July 07, 2024 End: July 07, 2024 QUYEN Griffith Referring Provider Active Start: July 07, 2024 End: July 07, 2024 Source Comments (unrecognize d section and content) In the event this informatio n is protected by the Federal Confidentiality of Alcohol and Drug Abuse Patient Records regulations: The Federal rules restrict any use of the information to criminally investigate or prosecute any alcohol or drug abuse patient.[facility]In the event this information is protected by the Federal Confidentiality of Alcohol and Drug Abuse Patient Records regulations: The Federal rules restrict any use of the information to criminally investigate or prosecute any alcohol or drug abuse patient.[facility] ShawIn the event this information is protected by the Federal Confidentiality of Alcohol and Drug Abuse Patient Records regulations: The Federal rules restrict any use of the information to criminally investigate or prosecute any alcohol or drug abuse patient.[facility] ShawIn the event this information is protected by the Federal Confidentiality of Alcohol and Drug Abuse Patient Records regulations: The Federal rules restrict any use of the information to criminally investigate or prosecute any alcohol or drug abuse patient.[facility] ShawIn the event this information is protected by the Federal Confidentiality of Alcohol and Drug Abuse Patient Records regulations: The Federal rules restrict any use of the information to criminally investigate or prosecute any alcohol or drug abuse patient.[facility] ShawIn the event this information is protected by the Federal Confidentiality of Alcohol and Drug Abuse Patient Records regulations: The Federal rules restrict any use of the information to criminally investigate or prosecute any alcohol or drug abuse patient.[facility] ShawIn the event this information is protected by the Federal Confidentiality of Alcohol and Drug Abuse Patient Records regulations: The Federal rules restrict any use of the information to criminally investigate or prosecute any alcohol or drug abuse patient.[facility] ShawIn the event this information is protected by the Federal Confidentiality of Alcohol and Drug Abuse Patient Records regulations: The Federal rules restrict any use of the information to criminally investigate or prosecute any alcohol or drug abuse patient.[facility] ShawIn the event this information is protected by the Federal Confidentiality of Alcohol and Drug Abuse Patient Records regulations: The Federal rules restrict any use of the information to criminally investigate or prosecute any alcohol or drug abuse patient.[facility] ShawIn the event this information is protected by the Federal Confidentiality of Alcohol and Drug Abuse Patient Records regulations: The Federal rules restrict any use of the information to criminally investigate or prosecute any alcohol or drug abuse patient.[facility] ShawIn the event this information is protected by the Federal Confidentiality of Alcohol and Drug Abuse Patient Records regulations: The Federal rules restrict any use of the information to criminally investigate or prosecute any alcohol or drug abuse patient.[facility] ShawIn the event this information is protected by the Federal Confidentiality of Alcohol and Drug Abuse Patient Records regulations: The Federal rules restrict any use of the information to criminally investigate or prosecute any alcohol or drug abuse patient.[facility] ShawIn the event this information is protected by the Federal Confidentiality of Alcohol and Drug Abuse Patient Records regulations: The Federal rules restrict any use of the information to criminally investigate or prosecute any alcohol or drug abuse patient.[facility] ShawIn the event this information is protected by the Federal Confidentiality of Alcohol and Drug Abuse Patient Records regulations: The Federal rules restrict any use of the information to criminally investigate or prosecute any alcohol or drug abuse patient.[facility] ShawIn the event this information is protected by the Federal Confidentiality of Alcohol and Drug Abuse Patient Records regulations: The Federal rules restrict any use of the information to criminally investigate or prosecute any alcohol or drug abuse patient.[facility] ShawIn the event this information is protected by the Federal Confidentiality of Alcohol and Drug Abuse Patient Records regulations: The Federal rules restrict any use of the information to criminally investigate or prosecute any alcohol or drug abuse patient.[facility] ShawIn the event this information is protected by the Federal Confidentiality of Alcohol and Drug Abuse Patient Records regulations: The Federal rules restrict any use of the information to criminally investigate or prosecute any alcohol or drug abuse patient.[facility] ShawIn the event this information is protected by the Federal Confidentiality of Alcohol and Drug Abuse Patient Records regulations: The Federal rules restrict any use of the information to criminally investigate or prosecute any alcohol or drug abuse patient.[facility] ShawIn the event this information is protected by the Federal Confidentiality of Alcohol and Drug Abuse Patient Records regulations: The Federal rules restrict any use of the information to criminally investigate or prosecute any alcohol or drug abuse patient.[facility] ShawIn the event this information is protected by the Federal Confidentiality of Alcohol and Drug Abuse Patient Records regulations: The Federal rules restrict any use of the information to criminally investigate or prosecute any alcohol or drug abuse patient.[facility] ShawIn the event this information is protected by the Federal Confidentiality of Alcohol and Drug Abuse Patient Records regulations: The Federal rules restrict any use of the information to criminally investigate or prosecute any alcohol or drug abuse patient.[facility] ShawIn the event this information is protected by the Federal Confidentiality of Alcohol and Drug Abuse Patient Records regulations: The Federal rules restrict any use of the information to criminally investigate or prosecute any alcohol or drug abuse patient.[facility] ShawIn the event this information is protected by the Federal Confidentiality of Alcohol and Drug Abuse Patient Records regulations: The Federal rules restrict any use of the information to criminally investigate or prosecute any alcohol or drug abuse patient.[facility] ShawIn the event this information is protected by the Federal Confidentiality of Alcohol and Drug Abuse Patient Records regulations: The Federal rules restrict any use of the information to criminally investigate or prosecute any alcohol or drug abuse patient.[facility] Reason for Visit (unrecogniz ed section and content) Reason Comments Stroke Reason Comments Patient Question Reason Onset Date Comments Stroke discharge callback 02/18/2024 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 [address] Rosamaria Hedrick APRN.SPORTS SPECIALIST [address] [place] [address] Referral ID Status Reason Start Date Expiration Date Visits Re quested Visits Authorized [id number] Closed 02/24/2024 05/24/2024 1 1 Reason Comments MEDICATION REQUEST Reason Comments Results Reason Comments CARD New Patient Consult COLLATOR REF FOR PFO Specialty Diagnoses / Procedures Referred By Franco t Referred To Contact Diagnoses PFO (patent foramen ovale) PFO (patent foramen ovale) [Q21.12] Procedures PRQ TCAT CLSR CGEN INTRATRL COMUNICAJ W/IMPLT INTRACARD ECHOCARD W/THER/DX IVNTJ INCL IMG S&I PERCUTANEOUS TRANSCATHETER CLOSURE OF CONGENITAL INTERATRIAL COMMUNICATION W/O IMPLANT INTRACARDIAC ECHOCARDIOGRAPHY DURING THERAPEUTIC/DIAGNOSTIC INTERVENTION W/ IMAGING SUPERVISION/INTERPRETATION [facility] [address] [place] [address] Referral ID Status Reason Start Date Expiration Date Visits Re quested Visits Authorized [id number] 1 1 Reason Comments Radiology US Reason Comments CARD Follow Up 1 Month PFO (patent priya en ovale) Reason Comments Follow Up Scheduled Active and Recently Administ ered Medications (unrecognized section and content) Medication Order 04/07/2024 04/08/2024 04/09/2024 ceFAZolin iv piggyback 1 g in D5W (iso-osmotic) 50 mL (ANCEF) (COMPLETED) 1 g, INTRAVENOUS, at 100 mL/hr, Administer over 30 Minutes, ONCE, 1 dose, On Agnieszka 04/09/24 at 0830, GREGORIO product = Refrigerate. B. Arredondo DUPLEX product = Room Temp., Antimicrobial indication: Prophylaxis, Preprocedure 0945 (New Bag/Syring e/Bottle - Provider: Gela Munoz RN) PRN Medication Order 04/07/2024 04/08/2024 04/09/2024 atropine 0.4 mg injection 0.4 mg, INTRAVENOUS, PRN(NO DISPENSE), Starting on Sat04/09/24 at 1116, Until Sat04/10/24 at 0303, See admin instructions, Give for symptomatic bradycardia (less than 50 beats per minute) and notify physician fentaNYL 50 mcg/mL injection (SUBLIMAZE) (COMPLETED) INTRAVENOUS, X (OR/PROCEDURE) PRN, Starting on Agnieszka 04/09/24 at 1001, Until Sat04/09/24 at 1013, Intraprocedure 1001 (Given - Provid er: Edinson Wylie RN)1013 (Given - Provider: Edinson Wylie RN) heparin injection (COMPLETED) INTRAVENOUS, X (OR/PROCEDURE) PRN, Starting on Agnieszka 04/09/24 at 1013, Until Agnieszka 04/09/24 at 1013, Intraprocedure 1013 (Given - Provid er: Edinson Wylie RN) midazolam (PF) injection (VERSED) (COMPLETED) INTRAVENOUS, X (OR/PROCEDURE) PRN, Starting on Agnieszka 04/09/24 at 1001, Until Agnieszka 04/09/24 at 1013, Intraprocedure 1001 (Given - Provid er: Edinson Wylie RN)1013 (Given - Provider: Edinson Wylie RN) NaCl 0.9% iv flush bag 20 mL, INTRAVENOUS, NEEDED, Starting on Agnieszka 04/09/24 at 1116, Until Sat04/10/24 at 0303, See admin instructions, If no compatible primary is already running, infuse NaCl 0.9% as primary to flush tubing after non-chemotherapy, non-immunotherapy intermittent infusions. Administer at the same rate as intermittent infusion. Select the "Flush Bag" file on smart pump. nitroglycerin sublingual 0.4 mg tab(s) (NITROQUICK) 0.4 mg, SUBLINGUAL, EVERY 5 MINUTES NEEDED, Starting on Agnieszka 04/09/24 at 1116, Until Sat04/10/24 at 0303, chest pain, Usual dose for angina is 1 tablet every 5 minutes for maximum of 3 doses in 15 minutes. Notify LIP if chest pain is not relieved with [address] tablet under tongue and allow to dissolve; do not chew or break. perflutren lipid microspheres 1.1 mg/mL 1.3 mL injection (DEFINITY)(Linked Group 1) 1.3 mL, INTRAVENOUS, DIRECTED NEEDED, 1 dose, Starting on Agnieszka 04/09/24 at 1047, Until Sat04/10/24 at 0303, Per Protocol - for use during ECHO procedure only, Perflutren must be activated prior to administration. Once activated: 1. Diluted IV Bolus: Dilute 1.3 mL of Definity with 8.7 mL of preservative-free saline 2. Undiluted IV Bolus: Administer undiluted Definity followed by a preservative-free 10 mL saline flush. sodium chloride 0.9 % (flush) 2-10 mL (BD POSIFLUSH)(Linked Group 1) 2-10 mL, INTRAVENOUS, DIRECTED NEEDED, 1 dose, Starting on Agnieszka 04/09/24 at 1047, Until Sat04/10/24 at 0303, Per Protocol - for use during ECHO procedure only. Linked Groups Order Group 1: ECHO LIMITED (COMPLETED) ONCE, On Agnieszka 04/09/24 at 1100, For 1 occurrence, Routine And sodium chloride 0.9 % (flush) 2-10 mL (BD POSIFLUSH)Jump to med 2-10 mL, INTRAVENOUS, DIRECTED NEEDED, 1 dose, Starting on Agnieszka 04/09/24 at 1047, Until Sat04/10/24 at 0303, Per Protocol - for use during ECHO procedure only. And perflutren lipid microspheres 1.1 mg/mL 1.3 mL injection (DEFINITY)Jump to med 1.3 mL, INTRAVENOUS, DIRECTED NEEDED, 1 dose, Starting on Agnieszka 04/09/24 at 1047, Until Sat04/10/24 at 0303, Per Protocol - for use during ECHO procedure only, Perflutren must be activated prior to administration. Once activated: 1. Diluted IV Bolus: Dilute 1.3 mL of Definity with 8.7 mL of preservative-free saline 2. Undiluted IV Bolus: Administer undiluted Definity followed by a preservative-free 10 mL saline flush. FOR RECORDS PERTAINING TO PATIENTS WHO ARE [...] BE BASED ON THE PRIMARY CLINICAL RECORDS. [employer] [facility]. provides no warranty or guarantee of the accuracy or completeness of information in this document.
[2024-12-18 08:03] LABS: Hematocrit 38.0 % (40-54); Hemoglobin 13.1 g/dL (13.0-16.5); Immature Granulocytes Count 0.010 X10^3/uL (0.0-0.0); Mean Corp Hgb Conc 34.5 g/dL (32-36); Mean Corpuscular Volume 91.6 fL (80-94); Mean Platelet Vol. 10.5 fl (6.2-12.0); NRBC Flagged by Analyzer 0 % (0-5); Platelet Count 208 K/mm3 (150-450); RBC Distribution Width CV 11.9 % (11.6-14.6); RBC Distribution Width SD 40.4 fl (35.1-43.9); Red Blood Count 4.15 M/mm3 (4.6-6.2); White Blood Count 5.4 K/mm3 (4.4-11.0)
[2024-12-18 08:18] LABS: Creatinine, Urine (random) 436.00 mg/dL (39.00-259.00); Protein, Urine (Random) 40.3 mg/dL (0.0-12.0); Protein:Creat Ratio 92 mg/g CRE (0-200)
[2024-12-18 08:36] LABS: Color, Urine Yellow (Yellow); Glucose, Dipstick Normal (Normal); Ketone-Dipstick Negative (Negative); Leukocyte Esterase-Dipstick 25 /ul (Negative); Nitrite-Dipstick Negative (Negative); Occult Blood-Urine Negative /ul (Negative); Protein-Dipstick 30 mg/dl (Negative); Specific Gravity, Urine 1.020 (1.002-1.030); Urine Bilirubin Dipstick Negative (Negative)
[2024-12-18 08:43] LABS: AST(SGOT) 26 U/L (<=37); Alanine Aminotransfer ALT/SGPT 22 U/L (<=46); Albumin, Serum 4.3 g/dL (3.4-4.8); Alkaline Phosphatase 52 U/L (40-129); Anion Gap 12 (5-15); BUN 16 mg/dL (4-19); BUN/Creat Ratio 13.5 RATIO (10-20); Calcium,Total 9.4 mg/dL (7.6-11.0); Carbon Dioxide 26.2 mmol/L (21.0-32.0); Chloride 104 mmol/L (98-108); Cholesterol 160 mg/dL (<=200); Globulin 2.0 g/dL (2.2-4.2); Glucose 110 mg/dL (70-99); Low Density Lipoprotein Calc. 81 mg/dL; Potassium 4.4 mmol/L (3.3-5.1); Triglycerides 85 mg/dL; Very Low Density Lipoprotein 17 mg/dL (5-40); cholesterol:hdl ratio screen 2.60
[2024-12-18 08:44] LABS: Mucous, Urine 1+ /hpf (<or=2+); Squamous Epithelial Cells - UA 0-5 SEEN /hpf (0-5)
== END | disposition home or self-care (01) ==
LOC: LAB 07:10
PROVIDERS: PCP Nurse Practitioner Family; Referring Provider Nurse Practitioner Family; Visit Provider Nurse Practitioner Family
DX: R80.9 Proteinuria, unspecified (principal); R73.09 Other abnormal glucose; E78.00 Pure hypercholesterolemia, unspecified; E03.9 Hypothyroidism, unspecified; I10 Essential (primary) hypertension
CPT/HCPCS: 36415; 80053; 80061; 81001; 81050; 82570; 83036; 84156; 84443; 85025; 87086; 87088